=== PATIENT | female | born 1935 | race Caucasian/White ===

== ENCOUNTER → 2016-10-02 | Outpatient (CLI) | payer MEDICARE ==
[2016-10-02 10:52] LABS: Basophils % (A) 1 %; CH 33.2; CHCM 33.7; Eosinophils # (A) 0.1 k/uL (0-0.7); Eosinophils % (A) 2 %; HCT 44.9 % (34.0-46.0); HDW 2.34; HGB 15.3 gm/dL (11.4-16.0); Luc % (Auto) 3; Lymphocytes # (A) 1.2 k/uL (1.0-4.8); Lymphocytes % (A) 15 %; MCH 33.8 pg (25.0-35.0); MCHC 34.1 g/dL (31.0-37.0); MCV 99.2 fL (80.0-100.0); Mean Platelet Volume 7.4; Monocytes # (A) 0.3 k/uL (0-1.0); Monocytes % (A) 4 %; Neutrophils # (A) 5.9 k/uL (1.3-7.7); Neutrophils % (A) 76 %; RBC 4.53 m/uL (3.80-5.40); RDW 13.5 % (11.5-15.5); WBC 7.8 k/uL (3.8-10.6)
[2016-10-02 12:39] LABS: ALT 35 U/L (9-52); AST 35 U/L (14-36); Alkaline Phosphatase 76 U/L (38-126); Anion Gap 9 mmol/L; Blood Urea Nitrogen 20 mg/dL (7-17); Calcium 10.2 mg/dL (8.4-10.2); Carbon Dioxide 30 mmol/L (22-30); Chloride 102 mmol/L (98-107); Glucose 101 mg/dL (74-99); Non-African American GFR(MDRD) >60 (>60 ml/min/1.73 sqM); Potassium 3.8 mmol/L (3.5-5.1); Sodium 141 mmol/L (137-145); Total Bilirubin 0.7 mg/dL (0.2-1.3); Total Protein 7.8 g/dL (6.3-8.2)
[2016-10-02 12:53] LABS: Erythrocyte Sedimentation Rate 11 mm/hr (0-20)
[2016-10-02 13:32] LABS: Vitamin B12 >1000 pg/mL
== END | disposition home or self-care (01) ==
LOC: LABWHC1 10:26
PROVIDERS: ATTEND Internal Medicine
DX: R42 Dizziness and giddiness (principal)
CPT/HCPCS: 36415; 80053; 82607; 84439; 84443; 85025; 85652; 86038

== ENCOUNTER → 2017-09-30 | Outpatient (CLI) | payer MEDICARE ==
[2017-09-30 12:53] LABS: Basophils # (A) 0.1 k/uL (0-0.2); Basophils % (A) 1 %; Eosinophils # (A) 0.1 k/uL (0-0.7); Eosinophils % (A) 1 %; HCT 41.4 % (34.0-46.0); HGB 14.7 gm/dL (11.4-16.0); Lymphocytes # (A) 1.4 k/uL (1.0-4.8); Lymphocytes % (A) 18 %; MCH 33.4 pg (25.0-35.0); MCHC 35.4 g/dL (31.0-37.0); MCV 94.4 fL (80.0-100.0); Mean Platelet Volume 7.9; Monocytes # (A) 0.5 k/uL (0-1.0); Monocytes % (A) 6 %; Neutrophils # (A) 5.7 k/uL (1.3-7.7); Neutrophils % (A) 72 %; Platelet Count 256 k/uL (150-450); RBC 4.39 m/uL (3.80-5.40); RDW 13.1 % (11.5-15.5); WBC 7.9 k/uL (3.8-10.6)
[2017-09-30 13:28] LABS: Albumin 4.5 g/dL (3.5-5.0); Calcium 10.4 mg/dL (8.4-10.2); Potassium 3.8 mmol/L (3.5-5.1); Total Bilirubin 0.6 mg/dL (0.2-1.3); Total Protein 7.6 g/dL (6.3-8.2)
[2017-09-30 13:45] LABS: T4, Free (Free Thyroxine) 1.29 ng/dL (0.78-2.19)
[2017-09-30 14:08] LABS: Erythrocyte Sedimentation Rate 13 mm/hr (0-20)
== END | disposition home or self-care (01) ==
LOC: LABWHC1 12:02
PROVIDERS: ATTEND Internal Medicine
DX: I10 Essential (primary) hypertension (principal); E78.5 Hyperlipidemia, unspecified; E55.9 Vitamin D deficiency, unspecified; R53.1 Weakness
CPT/HCPCS: 36415; 80053; 80061; 82306; 82607; 84439; 84443; 85025; 85652

== ENCOUNTER 2018-03-23 09:30 | Emergency (ER) | payer MEDICARE ==
[2018-03-23] MEDS ORDERED: SODIUM CHLORIDE 0.9% 1,000 ML IV STA (09:58)
[2018-03-23] MEDS ORDERED: SODIUM CHLORIDE 0.9% 500 ML IV STA (09:58)
--- NOTE | 2018-03-23 10:13 | ED ---
General Adult HPI - General Chief complaint: Recheck/Abnormal Lab/Rx Stated complaint: CRAMP, SLEEPLESSNESS Time Seen by Provider: 03/23/18 09:47 Source: patient, RN notes reviewed Mode of arrival: wheelchair Limitations: no limitations - History of Present Illness Initial comments: This is a 82-year-old female who is on diuretics who presents with complaints of 3 days of generalized cramps the last 4 hours at times. She states she's had some any episodes of cramps. She's not been able sleep last several nights. Currently she is pain-free she has a fevers chills nausea vomiting sweats no focal weakness. No palpitations or other symptoms. - Related Data Home Medications Medication Instructions Recorded Confirmed Atenolol/Chlorthalidone [Tenoretic 0.5 tab PO DAILY 01/20/15 03/23/18 50 Tablet] Fluticasone Nasal [place] [Flonase 1 spray EA NOSTRIL DAILY PRN 06/27/17 03/23/18 Nasal [place]] Fluticasone/Salmeterol [Advair Hfa 2 puff INHALATION RT-BID 06/27/17 03/23/18 115-21 Mcg Inhaler] amLODIPine [Norvasc] 5 mg PO DAILY 06/27/17 03/23/18 clonazePAM [KlonoPIN] 0.5 mg PO HS 06/27/17 03/23/18 Albuterol Inhaler [Ventolin Hfa 1 - 2 puff INHALATION RT-Q6H PRN 03/23/18 Inhaler] Fexofenadine HCl [Jacey Allergy] 180 mg PO DAILY 03/23/18 03/23/18 Furosemide [Lasix] 20 mg PO DAILY 03/23/18 03/23/18 Magnesium 200 mg PO DAILY 03/23/18 03/23/18 Previous Rx's Medication Instructions Recorded Magnesium 200 mg PO DAILY #15 tablet 03/23/18 Allergies Allergy/AdvReac Type Severity Reaction Status Date / Time amoxicillin Allergy Rash/Hives Verified 03/23/18 10:27 fluconazole [From Diflucan] Allergy Unknown Verified 03/23/18 10:27 moxifloxacin HCl Allergy Rash/Hives Verified 03/23/18 10:27 [From Avelox] sulfamethoxazole Allergy Rash/Hives Verified 03/23/18 10:27 [From Bactrim] trimethoprim [From Bactrim] Allergy Rash/Hives Verified 03/23/18 10:27 Review of Systems ROS Statement: Those systems with pertinent positive or pertinent negative responses have been documented in the HPI. ROS Other: All systems not noted in ROS Statement are negative. Past Medical History Past Medical History: COPD, Hypertension Additional Past Medical History / Comment(s): diverticulosis History of Any Multi-Drug Resistant Organisms: None Reported Past Surgical History: Hysterectomy Past Psychological History: No Psychological Hx Reported Smoking Status: Former smoker Past Alcohol Use History: Occasional Past Drug Use History: None Reported General Exam - General Exam Comments Initial Comments: This is a well-developed well-nourished awake alert oriented 3 female Limitations: no limitations General appearance: alert, in no apparent distress Head exam: Present: atraumatic, normocephalic, normal inspection Eye exam: Present: normal appearance, PERRL, EOMI. Absent: scleral icterus, conjunctival injection, periorbital swelling ENT exam: Present: mucous membranes dry Neck exam: Present: normal inspection. Absent: tenderness, meningismus, lymphadenopathy Respiratory exam: Present: normal lung sounds bilaterally. Absent: respiratory distress, wheezes, rales, rhonchi, stridor Cardiovascular Exam: Present: regular rate, normal rhythm, normal heart sounds. Absent: systolic murmur, diastolic murmur, rubs, gallop, clicks GI/Abdominal exam: Present: soft, normal bowel sounds. Absent: distended, tenderness, guarding, rebound, rigid Extremities exam: Present: normal inspection, full ROM, normal capillary refill. Absent: tenderness, pedal edema, joint swelling, calf tenderness Back exam: Present: normal inspection Neurological exam: Present: alert, oriented X3, CN II-XII intact Psychiatric exam: Present: normal affect, normal mood Skin exam: Present: warm, dry, intact, normal color. Absent: rash Course Vital Signs 03/23/18 09:33 Temperature 97.5 F L Pulse Rate 89 Respiratory 18 Rate Blood Pressure 137/70 O2 Sat by Pulse 91 L Oximetry EKG Findings - EKG Results: EKG: interpreted by SUSAN, sinus rhythm (Normal sinus rhythm a 76. A 178 QRS duration 88 QT since QTC 384/432 this is a normal-appearing EKG) Medical Decision Making - Medical Decision Making I did discuss the findings with the patient. She will be receiving IV and easy him and be discharged he'll follow-up with her doctor return when necessary - Lab Data Result diagrams: 03/23/18 10:27 03/23/18 10:27 Lab Results 03/23/18 03/23/18 Range/Units 10:27 10:27 WBC 6.8 (3.8-10.6) k/uL RBC 4.63 (3.80-5.40) m/uL Hgb 14.5 (11.4-16.0) gm/dL Hct 44.2 (34.0-46.0) % MCV 95.5 (80.0-100.0) fL MCH 31.4 (25.0-35.0) pg MCHC 32.9 (31.0-37.0) g/dL RDW 13.1 (11.5-15.5) % Plt Count 274 (150-450) k/uL Neutrophils % 78 % Lymphocytes % 9 % Monocytes % 5 % Eosinophils % 5 % Basophils % 0 % Neutrophils # 5.3 (1.3-7.7) k/uL Lymphocytes # 0.6 L (1.0-4.8) k/uL Monocytes # 0.4 (0-1.0) k/uL Eosinophils # 0.3 (0-0.7) k/uL Basophils # 0.0 (0-0.2) k/uL Sodium 131 L (137-145) mmol/L Potassium 4.2 (3.5-5.1) mmol/L Chloride 90 L (98-107) mmol/L Carbon Dioxide 34 H (22-30) mmol/L Anion Gap 7 mmol/L BUN 18 H (7-17) mg/dL Creatinine 0.79 (0.52-1.04) mg/dL Est GFR (CKD-EPI)AfAm 83 (>60 ml/min/1.73 sqM) Est GFR (CKD-EPI)NonAf 72 (>60 ml/min/1.73 sqM) Glucose 116 H (74-99) mg/dL Calcium 9.9 (8.4-10.2) mg/dL Magnesium 1.3 L (1.6-2.3) mg/dL Total Bilirubin 0.6 (0.2-1.3) mg/dL AST 30 (14-36) U/L ALT 31 (9-52) U/L Alkaline Phosphatase 77 (38-126) U/L Total Protein 6.7 (6.3-8.2) g/dL Albumin 3.6 (3.5-5.0) g/dL Disposition Clinical Impression: Myalgia, Hypomagnesemia, Dehydration Disposition: HOME SELF-CARE Condition: Good Instructions: Musculoskeletal Pain (ED), Hypomagnesemia (ED), Dehydration (ED) Prescriptions: Magnesium 200 mg PO DAILY #15 tablet Is patient prescribed a controlled substance at d/c from ED?: No Referrals: Gabriel Townsend MD [Primary Care Provider] - 1-2 days
[2018-03-23 10:43] LABS: Basophils % (A) 0 %; Eosinophils # (A) 0.3 k/uL (0-0.7); Eosinophils % (A) 5 %; HCT 44.2 % (34.0-46.0); HGB 14.5 gm/dL (11.4-16.0); Lymphocytes # (A) 0.6 k/uL (1.0-4.8); Lymphocytes % (A) 9 %; MCH 31.4 pg (25.0-35.0); MCHC 32.9 g/dL (31.0-37.0); MCV 95.5 fL (80.0-100.0); Mean Platelet Volume 6.3; Monocytes # (A) 0.4 k/uL (0-1.0); Monocytes % (A) 5 %; Neutrophils # (A) 5.3 k/uL (1.3-7.7); Neutrophils % (A) 78 %; Platelet Count 274 k/uL (150-450); RBC 4.63 m/uL (3.80-5.40); RDW 13.1 % (11.5-15.5); WBC 6.8 k/uL (3.8-10.6)
[2018-03-23 10:54] LABS: Albumin 3.6 g/dL (3.5-5.0); Calcium 9.9 mg/dL (8.4-10.2); Magnesium 1.3 mg/dL (1.6-2.3); Potassium 4.2 mmol/L (3.5-5.1); Total Bilirubin 0.6 mg/dL (0.2-1.3); Total Protein 6.7 g/dL (6.3-8.2)
[2018-03-23] MEDS ORDERED: MAGNESIUM SULFATE-D5W PMX 1 GM in DEXTROSE/WATER 1 100ML.BAG IVPB ONE (11:16)
[2018-03-23 12:51] VITALS: BP 122/68; PULSE 74; RESP 20; TEMP 97.8
== END 2018-03-23 12:51 | disposition home or self-care (01) ==
LOC: EC 09:30
DX: E86.0 Dehydration (principal); E83.42 Hypomagnesemia; M79.1 Myalgia; J44.9 Chronic obstructive pulmonary disease, unspecified; I10 Essential (primary) hypertension; Z87.891 Personal history of nicotine dependence; Z79.51 Long term (current) use of inhaled steroids; Z79.899 Other long term (current) drug therapy; Z88.0 Allergy status to penicillin; Z88.1 Allergy status to other antibiotic agents; Z88.2 Allergy status to sulfonamides
CPT/HCPCS: 36415; 93005; 80053; 83735; 85025; 99283; 96365; 96361; J3475

== ENCOUNTER → 2018-04-21 | Outpatient (CLI) | payer MEDICARE | END | disposition home or self-care (01) | LOC: LABWHC1 09:58 | PROVIDERS: ATTEND Internal Medicine | DX: E61.2 Magnesium deficiency (principal) | CPT/HCPCS: 36415; 83735 ==

== ENCOUNTER 2018-11-14 14:57 | Inpatient (IN) | payer MEDICARE ==
[2018-11-14] MEDS ORDERED: SODIUM CHLORIDE 0.9% 500 ML 500 ML IV STA (15:17)
[2018-11-14] MEDS ORDERED: ALBUTEROL NEBULIZED 2.5 MG/3 ML INHALATION STA (15:17)
[2018-11-14] MEDS ORDERED: IPRATROPIUM 0.5 MG/2.5 ML NEBU INHALATION STA (15:17)
[2018-11-14] MEDS ORDERED: DEXAMETHASONE SOD PHOSPHATE 10 MG/ML 1 ML VIAL IV STA (15:18)
--- NOTE | 2018-11-14 15:22 | ED ---
General Adult HPI - General Chief complaint: Shortness of Breath Stated complaint: SOB Time Seen by Provider: 11/14/18 15:12 Source: patient Mode of arrival: wheelchair Limitations: no limitations - History of Present Illness Initial comments: Dictation was produced using [employer] dictation software. please excuse any grammatical, word or spelling errors. Chief Complaint: 83-year-old female past medical history of COPD and hypertension presents with difficulty breathing 1 week. History of Present Illness: Patient is 83-year-old female she has chronic history of COPD. She states she's been short of breath. Prostate 1 week. 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 Patient states that her shortness of breath has been increasing for the last 7 days. She states that her symptoms did not improve puncture to the emergency department. Patient has no pain complaints at this time. Denies any history of blood clots. Patient does have inhalers at home however feels as though her inhalers have not been working recently. Patient denies any cardiac history. Denies any sore throat, chest pain, cough, constitutional symptoms. The ROS documented in this emergency department record has been reviewed and confirmed by me. Those systems with pertinent positive or negative responses have been documented in the HPI. All other systems are other negative and/or noncontributory. PHYSICAL EXAM: General Impression: Alert and oriented x3, breathing through pursed lips HEENT: Normocephalic atraumatic, extra-ocular movements intact, pupils equal and reactive to light bilaterally, mucous membranes moist. Cardiovascular: Heart regular rate and rhythm, S1&S2 audible, no murmurs, rubs or gallops Chest: Diminished bilateral lung sounds with mild end expiratory wheezing. Abdomen: Bowel sounds present, abdomen soft, non-tender, non-distended, no organomegaly Musculoskeletal: Pulses present and equal in all extremities, no peripheral edema Motor: no focal deficits noted Neurological: CN II-XII grossly intact, no focal motor or sensory deficits noted Skin: Intact with no visualized rashes Psych: Normal affect and mood ED course: 83-year-old female past medical history of COPD presents with chief complaint of shortness of breath. Signs upon arrival shows 90% on 2 L is cannula, rest of vital signs within acceptable limits. Clinical presentation is suspicious for COPD exacerbation. Patient ordered breathing treatment and corticosteroids.Patient given a breathing treatment with persistent dyspnea. Patient another breathing treatment. Patient continues to require supplemental oxygen. Given patient's clinical presentation is consistent with COPD exacerbation and hypoxic respiratory failure. Patient be admitted. She is given corticosteroids, breathing treatments, supplemental oxygen, antibiotics. Patient understandable agreeable to admission. EKG interpretation: Ventricular rate 89, sinus rhythm, NE interval 18, QRS 90, QTC 462. No NE prolongation, no QTC prolongation, no ST or T-wave changes noted. Overall, this EKG is unremarkable - Related Data Home Medications Medication Instructions Recorded Confirmed Atenolol/Chlorthalidone [Tenoretic 0.5 tab PO DAILY 01/20/15 03/23/18 50 Tablet] Fluticasone Nasal [place] [Flonase 1 spray EA NOSTRIL DAILY PRN 06/27/17 03/23/18 Nasal [place]] Fluticasone/Salmeterol [Advair Hfa 2 puff INHALATION RT-BID 06/27/17 03/23/18 115-21 Mcg Inhaler] amLODIPine [Norvasc] 5 mg PO DAILY 06/27/17 03/23/18 clonazePAM [KlonoPIN] 0.5 mg PO HS 06/27/17 03/23/18 Albuterol Inhaler [Ventolin Hfa 1 - 2 puff INHALATION RT-Q6H PRN 03/23/18 03/23/18 Inhaler] Fexofenadine HCl [Jacey Allergy] 180 mg PO DAILY 03/23/18 03/23/18 Furosemide [Lasix] 20 mg PO DAILY 03/23/18 03/23/18 Magnesium 200 mg PO DAILY 03/23/18 03/23/18 Previous Rx's Medication Instructions Recorded Magnesium 200 mg PO DAILY #15 tablet 03/23/18 Allergies Allergy/AdvReac Type Severity Reaction Status Date / Time amoxicillin Allergy Rash/Hives Verified 11/14/18 16:39 fluconazole [From Diflucan] Allergy Unknown Verified 11/14/18 16:39 moxifloxacin HCl Allergy Rash/Hives Verified 11/14/18 16:39 [From Avelox] sulfamethoxazole Allergy Rash/Hives Verified 11/14/18 16:39 [From Bactrim] trimethoprim [From Bactrim] Allergy Rash/Hives Verified 11/14/18 16:39 Review of Systems ROS Statement: Those systems with pertinent positive or pertinent negative responses have been documented in the HPI. ROS Other: All systems not noted in ROS Statement are negative. Past Medical History Past Medical History: COPD, Hypertension Additional Past Medical History / Comment(s): diverticulosis History of Any Multi-Drug Resistant Organisms: None Reported Past Surgical History: Hysterectomy Past Psychological History: No Psychological Hx Reported Smoking Status: Former smoker Past Alcohol Use History: Occasional Past Drug Use History: None Reported General Exam Limitations: no limitations Course Vital Signs 11/14/18 11/14/18 11/14/18 15:05 15:24 15:39 Temperature 97.8 F Pulse Rate 94 86 85 Respiratory 18 Rate Blood Pressure 134/60 O2 Sat by Pulse 90 L Oximetry 11/14/18 11/14/18 11/14/18 15:46 15:54 16:12 Temperature Pulse Rate 87 87 92 Respiratory 18 Rate Blood Pressure 115/75 O2 Sat by Pulse 100 Oximetry 11/14/18 16:40 Temperature 98.1 F Pulse Rate 91 Respiratory 22 Rate Blood Pressure 123/63 O2 Sat by Pulse 97 Oximetry Medical Decision Making - Lab Data Result diagrams: 11/14/18 15:30 11/14/18 15:30 Lab Results 11/14/18 11/14/18 11/14/18 Range/Units 15:30 15:30 15:30 WBC 12.2 H (3.8-10.6) k/uL RBC 4.64 (3.80-5.40) m/uL Hgb 14.8 (11.4-16.0) gm/dL Hct 43.6 (34.0-46.0) % MCV 94.0 (80.0-100.0) fL MCH 31.9 (25.0-35.0) pg MCHC 33.9 (31.0-37.0) g/dL RDW 13.5 (11.5-15.5) % Plt Count 352 (150-450) k/uL Neutrophils % 82 % Lymphocytes % 9 % Monocytes % 4 % Eosinophils % 3 % Basophils % 0 % Neutrophils # 10.0 H (1.3-7.7) k/uL Lymphocytes # 1.1 (1.0-4.8) k/uL Monocytes # 0.5 (0-1.0) k/uL Eosinophils # 0.4 (0-0.7) k/uL Basophils # 0.0 (0-0.2) k/uL PT (9.0-12.0) sec INR (<1.2) APTT (22.0-30.0) sec Sodium 132 L (137-145) mmol/L Potassium 3.5 (3.5-5.1) mmol/L Chloride 95 L (98-107) mmol/L Carbon Dioxide 25 (22-30) mmol/L Anion Gap 12 mmol/L BUN 18 H (7-17) mg/dL Creatinine 0.49 L (0.52-1.04) mg/dL Est GFR (CKD-EPI)AfAm >90 (>60 ml/min/1.73 sqM) Est GFR (CKD-EPI)NonAf >90 (>60 ml/min/1.73 sqM) Glucose 132 H (74-99) mg/dL Calcium 10.4 H (8.4-10.2) mg/dL Total Bilirubin 0.5 (0.2-1.3) mg/dL AST 35 (14-36) U/L ALT 30 (9-52) U/L Alkaline Phosphatase 72 (38-126) U/L Troponin I (0.000-0.034) ng/mL NT-Pro-B Natriuret Pep 113 pg/mL Total Protein 7.8 (6.3-8.2) g/dL Albumin 4.7 (3.5-5.0) g/dL 11/14/18 11/14/18 Range/Units 15:30 15:30 WBC (3.8-10.6) k/uL RBC (3.80-5.40) m/uL Hgb (11.4-16.0) gm/dL Hct (34.0-46.0) % MCV (80.0-100.0) fL MCH (25.0-35.0) pg MCHC (31.0-37.0) g/dL RDW (11.5-15.5) % Plt Count (150-450) k/uL Neutrophils % % Lymphocytes % % Monocytes % % Eosinophils % % Basophils % % Neutrophils # (1.3-7.7) k/uL Lymphocytes # (1.0-4.8) k/uL Monocytes # (0-1.0) k/uL Eosinophils # (0-0.7) k/uL Basophils # (0-0.2) k/uL PT 9.7 (9.0-12.0) sec INR 0.9 (<1.2) APTT 23.3 (22.0-30.0) sec Sodium (137-145) mmol/L Potassium (3.5-5.1) mmol/L Chloride (98-107) mmol/L Carbon Dioxide (22-30) mmol/L Anion Gap mmol/L BUN (7-17) mg/dL Creatinine (0.52-1.04) mg/dL Est GFR (CKD-EPI)AfAm (>60 ml/min/1.73 sqM) Est GFR (CKD-EPI)NonAf (>60 ml/min/1.73 sqM) Glucose (74-99) mg/dL Calcium (8.4-10.2) mg/dL Total Bilirubin (0.2-1.3) mg/dL AST (14-36) U/L ALT (9-52) U/L Alkaline Phosphatase (38-126) U/L Troponin I <0.012 (0.000-0.034) ng/mL NT-Pro-B Natriuret Pep pg/mL Total Protein (6.3-8.2) g/dL Albumin (3.5-5.0) g/dL Disposition Clinical Impression: COPD exacerbation, Acute respiratory failure with hypoxia Disposition: ADMITTED IP TO THIS HOSP Condition: Fair Referrals: Gabriel Townsend MD [Primary Care Provider] - 1-2 days Decision Time: 16:51
[2018-11-14 15:47] LABS: Basophils % (A) 0 %; Eosinophils # (A) 0.4 k/uL (0-0.7); Eosinophils % (A) 3 %; HCT 43.6 % (34.0-46.0); HGB 14.8 gm/dL (11.4-16.0); Lymphocytes # (A) 1.1 k/uL (1.0-4.8); Lymphocytes % (A) 9 %; MCH 31.9 pg (25.0-35.0); MCHC 33.9 g/dL (31.0-37.0); Mean Platelet Volume 7.1; Monocytes # (A) 0.5 k/uL (0-1.0); Monocytes % (A) 4 %; Neutrophils % (A) 82 %; Platelet Count 352 k/uL (150-450); RBC 4.64 m/uL (3.80-5.40); RDW 13.5 % (11.5-15.5); WBC 12.2 k/uL (3.8-10.6)
[2018-11-14 15:59] LABS: INR 0.9 (<1.2); Partial Thromboplastin Time 23.3 sec (22.0-30.0); Prothrombin Time 9.7 sec (9.0-12.0)
[2018-11-14 16:09] LABS: ALT 30 U/L (9-52); AST 35 U/L (14-36); Albumin 4.7 g/dL (3.5-5.0); Alkaline Phosphatase 72 U/L (38-126); Anion Gap 12 mmol/L; Blood Urea Nitrogen 18 mg/dL (7-17); Calcium 10.4 mg/dL (8.4-10.2); Carbon Dioxide 25 mmol/L (22-30); Chloride 95 mmol/L (98-107); Glucose 132 mg/dL (74-99); Potassium 3.5 mmol/L (3.5-5.1); Sodium 132 mmol/L (137-145); Total Bilirubin 0.5 mg/dL (0.2-1.3); Total Protein 7.8 g/dL (6.3-8.2)
--- NOTE | 2018-11-14 16:39 | XR ---
EXAMINATION TYPE: XR chest 2V DATE OF EXAM: 11/14/2018 COMPARISON: 09/17/2018 HISTORY: Short of breath TECHNIQUE: Frontal and lateral views of the chest are obtained. FINDINGS: There is pulmonary hyperinflation and flattening of the diaphragm. There are emphysematous changes in the upper lobes. Heart size is normal. There is no pleural effusion. There is no heart fa ilure. Bony thorax appears intact. There are some linear density in the lingula left upper lobe consi stent with scarring. IMPRESSION: COPD and mild pulmonary fibrosis. No change compared to old exam. Normal heart.
[2018-11-14] MEDS ORDERED: AZITHROMYCIN 500 MG in SODIUM CHLORIDE 0.9% 250 ML IVPB STA (16:49)
[2018-11-14] MEDS ORDERED: KETOROLAC 30 MG/ML 1 ML VIAL IVP STA (16:50)
[2018-11-14] MEDS ORDERED: FLUTICASONE 50MCG/SPRAY NASAL 16GM EA NOSTRIL PRN (19:04)
[2018-11-14] MEDS: BUDESONIDE 0.25 MG/2 ML NEBU INHALATION SCH (20:40)
[2018-11-14] MEDS: IPRATROPIUM-ALBUTEROL 3 ML NEB INHALATION SCH ×2 (20:40→22:43)
[2018-11-14] MEDS: clonazePAM 0.5 MG TAB PO SCH (22:18)
[2018-11-15] MEDS ORDERED: NON-FORMULARY DRUG (Tiotropium 18 Mcg/Puff 1 CAP) INHALATION SCH (08:00)
[2018-11-15] MEDS: LORATADINE 10 MG TAB PO SCH (08:35)
[2018-11-15] MEDS: CHLORTHALIDONE 25 MG TAB PO SCH (08:35)
[2018-11-15] MEDS: amLODIPine 5 MG TAB PO SCH (08:35)
[2018-11-15] MEDS: ATENOLOL 25 MG TAB PO SCH (08:35)
[2018-11-15] MEDS: IPRATROPIUM-ALBUTEROL 3 ML NEB INHALATION SCH ×4 (08:37→21:27)
[2018-11-15] MEDS: BUDESONIDE 0.25 MG/2 ML NEBU INHALATION SCH ×2 (08:37→21:26)
[2018-11-15] MEDS: SPIRONOLACTONE 25 MG TAB PO SCH (08:37)
--- NOTE | 2018-11-15 08:54 | P.HPIM ---
History of Present Illness This is a pleasant 83 years old female with past medical history of coronary artery disease, hypertension . Presents with worsening dyspnea of one week duration, her dyspnea is worse with exertion with mild nonsignificant cough as per patient. No sputum. No chest pain. Denies sneezing some upper respiratory tract infection. Patient uses oxygen at home at night as needed. on admission Vitas looks stable. She is saturating 94% on 2 L. She has mild leukocytosis of 12.2k. Sodium 132. Creatinine 0.4. Liver enzymes not dora vated. Chest x-ray showed COPD with mild pulmonary fibrosis. EKG: Sinus arrhythmia with rate 89 BPM, QTC 462. Nonspecific ST-T changes. On admission patient was started on a breathing treatment, Zithromax, one dose of Decadron, and continue with prednisone 40 mg daily. Patient also received IV fluid Review of Systems CONSTITUTIONAL: No fever, no malaise, no fatigue. HEENT: No recent visual problems or hearing problems. Denied any sore throat. CARDIOVASCULAR: No orthopnea, PND, no palpitations, no syncope. PULMONARY: No shortness of breath, no cough, no hemoptysis. GASTROINTESTINAL: No diarrhea, no nausea, no vomiting, no abdominal pain. Normoactive bowel sounds. NEUROLOGICAL: No headaches, no weakness, no numbness. HEMATOLOGICAL: Denies any bleeding or petechiae. GENITOURINARY: Denies any burning micturition, frequency, or urgency. MUSCULOSKELETAL/RHEUMATOLOGICAL: Denies any joint pain, swelling, or any muscle pain. ENDOCRINE: Denies any polyuria or polydipsia. Past Medical History Past Medical History: COPD, Hypertension Additional Past Medical History / Comment(s): diverticulosis History of Any Multi-Drug Resistant Organisms: None Reported Past Surgical History: Hysterectomy Past Anesthesia/Blood Transfusion Reactions: No Reported Reaction Past Psychological History: No Psychological Hx Reported Smoking Status: Former smoker Past Alcohol Use History: Occasional Past Drug Use History: None Reported - Past Family History Father Family Medical History: Coronary Artery Disease (CAD) Mother Family Medical History: Unable to Obtain Medications and Allergies Home Medications Medication Instructions Recorded Confirmed Type Atenolol/Chlorthalidone [Tenoretic 0.5 tab PO DAILY 01/20/15 11/14/18 History 50 Tablet] Fluticasone Nasal [place] [Flonase 1 spray EA NOSTRIL DAILY PRN 06/27/17 11/14/18 History Nasal [place]] Fluticasone/Salmeterol [Advair Hfa 2 puff INHALATION RT-BID 06/27/17 11/14/18 History 115-21 Mcg Inhaler] amLODIPine [Norvasc] 5 mg PO DAILY 06/27/17 11/14/18 History clonazePAM [KlonoPIN] 0.5 mg PO HS 06/27/17 11/14/18 History Albuterol Inhaler [Ventolin Hfa 1 - 2 puff INHALATION RT-Q6H PRN 03/23/18 11/14/18 History Inhaler] Fexofenadine HCl [Jacey Allergy] 180 mg PO DAILY 03/23/18 11/14/18 History Spironolactone [Aldactone] 25 mg PO MOWEFR 11/14/18 11/14/18 History Tiotropium 18 Mcg/Puff [Spiriva] 1 cap INHALATION RT-DAILY 11/14/18 11/14/18 History Allergies Allergy/AdvReac Type Severity Reaction Status Date / Time amoxicillin Allergy Rash/Hives Verified 11/14/18 17:04 fluconazole [From Diflucan] Allergy Unknown Verified 11/14/18 17:04 moxifloxacin HCl Allergy Rash/Hives Verified 11/14/18 17:04 [From Avelox] sulfamethoxazole Allergy Rash/Hives Verified 11/14/18 17:04 [From Bactrim] trimethoprim [From Bactrim] Allergy Rash/Hives Verified 11/14/18 17:04 tropicamide Allergy Unknown Verified 11/14/18 17:04 Physical Exam Vitals: Vital Signs Temp Pulse Pulse Resp BP BP Pulse Ox 11/15/18 08:00 97.5 F L 97 18 131/60 94 L 11/15/18 04:00 97.6 F 98 18 131/60 95 11/15/18 00:00 97.6 F 94 20 122/59 97 11/14/18 22:59 82 11/14/18 22:44 80 11/14/18 20:00 97.8 F 90 20 129/61 96 11/14/18 18:08 97.7 F 90 18 117/55 96 11/14/18 17:17 97.7 F 93 20 133/60 93 L 11/14/18 16:40 98.1 F 91 22 123/63 97 11/14/18 16:12 92 11/14/18 15:54 87 11/14/18 15:46 87 18 115/75 100 11/14/18 15:39 85 11/14/18 15:24 86 11/14/18 15:05 97.8 F 94 18 134/60 90 L Intake and Output 11/14/18 11/15/18 11/15/18 22:59 06:59 14:59 Intake Total 120 360 Balance 120 360 Intake: Oral 120 360 Other: # Voids 1 1 # Bowel Movements 1 Weight 47.627 kg 47 kg GENERAL: The patient is alert and oriented x3, not in any acute distress. Well developed, well nourished. HEENT: Pupils are round and equally reacting to light. EOMI. No scleral icterus. No conjunctival pallor. Normocephalic, atraumatic. No pharyngeal erythema. No thyromegaly. CARDIOVASCULAR: S1 and S2 present. No murmurs, rubs, or gallops. PULMONARY: Chest is clear to auscultation, no wheezing or crackles. ABDOMEN: Soft, nontender, nondistended, normoactive bowel sounds. No palpable organomegaly. MUSCULOSKELETAL: No joint swelling or deformity. EXTREMITIES: No cyanosis, clubbing, or pedal edema. NEUROLOGICAL: Gross neurological examination did not reveal any focal deficits. SKIN: No rashes. Results CBC & Chem 7: 11/14/18 15:30 11/14/18 15:30 Labs: Abnormal Lab Results - Last 24 Hours (Table) 11/14/18 11/14/18 Range/Units 15:30 15:30 WBC 12.2 H (3.8-10.6) k/uL Neutrophils # 10.0 H (1.3-7.7) k/uL Sodium 132 L (137-145) mmol/L Chloride 95 L (98-107) mmol/L BUN 18 H (7-17) mg/dL Creatinine 0.49 L (0.52-1.04) mg/dL Glucose 132 H (74-99) mg/dL Calcium 10.4 H (8.4-10.2) mg/dL Thrombosis Risk Factor Assmnt - Choose All That Apply Any of the Below Risk Factors Present?: Yes Each Risk Factor Represents 3 Points: Age 75 years or older Thrombosis Risk Factor Assessment Total Risk Factor Score: 3 Thrombosis Risk Factor Assessment Level: Moderate Risk Assessment and Plan Assessment: Acute COPD exacerbation Possible acute tracheobronchitis Essential hypertension History of coronary artery disease Plan: This is a pleasant 83 years old female who presents with COPD acute exa cerbation. Pulmonary consult is called by the ED team. Continue with steroids, antibiotics, breathing treatments and oxygen therapy. Labs and medication were reviewed.. Continue same treatment. Continue with symptomatic treatment. Resume home medication. Monitor lytes and vitals. DVT and GI prophylaxis. Further recommendations of the clinical course of the patient DVT prophylaxis: Subcutaneous heparin GI Prophylaxis: Pepcid PT/OT: Pending Prognosis is guarded
[2018-11-15] MEDS ORDERED: FAMOTIDINE 20 MG/2 ML VIAL IV SCH (09:00)
[2018-11-15] MEDS ORDERED: predniSONE 20 MG TAB PO SCH (09:00)
[2018-11-15 09:41] LABS: Basophils % (A) 0 %; Eosinophils % (A) 0 %; HCT 39.5 % (34.0-46.0); HGB 13.6 gm/dL (11.4-16.0); Lymphocytes # (A) 0.6 k/uL (1.0-4.8); Lymphocytes % (A) 9 %; MCH 33.2 pg (25.0-35.0); MCHC 34.4 g/dL (31.0-37.0); MCV 96.6 fL (80.0-100.0); Mean Platelet Volume 6.8; Monocytes # (A) 0.2 k/uL (0-1.0); Monocytes % (A) 4 %; Neutrophils # (A) 5.8 k/uL (1.3-7.7); Neutrophils % (A) 86 %; Platelet Count 309 k/uL (150-450); RBC 4.08 m/uL (3.80-5.40); WBC 6.7 k/uL (3.8-10.6)
[2018-11-15 09:54] LABS: Anion Gap 9 mmol/L; Blood Urea Nitrogen 18 mg/dL (7-17); Calcium 10.2 mg/dL (8.4-10.2); Carbon Dioxide 30 mmol/L (22-30); Chloride 94 mmol/L (98-107); Glucose 178 mg/dL (74-99); Potassium 3.9 mmol/L (3.5-5.1); Sodium 133 mmol/L (137-145)
[2018-11-15] MEDS: HEPARIN SODIUM,PORCINE 5,000 UNIT/ML 1 ML VIAL SQ SCH ×3 (12:27→21:20)
[2018-11-15] MEDS: methylPREDNISolone SOD SUCCI 125 MG/2 ML VIAL IV SCH ×3 (12:36→22:01)
--- NOTE | 2018-11-15 13:41 | P.CNPUL ---
History of Present Illness Consult date: 11/15/18 Requesting physician: Brendan Sexton Reason for consult: dyspnea, COPD, abnormal CXR/CT Chief complaint: Shortness of breath History of present illness: This is a 83-year-old white female patient with past medical history of advanced COPD, on home oxygen, came into the hospital on all 11/14/2018 with complaints of worsening dyspnea for a period of one week. She denied any fever, she did have subjective chills, but she states this is not unusual for her, she'll was feels cold. Denied any sore throat, denies any chest pain, cough, denies any nausea vomiting or diarrhea. Chest x-ray shows COPD and mild pulmonary fibrosis, no evidence of pulmonary infiltrates. White blood cell count was 12.2, hemoglobin was 14.8, sodium is 132, potassium is 3.5, chloride is 95, B1 is 18 creatinine was 0.49, troponin was negative 1, proBNP was 113, influenza screen was negative. Afebrile, hemodynamically stable, O2 sat was 90% on 2 L of oxygen, physical exam revealed diminished breath sounds with expiratory wheezes, patient was admitted as an observation status. She was started on Zithromax, nebulized bronchodilators, IV steroids, and on today's exam she is feeling slightly better. Review of Systems All systems: negative Constitutional: Denies chills, Denies fever Eyes: denies blurred vision, denies pain Ears, nose, mouth and throat: Denies headache, Denies sore throat Cardiovascular: Denies chest pain, Denies shortness of breath Respiratory: Reports dyspnea, Reports home oxygen, Reports respiratory infections, Reports wheezing, Denies cough Gastrointestinal: Denies abdominal pain, Denies diarrhea, Denies nausea, Denies vomiting Genitourinary: Denies dysuria, Denies hematuria Musculoskeletal: Denies myalgias Integumentary: Denies pruritus, Denies rash Neurological: Denies numbness, Denies weakness Psychiatric: Denies anxiety, Denies depression Endocrine: Denies fatigue, Denies weight change Past Medical History Past Medical History: COPD, Hypertension Additional Past Medical History / Comment(s): diverticulosis History of Any Multi-Drug Resistant Organisms: None Reported Past Surgical History: Hysterectomy Past Anesthesia/Blood Transfusion Reactions: No Reported Reaction Past Psychological History: No Psychological Hx Reported Smoking Status: Former smoker Past Alcohol Use History: Occasional Past Drug Use History: None Reported - Past Family History Father Family Medical History: Coronary Artery Disease (CAD) Mother Family Medical History: Unable to Obtain Medications and Allergies Home Medications Medication Instructions Recorded Confirmed Type Atenolol/Chlorthalidone [Tenoretic 0.5 tab PO DAILY 01/20/15 11/14/18 History 50 Tablet] Fluticasone Nasal [place] [Flonase 1 spray EA NOSTRIL DAILY PRN 06/27/17 11/14/18 History Nasal [place]] Fluticasone/Salmeterol [Advair Hfa 2 puff INHALATION RT-BID 06/27/17 11/14/18 History 115-21 Mcg Inhaler] amLODIPine [Norvasc] 5 mg PO DAILY 06/27/17 11/14/18 History clonazePAM [KlonoPIN] 0.5 mg PO HS 06/27/17 11/14/18 History Albuterol Inhaler [Ventolin Hfa 1 - 2 puff INHALATION RT-Q6H PRN 03/23/18 11/14/18 History Inhaler] Fexofenadine HCl [Jacey Allergy] 180 mg PO DAILY 03/23/18 11/14/18 History Spironolactone [Aldactone] 25 mg PO MOWEFR 11/14/18 11/14/18 History Tiotropium 18 Mcg/Puff [Spiriva] 1 cap INHALATION RT-DAILY 11/14/18 11/14/18 History Allergies Allergy/AdvReac Type Severity Reaction Status Date / Time amoxicillin Allergy Rash/Hives Verified 11/14/18 17:04 fluconazole [From Diflucan] Allergy Unknown Verified 11/14/18 17:04 moxifloxacin HCl Allergy Rash/Hives Verified 11/14/18 17:04 [From Avelox] sulfamethoxazole Allergy Rash/Hives Verified 11/14/18 17:04 [From Bactrim] trimethoprim [From Bactrim] Allergy Rash/Hives Verified 11/14/18 17:04 tropicamide Allergy Unknown Verified 11/14/18 17:04 Physical Exam Vitals: Vital Signs Temp Pulse Pulse Resp BP BP Pulse Ox 11/15/18 12:00 97.4 F L 94 18 128/57 94 L 11/15/18 11:50 18 11/15/18 11:48 88 11/15/18 11:36 80 11/15/18 08:52 84 11/15/18 08:40 88 11/15/18 08:00 97.5 F L 97 18 131/60 94 L 11/15/18 04:00 97.6 F 98 18 131/60 95 11/15/18 00:00 97.6 F 94 20 122/59 97 11/14/18 22:59 82 11/14/18 22:44 80 11/14/18 20:00 97.8 F 90 20 129/61 96 11/14/18 18:08 97.7 F 90 18 117/55 96 11/14/18 17:17 97.7 F 93 20 133/60 93 L 11/14/18 16:40 98.1 F 91 22 123/63 97 11/14/18 16:12 92 11/14/18 15:54 87 11/14/18 15:46 87 18 115/75 100 11/14/18 15:39 85 11/14/18 15:24 86 11/14/18 15:05 97.8 F 94 18 134/60 90 L Intake and Output 11/14/18 11/15/18 11/15/18 22:59 06:59 14:59 Intake Total 120 360 Balance 120 360 Intake: Oral 120 360 Other: # Voids 1 1 # Bowel Movements 1 Weight 47.627 kg 47 kg GENERAL EXAM: Alert, pleasant, 83-year-old female, on 2 L of oxygen comfortable in no apparent distress. HEAD: Normocephalic/atraumatic. EYES: Normal reaction of pupils, equal size. Conjunctiva pink, sclera white. NOSE: Clear with pink turbinates. THROAT: No erythema or exudates. NECK: No masses, no JVD, no thyroid enlargement, no adenopathy. CHEST: No chest wall deformity. Symmetrical expansion. LUNGS: Equal air entry with diminished breath sounds bilaterally, prolongation of expiratory phase CVS: Regular rate and rhythm, normal S1 and S2, no gallops, no murmurs, no rubs ABDOMEN: Soft, nontender. No hepatosplenomegaly, normal bowel sounds, no guarding or rigidity. EXTREMITIES: No clubbing, no edema, no cyanosis, 2+ pulses and upper and lower extremities. MUSCULOSKELETAL: Muscle strength and tone normal. SPINE: No scoliosis or deformity SKIN: No rashes CENTRAL NERVOUS SYSTEM: Alert and oriented -3. No focal deficits, tone is normal in all 4 extremities. PSYCHIATRIC: Alert and oriented -3. Appropriate affect. Intact judgment and insight. Results - Laboratory Findings CBC and BMP: 11/15/18 09:00 11/15/18 09:00 PT/INR, D-dimer PT 9.7 sec (9.0-12.0) 11/14/18 15:30 INR 0.9 (<1.2) 11/14/18 15:30 Abnormal lab findings: Abnormal Labs 11/14/18 11/14/18 11/15/18 15:30 15:30 09:00 WBC 12.2 H Neutrophils # 10.0 H Lymphocytes # 0.6 L Sodium 132 L Chloride 95 L BUN 18 H Creatinine 0.49 L Glucose 132 H Calcium 10.4 H 11/15/18 09:00 WBC Neutrophils # Lymphocytes # Sodium 133 L Chloride 94 L BUN 18 H Creatinine Glucose 178 H Calcium - Diagnostic Findings Chest x-ray: report reviewed, image reviewed Additional studies: EKG reviewed Assessment and Plan Plan: Assessment: #1. Dyspnea, related to acute exacerbation of chronic obstructive pulmonary disease #2. Advanced COPD, with baseline FEV1 of 0.94 L or 46% of predicted, and DLVA 35%, consistent with stage III COPD with chronic hypoxemic respiratory failure #3. Essential hypertension #4. Peripheral arterial occlusive disease #5. Chronic cor pulmonale #6. Former smoker Plan: Continue IV Solu-Medrol, continue nebulized bronchodilators, Zithromax, she will be treated for acute exacerbation of COPD, chest x-ray has been reviewed, no clear evidence of pulmonary infiltrates, no fever, influenza screen was negative. We'll continue to follow I performed a history & physical examination of the patient and discussed their management with my nurse practitioner, Nellie Burns. I reviewed the nurse practitioner's note and agree with the documented findings and plan of care. Lung sounds are positive for management sounds and prolongation of expiratory phase of breathing.. The findings and the impression was discussed with the patient. I attest to the documentation by the nurse practitioner. Time with Patient: Greater than 30
[2018-11-15] MEDS: IBUPROFEN 400 MG TAB PO PRN ×2 (15:14→21:59)
[2018-11-15] MEDS: AZITHROMYCIN 500 MG TAB PO SCH (16:31)
[2018-11-15] MEDS: clonazePAM 0.5 MG TAB PO SCH (21:19)
[2018-11-16 07:12] LABS: Glucose,Whole Blood 131 mg/dL (75-99)
[2018-11-16 07:21] LABS: Calcium 10.2 mg/dL (8.4-10.2); Potassium 4.2 mmol/L (3.5-5.1)
[2018-11-16] MEDS: methylPREDNISolone SOD SUCCI 125 MG/2 ML VIAL IV SCH ×4 (07:21→23:39)
[2018-11-16] MEDS: FAMOTIDINE 20 MG TAB PO SCH (07:38)
[2018-11-16] MEDS: HEPARIN SODIUM,PORCINE 5,000 UNIT/ML 1 ML VIAL SQ SCH ×2 (07:38→21:45)
[2018-11-16] MEDS: CHLORTHALIDONE 25 MG TAB PO SCH (07:39)
[2018-11-16] MEDS: ATENOLOL 25 MG TAB PO SCH (07:40)
[2018-11-16] MEDS: LORATADINE 10 MG TAB PO SCH (07:40)
[2018-11-16] MEDS: SPIRONOLACTONE 25 MG TAB PO SCH (07:40)
[2018-11-16] MEDS: amLODIPine 5 MG TAB PO SCH (07:40)
[2018-11-16] MEDS: IBUPROFEN 400 MG TAB PO PRN (07:43)
[2018-11-16] MEDS: IPRATROPIUM-ALBUTEROL 3 ML NEB INHALATION SCH ×4 (08:33→20:29)
[2018-11-16] MEDS: BUDESONIDE 0.25 MG/2 ML NEBU INHALATION SCH ×2 (08:33→20:29)
[2018-11-16 11:43] LABS: Glucose,Whole Blood 144 mg/dL (75-99)
--- NOTE | 2018-11-16 11:50 | P.PN ---
Subjective Progress Note Date: 11/16/18 Principal diagnosis: Shortness of breath This is a 83-year-old white female patient with past medical history of advanced COPD, on home oxygen, came into the hospital on all 11/14/2018 with complaints of worsening dyspnea for a period of one week. She denied any fever, she did have subjective chills, but she states this is not unusual for her, she'll was feels cold. Denied any sore throat, denies any chest pain, cough, denies any nausea vomiting or diarrhea. Chest x-ray shows COPD and mild pulmonary fibrosis, no evidence of pulmonary infiltrates. White blood cell count was 12.2, hemoglobin was 14.8, sodium is 132, potassium is 3.5, chloride is 95, B1 is 18 creatinine was 0.49, troponin was negative 1, proBNP was 113, influenza screen was negative. Afebrile, hemodynamically stable, O2 sat was 90% on 2 L of oxygen, physical exam revealed diminished breath sounds with expiratory wheezes, patient was admitted as an observation status. She was started on Zithromax, nebulized bronchodilators, IV steroids, and on today's exam she is feeling slightly better. On 11/15/2018 patient seen in follow-up on selective care unit, she is sitting up in the recliner, in no acute distress, she states last night she had a bad night, she had more shortness of breath and increased wheezing. On visit oxygen with pulse ox of 93%, afebrile, hemodynamically stable, lung sounds are diminished, no significant rhonchi or wheezing. Occasional cough. Patient is on antibiotic coverage in the form of Zithromax, she is on IV steroids, and nebulized bronchodilators, including she stable, she states she needs 24 hours inpatient treatment. Objective - Vital Signs Vital signs: Vital Signs Temp 97.2 F L 11/16/18 11:11 Pulse 91 11/16/18 11:11 Resp 18 11/16/18 11:11 BP 117/59 11/16/18 11:11 Pulse Ox 93 L 11/16/18 11:11 Intake & Output 11/15/18 11/16/18 11/16/18 18:59 06:59 18:59 Intake Total 600 237 Balance 600 237 Weight 47.2 kg Intake: Oral 600 237 Other: Voiding Method Toilet # Voids 1 2 # Bowel Movements 1 - Exam GENERAL EXAM: Alert, pleasant, 83-year-old female, on 2 L of oxygen comfortable in no apparent distress. HEAD: Normocephalic/atraumatic. EYES: Normal reaction of pupils, equal size. Conjunctiva pink, sclera white. NOSE: Clear with pink turbinates. THROAT: No erythema or exudates. NECK: No masses, no JVD, no thyroid enlargement, no adenopathy. CHEST: No chest wall deformity. Symmetrical expansion. LUNGS: Equal air entry with diminished breath sounds bilaterally, prolongation of expiratory phase CVS: Regular rate and rhythm, normal S1 and S2, no gallops, no murmurs, no rubs ABDOMEN: Soft, nontender. No hepatosplenomegaly, normal bowel sounds, no guarding or rigidity. EXTREMITIES: No clubbing, no edema, no cyanosis, 2+ pulses and upper and lower extremities. MUSCULOSKELETAL: Muscle strength and tone normal. SPINE: No scoliosis or deformity SKIN: No rashes CENTRAL NERVOUS SYSTEM: Alert and oriented -3. No focal deficits, tone is normal in all 4 extremities. PSYCHIATRIC: Alert and oriented -3. Appropriate affect. Intact judgment and insight. - Labs CBC & Chem 7: 11/15/18 09:00 11/16/18 06:00 Labs: Abnormal Lab Results - Last 24 Hours (Table) 11/16/18 11/16/18 11/16/18 Range/Units 06:00 06:51 11:38 Sodium 134 L (137-145) mmol/L Chloride 94 L (98-107) mmol/L BUN 29 H (7-17) mg/dL Glucose 139 H (74-99) mg/dL POC Glucose (mg/dL) 131 H 144 H (75-99) mg/dL Assessment and Plan Plan: Assessment: #1. Dyspnea, related to acute exacerbation of chronic obstructive pulmonary disease #2. Advanced COPD, with baseline FEV1 of 0.94 L or 46% of predicted, and DLVA 35%, consistent with stage III COPD with chronic hypoxemic respiratory failure #3. Essential hypertension #4. Peripheral arterial occlusive disease #5. Chronic cor pulmonale #6. Former smoker Plan: Continue current medical treatment, antibiotic coverage, current dose of IV steroids, patient still complaining of dyspnea, and wheezing, otherwise vital signs stable, no fever or chills. Clinically patient is stable, not quite back to baseline, likely benefit from the 24 hours of inpatient treatment. I performed a history & physical examination of the patient and discussed their management with my nurse practitioner, Nellie Burns. I reviewed the nurse practitioner's note and agree with the documented findings and plan of care. Lung sounds are positive for management sounds and prolongation of expiratory phase of breathing.. The findings and the impression was discussed with the patient. I attest to the documentation by the nurse practitioner. Time with Patient: Less than 30
--- NOTE | 2018-11-16 13:24 | P.PN ---
Subjective This is a pleasant 83 years old female with past medical history of coronary artery disease, hypertension . Presents with worsening dyspnea of one week duration, her dyspnea is worse with exertion with mild nonsignificant cough as per patient. No sputum. No chest pain. Denies sneezing some upper respiratory tract infection. Patient uses oxygen at home at night as needed. on admission Vitas looks stable. She is saturating 94% on 2 L. She has mild leukocytosis of 12.2k. Sodium 132. Creatinine 0.4. Liver enzymes not elevated. Chest x-ray showed COPD with mild pulmonary fibrosis. EKG: Sinus arrhythmia with rate 89 BPM, QTC 462. Nonspecific ST-T changes. On admission patient was started on a breathing treatment, Zithromax, one dose of Decadron, and continue with prednisone 40 mg daily. Patient also received IV fluid 11/16/2018 Patient is told with shortness of breath and she has expiratory wheezing. She remains on steroids. Pulmonary team are following the case. Patient agrees to stay tonight and she is demanding to be discharged tomorrow, explained for the patient independence on her clinical progress. Patient is hemodynamically stable. And labs reviewed. Sugar is controlled. Objective - Vital Signs Vital signs: Vital Signs Temp 97.2 F L 11/16/18 11:11 Pulse 96 11/16/18 12:06 Resp 18 11/16/18 11:11 BP 117/59 11/16/18 11:11 Pulse Ox 93 L 11/16/18 11:11 Intake & Output 11/15/18 11/16/18 11/16/18 18:59 06:59 18:59 Intake Total 600 237 Balance 600 237 Weight 47.2 kg Intake: Oral 600 237 Other: Voiding Method Toilet # Voids 1 2 # Bowel Movements 1 - Exam GENERAL: The patient is alert and oriented x3, not in any acute distress. Well developed, well nourished. HEENT: Pupils are round and equally reacting to light. EOMI. No scleral icterus. No conjunctival pallor. Normocephalic, atraumatic. No pharyngeal erythema. No th yromegaly. CARDIOVASCULAR: S1 and S2 present. No murmurs, rubs, or gallops. -PULMONARY: Chest is clear to auscultation, scattered bilateral expiratory wheezing ABDOMEN: Soft, nontender, nondistended, normoactive bowel sounds. No palpable organomegaly. MUSCULOSKELETAL: No joint swelling or deformity. EXTREMITIES: No cyanosis, clubbing, or pedal edema. NEUROLOGICAL: Gross neurological examination did not reveal any focal deficits. SKIN: No rashes. - Labs CBC & Chem 7: 11/15/18 09:00 11/16/18 06:00 Labs: Abnormal Lab Results - Last 24 Hours (Table) 11/16/18 11/16/18 11/16/18 Range/Units 06:00 06:51 11:38 Sodium 134 L (137-145) mmol/L Chloride 94 L (98-107) mmol/L BUN 29 H (7-17) mg/dL Glucose 139 H (74-99) mg/dL POC Glucose (mg/dL) 131 H 144 H (75-99) mg/dL Assessment and Plan Assessment: Acute COPD exacerbation Possible acute tracheobronchitis Essential hypertension History of coronary artery disease Plan: This is a pleasant 83 years old female who presents with COPD acute exacerbati on. Pulmonary consult is called by the ED team. Continue with steroids, antibiotics, breathing treatments and oxygen therapy. Labs and medication were reviewed.. Continue same treatment. Continue with symptomatic treatment. Resume home medication. Monitor lytes and vitals. DVT and GI prophylaxis. Further recommendations of the clinical course of the patient DVT prophylaxis: Subcutaneous heparin GI Prophylaxis: Pepcid PT/OT: Pending Prognosis is guarded
[2018-11-16] MEDS: INSULIN ASPART (NovoLOG) 100 UNIT/ML VIAL SQ SCH ×3 (13:32→21:48)
[2018-11-16] MEDS: AZITHROMYCIN 500 MG TAB PO SCH (16:42)
[2018-11-16 16:56] LABS: Glucose,Whole Blood 127 mg/dL (75-99)
[2018-11-16 20:55] LABS: Glucose,Whole Blood 239 mg/dL (75-99)
[2018-11-16] MEDS: clonazePAM 0.5 MG TAB PO SCH (21:49)
[2018-11-17] MEDS: methylPREDNISolone SOD SUCCI 125 MG/2 ML VIAL IV SCH ×2 (06:03→12:45)
[2018-11-17] MEDS: IBUPROFEN 400 MG TAB PO PRN (06:04)
[2018-11-17 07:14] LABS: Glucose,Whole Blood 146 mg/dL (75-99)
[2018-11-17] MEDS: IPRATROPIUM-ALBUTEROL 3 ML NEB INHALATION SCH ×3 (07:16→15:05)
[2018-11-17] MEDS: BUDESONIDE 0.25 MG/2 ML NEBU INHALATION SCH (07:16)
[2018-11-17] MEDS: LORATADINE 10 MG TAB PO SCH (08:11)
[2018-11-17] MEDS: SPIRONOLACTONE 25 MG TAB PO SCH (08:11)
[2018-11-17] MEDS: ATENOLOL 25 MG TAB PO SCH (08:11)
[2018-11-17] MEDS: FAMOTIDINE 20 MG TAB PO SCH (08:11)
[2018-11-17] MEDS: HEPARIN SODIUM,PORCINE 5,000 UNIT/ML 1 ML VIAL SQ SCH (08:11)
[2018-11-17] MEDS: amLODIPine 5 MG TAB PO SCH (08:11)
[2018-11-17] MEDS: INSULIN ASPART (NovoLOG) 100 UNIT/ML VIAL SQ SCH ×2 (08:12→12:46)
[2018-11-17] MEDS: CHLORTHALIDONE 25 MG TAB PO SCH (09:21)
[2018-11-17 11:58] LABS: Glucose,Whole Blood 206 mg/dL (75-99)
--- NOTE | 2018-11-17 13:22 | P.DS ---
Providers Date of admission: 11/14/18 16:52 Attending physician: Brendan Sexton Consults: 11/14/18 16:52 Consult Physician Routine Consulting Provider: Gabriel Townsend Consult Reason/Comments: copd Do you want consulting provider notified?: Yes Primary care physician: Gabriel Townsend [facility] Course: Diagnoses: Acute COPD exacerbation Possible acute tracheobronchitis Essential hypertension History of coronary artery disease Hospital course: This is a pleasant 53 years old female with past medical history of COPD and oxygen dependent that follows up with Dr. Scott and outpatient basis. Presents with worsening dyspnea and cough was worse phlegm. 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 She was treated with steroids, antibiotics, breathing treatments and oxygen. Patient showed interval improvement and her symptoms are improved. She is back close to her baseline. She still have symptoms in which she will be discharged on the same treatment to continue her course of antibiotics and Taper steroids. Pulmonary team evaluated the patient today and cleared her for discharge. Patient herself is a card to be discharged and she told me she has an appointment already with Dr. Scott on 11/25/2018 and she has all the contact information so and details and that that she's going to follow- up. Problems and management plan was discussed with the patient and she verbalized understanding and acceptance Patient was found stable and can be discharging guarded prognosis however she needs follow-up as an outpatient. Patient already has pulmonary appointment discharge exam Gen: patient is a AAOx3, no distress CVS: S1-S2, RRR, no murmur Lungs: B/L CTA, mild scattered wheezing Abdomen: soft, no distention, no tenderness, positive bowel sounds Extremity: no leg edema or induration Time spent more than 35 minutes Patient Condition at Discharge: Fair Plan - Discharge Summary Discharge Rx Participant: No New Discharge Prescriptions: No Action Atenolol/Chlorthalidone [Tenoretic 50 Tablet] 0.5 tab PO DAILY amLODIPine [Norvasc] 5 mg PO DAILY clonazePAM [KlonoPIN] 0.5 mg PO HS Fluticasone/Salmeterol [Advair Hfa 115-21 Mcg Inhaler] 2 puff INHALATION RT- BID Fluticasone Nasal [place] [Flonase Nasal [place]] 1 spray EA NOSTRIL DAILY PRN PRN Reason: Allergy Symptoms Fexofenadine HCl [Jacey Allergy] 180 mg PO DAILY Albuterol Inhaler [Ventolin Hfa Inhaler] 1 - 2 puff INHALATION RT-Q6H PRN PRN Reason: Shortness Of Breath Spironolactone [Aldactone] 25 mg PO MOWEFR Tiotropium 18 Mcg/Puff [Spiriva] 1 cap INHALATION RT-DAILY Discharge Medication List Atenolol/Chlorthalidone [Tenoretic 50 Tablet] 0.5 tab PO DAILY 01/20/15 [History] Fluticasone Nasal [place] [Flonase Nasal [place]] 1 spray EA NOSTRIL DAILY PRN 06/27/17 [History] Fluticasone/Salmeterol [Advair Hfa 115-21 Mcg Inhaler] 2 puff INHALATION RT-BID 06/27/17 [History] amLODIPine [Norvasc] 5 mg PO DAILY 06/27/17 [History] clonazePAM [KlonoPIN] 0.5 mg PO HS 06/27/17 [History] Albuterol Inhaler [Ventolin Hfa Inhaler] 1 - 2 puff INHALATION RT-Q6H PRN 03/23/18 [History] Fexofenadine HCl [Jacey Allergy] 180 mg PO DAILY 03/23/18 [History] Spironolactone [Aldactone] 25 mg PO MOWEFR 11/14/18 [History] Tiotropium 18 Mcg/Puff [Spiriva] 1 cap INHALATION RT-DAILY 11/14/18 [History] Follow up Appointment(s)/Referral(s): Gabriel Townsend MD [Primary Care Provider] - 12/07/18 2:00 pm (PFT then follow up with Rocío Spencer NP.) Patient Instructions/Handouts: Pulmonary Fibrosis (DC), COPD (Chronic Obstructive Pulmonary Disease) (DC)
--- NOTE | 2018-11-17 13:53 | P.PN ---
Subjective Progress Note Date: 11/17/18 Principal diagnosis: Shortness of breath This is a 83-year-old white female patient with past medical history of advanced COPD, on home oxygen, came into the hospital on all 11/14/2018 with complaints of worsening dyspnea for a period of one week. She denied any fever, she did have subjective chills, but she states this is not unusual for her, she'll was feels cold. Denied any sore throat, denies any chest pain, cough, denies any nausea vomiting or diarrhea. Chest x-ray shows COPD and mild pulmonary fibrosis, no evidence of pulmonary infiltrates. White blood cell count was 12.2, hemoglobin was 14.8, sodium is 132, potassium is 3.5, chloride is 95, B1 is 18 creatinine was 0.49, troponin was negative 1, proBNP was 113, influenza screen was negative. Afebrile, hemodynamically stable, O2 sat was 90% on 2 L of oxygen, physical exam revealed diminished breath sounds with expiratory wheezes, patient was admitted as an observation status. She was started on Zithromax, nebulized bronchodilators, IV steroids, and on today's exam she is feeling slightly better. On 11/15/2018 patient seen in follow-up on selective care unit, she is sitting up in the recliner, in no acute distress, she states last night she had a bad night, she had more shortness of breath and increased wheezing. On visit oxygen with pulse ox of 93%, afebrile, hemodynamically stable, lung sounds are diminished, no significant rhonchi or wheezing. Occasional cough. Patient is on antibiotic coverage in the form of Zithromax, she is on IV steroids, and nebulized bronchodilators, including she stable, she states she needs 24 hours inpatient treatment. On 11/17/2018 patient seen in follow-up on medical surgical floor. She is awake and alert, in no acute distress, she is on 3 L of oxygen, and this is what patient usually wears at home, her pulse ox is 95%, no fever or chills, vital si gns are stable. She states her breathing is improving, she is less dyspneic, and she has been able to tolerate ambulation. No acute events overnight, lung sounds are diminished, no wheezing, no rhonchi. From pulmonary perspective she stable for discharge home today. Objective - Vital Signs Vital signs: Vital Signs Temp 98.2 F 11/17/18 05:11 Pulse 96 11/17/18 11:17 Resp 17 11/17/18 05:11 BP 113/56 11/17/18 06:13 Pulse Ox 95 11/17/18 07:19 Intake & Output 11/16/18 11/17/18 11/17/18 18:59 06:59 18:59 Other: # Voids 1 1 - Exam GENERAL EXAM: Alert, pleasant, 83-year-old female, on 3 L of oxygen comfortable in no apparent distress. HEAD: Normocephalic/atraumatic. EYES: Normal reaction of pupils, equal size. Conjunctiva pink, sclera white. NOSE: Clear with pink turbinates. THROAT: No erythema or exudates. NECK: No masses, no JVD, no thyroid enlargement, no adenopathy. CHEST: No chest wall deformity. Symmetrical expansion. LUNGS: Equal air entry with diminished breath sounds bilaterally, prolongation of expiratory phase CVS: Regular rate and rhythm, normal S1 and S2, no gallops, no murmurs, no rubs ABDOMEN: Soft, nontender. No hepatosplenomegaly, normal bowel sounds, no guarding or rigidity. EXTREMITIES: No clubbing, no edema, no cyanosis, 2+ pulses and upper and lower extremities. MUSCULOSKELETAL: Muscle strength and tone normal. SPINE: No scoliosis or deformity SKIN: No rashes CENTRAL NERVOUS SYSTEM: Alert and oriented -3. No focal deficits, tone is normal in all 4 extremities. PSYCHIATRIC: Alert and oriented -3. Appropriate affect. Intact judgment and insight. - Labs CBC & Chem 7: 11/15/18 09:00 11/16/18 06:00 Labs: Abnormal Lab Results - Last 24 Hours (Table) 11/16/18 11/16/18 11/17/18 Range/Units 16:41 20:53 06:54 POC Glucose (mg/dL) 127 H 239 H 146 H (75-99) mg/dL 11/17/18 Range/Units 11:50 POC Glucose (mg/dL) 206 H (75-99) mg/dL Assessment and Plan Plan: Assessment: #1. Dyspnea, related to acute exacerbation of chronic obstructive pulmonary disease #2. Advanced COPD, with baseline FEV1 of 0.94 L or 46% of predicted, and DLVA 35%, consistent with stage III COPD with chronic hypoxemic respiratory failure #3. Essential hypertension #4. Peripheral arterial occlusive disease #5. Chronic cor pulmonale #6. Former smoker Plan: Patient is improving, less dyspneic, bile signs are stable, no fever or chills, no cough or chest congestion, patient can be considered for discharge home today, she can follow up with Dr. Townsend any office in 7-10 days. I performed a history & physical examination of the patient and discussed their management with my nurse practitioner, Nellie Burns. I reviewed the nurse practitioner's note and agree with the documented findings and plan of care. Lung sounds are positive for management sounds and prolongation of expiratory phase of breathing.. The findings and the impression was discussed with the patient. I attest to the documentation by the nurse practitioner. Time with Patient: Less than 30
[2018-11-17 14:17] VITALS: BP 136/74; PULSE 86; RESP 20; TEMP 98.5
== END 2018-11-17 15:13 | disposition home or self-care (01) | DRG 190 ==
LOC: EC 14:57 → 3SCARD 16:52 → 4MS4W 11-16 17:13
PROVIDERS: ADMIT Internal Medicine; ATTEND Internal Medicine
DX: J44.0 Chronic obstructive pulmonary disease with (acute) lower respiratory infection (principal); J96.21 Acute and chronic respiratory failure with hypoxia; I27.81 Cor pulmonale (chronic); J84.10 Pulmonary fibrosis, unspecified; J20.9 Acute bronchitis, unspecified; J44.1 Chronic obstructive pulmonary disease with (acute) exacerbation; I10 Essential (primary) hypertension; I77.9 Disorder of arteries and arterioles, unspecified; Z79.51 Long term (current) use of inhaled steroids; Z79.899 Other long term (current) drug therapy; Z88.0 Allergy status to penicillin; Z88.2 Allergy status to sulfonamides; Z88.8 Allergy status to other drugs, medicaments and biological substances; K57.90 Diverticulosis of intestine, part unspecified, without perforation or abscess without bleeding; Z87.891 Personal history of nicotine dependence; Z90.710 Acquired absence of both cervix and uterus; I25.10 Atherosclerotic heart disease of native coronary artery without angina pectoris; Z99.81 Dependence on supplemental oxygen; Z82.49 Family history of ischemic heart disease and other diseases of the circulatory system
CPT/HCPCS: 36415; 71046; 80048; 80053; 83880; 84484; 85025; 85610; 85730; 87502; 93005; 94640; 94644; 94760; 96361; 96365; 96375; 99285

== ENCOUNTER 2019-02-08 11:04 | Inpatient (IN) | payer MEDICARE ==
[2019-02-08] MEDS ORDERED: SODIUM CHLORIDE 0.9% 500 ML 500 ML IV STA (11:35)
[2019-02-08] MEDS ORDERED: diphenhydrAMINE 50 MG/ML 1 ML VIAL IVP STA (11:45)
[2019-02-08] MEDS ORDERED: methylPREDNISolone SOD SUCCI 125 MG/2 ML VIAL IV STA (11:46)
[2019-02-08 13:12] LABS: Partial Thromboplastin Time 22.1 sec (22.0-30.0); Prothrombin Time 10.7 sec (9.0-12.0)
[2019-02-08 13:16] LABS: Basophils % (A) 0 %; Eosinophils # (A) 0.1 k/uL (0-0.7); Eosinophils % (A) 0 %; HCT 41.2 % (34.0-46.0); HGB 13.9 gm/dL (11.4-16.0); Lymphocytes # (A) 0.9 k/uL (1.0-4.8); Lymphocytes % (A) 6 %; MCH 31.6 pg (25.0-35.0); MCHC 33.8 g/dL (31.0-37.0); MCV 93.5 fL (80.0-100.0); Mean Platelet Volume 7.2; Monocytes # (A) 0.7 k/uL (0-1.0); Monocytes % (A) 4 %; Neutrophils # (A) 13.3 k/uL (1.3-7.7); Neutrophils % (A) 89 %; Platelet Count 350 k/uL (150-450); RBC 4.41 m/uL (3.80-5.40); RDW 14.2 % (11.5-15.5); WBC 14.9 k/uL (3.8-10.6)
[2019-02-08 13:17] LABS: ALT 30 U/L (9-52); AST 32 U/L (14-36); African American GFR (CKD) >90 (>60 ml/min/1.73 sqM); Albumin 4.2 g/dL (3.5-5.0); Alkaline Phosphatase 53 U/L (38-126); Anion Gap 10 mmol/L; Blood Urea Nitrogen 18 mg/dL (7-17); Calcium 10.1 mg/dL (8.4-10.2); Carbon Dioxide 31 mmol/L (22-30); Chloride 86 mmol/L (98-107); Glucose 113 mg/dL (74-99); Sodium 127 mmol/L (137-145); Total Bilirubin 0.9 mg/dL (0.2-1.3); Total Protein 6.9 g/dL (6.3-8.2)
[2019-02-08 13:26] LABS: Potassium 3.9 mmol/L (3.5-5.1)
[2019-02-08 14:18] LABS: Appearance,Urine Clear (Clear); Bilirubin,Urine Negative (Negative); Blood,Urine Negative (Negative); Color,Urine Light Yellow; Glucose,Urine (UA) Negative (Negative); Ketones,Urine Negative (Negative); Leukocyte Esterase,Urine Negative (Negative); Nitrite,Urine Negative (Negative); Protein,Urine Negative (Negative); Specific Gravity,Urine 1.004 (1.001-1.035); Urobilinogen,Urine <2.0 mg/dL (<2.0)
--- NOTE | 2019-02-08 14:25 | XR ---
EXAMINATION TYPE: XR chest 2V DATE OF EXAM: 02/08/2019 COMPARISON: Chest x-ray November 14, 2018. HISTORY: Chest pain after beginning new medication. TECHNIQUE: Frontal and lateral views of the chest are obtained. FINDINGS: Background chronic emphysematous change with parenchymal fibrosis is redemonstrated bilater ally. There is no no suspicious focal air space opacity, pleural effusion, or pneumothorax seen. Th e cardiac silhouette size remains within normal limits with atherosclerotic change in the thoracic ao rta. The osseous structures are demineralized. IMPRESSION: Chronic emphysematous and parenchymal changes without suspicious acute pulmonary process . No significant change from prior.
--- NOTE | 2019-02-08 14:52 | ED ---
Allergic Reaction HPI - General Chief complaint: Allergic Reaction Stated complaint: POSS ALLERGIC REACTION Source: patient Mode of arrival: ambulatory Limitations: no limitations - History of Present Illness Initial Comments: 83-year-old female presented for possible ALLERGIC reaction. Patient states she's been doxycycline for upper respiratory symptoms for the past 6 days. P atient states that when she noticed her throat was scratchy. Patient is on a current prednisone steroid taper. Patient states that she is able to breathe EN small denies any difficulty. Patient states that when symptoms persisted today she was concerned ALLERGIC reaction presents emergency department for evaluation. Patient denies any shortness of breath or chest pain. She denies any nausea vomiting diarrhea or abdominal pain. Patient also may note that she had dark color stool one time. Patient has no other complaints. Patient is accompanied by her son. Remaining review of systems negative upon arrival patient appears well signs of acute distress. - Related Data Home Medications Medication Instructions Recorded Confirmed Atenolol/Chlorthalidone [Tenoretic 0.5 tab PO DAILY 01/20/15 02/08/19 50 Tablet] Fluticasone Nasal [place] [Flonase 1 spray EA NOSTRIL DAILY PRN 06/27/17 02/08/19 Nasal [place]] Fluticasone/Salmeterol [Advair Hfa 2 puff INHALATION RT-BID 06/27/17 02/08/19 115-21 Mcg Inhaler] amLODIPine [Norvasc] 5 mg PO DAILY 06/27/17 02/08/19 clonazePAM [KlonoPIN] 0.5 mg PO HS 06/27/17 02/08/19 Albuterol Inhaler [Ventolin Hfa 1 - 2 puff INHALATION RT-Q6H PRN 03/23/18 02/08/19 Inhaler] Spironolactone [Aldactone] 25 mg PO MOWEFR 11/14/18 02/08/19 Tiotropium 18 Mcg/Puff [Spiriva] 1 cap INHALATION RT-DAILY 11/14/18 02/08/19 Doxycycline Hyclate 100 mg PO BID 02/08/19 02/08/19 Levocetirizine Dihydrochloride 5 mg PO DAILY 02/08/19 02/08/19 [Xyzal] Multivitamins, Thera [Multivitamin 1 tab PO DAILY 02/08/19 02/08/19 (formulary)] guaiFENesin-DM 600/30MG [Mucinex 1 tab PO Q12HR PRN 02/08/19 02/08/19 Dm] predniSONE See Taper PO DAILY 02/08/19 02/08/19 Allergies Allergy/AdvReac Type Severity Reaction Status Date / Time amoxicillin Allergy Rash/Hives Verified 02/08/19 11:42 fluconazole [From Diflucan] Allergy Unknown Verified 02/08/19 11:42 moxifloxacin HCl Allergy Rash/Hives Verified 02/08/19 11:42 [From Avelox] sulfamethoxazole Allergy Rash/Hives Verified 02/08/19 11:42 [From Bactrim] trimethoprim [From Bactrim] Allergy Rash/Hives Verified 02/08/19 11:42 tropicamide Allergy Unknown Verified 02/08/19 11:42 Review of Systems ROS Statement: Those systems with pertinent positive or pertinent negative responses have been documented in the HPI. ROS Other: All systems not noted in ROS Statement are negative. Past Medical History Past Medical History: COPD, Hypertension Additional Past Medical History / Comment(s): diverticulosis History of Any Multi-Drug Resistant Organisms: None Reported Past Surgical History: Hysterectomy Past Anesthesia/Blood Transfusion Reactions: No Reported Reaction Past Psychological History: No Psychological Hx Reported Smoking Status: Former smoker Past Alcohol Use History: Occasional Past Drug Use History: None Reported - Past Family History Father Family Medical History: Coronary Artery Disease (CAD) Mother Family Medical History: Unable to Obtain General Exam - General Exam Comments Initial Comments: General: The patient is awake and alert, in no distress, and does not appear acutely ill. Eye: +3 mm pupils are equal, round and reactive to light, extra-ocular movements are intact. No nystagmus. There is normal conjunctiva bilaterally. No signs of icterus. Ears, nose, mouth and throat: There are moist mucous membranes and no oral lesions. Neck: The neck is supple, there is no tenderness or JVD. Cardiovascular: There is a regular rate and rhythm. No murmur, rub or gallop is appreciated. Respiratory: Lungs are clear to auscultation, respirations are non-labored, breath sounds are equal. No wheezes, stridor, rales, or rhonchi. Gastrointestinal: Soft, non-distended, non-tender abdomen without masses or organomegaly noted. There is no rebound or guarding present. Musculoskeletal: Normal ROM, no tenderness. Strength 5/5. Sensation intact. Radial pulses equal bilaterally 2+. Neurological: A&O x 3. CN II-XII intact, There are no obvious motor or sensory deficits. Coordination appears grossly intact. Speech is normal. Skin: Skin is warm and dry and no rashes or lesions are noted. No LE edema Psychiatric: Cooperative Limitations: no limitations Course Vital Signs 02/08/19 02/08/19 02/08/19 11:20 12:35 14:00 Temperature 97.4 F L Pulse Rate 85 96 77 Respiratory 22 20 18 Rate Blood Pressure 121/79 143/87 132/57 O2 Sat by Pulse 97 99 99 Oximetry 02/08/19 15:00 Temperature Pulse Rate 78 Respiratory 20 Rate Blood Pressure 132/65 O2 Sat by Pulse 99 Oximetry Medical Decision Making - Medical Decision Making 83-year-old female sitting for scracthy throat after beginning doxycycline. Patient is given Benadryl in the ER. No stridor, drooling or signs of respiratory distress. Patient began acting confused just prior to discharge. Speaking of her house blowing up. Patient did not initially present confused. Son at bedside stated, he felt she has been acting confused more than usual for the past 2 days. Patient still alert and oriented 3, despite confusion- to self, year, day of week/date, birthday, place. UA (-). Trop (-). Sodium low at 127. Leukocytosis however patient on chronic steroids. CXR (-). No focal neurological deficits. CT of the brain negative for acute process. EKG revealed atrial fibrillation with rapid ventricular response. Patient started on a Cardizem drip, 5mg/hr. patient otherwise appears well. Rectal exam is performed revealing no evidence of tarry stools light brown. No evidence of gross mariela blood. At this time we will admit patient for new onset atrial fibrillation with RVR and confusion. Dr. Samuel accepted admission after speaking with attending Dr. Phelps who reviewed patient EKG. Dr. Samuel recommended low intensity heparin. Agreeable with cardizem rate--will monitor BP. Patient agreeable with admission. Discussed findings. - Lab Data Result diagrams: 02/08/19 12:25 02/08/19 12:25 Lab Results 02/08/19 02/08/19 02/08/19 Range/Units 12:25 12:25 12:25 WBC 14.9 H (3.8-10.6) k/uL RBC 4.41 (3.80-5.40) m/uL Hgb 13.9 (11.4-16.0) gm/dL Hct 41.2 (34.0-46.0) % MCV 93.5 (80.0-100.0) fL MCH 31.6 (25.0-35.0) pg MCHC 33.8 (31.0-37.0) g/dL RDW 14.2 (11.5-15.5) % Plt Count 350 (150-450) k/uL Neutrophils % 89 % Lymphocytes % 6 % Monocytes % 4 % Eosinophils % 0 % Basophils % 0 % Neutrophils # 13.3 H (1.3-7.7) k/uL Lymphocytes # 0.9 L (1.0-4.8) k/uL Monocytes # 0.7 (0-1.0) k/uL Eosinophils # 0.1 (0-0.7) k/uL Basophils # 0.0 (0-0.2) k/uL PT 10.7 (9.0-12.0) sec INR 1.0 (<1.2) APTT 22.1 (22.0-30.0) sec Sodium 127 L (137-145) mmol/L Potassium 3.9 (3.5-5.1) mmol/L Chloride 86 L (98-107) mmol/L Carbon Dioxide 31 H (22-30) mmol/L Anion Gap 10 mmol/L BUN 18 H (7-17) mg/dL Creatinine 0.46 L (0.52-1.04) mg/dL Est GFR (CKD-EPI)AfAm >90 (>60 ml/min/1.73 sqM) Est GFR (CKD-EPI)NonAf >90 (>60 ml/min/1.73 sqM) Glucose 113 H (74-99) mg/dL Calcium 10.1 (8.4-10.2) mg/dL Total Bilirubin 0.9 (0.2-1.3) mg/dL AST 32 (14-36) U/L ALT 30 (9-52) U/L Alkaline Phosphatase 53 (38-126) U/L Troponin I (0.000-0.034) ng/mL Total Protein 6.9 (6.3-8.2) g/dL Albumin 4.2 (3.5-5.0) g/dL Urine Color Urine Appearance (Clear) Urine pH (5.0-8.0) Ur Specific [place] (1.001-1.035) Urine Protein (Negative) Urine Glucose (UA) (Negative) Urine Ketones (Negative) Urine Blood (Negative) Urine Nitrite (Negative) Urine Bilirubin (Negative) Urine Urobilinogen (<2.0) mg/dL Ur Leukocyte Esterase (Negative) 02/08/19 02/08/19 Range/Units 12:25 14:00 WBC (3.8-10.6) k/uL RBC (3.80-5.40) m/uL Hgb (11.4-16.0) gm/dL Hct (34.0-46.0) % MCV (80.0-100.0) fL MCH (25.0-35.0) pg MCHC (31.0-37.0) g/dL RDW (11.5-15.5) % Plt Count (150-450) k/uL Neutrophils % % Lymphocytes % % Monocytes % % Eosinophils % % Basophils % % Neutrophils # (1.3-7.7) k/uL Lymphocytes # (1.0-4.8) k/uL Monocytes # (0-1.0) k/uL Eosinophils # (0-0.7) k/uL Basophils # (0-0.2) k/uL PT (9.0-12.0) sec INR (<1.2) APTT (22.0-30.0) sec Sodium (137-145) mmol/L Potassium (3.5-5.1) mmol/L Chloride (98-107) mmol/L Carbon Dioxide (22-30) mmol/L Anion Gap mmol/L BUN (7-17) mg/dL Creatinine (0.52-1.04) mg/dL Est GFR (CKD-EPI)AfAm (>60 ml/min/1.73 sqM) Est GFR (CKD-EPI)NonAf (>60 ml/min/1.73 sqM) Glucose (74-99) mg/dL Calcium (8.4-10.2) mg/dL Total Bilirubin (0.2-1.3) mg/dL AST (14-36) U/L ALT (9-52) U/L Alkaline Phosphatase (38-126) U/L Troponin I <0.012 (0.000-0.034) ng/mL Total Protein (6.3-8.2) g/dL Albumin (3.5-5.0) g/dL Urine Color Light Yellow Urine Appearance Clear (Clear) Urine pH 7.0 (5.0-8.0) Ur Specific [place] 1.004 (1.001-1.035) Urine Protein Negative (Negative) Urine Glucose (UA) Negative (Negative) Urine Ketones Negative (Negative) Urine Blood Negative (Negative) Urine Nitrite Negative (Negative) Urine Bilirubin Negative (Negative) Urine Urobilinogen <2.0 (<2.0) mg/dL Ur Leukocyte Esterase Negative (Negative) Disposition Clinical Impression: New onset atrial fibrillation, Confusion, Hyponatremia Disposition: ADMITTED IP TO THIS [facility] Condition: Stable Is patient prescribed a controlled substance at d/c from ED?: No Referrals: Anish Anderson DO [Primary Care Provider] - 1-2 days Time of Disposition: 16:25 Decision to Admit Reason: Admit from EC Decision Date: 02/08/19 Decision Time: 16:25
--- NOTE | 2019-02-08 15:34 | CT ---
EXAMINATION TYPE: CT brain wo con DATE OF EXAM: 02/08/2019 COMPARISON: None HISTORY: confusion CT DLP: 1039.4 mGycm Automated exposure control for dose reduction was used. FINDINGS: Moderate degenerative change. No midline shift. Low-attenuation the white matter is nonspecific but m ost typical remote microvascular ischemia. Calvarium intact. No acute hemorrhage or mass effect. Changes of chronic mastoiditis. IMPRESSION: DEGENERATIVE AND NONSPECIFIC WHITE MATTER CHANGES MOST TYPICAL OF REMOTE MICROVASCULAR ISCHEMIA. NO A CUTE HEMORRHAGE OR MASS EFFECT. IF THERE IS CONCERN FOR ACUTE ISCHEMIA CORRELATE WITH MRI CLINICAL LY WARRANTED.
[2019-02-08] MEDS ORDERED: NALOXONE 0.4 MG/ML 1 ML VIAL IV PRN (15:47)
[2019-02-08] MEDS ORDERED: guaiFENesin-DM 600/30MG 1 EACH TAB.ER.12H PO PRN (15:56)
[2019-02-08] MEDS ORDERED: ALBUTEROL NEBULIZED 2.5 MG/3 ML INHALATION PRN (15:56)
[2019-02-08] MEDS ORDERED: niCARdipine 20 MG in SODIUM CHLORIDE 0.9% 192 ML IV SCH (16:00)
[2019-02-08] MEDS ORDERED: HEPARIN SODIUM,PORCINE 5,000 UNIT/ML 1 ML VIAL IV PRN (16:15)
[2019-02-08] MEDS ORDERED: HEPARIN SODIUM,PORCINE 5,000 UNIT/ML 1 ML VIAL IV ONE (16:15)
[2019-02-08] MEDS ORDERED: HEPARIN SOD,PORK IN 0.45% NACL 25,000 UNIT in 0.45% NACL 1 250ML.BAG IV SCH (16:15)
[2019-02-08] MEDS ORDERED: IPRATROPIUM-ALBUTEROL 3 ML NEB INHALATION PRN (16:29)
--- NOTE | 2019-02-08 16:39 | P.HPIM ---
History of Present Illness 83-year-old pleasant female was brought into hospital with the complaints of an ALLERGIC reaction patient appeared like she has a scratchy throat and throat swelling although there is no redness patient was on doxycycline, patient do esn't appear to have an ALLERGIC reaction at this time. Although patient was given a dose of Benadryl and IV steroids for her ALLERGIC reaction with a 2 confusion followed by atrial fibrillation. Although patient has significant right abnormality this including sodium of 127. Patient is on the 2 diuretics including Aldactone and chlorthalidone both of which will be discontinued. Patient is also on clonazepam which may not be appropriate at this age. He patient does take levo cetirizine at home for ALLERGIES. Is being admitted with Cardizem and IV heparin patient complained that she may have had also sustained about 3 stools, rectal exam showed brown stool without any darkness because of which we couldn't started on Hydrea and but will monitor for any GI bleed. Review of Systems REVIEW OF SYSTEMS: CONSTITUTIONAL: No fever, no malaise, no fatigue. HEENT: No recent visual problems or hearing problems. Denied any sore throat. CARDIOVASCULAR: No chest pain, orthopnea, PND, no palpitations, no syncope. PULMONARY: No shortness of breath, no cough, no hemoptysis. GASTROINTESTINAL: No diarrhea, no nausea, no vomiting, no abdominal pain. NEUROLOGICAL: No headaches, no weakness, no numbness. HEMATOLOGICAL: Denies any bleeding or petechiae. GENITOURINARY: Denies any burning micturition, frequency, or urgency. MUSCULOSKELETAL/RHEUMATOLOGICAL: Denies any joint pain, swelling, or any muscle pain. ENDOCRINE: Denies any polyuria or polydipsia. The rest of the 14-point review of systems is negative. Past Medical History Past Medical History: COPD, Hypertension Additional Past Medical History / Comment(s): diverticulosis History of Any Multi-Drug Resistant Organisms: None Reported Past Surgical History: Hysterectomy Past Anesthesia/Blood Transfusion Reactions: No Reported Reaction Past Psychological History: No Psychological Hx Reported Smoking Status: Former smoker Past Alcohol Use History: Occasional Past Drug Use History: None Reported - Past Family History Father Family Medical History: Coronary Artery Disease (CAD) Mother Family Medical History: Unable to Obtain Medications and Allergies Home Medications Medication Instructions Recorded Confirmed Type Atenolol/Chlorthalidone [Tenoretic 0.5 tab PO DAILY 01/20/15 02/08/19 History 50 Tablet] Fluticasone Nasal [place] [Flonase 1 spray EA NOSTRIL DAILY PRN 06/27/17 02/08/19 History Nasal [place]] Fluticasone/Salmeterol [Advair Hfa 2 puff INHALATION RT-BID 06/27/17 02/08/19 History 115-21 Mcg Inhaler] amLODIPine [Norvasc] 5 mg PO DAILY 06/27/17 02/08/19 History clonazePAM [KlonoPIN] 0.5 mg PO HS 06/27/17 02/08/19 History Albuterol Inhaler [Ventolin Hfa 1 - 2 puff INHALATION RT-Q6H PRN 03/23/18 02/08/19 History Inhaler] Spironolactone [Aldactone] 25 mg PO MOWEFR 11/14/18 02/08/19 History Tiotropium 18 Mcg/Puff [Spiriva] 1 cap INHALATION RT-DAILY 11/14/18 02/08/19 History Doxycycline Hyclate 100 mg PO BID 02/08/19 02/08/19 History Levocetirizine Dihydrochloride 5 mg PO DAILY 02/08/19 02/08/19 History [Xyzal] Multivitamins, Thera [Multivitamin 1 tab PO DAILY 02/08/19 02/08/19 History (formulary)] guaiFENesin-DM 600/30MG [Mucinex 1 tab PO Q12HR PRN 02/08/19 02/08/19 History Dm] predniSONE See Taper PO DAILY 02/08/19 02/08/19 History Allergies Allergy/AdvReac Type Severity Reaction Status Date / Time amoxicillin Allergy Rash/Hives Verified 02/08/19 11:42 fluconazole [From Diflucan] Allergy Unknown Verified 02/08/19 11:42 moxifloxacin HCl Allergy Rash/Hives Verified 02/08/19 11:42 [From Avelox] sulfamethoxazole Allergy Rash/Hives Verified 02/08/19 11:42 [From Bactrim] trimethoprim [From Bactrim] Allergy Rash/Hives Verified 02/08/19 11:42 tropicamide Allergy Unknown Verified 02/08/19 11:42 Physical Exam Vitals: Vital Signs Temp Pulse Resp BP Pulse Ox 02/08/19 15:00 78 20 132/65 99 07/16/19 14:00 77 18 132/57 99 02/08/19 12:35 96 20 143/87 99 02/08/19 11:20 97.4 F L 85 22 121/79 97 Intake and Output 02/08/19 02/08/19 02/08/19 06:59 14:59 22:59 Other: Weight 44.452 kg PHYSICAL EXAMINATION: GENERAL: The patient is alert and oriented x3, not in any acute distress. Thin built with dry mucous membranes the patient is alert and oriented 3. Patient to occasionally gets confused HEENT: Pupils are round and equally reacting to light. EOMI. No scleral icterus. No conjunctival pallor. Normocephalic, atraumatic. No pharyngeal erythema. No thyromegaly. CARDIOVASCULAR: S1 and S2 present. No murmurs, rubs, or gallops. PULMONARY: Chest is clear to auscultation, no wheezing or crackles. ABDOMEN: Soft, nontender, nondistended, normoactive bowel sounds. No palpable organomegaly. MUSCULOSKELETAL: No joint swelling or deformity. EXTREMITIES: No cyanosis, clubbing, or pedal edema. NEUROLOGICAL: Gross neurological examination did not reveal any focal deficits. SKIN: No rashes. Results CBC & Chem 7: 02/08/19 12:25 02/08/19 12:25 Labs: Abnormal Lab Results - Last 24 Hours (Table) 02/08/19 02/08/19 Range/Units 12:25 12:25 WBC 14.9 H (3.8-10.6) k/uL Neutrophils # 13.3 H (1.3-7.7) k/uL Lymphocytes # 0.9 L (1.0-4.8) k/uL Sodium 127 L (137-145) mmol/L Chloride 86 L (98-107) mmol/L Carbon Dioxide 31 H (22-30) mmol/L BUN 18 H (7-17) mg/dL Creatinine 0.46 L (0.52-1.04) mg/dL Glucose 113 H (74-99) mg/dL Assessment and Plan Plan: -Acute toxic encephalopathy may be related to anticholinergic side effects of Benadryl and A. fib may be related to that as well will obtain a TSH level in the patient will be monitored overnight. Patient may overall has mild dementia. -New onset atrial fibrillation with rapid ventricular rate will give a dose of metoprolol if it doesn't come down the patient was started on Cardizem echocardiogram. After cardiology was consult and patient was started on heparin. -Mild senile or vascular dementia. -COPD without any acute exacerbation patient will be resumed on inhaled steroids and inhalational treatments will not require any systemic steroids at this time -Hyponatremia: Secondary to diuretics including chlorthalidone and Aldactone both of which were discontinued patient was started on IV fluids will monitor electrolytes CODE STATUS: to be discussed with the patient
[2019-02-08] MEDS: SODIUM CHLORIDE 0.9% 1,000 ML IV SCH (16:40)
[2019-02-08] MEDS ORDERED: METOPROLOL TARTRATE 25 MG TAB PO STA (16:52)
[2019-02-08] MEDS ORDERED: DILTIAZEM 125 MG in SODIUM CHLORIDE 0.9% 100 ML IV SCH (17:00)
[2019-02-08] MEDS: SYMBICORT 160-4.5 MCG INHALER INHALATION SCH (20:24)
[2019-02-08] MEDS: IPRATROPIUM-ALBUTEROL 3 ML NEB INHALATION SCH (20:24)
[2019-02-08] MEDS ORDERED: ENOXAPARIN 40 MG/0.4 ML SYRINGE SQ SCH (21:00)
[2019-02-08] MEDS ORDERED: METOPROLOL TARTRATE 25 MG TAB PO SCH (21:00)
[2019-02-09 05:55] LABS: Basophils # (A) 0.1 k/uL (0-0.2); Basophils % (A) 0 %; Eosinophils # (A) 0.2 k/uL (0-0.7); Eosinophils % (A) 1 %; HGB 14.2 gm/dL (11.4-16.0); Lymphocytes # (A) 1.1 k/uL (1.0-4.8); Lymphocytes % (A) 6 %; MCHC 33.9 g/dL (31.0-37.0); MCV 94.3 fL (80.0-100.0); Mean Platelet Volume 6.7; Monocytes # (A) 0.9 k/uL (0-1.0); Monocytes % (A) 5 %; Neutrophils # (A) 15.7 k/uL (1.3-7.7); Neutrophils % (A) 87 %; Platelet Count 347 k/uL (150-450); RBC 4.45 m/uL (3.80-5.40); RDW 13.8 % (11.5-15.5)
[2019-02-09] MEDS: SODIUM CHLORIDE 0.9% 1,000 ML IV SCH ×2 (05:55→20:13)
[2019-02-09 06:08] LABS: African American GFR (CKD) >90 (>60 ml/min/1.73 sqM); Anion Gap 9 mmol/L; Blood Urea Nitrogen 17 mg/dL (7-17); Calcium 9.4 mg/dL (8.4-10.2); Carbon Dioxide 30 mmol/L (22-30); Chloride 91 mmol/L (98-107); Glucose 107 mg/dL (74-99); Potassium 3.2 mmol/L (3.5-5.1); Sodium 130 mmol/L (137-145)
[2019-02-09] MEDS: IPRATROPIUM-ALBUTEROL 3 ML NEB INHALATION SCH ×4 (07:42→20:23)
[2019-02-09] MEDS: SYMBICORT 160-4.5 MCG INHALER INHALATION SCH ×2 (07:42→20:26)
[2019-02-09] MEDS ORDERED: METOPROLOL TARTRATE 25 MG TAB PO SCH (08:00)
[2019-02-09] MEDS ORDERED: NON-FORMULARY DRUG (Tiotropium 18 Mcg/Puff 1 CAP) INHALATION SCH (08:00)
--- NOTE | 2019-02-09 12:06 | ECHOF ---
Referral Reason:A.Fib MEASUREMENTS -------- HEIGHT: 152.4 cm WEIGHT: 44.5 kg BP: 138/79 RVIDd: 2.5 cm (< 3.3) IVSd: 1.0 cm (0.6 - 1.1) LVIDd: 3.0 cm (3.9 - 5.3) LVPWd: 1.1 cm (0.6 - 1.1) IVSs: 1.6 cm LVIDs: 1.8 cm LVPWs: 1.4 cm LAESV Index (A-L): 20.57 ml/m Ao Diam: 2.6 cm (2.0 - 3.7) AV Cusp: 1.3 cm (1.5 - 2.6) LA Diam: 3.2 cm (2.7 - 3.8) MV EXCURSION: 10.412 mm (> 18.000) MV EF SLOPE: 23 mm/s (70 - 150) EPSS: 0.5 cm MV E Blue: 0.85 m/s MV DecT: 225 ms MV A Blue: 1.11 m/s MV E/A Ratio: 0.77 AV maxP.29 mmHg AV meanP.88 mmHg RAP: 5.00 mmHg RVSP: 42.74 mmHg FINDINGS -------- Atrial fibrillation. This was a technically adequate study. The left ventricular size is normal. There is borderline concentric left ventricular hypertrophy. There is normal global left ventricular contractility. Overall left ventricular systolic function is normal with, an EF between 60 - 65 %. Left ventricular fillimg pressure cannot be estimated due to Atrial fibrillation. The right ventricle is normal in size. Normal LA size by volume 22+/-6 ml/m2. The right atrial size is normal. Aneurysmal Interatrial septum. Aortic valve is trileaflet and is moderately thickened. There is mild to moderate aortic valve scle rosis. There is no evidence of aortic regurgitation. There is mild aortic stenosis present. Pea k/mean gradient across the Aortic Valve is 18.29mmHg / 8.88mmHg. Mild mitral annular calcification present. Mild mitral regurgitation is present. Mild tricuspid regurgitation present. There is mild to moderate pulmonary hypertension. The right ventricular systolic pressure, as measured by Doppler, is 42.74mmHg. There is no pulmonic regurgitation present. The aortic root size is normal. Normal inferior vena cava with normal inspiratory collapse consistent with estimated right atrial pre ssure of 5 mmHg. There is no pericardial effusion. CONCLUSIONS -------- 1. Atrial fibrillation. 2. This was a technically adequate study. 3. The left ventricular size is normal. 4. There is borderline concentric left ventricular hypertrophy. 5. There is normal global left ventricular contractility. 6. Overall left ventricular systolic function is normal with, an EF between 60 - 65 %. 7. Left ventricular fillimg pressure cannot be estimated due to Atrial fibrillation. 8. The right ventricle is normal in size. 9. Normal LA size by volume 22+/-6 ml/m2. 10. The right atrial size is normal. 11. Aneurysmal Interatrial septum. 12. There is mild to moderate aortic valve sclerosis. 13. There is no evidence of aortic regurgitation. 14. There is mild aortic stenosis present. 15. Peak/mean gradient across the Aortic Valve is 18.29mmHg / 8.88mmHg. 16. Mild mitral annular calcification present. 17. Mild mitral regurgitation is present. 18. Mild tricuspid regurgitation present. 19. There is mild to moderate pulmonary hypertension. 20. The right ventricular systolic pressure, as measured by Doppler, is 42.74mmHg. 21. There is no pulmonic regurgitation present. 22. The aortic root size is normal. 23. Normal inferior vena cava with normal inspiratory collapse consistent with estimated right atrial pressure of 5 mmHg. 24. There is no pericardial effusion. COMMERCIAL COORDINATOR: Bre Washington RDCS
--- NOTE | 2019-02-09 12:17 | P.CRDCN ---
History of Present Illness Consult date: 02/09/19 Requesting physician: Clement Dove Consult reason: atrial fibrillation Chief complaint: Throat swelling History of present illness: This is a pleasant 83-year-old female, the history was obtained from her son who is at bedside as the patient is quite confused this morning. She does have a history of hypertension, COPD, prior history of smoking, was apparently recently put on some doxycycline for an upper respiratory infection. The patient had been complaining that she felt her throat was swelling and had a scratchy sensation, she felt as though she may be having an ALLERGIC reaction. She did speak to her son letting him know that she felt she needed to go to the hospital. Shortly thereafter the patient's mentation change significantly and she became quite confused. According to the son, she was also noted to have a dark stool at home. On examination here, her initial EKG showed atrial fibrillation with a moderately rapid ventricular response, according to the son this is new for the patient. Chest x-ray showed chronic emphysema changes without suspicious acute pulmonary process. White blood cell count 14.9, 18 this morning, hemoglobin 13.9, 14.2 this morning, platelet count 347. Sodium on admission 127, 1:30 at this point, potassium 3.2, BUN 17 and creatinine 0.4. Troponin 0.012. A cardiogram with Doppler study was performed which revealed an ejection fraction of 60-65%. EKG shows atrial fibrillation with rapid ventricular response, according to the son this is of new onset for the patient. Blood pressure 117/70, heart rate this morning in the 80s, 100% percent on 3 L of oxygen. At the time of my examination, patient continues to be significantly confused, her son is at bedside. Son states that the patient is normally alert and oriented times3. Past Medical History Past Medical History: COPD, Hypertension Additional Past Medical History / Comment(s): diverticulosis History of Any Multi-Drug Resistant Organisms: None Reported Past Surgical History: Hysterectomy Past Anesthesia/Blood Transfusion Reactions: No Reported Reaction Past Psychological History: No Psychological Hx Reported Smoking Status: Former smoker Past Alcohol Use History: Occasional Past Drug Use History: None Reported - Past Family History Father Family Medical History: Coronary Artery Disease (CAD) Mother Family Medical History: Unable to Obtain Medications and Allergies Home Medications Medication Instructions Recorded Confirmed Type Atenolol/Chlorthalidone [Tenoretic 0.5 tab PO DAILY 01/20/15 02/08/19 History 50 Tablet] Fluticasone Nasal [place] [Flonase 1 spray EA NOSTRIL DAILY PRN 06/27/17 02/08/19 History Nasal [place]] Fluticasone/Salmeterol [Advair Hfa 2 puff INHALATION RT-BID 06/27/17 02/08/19 History 115-21 Mcg Inhaler] amLODIPine [Norvasc] 5 mg PO DAILY 06/27/17 02/08/19 History clonazePAM [KlonoPIN] 0.5 mg PO HS 06/27/17 02/08/19 History Albuterol Inhaler [Ventolin Hfa 1 - 2 puff INHALATION RT-Q6H PRN 03/23/18 02/08/19 History Inhaler] Spironolactone [Aldactone] 25 mg PO MOWEFR 11/14/18 02/08/19 History Tiotropium 18 Mcg/Puff [Spiriva] 1 cap INHALATION RT-DAILY 11/14/18 02/08/19 History Doxycycline Hyclate 100 mg PO BID 02/08/19 02/08/19 History Levocetirizine Dihydrochloride 5 mg PO DAILY 02/08/19 02/08/19 History [Xyzal] Multivitamins, Thera [Multivitamin 1 tab PO DAILY 02/08/19 02/08/19 History (formulary)] guaiFENesin-DM 600/30MG [Mucinex 1 tab PO Q12HR PRN 02/08/19 02/08/19 History Dm] predniSONE See Taper PO DAILY 02/08/19 02/08/19 History Allergies Allergy/AdvReac Type Severity Reaction Status Date / Time amoxicillin Allergy Rash/Hives Verified 02/08/19 11:42 fluconazole [From Diflucan] Allergy Unknown Verified 02/08/19 11:42 moxifloxacin HCl Allergy Rash/Hives Verified 02/08/19 11:42 [From Avelox] sulfamethoxazole Allergy Rash/Hives Verified 02/08/19 11:42 [From Bactrim] trimethoprim [From Bactrim] Allergy Rash/Hives Verified 02/08/19 11:42 tropicamide Allergy Unknown Verified 02/08/19 11:42 Physical Exam Vitals: Vital Signs Temp Pulse Pulse Resp BP BP Pulse Ox 02/09/19 11:31 80 02/09/19 11:21 80 02/09/19 07:52 78 02/09/19 07:42 76 02/09/19 04:00 97.6 F 106 H 18 138/79 97 02/09/19 00:00 97.7 F 96 18 146/67 95 02/08/19 20:47 80 02/08/19 20:33 84 02/08/19 20:00 98.0 F 96 18 121/59 95 02/08/19 18:00 98.1 F 92 20 133/83 99 02/08/19 16:53 97.9 F 104 H 20 133/83 99 02/08/19 16:00 113 H 20 128/65 99 02/08/19 15:00 78 20 132/65 99 02/08/19 14:00 77 18 132/57 99 02/08/19 12:35 96 20 143/87 99 Intake and Output 02/08/19 02/09/19 02/09/19 22:59 06:59 14:59 Intake Total 559.227 120 Balance 559.227 120 Intake: IV 525 0.9 525 Intake, IV Titration 34.227 Amount Heparin Sod,Pork in 0.45% 34.227 NaCl 25,000 unit In 0.45 % NaCl 1 250ml.bag @ 12 UNITS/KG/HR 5.334 mls/hr IV .Q24H [facility] Rx#: [id number] Oral 120 Other: Voiding Method Toilet Toilet # Voids 1 Weight 42.638 kg PHYSICAL EXAMINATION: GENERAL: 83-year-old female in no acute distress at the time of my e xamination HEENT: Head is atraumatic, normocephalic. Pupils equal, round. Sclera anicteric. Conjunctiva are clear. Mucous membranes of the mouth are moist. Neck is supple. There is no elevated jugular venous pressure. No carotid bruit is heard. HEART EXAMINATION: Heart S1 and S2 irregularly irregular CHEST EXAMINATION: Lungs are clear to auscultation and precussion. No chest wall tenderness is noted on palpation or with deep breathing. ABDOMEN: Soft, nontender. Bowel sounds are heard. No organomegaly noted. EXTREMITIES: 2+ peripheral pulses with no evidence of peripheral edema and no calf tenderness noted. NEUROLOGIC [patient is awake, pleasantly confused. Results 02/09/19 05:37 02/09/19 05:37 Cardiac Enzymes 02/08/19 02/08/19 Range/Units 12:25 12:25 AST 32 (14-36) U/L Troponin I <0.012 (0.000-0.034) ng/mL Coagulation 02/08/19 02/08/19 02/09/19 Range/Units 12:25 22:24 05:37 PT 10.7 (9.0-12.0) sec APTT 22.1 37.0 H 47.2 H (22.0-30.0) sec CBC 02/08/19 02/09/19 Range/Units 12:25 05:37 WBC 14.9 H 18.0 H (3.8-10.6) k/uL RBC 4.41 4.45 (3.80-5.40) m/uL Hgb 13.9 14.2 (11.4-16.0) gm/dL Hct 41.2 42.0 (34.0-46.0) % Plt Count 350 347 (150-450) k/uL Comprehensive Metabolic Panel 02/08/19 02/09/19 Range/Units 12:25 05:37 Sodium 127 L 130 L (137-145) mmol/L Potassium 3.9 3.2 L (3.5-5.1) mmol/L Chloride 86 L 91 L (98-107) mmol/L Carbon Dioxide 31 H 30 (22-30) mmol/L BUN 18 H 17 (7-17) mg/dL Creatinine 0.46 L 0.46 L (0.52-1.04) mg/dL Glucose 113 H 107 H (74-99) mg/dL Calcium 10.1 9.4 (8.4-10.2) mg/dL AST 32 (14-36) U/L ALT 30 (9-52) U/L Alkaline Phosphatase 53 (38-126) U/L Total Protein 6.9 (6.3-8.2) g/dL Albumin 4.2 (3.5-5.0) g/dL Current Medications Generic Name Dose Route Start Last Admin Trade Name Freq PRN Reason Stop Dose Admin Albuterol/Ipratropium 3 ml 02/08/19 16:29 Duoneb 0.5 Mg-3 Mg/3 Ml Soln INHALATION RT-QID PRN Shortness Of Breath Or Wheezing Albuterol/Ipratropium 3 ml 02/08/19 20:00 02/09/19 11:19 Duoneb 0.5 Mg-3 Mg/3 Ml Soln INHALATION 3 ml RT-QID [facility] Administration Budesonide/Formoterol Fumarate 2 puff 02/08/19 20:00 02/09/19 07:42 Symbicort 160-4.5 Mcg Inhaler INHALATION 2 puff RT-BID [facility] Administration Guaifenesin/Dextromethorphan 1 each 02/08/19 15:56 Mucinex Dm PO Q12HR PRN Congestion Heparin Sodium (Porcine) 0 unit 02/08/19 16:15 Heparin IV PER PROTOCOL PRN Low PTT Protocol Sodium Chloride 1,000 mls @ 75 mls/hr 02/08/19 16:00 02/09/19 05:55 Saline 0.9% IV 75 mls/hr .[id number] [facility] Administration Heparin Sodium/Sodium Chloride 250 mls @ 5.334 mls/hr 02/08/19 16:15 02/08/19 23:05 25,000 unit/ Sodium Chloride IV 15 units/kg/hr .Q24H [facility] 6.668 mls/hr Titration Protocol 12 UNITS/KG/HR Metoprolol Tartrate 25 mg 02/09/19 08:00 02/09/19 09:41 Lopressor PO 25 mg Q12H [facility] Administration Naloxone HCl 0.2 mg 02/08/19 15:47 Narcan IV Q2M PRN Opioid Reversal Intake and Output 02/08/19 02/09/19 02/09/19 22:59 06:59 14:59 Intake Total 559.227 120 Balance 559.227 120 Intake: IV 525 0.9 525 Intake, IV Titration 34.227 Amount Heparin Sod,Pork in 0.45% 34.227 NaCl 25,000 unit In 0.45 % NaCl 1 250ml.bag @ 12 UNITS/KG/HR 5.334 mls/hr IV .Q24H [facility] Rx#: [id number] Oral 120 Other: Voiding Method Toilet Toilet # Voids 1 Weight 42.638 kg 02/09/19 05:37 02/09/19 05:37 EKG Interpretations (text) EKG shows atrial fibrillation with a rapid ventricular Assessment and Plan Plan: Assessment and plan #1 mental status changes, could be secondary to antibiotic and Benadryl as an outpatient. He does also rule out possibility of a TIA, or hyponatremia #2 atrial fibrillation, of new onset, unclear if persistent or paroxysmal at this time. #3 COPD #4 recent upper respiratory infection treated with antibiotics #5 hyponatremia Plan CAT scan of the brain did not reveal any evidence of hemorrhage, we'll discontinue the IV heparin and start the patient on Eliquis. Continue metoprolol 50 mg one tablet by mouth twice a day. TSH level is normal. Potassium today 3.2, we will replace potassium. DNP note has been reviewed, I agree with a documented findings and plan of care. Patient was seen and examined.
[2019-02-09] MEDS ORDERED: POTASSIUM CHLORIDE ER 20 MEQ TAB.ER PO STA (13:27)
--- NOTE | 2019-02-09 13:30 | P.PN ---
Subjective 83-year-old female was admitted secondary to atrial fibrillation, hyponatremia the provided abnormalities and a encephalopathy patient was more confused yesterday and today she is even more confused mostly aphasic today because of which I'll obtain a MRI of the brain without contrast. We'll consult neurology. I'll leave the decision of carotid Doppler was a CT angios to neurology. Patient is on IV heparin for atrial fibrillation. Patient doesn't have any GI bleed although that was a concern yesterday. Patient's potassium is low secondary to natriuretic hypokalemia which will be replaced. Review of systems: Unable to obtain All inpatient medications were reviewed and appropriate changes in these medications as dictated in the interval history and assessment and plan. Objective - Vital Signs Vital signs: Vital Signs Temp 97.9 F 02/09/19 12:00 Pulse 83 02/09/19 12:00 Resp 18 02/09/19 12:00 BP 117/71 02/09/19 12:00 Pulse Ox 100 02/09/19 12:00 Intake & Output 02/08/19 02/09/19 02/09/19 18:59 06:59 18:59 Intake Total 559.227 576 Balance 559.227 576 Weight 44.452 kg 42.638 kg Intake: IV 525 300 0.9 525 300 Intake, IV Titration 34.227 36 Amount Diltiazem 125 mg In 36 Sodium Chloride 0.9% 100 ml @ 3 MG/HR 3 mls/hr IV .Q24H [facility] Rx#:[id number] Heparin Sod,Pork in 0.45% 34.227 NaCl 25,000 unit In 0.45 % NaCl 1 250ml.bag @ 12 UNITS/KG/HR 5.334 mls/hr IV .Q24H [facility] Rx#: [id number] Oral 240 Other: Voiding Method Toilet Toilet # Voids 1 - Exam PHYSICAL EXAMINATION: GENERAL: Patient is aphasic appears to be more confused because of hip easier today may have had a stroke because of atrial fibrillation in spite of anticoagulations, thin built female HEENT: Pupils are round and equally reacting to light. EOMI. No scleral icterus. No conjunctival pallor. Normocephalic, atraumatic. No pharyngeal erythema. No thyromegaly. CARDIOVASCULAR: S1 and S2 present. No murmurs, rubs, or gallops. A. fib irregularly regular rhythm PULMONARY: Chest is clear to auscultation, no wheezing or crackles. ABDOMEN: Soft, nontender, nondistended, normoactive bowel sounds. No palpable organomegaly. MUSCULOSKELETAL: No joint swelling or deformity. EXTREMITIES: No cyanosis, clubbing, or pedal edema. NEUROLOGICAL: Gross neurological examination did not reveal any focal deficits. SKIN: No rashes. - Labs CBC & Chem 7: 02/09/19 05:37 02/09/19 05:37 Labs: Abnormal Lab Results - Last 24 Hours (Table) 02/08/19 02/08/19 02/08/19 Range/Units 12:25 12:25 22:24 WBC 14.9 H (3.8-10.6) k/uL Neutrophils # 13.3 H (1.3-7.7) k/uL Lymphocytes # 0.9 L (1.0-4.8) k/uL APTT 37.0 H (22.0-30.0) sec Sodium 127 L (137-145) mmol/L Potassium (3.5-5.1) mmol/L Chloride 86 L (98-107) mmol/L Carbon Dioxide 31 H (22-30) mmol/L BUN 18 H (7-17) mg/dL Creatinine 0.46 L (0.52-1.04) mg/dL Glucose 113 H (74-99) mg/dL 02/09/19 02/09/19 02/09/19 Range/Units 05:37 05:37 05:37 WBC 18.0 H (3.8-10.6) k/uL Neutrophils # 15.7 H (1.3-7.7) k/uL Lymphocytes # (1.0-4.8) k/uL APTT 47.2 H (22.0-30.0) sec Sodium 130 L (137-145) mmol/L Potassium 3.2 L (3.5-5.1) mmol/L Chloride 91 L (98-107) mmol/L Carbon Dioxide (22-30) mmol/L BUN (7-17) mg/dL Creatinine 0.46 L (0.52-1.04) mg/dL Glucose 107 H (74-99) mg/dL Assessment and Plan Plan: -Acute toxic encephalopathy may be related to anticholinergic side effects of Benadryl and A. fib may be related to that as well will obtain a TSH TSH is within normal limits. His more confused appears to be more aphasic now concern for stroke is high we'll obtain an MRI and consult neurology. -Possible acute cerebrovascular accident patient doesn't have any other focal weakness apart from his dysphagia CT angios versus carotid Doppler as for neurology -New onset atrial fibrillation with rapid ventricular rate will give a dose of metoprolol if it doesn't come down the patient was started on Cardizem echocardiogram. After cardiology was consult and patient was started on hepar in. -Mild senile or vascular dementia. -COPD without any acute exacerbation patient will be resumed on inhaled steroids and inhalational treatments will not require any systemic steroids at this time -Hyponatremia: Secondary to diuretics including chlorthalidone and Aldactone both of which were discontinued patient was started on IV fluids will monitor electrolytes, improving with IV fluids CODE STATUS: to be discussed with the patient
[2019-02-09 15:52] LABS: Glucose,Whole Blood 125 mg/dL (75-99)
[2019-02-09] MEDS ORDERED: LORazepam 2 MG/ML INJ IV PRN (15:54)
--- NOTE | 2019-02-09 16:38 | CT ---
EXAMINATION TYPE: CT brain wo con DATE OF EXAM: 02/09/2019 COMPARISON: 02/08/2019 HISTORY: new onset seizures CT DLP: 2100.4 mGycm Automated exposure control for dose reduction was used. FINDINGS: There is cerebral cortical atrophy. There is no mass effect nor midline shift. There is no sign of in tracranial hemorrhage. The calvarium is intact. IMPRESSION: CEREBRAL ATROPHY. NO ACUTE INTRACRANIAL ABNORMALITY. NO CHANGE.
[2019-02-09] MEDS ORDERED: HEPARIN SODIUM,PORCINE 5,000 UNIT/ML 1 ML VIAL IV PRN (16:52)
[2019-02-09] MEDS: HEPARIN SOD,PORK IN 0.45% NACL 25,000 UNIT in 0.45% NACL 1 250ML.BAG IV SCH ×2 (18:11→20:50)
[2019-02-09] MEDS: METOPROLOL TARTRATE 50 MG TAB PO SCH (20:07)
[2019-02-09] MEDS ORDERED: APIXABAN 5 MG TAB PO SCH (21:00)
--- NOTE | 2019-02-09 22:08 | P.CNNES ---
History of Present Illness Consult date: 02/09/19 Reason for Consult: New onset aphasia Chief complaint: New onset aphasia History of Present Illness: REFERRING PHYSICIAN: Dr. Dove HISTORY OF PRESENT ILLNESS: Thank you for allowing me to evaluate Ms. Claudia Childers. Ms. Claudia Childers is an 83 year-old R-handed woman with PMHx of COPD, HTN, diverticulosis, who presented to [facility] for an episode of throat swelling and patient not feeling well. Son is at bedside for corroborating information. Son states that patient started acting differently Thursday. S he seemed somewhat confused, but son cannot provide specific examples. Patient did not have any speech difficulty at the time. Thursday, the son had called patient, and patient had complained to son about feeling sick and said she may be having a reactio to one of her meds. When patient first arrived in ED, patient was able to answer most questions appropriately but not at baseline. Labs showed sodium of 127, and patient on many medications including benzodiazepine. On admission, diuretics and benzo both discontinued. Patient was started on Cardize and IV heparin for new-onset possible atrial fibrillation. PAST MEDICAL HISTORY: As above PAST SURGICAL HISTORY: Hysterectomy 30 years ago HOME MEDICATIONS: Atenolol, amlodipine, spironolactone, clonazepam, advair, flonase, albuterol, tiotropium, prednisone, doxycycline, levocetirizine SOCIAL HISTORY: Former smoker, quit 20 years ago, social drinker, denies drug abuse history, patientt lives with one of his sons. 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 FAMILY HISTORY: Heart condition in father REVIEW OF SYSTEMS: The 14 systems are reviewed and no additional points are identified compared to the review of systems documented history and physical PHYSICAL EXAMINATION: VITAL SIGNS: T 97.9 HR 83 RR 18 BP 117/71 O2 sat 100% on NC 3L GEN.: NAD, lying comfortably in bed, at times saying various random sentences HEENT: NCAT, sclera without icterus NECK: Supple SKIN AND EXTREMITIES: Warm to touch, no edema Neuro: MENTAL STATUS: Patient is alert to name only. When given option to choose location and time, patient is unable to. Speech is fluent. Patient was able to name "chair," but nothing else on stroke card. Unable to name thumb or glasses. Patient able to repeat some words. Following most commands but requires redirections many times. L gaze preference. No neglect. CRANIAL NERVES II THROUGH XII: II: Pupils are equal and reactive to light symmetrically. No afferent pupillary defect. Blinks to threat in both eyes. III, IV, : No ptosis. Extraocular movements full. No nystagmus. V: Facial sensation intact from V1-3. VII. No clear facial asymmetry. VIII: Hearing intact to finger rub bilaterally. IX, X: Symmetric palate elevation. XII: Shoulder shrug intact. XII: Tongue midline without fasciculation or atrophy. MOTOR: Normal bulk/tone. No pronator drift or tremor. Strength is grossly 4+/5 throughout all 4 extremities. SENSORY: Intact to light touch, temperature, pinprick in all 4 extremities. REFLEXES: 2+ throughout. Toes are downgoing. No clonus. Bam's is absent COORDINATION: Finger to nose intact. No dysmetria. DIAGNOSTIC TESTING: Laboratory: WBC 18.0 Hgb 14.2 Plt 13.8 Na 130 (improved from 127), K 3.2 Cl 91 Cr 0.46 BUN 17 Imaging: CT Head w/o contrast 02/08/19: No acute intracranial process. CT Head w/o contrast 02/09/19: No acute intracranial process. (On my review, I see some L MCA area hypodensity that can be seen on 40/40 contrast, which would be consistent with patient's symptoms) ASSESSMENT and PLAN: 83 year-old R-handed woman with PMHx of COPD, HTN, diverticulosis, who presented to [facility] for an episode of throat swelling and patient not feeling well, consulting Neurology for aphasia. On neuro exam, patient with significant receptive aphasia with difficulty naming and repeating words. Repeat CT Head showing hypodense region in L MCA region, which would be consistent with patient's symptoms. Recommendation: 1. Patient was on heparin gtt for presumed a.fib. Has been discontinued. As there is concern about a sizable lesion, would hold anticoagulation. Patient can be started on ASA 81mg qday 2. Start atorvastatin 80mg qday 3. Frequent neurochecks, at least q4hr 4. MRI brain w/o contrast; CTA Head and Neck w/ contrast 5. Transthoracic echocardiogram 6. Telemetry monitoring 7. Check labs: TSH, A1C, lipid panel 8. PT/OT/Speech therapy 9. Neurology will continue to follow Past Medical History Past Medical History: COPD, Hypertension Additional Past Medical History / Comment(s): diverticulosis History of Any Multi-Drug Resistant Organisms: None Reported Past Surgical History: Hysterectomy Past Anesthesia/Blood Transfusion Reactions: No Reported Reaction Past Psychological History: No Psychological Hx Reported Smoking Status: Former smoker Past Alcohol Use History: Occasional Past Drug Use History: None Reported - Past Family History Father Family Medical History: Coronary Artery Disease (CAD) Mother Family Medical History: Unable to Obtain Medications and Allergies Home Medications Medication Instructions Recorded Confirmed Type Atenolol/Chlorthalidone [Tenoretic 0.5 tab PO DAILY 01/20/15 02/08/19 History 50 Tablet] Fluticasone Nasal [place] [Flonase 1 spray EA NOSTRIL DAILY PRN 06/27/17 02/08/19 History Nasal [place]] Fluticasone/Salmeterol [Advair Hfa 2 puff INHALATION RT-BID 06/27/17 02/08/19 History 115-21 Mcg Inhaler] amLODIPine [Norvasc] 5 mg PO DAILY 06/27/17 02/08/19 History clonazePAM [KlonoPIN] 0.5 mg PO HS 06/27/17 02/08/19 History Albuterol Inhaler [Ventolin Hfa 1 - 2 puff INHALATION RT-Q6H PRN 03/23/18 02/08/19 History Inhaler] Spironolactone [Aldactone] 25 mg PO MOWEFR 11/14/18 02/08/19 History Tiotropium 18 Mcg/Puff [Spiriva] 1 cap INHALATION RT-DAILY 11/14/18 02/08/19 History Doxycycline Hyclate 100 mg PO BID 02/08/19 02/08/19 History Levocetirizine Dihydrochloride 5 mg PO DAILY 02/08/19 02/08/19 History [Xyzal] Multivitamins, Thera [Multivitamin 1 tab PO DAILY 02/08/19 02/08/19 History (formulary)] guaiFENesin-DM 600/30MG [Mucinex 1 tab PO Q12HR PRN 02/08/19 02/08/19 History Dm] predniSONE See Taper PO DAILY 02/08/19 02/08/19 History Allergies Allergy/AdvReac Type Severity Reaction Status Date / Time amoxicillin Allergy Rash/Hives Verified 02/08/19 11:42 fluconazole [From Diflucan] Allergy Unknown Verified 02/08/19 11:42 moxifloxacin HCl Allergy Rash/Hives Verified 02/08/19 11:42 [From Avelox] sulfamethoxazole Allergy Rash/Hives Verified 02/08/19 11:42 [From Bactrim] trimethoprim [From Bactrim] Allergy Rash/Hives Verified 02/08/19 11:42 tropicamide Allergy Unknown Verified 02/08/19 11:42 Physical Examination - Vital Signs Vital Signs: Vital Signs Temp Pulse Pulse Resp BP BP Pulse Ox 02/09/19 12:00 97.9 F 83 18 117/71 100 02/09/19 11:31 80 02/09/19 11:21 80 02/09/19 08:00 97.8 F 100 16 133/76 95 02/09/19 07:52 78 02/09/19 07:42 76 02/09/19 04:00 97.6 F 106 H 18 138/79 97 02/09/19 00:00 97.7 F 96 18 146/67 95 02/08/19 20:47 80 02/08/19 20:33 84 02/08/19 20:00 98.0 F 96 18 121/59 95 02/08/19 18:00 98.1 F 92 20 133/83 99 02/08/19 16:53 97.9 F 104 H 20 133/83 99 02/08/19 16:00 113 H 20 128/65 99 02/08/19 15:00 78 20 132/65 99 Intake and Output 02/08/19 02/09/19 02/09/19 22:59 06:59 14:59 Intake Total 559.227 576 Balance 559.227 576 Intake: IV 525 300 0.9 525 300 Intake, IV Titration 34.227 36 Amount Diltiazem 125 mg In 36 Sodium Chloride 0.9% 100 ml @ 3 MG/HR 3 mls/hr IV .Q24H [facility] Rx#:[id number] Heparin Sod,Pork in 0.45% 34.227 NaCl 25,000 unit In 0.45 % NaCl 1 250ml.bag @ 12 UNITS/KG/HR 5.334 mls/hr IV .Q24H [facility] Rx#: [id number] Oral 240 Other: Voiding Method Toilet Toilet Toilet # Voids 1 Weight 42.638 kg Results - Laboratory Findings CBC and BMP: 02/09/19 05:37 02/09/19 05:37 Abnormal Lab Findings: Abnormal Labs 02/08/19 02/08/19 02/08/19 12:25 12:25 22:24 WBC 14.9 H Neutrophils # 13.3 H Lymphocytes # 0.9 L APTT 37.0 H Sodium 127 L Potassium Chloride 86 L Carbon Dioxide 31 H BUN 18 H Creatinine 0.46 L Glucose 113 H 02/09/19 02/09/19 02/09/19 05:37 05:37 05:37 WBC 18.0 H Neutrophils # 15.7 H Lymphocytes # APTT 47.2 H Sodium 130 L Potassium 3.2 L Chloride 91 L Carbon Dioxide BUN Creatinine 0.46 L Glucose 107 H
[2019-02-10 06:41] LABS: Basophils % (A) 0 %; Eosinophils % (A) 0 %; HCT 34.2 % (34.0-46.0); HGB 11.9 gm/dL (11.4-16.0); Lymphocytes # (A) 1.4 k/uL (1.0-4.8); Lymphocytes % (A) 9 %; MCH 32.7 pg (25.0-35.0); MCHC 34.8 g/dL (31.0-37.0); MCV 94.2 fL (80.0-100.0); Mean Platelet Volume 6.8; Monocytes # (A) 0.7 k/uL (0-1.0); Monocytes % (A) 4 %; Neutrophils # (A) 12.7 k/uL (1.3-7.7); Neutrophils % (A) 86 %; Platelet Count 279 k/uL (150-450); RBC 3.63 m/uL (3.80-5.40); WBC 14.8 k/uL (3.8-10.6)
[2019-02-10 06:56] LABS: ALT 25 U/L (9-52); AST 24 U/L (14-36); African American GFR (CKD) >90 (>60 ml/min/1.73 sqM); Albumin 2.8 g/dL (3.5-5.0); Alkaline Phosphatase 43 U/L (38-126); Anion Gap 5 mmol/L; Blood Urea Nitrogen 19 mg/dL (7-17); Calcium 8.7 mg/dL (8.4-10.2); Carbon Dioxide 30 mmol/L (22-30); Chloride 94 mmol/L (98-107); Cholesterol 167 mg/dL (<200); Glucose 88 mg/dL (74-99); HDL Cholesterol 80 mg/dL (40-60); LDL Cholesterol,Calculated 75 mg/dL (0-99); Potassium 3.5 mmol/L (3.5-5.1); Sodium 129 mmol/L (137-145); Total Bilirubin 1.3 mg/dL (0.2-1.3); Triglycerides 62 mg/dL (<150)
[2019-02-10] MEDS: IPRATROPIUM-ALBUTEROL 3 ML NEB INHALATION SCH ×4 (08:19→19:10)
[2019-02-10] MEDS: SYMBICORT 160-4.5 MCG INHALER INHALATION SCH ×2 (08:19→19:10)
[2019-02-10] MEDS: ATORVASTATIN 80 MG TAB PO SCH ×2 (08:35→11:56)
[2019-02-10] MEDS: METOPROLOL TARTRATE 50 MG TAB PO SCH ×3 (08:35→20:26)
[2019-02-10] MEDS ORDERED: ASPIRIN 81 MG PO SCH (11:15)
[2019-02-10] MEDS: SODIUM CHLORIDE 0.9% 1,000 ML IV SCH ×2 (11:56→20:25)
[2019-02-10 11:58] LABS: African American GFR (CKD) >90 (>60 ml/min/1.73 sqM); Anion Gap 9 mmol/L; Blood Urea Nitrogen 20 mg/dL (7-17); Calcium 9.3 mg/dL (8.4-10.2); Carbon Dioxide 27 mmol/L (22-30); Chloride 94 mmol/L (98-107); Glucose 101 mg/dL (74-99); Potassium 3.4 mmol/L (3.5-5.1); Sodium 130 mmol/L (137-145)
--- NOTE | 2019-02-10 12:38 | MR ---
EXAMINATION TYPE: MR brain wo con DATE OF EXAM: 02/10/2019 COMPARISON: CT brain from yesterday and 2 days ago. HISTORY: aphasia per order. New onset seizures yesterday. TECHNIQUE: Multiplanar, multisequence imaging of the brain and brainstem is performed without IV cont rast. FINDINGS: Diffusion weighted images demonstrate no evidence of a recent infarct or other diffusion abnormality. There is no worrisome extra-axial fluid collection. There is diffuse ventricular and sulcal prominenc e. There are focal and confluent areas of T2 hyperintensity seen throughout the superficial, deep, an d periventricular white matter. Lesions are presumed on the basis of product of proximal vessel ische felix change in patient of this age. Midline structures demonstrate normal morphology. The craniocervical junction appears within normal limits. Normal vascular flow voids are present. The visualized sinuses are clear and the globes are i ntact. IMPRESSION: No evidence of a recent infarct. Background fairly moderate diffuse cerebral atrophy most prominent over the bilateral frontal and temporal lobes with fairly severe chronic small vessel isch emic change.
--- NOTE | 2019-02-10 13:23 | P.PN ---
Progress Note - Text Progress Note Date: 02/10/19 SUBJECTIVE/INTERVAL EVENTS: No acute overnight events. Two sons at bedside, and they report the patient is basically back to baseline. Patient denies any headache, nausea, vomiting, pain, vision changes, weakness, numbness or tingling. PHYSICAL EXAMINATION: VITAL SIGNS: Temperature 97.7 pulse rate 79 respiratory rate 16 blood pressure 132/49 O2 sat 95% on 2 L nasal cannula GEN.: NAD, lying comfortably in bed, at times saying various random sentences HEENT: NCAT, sclera without icterus NECK: Supple SKIN AND EXTREMITIES: Warm to touch, no edema Neuro: MENTAL STATUS: Patient is A&Ox3. Names Star as the current president. Speech is fluent. Patient is able to name all objects on the stroke card. Patient able to repeat. Patient also able to describe the picture on the stroke card. CRANIAL NERVES II THROUGH XII: II: Pupils are equal and reactive to light symmetrically. No afferent pupillary defect. Blinks to threat in both eyes. III, IV, : No ptosis. Extraocular movements full. No nystagmus. V: Facial sensation intact from V1-3. VII. No clear facial asymmetry. VIII: Hearing intact to finger rub bilaterally. IX, X: Symmetric palate elevation. XII: Shoulder shrug intact. XII: Tongue midline without fasciculation or atrophy. MOTOR: Normal bulk/tone. No pronator drift or tremor. Strength is 5/5 throughout all 4 extremities. SENSORY: Intact to light touch, temperature, pinprick in all 4 extremities. REFLEXES: 2+ throughout. Toes are downgoing. No clonus. Bam's is absent COORDINATION: Finger to nose intact. No dysmetria. DIAGNOSTIC TESTING: Laboratory: WBC 14.8, hemoglobin 11.9, platelets 279, sodium 1:30, potassium 2.4, chloride 94, chloride 27, BUN 20, creatinine 0.53, TSH 1.550, total cholesterol 167, LDL 75, HDL 80, triglycerides 62 Imaging: CT Head w/o contrast 02/08/19: No acute intracranial process. CT Head w/o contrast 02/09/19: No acute intracranial process. (On my review, I see some L MCA area hypodensity that can be seen on 40/40 contrast, which would be consistent with patient's symptoms) MRI brain without contrast February 10: No evidence of a recent infarct. Background fairly moderate diffuse cerebral atrophy most prominent over the bilateral frontal and temporal lobes with fairly severe chronic small vessel ischemic change. ASSESSMENT and PLAN: 83 year-old R-handed woman with PMHx of COPD, HTN, diverticulosis, who presented to [facility] for an episode of throat swelling and patient not feeling well, consulting Neurology for aphasia. On initial neuro exam, patient with significant receptive aphasia with difficulty naming and repeating words. On reevaluation today, patient with no aphasia. Patient is able to have an normal conversation with me and the sounds. MRI brain without contrast negative for stroke. Recommendation: 1. Discontinue aspirin unless needed for cardiovascular protection. 2. Discontinue atorvastatin 80mg qday 4. Patient can be discharged from neurological perspective. Neurology will sign off at this time. Please feel free to contact Neurology again if with additional questions or concerns.
--- NOTE | 2019-02-10 13:50 | CT ---
EXAMINATION TYPE: CT angio head neck DATE OF EXAM: 02/10/2019 HISTORY: CVA COMPARISON: None CT DLP: 174 mGycm. Automated Exposure Control for Dose Reduction was Utilized. TECHNIQUE: CTA scan of the neck is performed with IV Contrast, patient injected with 50 mL of Isovue 370, axial images are obtained, coronal and sagittal reformatted images are reviewed. Three-D recons tructed images are created on an independent workstation and reviewed. Source images are reviewed. FINDINGS: Carotid/Vascular Structures: Common carotid arteries bifurcate normally into internal and external ca rotid arteries. There is atheromatous plaquing at the bilateral carotid bifurcations. Significant dennis w-limiting stenosis is not evident. Cervical of Brown: Vertebral basilar system appears normal. Posterior cerebral vasculature is unrema rkable. Internal carotid arteries bifurcate normally into A1 and M1 segments. A2 segments are normal. The anterior communicating artery is patent. Posterior cerebral artery branches appear unremarkable. Left Posterior communicating artery is not identified. Right posterior communicating artery is paten t. Other: Emphysematous changes are present at the lung apices more so on the right. Portion of the thyr oid visualized is normal. IMPRESSION: 1. No flow-limiting stenosis bilateral carotid bifurcations. 2. Normal [place] of [place]
--- NOTE | 2019-02-10 14:01 | P.PN ---
Subjective Progress Note Date: 02/10/19 This is a pleasant 83-year-old female, the history was obtained from her son who is at bedside as the patient is quite confused this morning. She does have a history of hypertension, COPD, prior history of smoking, was apparently recently put on some doxycycline for an upper respiratory infection. The patient had been complaining that she felt her throat was swelling and had a scratchy sensation, she felt as though she may be having an ALLERGIC reaction. She did speak to her son letting him know that she felt she needed to go to the hospital. Shortly thereafter the patient's mentation change significantly and she became quite confused. According to the son, she was also noted to have a dark stool at home. On examination here, her initial EKG showed atrial fibrillation with a moderately rapid ventricular response, according to the son this is new for the patient. Chest x-ray showed chronic emphysema changes without suspicious acute pulmonary process. White blood cell count 14.9, 18 this morning, hemoglobin 13.9, 14.2 this morning, platelet count 347. Sodium on admission 127, 1:30 at this point, potassium 3.2, BUN 17 and creatinine 0.4. Troponin 0.012. A cardiogram with Doppler study was performed which revealed an ejection fraction of 60-65%. EKG shows atrial fibrillation with rapid ventricular response, according to the son this is of new onset for the patient. Blood pressure 117/70, heart rate this morning in the 80s, 100% percent on 3 L of oxygen. At the time of my examination, patient continues to be significantly confused, her son is at bedside. Son states that the patient is normally alert and oriented times3. 02/10/2019 Patient was seen and examined today, ambulated in the lin, apparently seems to be back to baseline. Initially the neurologist felt that the patient should not be on anticoagulation and recommended continuing only with a baby aspirin. I just received a call from Dr. Street, who just spoke with Dr. Sahni, there does not appear to be any evidence of stroke, patient can be initiated on anticoagulation. She will be started on Eliquis 2-1/2 mg one tablet by mouth twice a day. Objective - Vital Signs Vital signs: Vital Signs Temp 97.7 F 02/10/19 12:26 Pulse 79 02/10/19 12:26 Resp 18 02/10/19 12:26 BP 132/49 07/18/19 12:26 Pulse Ox 95 02/10/19 12:26 Intake & Output 02/09/19 02/10/19 02/10/19 18:59 06:59 18:59 Intake Total 696 495 360 Balance 696 495 360 Weight 44.2 kg 44.2 kg Intake: IV 300 0.9 300 Intake, IV Titration 36 375 Amount Diltiazem 125 mg In 36 Sodium Chloride 0.9% 100 ml @ 3 MG/HR 3 mls/hr IV .Q24H [facility] Rx#:[id number] Sodium Chloride 0.9% 1, 375 000 ml @ 75 mls/hr IV . [id number] [facility] Rx#:[id number] Oral 360 120 360 Other: Voiding Method Toilet Toilet Toilet # Voids 1 - Exam PHYSICAL EXAMINATION: GENERAL: 83-year-old female in no acute distress at the time of my examination HEENT: Head is atraumatic, normocephalic. Pupils equal, round. Sclera anicteri c. Conjunctiva are clear. Mucous membranes of the mouth are moist. Neck is supple. There is no elevated jugular venous pressure. No carotid bruit is heard. HEART EXAMINATION: Heart S1 and S2 irregularly irregular CHEST EXAMINATION: Lungs are clear to auscultation and precussion. No chest wall tenderness is noted on palpation or with deep breathing. ABDOMEN: Soft, nontender. Bowel sounds are heard. No organomegaly noted. EXTREMITIES: 2+ peripheral pulses with no evidence of peripheral edema and no calf tenderness noted. NEUROLOGIC [patient is awake, pleasantly confused. - Labs CBC & Chem 7: 02/10/19 06:00 02/10/19 11:19 Labs: Abnormal Lab Results - Last 24 Hours (Table) 02/09/19 02/10/19 02/10/19 Range/Units 15:45 06:00 06:00 WBC 14.8 H (3.8-10.6) k/uL RBC 3.63 L (3.80-5.40) m/uL Neutrophils # 12.7 H (1.3-7.7) k/uL APTT 65.8 H (22.0-30.0) sec Sodium (137-145) mmol/L Potassium (3.5-5.1) mmol/L Chloride (98-107) mmol/L BUN (7-17) mg/dL Creatinine (0.52-1.04) mg/dL Glucose (74-99) mg/dL POC Glucose (mg/dL) 125 H (75-99) mg/dL Total Protein (6.3-8.2) g/dL Albumin (3.5-5.0) g/dL HDL Cholesterol (40-60) mg/dL 02/10/19 02/10/19 Range/Units 06:00 11:19 WBC (3.8-10.6) k/uL RBC (3.80-5.40) m/uL Neutrophils # (1.3-7.7) k/uL APTT (22.0-30.0) sec Sodium 129 L 130 L (137-145) mmol/L Potassium 3.4 L (3.5-5.1) mmol/L Chloride 94 L 94 L (98-107) mmol/L BUN 19 H 20 H (7-17) mg/dL Creatinine 0.50 L (0.52-1.04) mg/dL Glucose 101 H (74-99) mg/dL POC Glucose (mg/dL) (75-99) mg/dL Total Protein 5.0 L (6.3-8.2) g/dL Albumin 2.8 L (3.5-5.0) g/dL HDL Cholesterol 80 H (40-60) mg/dL Assessment and Plan Plan: Assessment and plan #1 mental status changes, could be secondary to antibiotic and Benadryl as an outpatient. There does not appear to be an acute stroke per neurology. #2 atrial fibrillation, of new onset, persistent. #3 COPD #4 recent upper respiratory infection treated with antibiotics #5 hyponatremia Plan CAT scans were reviewed by neurology, she's approved the patient to be initiated on anticoagulation. We will start the patient on Eliquis 2-1/2 mg one tablet by mouth twice a day today. DNP note has been reviewed, I agree with a documented findings and plan of care. Patient was seen and examined.
--- NOTE | 2019-02-10 14:25 | P.PN ---
Subjective 83-year-old female was admitted secondary to atrial fibrillation, hyponatremia the provided abnormalities and a encephalopathy patient was more confused yesterday and today she is even more confused mostly aphasic today because of which I'll obtain a MRI of the brain without contrast. We'll consult neurology. I'll leave the decision of carotid Doppler was a CT angios to neurology. Patient is on IV heparin for atrial fibrillation. Patient doesn't have any GI bleed although that was a concern yesterday. Patient's potassium is low secondary to natriuretic hypokalemia which will be replaced. 02/10/2019 Patient is aphasia improved patient is still quite a bit confused, speech therapy evaluated the patient but her confusion is getting better at this time. Patient had a stroke workup for repeat CAT scan of the head was suspicious for stroke because of which we initially started with the anti-correlation although we obtain an MRI didn't show any acute stroke but there is some chronic microvascular ischemic changes patient appears to have severe metabolic and toxic encephalopathy, does not appear to have any stroke patient will be resumed the on anticoagulation with Eliquis at 2.5 mg by mouth twice a day. Patient may need to be discharged to subacute rehabilitation. Her heart rate is fairly well controlled at this time. Rest of the workup for the stroke is negative CT angios the head and neck did not show any significant atherosclerotic vascular disease. Review of systems: Unable to obtain All inpatient medications were reviewed and appropriate changes in these medications as dictated in the interval history and assessment and plan. Objective - Vital Signs Vital signs: Vital Signs Temp 97.7 F 02/10/19 12:26 Pulse 79 02/10/19 12:26 Resp 18 02/10/19 12:26 BP 132/49 02/10/19 12:26 Pulse Ox 95 02/10/19 12:26 Intake & Output 02/09/19 02/10/19 02/10/19 18:59 06:59 18:59 Intake Total 696 495 360 Balance 696 495 360 Weight 44.2 kg 44.2 kg Intake: IV 300 0.9 300 Intake, IV Titration 36 375 Amount Diltiazem 125 mg In 36 Sodium Chloride 0.9% 100 ml @ 3 MG/HR 3 mls/hr IV .Q24H [facility] Rx#:[id number] Sodium Chloride 0.9% 1, 375 000 ml @ 75 mls/hr IV . [id number] [facility]ON[facility] Rx#:[id number] Oral 360 120 360 Other: Voiding Method Toilet Toilet Toilet # Voids 1 - Exam PHYSICAL EXAMINATION: GENERAL: Patient is confused but not aphasic today thin built female HEENT: Pupils are round and equally reacting to light. EOMI. No scleral icterus. No conjunctival pallor. Normocephalic, atraumatic. No pharyngeal erythema. No thyromegaly. CARDIOVASCULAR: S1 and S2 present. No murmurs, rubs, or gallops. A. fib irregularly regular rhythm PULMONARY: Chest is clear to auscultation, no wheezing or crackles. ABDOMEN: Soft, nontender, nondistended, normoactive bowel sounds. No palpable organomegaly. MUSCULOSKELETAL: No joint swelling or deformity. EXTREMITIES: No cyanosis, clubbing, or pedal edema. NEUROLOGICAL: Gross neurological examination did not reveal any focal deficits. SKIN: No rashes. - Labs CBC & Chem 7: 02/10/19 06:00 02/10/19 11:19 Labs: Abnormal Lab Results - Last 24 Hours (Table) 02/09/19 02/10/19 02/10/19 Range/Units 15:45 06:00 06:00 WBC 14.8 H (3.8-10.6) k/uL RBC 3.63 L (3.80-5.40) m/uL Neutrophils # 12.7 H (1.3-7.7) k/uL APTT 65.8 H (22.0-30.0) sec Sodium (137-145) mmol/L Potassium (3.5-5.1) mmol/L Chloride (98-107) mmol/L BUN (7-17) mg/dL Creatinine (0.52-1.04) mg/dL Glucose (74-99) mg/dL POC Glucose (mg/dL) 125 H (75-99) mg/dL Total Protein (6.3-8.2) g/dL Albumin (3.5-5.0) g/dL HDL Cholesterol (40-60) mg/dL 02/10/19 02/10/19 Range/Units 06:00 11:19 WBC (3.8-10.6) k/uL RBC (3.80-5.40) m/uL Neutrophils # (1.3-7.7) k/uL APTT (22.0-30.0) sec Sodium 129 L 130 L (137-145) mmol/L Potassium 3.4 L (3.5-5.1) mmol/L Chloride 94 L 94 L (98-107) mmol/L BUN 19 H 20 H (7-17) mg/dL Creatinine 0.50 L (0.52-1.04) mg/dL Glucose 101 H (74-99) mg/dL POC Glucose (mg/dL) (75-99) mg/dL Total Protein 5.0 L (6.3-8.2) g/dL Albumin 2.8 L (3.5-5.0) g/dL HDL Cholesterol 80 H (40-60) mg/dL Assessment and Plan Plan: -Acute toxic encephalopathy may be related to anticholinergic side effects of Benadryl and A. fib may be related to that as well will obtain a TSH is within normal limits. 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 -COPD without any acute exacerbation patient will be resumed on inhaled steroids and inhalational treatments will not require any systemic steroids at this time -Hyponatremia: Secondary to diuretics including chlorthalidone and Aldactone both of which were discontinued patient was started on IV fluids will monitor electrolytes, improving with IV fluids CODE STATUS: to be discussed with the patient
[2019-02-10 14:32] LABS: Hemoglobin A1C 6.1 % (4.0-6.0)
--- NOTE | 2019-02-10 15:19 | EEG ---
ELECTROENCEPHALOGRAM REPORT PROCEDURE DATE: 02/10/2019. ELECTROENCEPHALOGRAM (EEG) REPORT: TECHNIQUE: A routine 18 channel EEG was performed with video using the 10/20 international system. HISTORY: Possible allergic reaction, patient found to be in atrial fibrillation and confused. Sodium level was 127. CURRENT MEDICATIONS: Metoprolol, heparin, Mucinex, Symbicort, albuterol. STUDY DURATION: 22 minutes. FINDINGS: Please note that quality of this recording was limited due to the presence of muscle artifact. Also an excess of beta frequency activity was noted. This is not epileptiform in nature and may in part be due to medication effect. BACKGROUND: The background activity consisted of unsustained 7- 8 hertz rhythmic waveforms symmetric through both posterior quadrants. ACTIVATION: HYPERVENTILATION: Not performed. PHOTIC STIMULATION: No driving seen. SLEEP: Drowsy. ABNORMALITIES: Intermittent diffuse 5-7 hertz polymorphic theta range slowing was seen. IMPRESSION: Limited study, abnormal EEG. The intermittent diffuse theta range slowing mentioned above is not epileptiform in nature. In combination with the slow background, these findings indicate mild diffuse cerebral dysfunction which may in part be due to medication effect. No definitive seizures were recorded. No definitive epileptiform activity was present. If clinical concern remains for a seizure disorder, would suggest a repeat study. MMODL / IJN: [id number] /
[2019-02-10] MEDS: APIXABAN 2.5 MG TABLET PO SCH ×2 (17:38→21:09)
[2019-02-11 07:16] LABS: Basophils % (A) 0 %; Eosinophils # (A) 0.2 k/uL (0-0.7); Eosinophils % (A) 2 %; HCT 40.1 % (34.0-46.0); HGB 13.9 gm/dL (11.4-16.0); Lymphocytes # (A) 1.1 k/uL (1.0-4.8); Lymphocytes % (A) 9 %; MCH 32.4 pg (25.0-35.0); MCHC 34.6 g/dL (31.0-37.0); MCV 93.7 fL (80.0-100.0); Mean Platelet Volume 7.2; Monocytes # (A) 0.6 k/uL (0-1.0); Monocytes % (A) 4 %; Neutrophils # (A) 11.2 k/uL (1.3-7.7); Neutrophils % (A) 85 %; Platelet Count 312 k/uL (150-450); RBC 4.27 m/uL (3.80-5.40); RDW 14.1 % (11.5-15.5); WBC 13.2 k/uL (3.8-10.6)
[2019-02-11 07:34] LABS: African American GFR (CKD) >90 (>60 ml/min/1.73 sqM); Anion Gap 8 mmol/L; Blood Urea Nitrogen 19 mg/dL (7-17); Calcium 9.5 mg/dL (8.4-10.2); Carbon Dioxide 29 mmol/L (22-30); Chloride 93 mmol/L (98-107); Glucose 122 mg/dL (74-99); Potassium 3.7 mmol/L (3.5-5.1); Sodium 130 mmol/L (137-145)
[2019-02-11] MEDS: IPRATROPIUM-ALBUTEROL 3 ML NEB INHALATION SCH ×4 (08:31→19:20)
[2019-02-11] MEDS: SYMBICORT 160-4.5 MCG INHALER INHALATION SCH ×2 (08:31→19:20)
[2019-02-11] MEDS: ATORVASTATIN 80 MG TAB PO SCH (08:40)
[2019-02-11] MEDS: APIXABAN 2.5 MG TABLET PO SCH ×2 (08:44→20:43)
[2019-02-11] MEDS: METOPROLOL TARTRATE 50 MG TAB PO SCH ×2 (08:44→20:43)
--- NOTE | 2019-02-11 11:49 | P.DS ---
Providers Date of admission: 02/08/19 16:54 Attending physician: Clement Dove Consults: 02/08/19 15:47 Consult Physician Routine Consulting Provider: Philip Jones Consult Reason/Comments: new onset afib Do you want consulting provider notified?: Yes, Notify in am 02/09/19 11:01 Consult Physician Urgent Consulting Provider: Puja Sahni Consult Reason/Comments: new onset aphasia Do you want consulting provider notified?: Yes Primary care physician: [facility] Course: 83-year-old female was admitted secondary to atrial fibrillation, hyponatremia the provided abnormalities and a encephalopathy patient was more confused yesterday and today she is even more confused mostly aphasic today because of which I'll obtain a MRI of the brain without contrast. We'll consult neurology. I'll leave the decision of carotid Doppler was a CT angios to neurology. Patient is on IV heparin for atrial fibrillation. Patient doesn't have any GI bleed although that was a concern yesterday. Patient's potassium is low secondary to natriuretic hypokalemia which will be replaced. 02/10/2019 Patient is aphasia improved patient is still quite a bit confused, speech therapy evaluated the patient but her confusion is getting better at this time. Patient had a stroke workup for repeat CAT scan of the head was suspicious for stroke because of which we initially started with the anti-correlation although we obtain an MRI didn't show any acute stroke but there is some chronic microvascular ischemic changes patient appears to have severe metabolic and toxic encephalopathy, does not appear to have any stroke patient will be resumed the on anticoagulation with Eliquis at 2.5 mg by mouth twice a day. Patient may need to be discharged to subacute rehabilitation. Her heart rate is fairly well controlled at this time. Rest of the workup for the stroke is negative CT angios the head and neck did not show any significant atherosclerotic vascular disease. 02/11/2019 Patient is declining to go to subacute rehabilitation. Patient overall clinically doing well will be discharged today home with home care. Patient is agreeable to home care. Patient does have some confusion which is basically her dementia which appears to be moderate. PHYSICAL EXAMINATION: GENERAL: Patient is confused but not aphasic today thin built female HEENT: Pupils are round and equally reacting to light. EOMI. No scleral icterus. No conjunctival pallor. Normocephalic, atraumatic. No pharyngeal erythema. No thyromegaly. CARDIOVASCULAR: S1 and S2 present. No murmurs, rubs, or gallops. A. fib irregularly regular rhythm PULMONARY: Chest is clear to auscultation, no wheezing or crackles. ABDOMEN: Soft, nontender, nondistended, normoactive bowel sounds. No palpable organomegaly. MUSCULOSKELETAL: No joint swelling or deformity. EXTREMITIES: No cyanosis, clubbing, or pedal edema. NEUROLOGICAL: Gross neurological examination did not reveal any focal deficits. SKIN: No rashes. Assessment and Plan Plan: -Acute toxic encephalopathy may be related to anticholinergic side effects of Benadryl and A. fib may be related to that as well will obtain a TSH is within n ormal limits. 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 -COPD without any acute exacerbation patient will be resumed on inhaled steroids and inhalational treatments will not require any systemic steroids at this time -Hyponatremia: Secondary to diuretics including chlorthalidone and Aldactone both of which were discontinued serum sodium today is 1:30 improved since admission Patient Condition at Discharge: Stable Plan - Discharge Summary Discharge Rx Participant: No New Discharge Prescriptions: New Apixaban [Eliquis] 2.5 mg PO BID #60 tablet Metoprolol Tartrate [Lopressor] 50 mg PO Q12H #60 tab Continue amLODIPine [Norvasc] 5 mg PO DAILY clonazePAM [KlonoPIN] 0.5 mg PO HS Fluticasone/Salmeterol [Advair Hfa 115-21 Mcg Inhaler] 2 puff INHALATION RT- BID Fluticasone Nasal Winfred [Flonase Nasal Winfred] 1 spray EA NOSTRIL DAILY PRN PRN Reason: Allergy Symptoms Albuterol Inhaler [Ventolin Hfa Inhaler] 1 - 2 puff INHALATION RT-Q6H PRN PRN Reason: Shortness Of Breath Tiotropium 18 Mcg/Puff [Spiriva] 1 cap INHALATION RT-DAILY guaiFENesin-DM 600/30MG [Mucinex Dm] 1 tab PO Q12HR PRN PRN Reason: Congestion Multivitamins, Thera [Multivitamin (formulary)] 1 tab PO DAILY predniSONE See Taper PO DAILY Discontinued Atenolol/Chlorthalidone [Tenoretic 50 Tablet] 0.5 tab PO DAILY Spironolactone [Aldactone] 25 mg PO MOWEFR Doxycycline Hyclate 100 mg PO BID Levocetirizine Dihydrochloride [Xyzal] 5 mg PO DAILY Discharge Medication List Fluticasone Nasal Winfred [Flonase Nasal Winfred] 1 spray EA NOSTRIL DAILY PRN 09/12 [History] Fluticasone/Salmeterol [Advair Hfa 115-21 Mcg Inhaler] 2 puff INHALATION RT-BID 06/27/17 [History] amLODIPine [Norvasc] 5 mg PO DAILY 06/27/17 [History] clonazePAM [KlonoPIN] 0.5 mg PO HS 06/27/17 [History] Albuterol Inhaler [Ventolin Hfa Inhaler] 1 - 2 puff INHALATION RT-Q6H PRN 03/23/18 [History] Tiotropium 18 Mcg/Puff [Spiriva] 1 cap INHALATION RT-DAILY 11/14/18 [History] Multivitamins, Thera [Multivitamin (formulary)] 1 tab PO DAILY 02/08/19 [History] guaiFENesin-DM 600/30MG [Mucinex Dm] 1 tab PO Q12HR PRN 02/08/19 [History] predniSONE See Taper PO DAILY 02/08/19 [History] Apixaban [Eliquis] 2.5 mg PO BID #60 tablet 02/11/19 [Rx] Metoprolol Tartrate [Lopressor] 50 mg PO Q12H #60 tab 02/11/19 [Rx] Follow up Appointment(s)/Referral(s): Jasbir Salazar MD [STAFF PHYSICIAN] - 1 Week Anish Anderson DO [Primary Care Provider] - 3 Days [facility], [NON-STAFF] -
--- NOTE | 2019-02-11 14:59 | P.PN ---
Subjective Progress Note Date: 02/11/19 This is a pleasant 83-year-old female, the history was obtained from her son who is at bedside as the patient is quite confused this morning. She does have a history of hypertension, COPD, prior history of smoking, was apparently recently put on some doxycycline for an upper respiratory infection. The patient had been complaining that she felt her throat was swelling and had a scratchy sensation, she felt as though she may be having an ALLERGIC reaction. She did speak to her son letting him know that she felt she needed to go to the hospital. Shortly thereafter the patient's mentation change significantly and she became quite confused. According to the son, she was also noted to have a dark stool at home. On examination here, her initial EKG showed atrial fibrillation with a moderately rapid ventricular response, according to the son this is new for the patient. Chest x-ray showed chronic emphysema changes without suspicious acute pulmonary process. White blood cell count 14.9, 18 this morning, hemoglobin 13.9, 14.2 this morning, platelet count 347. Sodium on admission 127, 1:30 at this point, potassium 3.2, BUN 17 and creatinine 0.4. Troponin 0.012. A cardiogram with Doppler study was performed which revealed an ejection fraction of 60-65%. EKG shows atrial fibrillation with rapid ventricular response, according to the son this is of new onset for the patient. Blood pressure 117/70, heart rate this morning in the 80s, 100% percent on 3 L of oxygen. At the time of my examination, patient continues to be significantly confused, her son is at bedside. Son states that the patient is normally alert and oriented times3. 02/10/2019 Patient was seen and examined today, ambulated in the lin, apparently seems to be back to baseline. Initially the neurologist felt that the patient should not be on anticoagulation and recommended continuing only with a baby aspirin. I just received a call from Dr. Street, who just spoke with Dr. Sahni, there does not appear to be any evidence of stroke, patient can be initiated on anticoagulation. She will be started on Eliquis 2-1/2 mg one tablet by mouth twice a day. 02/11/2019 Patient examined this morning, still mild confused. Family at bedside. Hemodynamically stable. Objective - Vital Signs Vital signs: Vital Signs Temp 97.8 F 02/11/19 08:49 Pulse 102 H 02/11/19 11:54 Resp 16 02/11/19 08:49 BP 122/58 02/11/19 08:49 Pulse Ox 97 02/11/19 08:49 Intake & Output 02/10/19 02/11/19 02/11/19 18:59 06:59 18:59 Intake Total 360 120 240 Balance 360 120 240 Weight 44.2 kg 44.4 kg Intake: Oral 360 120 240 Other: Voiding Method Toilet Toilet # Voids 1 1 2 - Exam PHYSICAL EXAMINATION: GENERAL: 83-year-old female in no acute distress at the time of my examination HEENT: Head is atraumatic, normocephalic. Pupils equal, round. Sclera anicte annamarie. Conjunctiva are clear. Mucous membranes of the mouth are moist. Neck is supple. There is no elevated jugular venous pressure. No carotid bruit is heard. HEART EXAMINATION: Heart S1 and S2 irregularly irregular CHEST EXAMINATION: Lungs are clear to auscultation and precussion. No chest wall tenderness is noted on palpation or with deep breathing. ABDOMEN: Soft, nontender. Bowel sounds are heard. No organomegaly noted. EXTREMITIES: 2+ peripheral pulses with no evidence of peripheral edema and no calf tenderness noted. NEUROLOGIC [patient is awake, pleasantly confused. - Labs CBC & Chem 7: 02/11/19 06:53 02/11/19 06:53 Labs: Abnormal Lab Results - Last 24 Hours (Table) 02/11/19 02/11/19 Range/Units 06:53 06:53 WBC 13.2 H (3.8-10.6) k/uL Neutrophils # 11.2 H (1.3-7.7) k/uL Sodium 130 L (137-145) mmol/L Chloride 93 L (98-107) mmol/L BUN 19 H (7-17) mg/dL Creatinine 0.48 L (0.52-1.04) mg/dL Glucose 122 H (74-99) mg/dL Assessment and Plan Plan: Assessment and plan #1 mental status changes, could be secondary to antibiotic and Benadryl as an outpatient. There does not appear to be an acute stroke per neurology. #2 atrial fibrillation, of new onset, persistent. #3 COPD #4 recent upper respiratory infection treated with antibiotics #5 hyponatremia Plan From cardiology's perspective, patient may be able to be discharged home, follow-up appointment in the office post discharge. DNP note has been reviewed, I agree with a documented findings and plan of care. Patient was seen and examined.
[2019-02-11] MEDS: SODIUM CHLORIDE 0.9% 1,000 ML IV SCH (16:40)
[2019-02-12] MEDS: SODIUM CHLORIDE 0.9% 1,000 ML IV SCH (01:07)
[2019-02-12 07:00] LABS: Basophils % (A) 0 %; Eosinophils # (A) 0.1 k/uL (0-0.7); Eosinophils % (A) 1 %; HCT 34.5 % (34.0-46.0); HGB 11.9 gm/dL (11.4-16.0); Lymphocytes # (A) 1.3 k/uL (1.0-4.8); Lymphocytes % (A) 12 %; MCH 32.5 pg (25.0-35.0); MCHC 34.4 g/dL (31.0-37.0); MCV 94.5 fL (80.0-100.0); Mean Platelet Volume 6.8; Monocytes # (A) 0.5 k/uL (0-1.0); Monocytes % (A) 5 %; Neutrophils # (A) 8.4 k/uL (1.3-7.7); Neutrophils % (A) 81 %; Platelet Count 255 k/uL (150-450); RBC 3.65 m/uL (3.80-5.40); RDW 13.7 % (11.5-15.5); WBC 10.3 k/uL (3.8-10.6)
[2019-02-12] MEDS: IPRATROPIUM-ALBUTEROL 3 ML NEB INHALATION SCH ×4 (07:28→19:12)
[2019-02-12] MEDS: SYMBICORT 160-4.5 MCG INHALER INHALATION SCH ×2 (07:28→19:12)
[2019-02-12] MEDS: APIXABAN 2.5 MG TABLET PO SCH ×2 (10:45→20:36)
[2019-02-12] MEDS: ATORVASTATIN 80 MG TAB PO SCH (10:46)
[2019-02-12] MEDS: METOPROLOL TARTRATE 50 MG TAB PO SCH ×2 (10:46→20:36)
--- NOTE | 2019-02-12 12:38 | P.PN ---
Subjective 83-year-old female was admitted secondary to atrial fibrillation, hyponatremia the provided abnormalities and a encephalopathy patient was more confused yesterday and today she is even more confused mostly aphasic today because of which I'll obtain a MRI of the brain without contrast. We'll consult neurology. I'll leave the decision of carotid Doppler was a CT angios to neurology. Patient is on IV heparin for atrial fibrillation. Patient doesn't have any GI bleed although that was a concern yesterday. Patient's potassium is low secondary to natriuretic hypokalemia which will be replaced. 02/10/2019 Patient is aphasia improved patient is still quite a bit confused, speech therapy evaluated the patient but her confusion is getting better at this time. Patient had a stroke workup for repeat CAT scan of the head was suspicious for stroke because of which we initially started with the anti-correlation although we obtain an MRI didn't show any acute stroke but there is some chronic microvascular ischemic changes patient appears to have severe metabolic and toxic encephalopathy, does not appear to have any stroke patient will be resumed the on anticoagulation with Eliquis at 2.5 mg by mouth twice a day. Patient may need to be discharged to subacute rehabilitation. Her heart rate is fairly well controlled at this time. Rest of the workup for the stroke is negative CT angios the head and neck did not show any significant atherosclerotic vascular disease. 02/11/2019 Patient is declining to go to subacute rehabilitation. Patient overall clinically doing well will be discharged today home with home care. Patient is agreeable to home care. Patient does have some confusion which is basically her dementia which appears to be moderate. 02/12/2019 No overnight events patient is awaiting to go to subacute rehabilitation and lengthy discussion with the daughter after which the came to the conclusion that patient will be discharged to subacute rehabilitation awaiting approval from the insurance. Constitutional: Denied any fatigue denied any fever. Cardio vascular: denied any chest pain, palpitations Gastrointestinal denied any nausea vomiting Pulmonary: Denied any shortness of breath cough Neurologic denied any new focal deficits All inpatient medications were reviewed and appropriate changes in these medications as dictated in the interval history and assessment and plan. Objective - Vital Signs Vital signs: Vital Signs Temp 97.7 F 02/12/19 00:00 Pulse 84 02/12/19 11:46 Resp 17 02/12/19 04:00 BP 131/62 02/12/19 00:00 Pulse Ox 95 02/12/19 00:00 Intake & Output 02/11/19 02/12/19 02/12/19 18:59 06:59 18:59 Intake Total 480 120 240 Balance 480 120 240 Intake: Oral 480 120 240 Other: Voiding Method Toilet Incontinent # Voids 2 2 1 - Exam PHYSICAL EXAMINATION: GENERAL: Patient is confused but not aphasic today thin built female oriented times almost 3 patient has lucid and normal lucid phases consistent with dementia HEENT: Pupils are round and equally reacting to light. EOMI. No scleral icterus. No conjunctival pallor. Normocephalic, atraumatic. No pharyngeal erythema. No thyromegaly. CARDIOVASCULAR: S1 and S2 present. No murmurs, rubs, or gallops. A. fib irregularly regular rhythm PULMONARY: Chest is clear to auscultation, no wheezing or crackles. ABDOMEN: Soft, nontender, nondistended, normoactive bowel sounds. No palpable or ganomegaly. MUSCULOSKELETAL: No joint swelling or deformity. EXTREMITIES: No cyanosis, clubbing, or pedal edema. NEUROLOGICAL: Gross neurological examination did not reveal any focal deficits. SKIN: No rashes. - Labs CBC & Chem 7: 02/12/19 06:32 02/11/19 06:53 Labs: Abnormal Lab Results - Last 24 Hours (Table) 02/12/19 Range/Units 06:32 RBC 3.65 L (3.80-5.40) m/uL Neutrophils # 8.4 H (1.3-7.7) k/uL Assessment and Plan Plan: Assessment and Plan Plan: -Acute toxic encephalopathy may be related to anticholinergic side effects of Benadryl and A. fib may be related to that as well will obtain a TSH is within normal limits. 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 -COPD without any acute exacerbation patient will be resumed on inhaled steroids and inhalational treatments will not require any systemic steroids at this time -Hyponatremia: Secondary to diuretics including chlorthalidone and Aldactone both of which were discontinued serum sodium today is 130 improved since admission
--- NOTE | 2019-02-12 16:36 | P.PN ---
Subjective Progress Note Date: 02/12/19 this is a 83-year-old female with history of dementia, hypertension, COPD who was admitted to the hospital with complaints of throat swelling and suspected ALLERGIC reaction to doxycycline. Patient was found to be [place] fibrillation with moderate ventricular response. Patient was initiated on anticoagulation therapy with eliquis 2.5 mg by mouth twice a day. Patient has been stable. Patient may be discharged home with home care. Denies any chest pain. Lungs are clear. Heart is irregular. Objective - Vital Signs Vital signs: Vital Signs Temp 97.6 F 02/12/19 15:49 Pulse 93 02/12/19 15:49 Resp 20 02/12/19 15:49 BP 130/58 02/12/19 15:49 Pulse Ox 93 L 02/12/19 15:49 Intake & Output 02/11/19 02/12/19 02/12/19 18:59 06:59 18:59 Intake Total 480 120 240 Balance 480 120 240 Weight 44.09 kg Intake: Oral 480 120 240 Other: Voiding Method Toilet Incontinent # Voids 2 2 1 - Exam GENERAL EXAM: Patient is alert and oriented and doesn't appear to be in any acute distress presently confused HEENT: Normocephalic. Normal reaction of pupils, equal size, normal range of extraocular motion. No erythema or exudates in the throat. NECK: No masses, no nuchal rigidity. CHEST: No chest wall deformity. LUNGS: [no wheezing or rhonchi HEART: [irregular heart sounds ABDOMEN: No hepatosplenomegaly, normal bowel sounds, no guarding or rigidity. SKIN: No rashes CENTRAL NERVOUS SYSTEM: No focal deficits. EXTREMITIES: [No cyanosis, clubbing or edema.]accept default's - Labs CBC & Chem 7: 02/12/19 06:32 02/11/19 06:53 Labs: Abnormal Lab Results - Last 24 Hours (Table) 02/12/19 Range/Units 06:32 RBC 3.65 L (3.80-5.40) m/uL Neutrophils # 8.4 H (1.3-7.7) k/uL Assessment and Plan (1) Confusion Current Visit: Yes Status: Acute Code(s): R41.0 - DISORIENTATION, UNSPECIFIED SNOMED Code(s): 537176023 (2) New onset atrial fibrillation Current Visit: Yes Status: Acute Code(s): I48.91 - UNSPECIFIED ATRIAL FIBRILLATION SNOMED Code(s): 88432763 Plan: from [facility] standpoint patient could be discharged home
[2019-02-12] MEDS: QUEtiapine 25 MG TAB PO SCH (20:36)
[2019-02-13 06:26] LABS: Basophils % (A) 0 %; Eosinophils # (A) 0.2 k/uL (0-0.7); Eosinophils % (A) 2 %; HCT 34.1 % (34.0-46.0); HGB 11.7 gm/dL (11.4-16.0); Lymphocytes # (A) 1.2 k/uL (1.0-4.8); Lymphocytes % (A) 13 %; MCH 32.5 pg (25.0-35.0); MCHC 34.5 g/dL (31.0-37.0); MCV 94.3 fL (80.0-100.0); Mean Platelet Volume 6.7; Monocytes # (A) 0.4 k/uL (0-1.0); Monocytes % (A) 4 %; Neutrophils # (A) 6.9 k/uL (1.3-7.7); Neutrophils % (A) 79 %; Platelet Count 221 k/uL (150-450); RBC 3.61 m/uL (3.80-5.40); RDW 13.7 % (11.5-15.5); WBC 8.7 k/uL (3.8-10.6)
[2019-02-13 08:51] VITALS: RESP 18
[2019-02-13] MEDS: APIXABAN 2.5 MG TABLET PO SCH ×2 (08:53→20:39)
[2019-02-13] MEDS: METOPROLOL TARTRATE 50 MG TAB PO SCH ×2 (08:53→20:39)
[2019-02-13] MEDS: IPRATROPIUM-ALBUTEROL 3 ML NEB INHALATION SCH ×4 (09:05→20:01)
[2019-02-13] MEDS: SYMBICORT 160-4.5 MCG INHALER INHALATION SCH ×2 (09:05→20:01)
[2019-02-13] MEDS ORDERED: guaiFENesin 600 MG TABLET.ER PO PRN (09:15)
--- NOTE | 2019-02-13 13:51 | P.PN ---
Subjective 83-year-old female was admitted secondary to atrial fibrillation, hyponatremia the provided abnormalities and a encephalopathy patient was more confused yesterday and today she is even more confused mostly aphasic today because of which I'll obtain a MRI of the brain without contrast. We'll consult neurology. I'll leave the decision of carotid Doppler was a CT angios to neurology. Patient is on IV heparin for atrial fibrillation. Patient doesn't have any GI bleed although that was a concern yesterday. Patient's potassium is low secondary to natriuretic hypokalemia which will be replaced. 02/10/2019 Patient is aphasia improved patient is still quite a bit confused, speech therapy evaluated the patient but her confusion is getting better at this time. Patient had a stroke workup for repeat CAT scan of the head was suspicious for stroke because of which we initially started with the anti-correlation although we obtain an MRI didn't show any acute stroke but there is some chronic microvascular ischemic changes patient appears to have severe metabolic and toxic encephalopathy, does not appear to have any stroke patient will be resumed the on anticoagulation with Eliquis at 2.5 mg by mouth twice a day. Patient may need to be discharged to subacute rehabilitation. Her heart rate is fairly well controlled at this time. Rest of the workup for the stroke is negative CT angios the head and neck did not show any significant atherosclerotic vascular disease. 02/11/2019 Patient is declining to go to subacute rehabilitation. Patient overall clinically doing well will be discharged today home with home care. Patient is agreeable to home care. Patient does have some confusion which is basically her dementia which appears to be moderate. 02/12/2019 No overnight events patient is awaiting to go to subacute rehabilitation and lengthy discussion with the daughter after which the came to the conclusion that patient will be discharged to subacute rehabilitation awaiting approval from the insurance. 02/13/2019 had sundowners last night. Patient tolerated Seroquel very well avoid benzo residence barbiturates anticollagen medications. Patient family still has lots of questions regarding her dementia patient probably has senile dementia which is moderate severe. No evidence of stroke on MRI. Patient was complaining of chest congestion because of which are wanted to get a chest x-ray to make sure patient doesn't have any pulmonary edema from IV fluids she received although clinically patient does not appear to have any pulmonary edema. Patient declined to get a chest x-ray Constitutional: Denied any fatigue denied any fever. Cardio vascular: denied any chest pain, palpitations Gastrointestinal denied any nausea vomiting Pulmonary: Denied any shortness of breath cough Neurologic denied any new focal deficits All inpatient medications were reviewed and appropriate changes in these medications as dictated in the interval history and assessment and plan. Objective - Vital Signs Vital signs: Vital Signs Temp 97.9 F 02/13/19 08:00 Pulse 88 02/13/19 12:27 Resp 18 02/13/19 08:00 BP 108/58 02/13/19 08:00 Pulse Ox 92 L 02/13/19 08:00 Intake & Output 02/12/19 02/13/19 02/13/19 18:59 06:59 18:59 Intake Total 480 240 240 Balance 480 240 240 Weight 44.3 kg Intake: Oral 480 240 240 Other: Voiding Method Toilet Incontinent # Voids 1 3 1 - Exam PHYSICAL EXAMINATION: GENERAL: Patient is confused but not aphasic today thin built female oriented times almost 3 patient has lucid and normal lucid phases consistent with dementia HEENT: Pupils are round and equally reacting to light. EOMI. No scleral icterus. No conjunctival pallor. Normocephalic, atraumatic. No pharyngeal erythema. No thyromegaly. CARDIOVASCULAR: S1 and S2 present. No murmurs, rubs, or gallops. A. fib irregularly regular rhythm PULMONARY: Chest is clear to auscultation, no wheezing or crackles. ABDOMEN: Soft, nontender, nondistended, normoactive bowel sounds. No palpable organomegaly. MUSCULOSKELETAL: No joint swelling or deformity. EXTREMITIES: No cyanosis, clubbing, or pedal edema. NEUROLOGICAL: Gross neurological examination did not reveal any focal deficits. SKIN: No rashes. - Labs CBC & Chem 7: 02/13/19 06:12 02/11/19 06:53 Labs: Abnormal Lab Results - Last 24 Hours (Table) 02/13/19 Range/Units 06:12 RBC 3.61 L (3.80-5.40) m/uL Assessment and Plan Plan: Assessment and Plan Plan: -Acute toxic encephalopathy may be related to anticholinergic side effects of Benadryl and A. fib may be related to that as well will obtain a TSH is within normal limits. 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 -COPD without any acute exacerbation patient will be resumed on inhaled steroids and inhalational treatments will not require any systemic steroids at this time -Hyponatremia: Secondary to diuretics including chlorthalidone and Aldactone both of which were discontinued serum sodium today is 130 improved since admission
[2019-02-13] MEDS: QUEtiapine 25 MG TAB PO SCH (22:53)
[2019-02-14 04:00] VITALS: TEMP 97.7
[2019-02-14 06:33] LABS: Basophils % (A) 0 %; Eosinophils # (A) 0.2 k/uL (0-0.7); Eosinophils % (A) 2 %; HCT 35.8 % (34.0-46.0); HGB 11.9 gm/dL (11.4-16.0); Lymphocytes # (A) 1.5 k/uL (1.0-4.8); Lymphocytes % (A) 16 %; MCH 32.3 pg (25.0-35.0); MCHC 33.4 g/dL (31.0-37.0); MCV 96.8 fL (80.0-100.0); Mean Platelet Volume 6.4; Monocytes # (A) 0.6 k/uL (0-1.0); Monocytes % (A) 7 %; Neutrophils % (A) 74 %; Platelet Count 254 k/uL (150-450); RDW 13.1 % (11.5-15.5); WBC 9.4 k/uL (3.8-10.6)
[2019-02-14] MEDS: APIXABAN 2.5 MG TABLET PO SCH (08:17)
[2019-02-14] MEDS: METOPROLOL TARTRATE 50 MG TAB PO SCH (08:17)
[2019-02-14] MEDS: IPRATROPIUM-ALBUTEROL 3 ML NEB INHALATION SCH ×3 (08:21→15:24)
[2019-02-14] MEDS: SYMBICORT 160-4.5 MCG INHALER INHALATION SCH (08:21)
[2019-02-14 08:23] VITALS: BP 149/68
[2019-02-14 11:13] VITALS: BMI 18.9
[2019-02-14 15:33] VITALS: PULSE 90
--- NOTE | 2019-02-14 18:18 | DS ---
DISCHARGE SUMMARY FINAL DIAGNOSES: 1. Change in mental status, acute anoxic encephalopathy related to anticholinergic side effects of Benadryl. 2. New onset atrial fibrillation with rapid ventricular rate. 3. Moderate to severe dementia, vascular. 4. Chronic obstructive pulmonary disease. 5. Hyponatremia secondary to diuretics. 6. Gait dysfunction. DISCHARGE ADVICE AND MEDICATIONS: The patient will be discharged in stable condition with guarded prognosis. Total time taken: 35 minutes. HISTORY: This 83-year-old woman with a past medical history of multiple medical problems as mentioned earlier, being followed by Dr. Anderson in the outpatient setting was admitted with change in mental status and multiple medical issues as mentioned earlier. The patient was also seen by Neurology during the hospitalization. The patient had extensive evaluation to rule out the possibility of stroke including brain MRI and CT angiograph which showed no evidence of any significant stroke event. Otherwise, patient improved significantly. PT/OT evaluated the patient and possible ECF rehab is also being considered but apparently the patient was not approved for rehab by the insurance company. Please refer to the PT/OT notes and further notes for further information. The patient being discharged in stable condition with guarded prognosis with the following advice and medications: DISCHARGE ADVICE AND MEDICATIONS: 1. Diet is cardiac diet. 2. Activity limited until follow up. 3. Follow up with Dr. Anderson in 2-3 days. 4. Follow up with Cardiology as recommended. DISCHARGE MEDICATIONS: 1. Advair b.i.d. 2. Flonase 1 spray daily p.r.n. 3. Klonopin 0.5 mg q.h.s. 4. Mucinex 1 tablet p.o. b.i.d. p.r.n. 5. Multivitamins one p.o. daily. 6. Norvasc 5 mg p.o. daily. 7. Prednisone taper. 8. Spiriva 1 puff daily. 9. Ventolin 1-2 puffs q.6h p.r.n. 10.Eliquis 2.5 mg p.o. b.i.d. 11.Lopressor 50 mg p.o. b.i.d. MMODL / TOMMYN: [id number] /
== END 2019-02-14 16:57 | disposition home health service (06) | DRG 308 ==
LOC: EC 11:04 → 3SCARD 16:54
PROVIDERS: ADMIT Hospitalist; ATTEND Hospitalist
DX: I48.1 Persistent atrial fibrillation (principal); G92 Toxic encephalopathy; E87.1 Hypo-osmolality and hyponatremia; R47.01 Aphasia; J44.9 Chronic obstructive pulmonary disease, unspecified; F01.50 Vascular dementia, unspecified severity, without behavioral disturbance, psychotic disturbance, mood disturbance, and anxiety; T45.0X5A Adverse effect of antiallergic and antiemetic drugs, initial encounter; T36.4X5A Adverse effect of tetracyclines, initial encounter; T50.2X5A Adverse effect of carbonic-anhydrase inhibitors, benzothiadiazides and other diuretics, initial encounter; E87.6 Hypokalemia; J06.9 Acute upper respiratory infection, unspecified; D72.829 Elevated white blood cell count, unspecified; I10 Essential (primary) hypertension; R26.9 Unspecified abnormalities of gait and mobility; I70.90 Unspecified atherosclerosis; K57.90 Diverticulosis of intestine, part unspecified, without perforation or abscess without bleeding; Z79.51 Long term (current) use of inhaled steroids; Z79.52 Long term (current) use of systemic steroids; Z79.899 Other long term (current) drug therapy; Z87.891 Personal history of nicotine dependence; Z90.710 Acquired absence of both cervix and uterus; Z88.0 Allergy status to penicillin; Z88.2 Allergy status to sulfonamides; Z88.8 Allergy status to other drugs, medicaments and biological substances; Z82.49 Family history of ischemic heart disease and other diseases of the circulatory system
CPT/HCPCS: 36415; 70450; 70496; 70498; 70551; 71046; 80048; 80053; 80061; 81003; 83036; 84443; 84484; 85025; 85610; 85730; 93005; 93306; 94640; 94760; 95816; 96365; 96366; 96375; 96376; 99285

== ENCOUNTER → 2019-03-03 | Outpatient (CLI) | payer MEDICARE ==
[2019-03-03 16:19] LABS: Basophils % (A) 1 %; Eosinophils # (A) 0.1 k/uL (0-0.7); Eosinophils % (A) 1 %; HCT 36.5 % (34.0-46.0); HGB 12.3 gm/dL (11.4-16.0); Lymphocytes % (A) 12 %; MCH 33.1 pg (25.0-35.0); MCHC 33.6 g/dL (31.0-37.0); MCV 98.5 fL (80.0-100.0); Mean Platelet Volume 6.8; Monocytes # (A) 0.4 k/uL (0-1.0); Monocytes % (A) 5 %; Neutrophils # (A) 6.5 k/uL (1.3-7.7); Neutrophils % (A) 80 %; Platelet Count 309 k/uL (150-450); RDW 13.4 % (11.5-15.5); WBC 8.2 k/uL (3.8-10.6)
[2019-03-03 23:27] LABS: African American GFR (CKD) 94.2 (60.0-200.0); Albumin 4.1 g/dL (3.80-4.90); Albumin/Globulin Ratio 2.28 (1.60-3.17); Anion Gap 7.2 mmol/L (4.00-12.00); BUN/Creat Ratio 21.43 Ratio (12.00-20.00); Calcium 9.3 mg/dL (8.7-10.3); Carbon Dioxide 30.8 mmol/L (21.6-31.8); Globulin 1.8 g/dL (1.6-3.3); Potassium 4.2 mmol/L (3.5-5.5); Total Bilirubin 0.4 mg/dL (0.2-1.2); Total Protein 5.9 g/dL (6.2-8.2)
== END | disposition home or self-care (01) ==
LOC: LABWHC1 15:09
PROVIDERS: ATTEND Internal Medicine
DX: E87.1 Hypo-osmolality and hyponatremia (principal)
CPT/HCPCS: 36415; 80053; 85025

== ENCOUNTER 2019-03-22 14:17 | Inpatient (IN) | payer MEDICARE ==
[2019-03-22] MEDS ORDERED: SODIUM CHLORIDE 0.9% 500 ML 500 ML IV ONE (14:30)
[2019-03-22 14:55] LABS: Basophils # (A) 0.1 k/uL (0-0.2); Basophils % (A) 1 %; Eosinophils # (A) 0.4 k/uL (0-0.7); Eosinophils % (A) 3 %; HCT 32.6 % (34.0-46.0); HGB 11.2 gm/dL (11.4-16.0); Lymphocytes # (A) 0.9 k/uL (1.0-4.8); Lymphocytes % (A) 8 %; MCH 33.4 pg (25.0-35.0); MCHC 34.3 g/dL (31.0-37.0); MCV 97.6 fL (80.0-100.0); Mean Platelet Volume 6.8; Monocytes # (A) 0.5 k/uL (0-1.0); Monocytes % (A) 4 %; Neutrophils # (A) 9.2 k/uL (1.3-7.7); Neutrophils % (A) 83 %; Platelet Count 484 k/uL (150-450); RBC 3.34 m/uL (3.80-5.40); RDW 13.4 % (11.5-15.5); WBC 11.1 k/uL (3.8-10.6)
[2019-03-22 15:07] LABS: Appearance,Urine Clear (Clear); Bilirubin,Urine Negative (Negative); Blood,Urine Negative (Negative); Color,Urine Light Yellow; Glucose,Urine (UA) Negative (Negative); Ketones,Urine Negative (Negative); Leukocyte Esterase,Urine Negative (Negative); Nitrite,Urine Negative (Negative); PH, Urine 7.5 (5.0-8.0); Protein,Urine Negative (Negative); Specific Gravity,Urine 1.006 (1.001-1.035); Urobilinogen,Urine <2.0 mg/dL (<2.0)
[2019-03-22 15:08] LABS: INR 0.9 (<1.2); Partial Thromboplastin Time 23.2 sec (22.0-30.0); Prothrombin Time 10.1 sec (9.0-12.0)
--- NOTE | 2019-03-22 15:10 | ED ---
General Adult HPI - General Chief complaint: Altered Mental Status Stated complaint: Confusion Time Seen by Provider: 03/22/19 14:25 Source: patient, family, RN notes reviewed Mode of arrival: EMS Limitations: no limitations, altered mental status - History of Present Illness Initial comments: This is an 83-year-old female presents emergency department for altered mental status. According to the sons she started becoming altered at 4 AM Thursday morning at which time she was asking for pain medicine because she has a fractured humerus. Patient was given a [place] at that time and later in the day she was more altered and so they switched her to Tylenol with codeine after that she's been on Tylenol with Codeine every 6 hours and to her altered mental status has continued to decrease to the point now where she is mostly just babbling and not making much sense. Patient has not had any fever according to son states the patient has not had any difficulty breathing or does not appear short of breath and then she has had no vomiting or diarrhea and does not appear to be in significant pain except for her right arm. - Related Data Home Medications Medication Instructions Recorded Confirmed Fluticasone Nasal [place] [Flonase 1 spray EA NOSTRIL DAILY PRN 06/27/17 03/22/19 Nasal [place]] Fluticasone/Salmeterol [Advair Hfa 2 puff INHALATION RT-BID 06/27/17 03/22/19 115-21 Mcg Inhaler] amLODIPine [Norvasc] 5 mg PO DAILY 06/27/17 03/22/19 Albuterol Inhaler [Ventolin Hfa 1 - 2 puff INHALATION RT-Q6H PRN 03/23/18 03/22/19 Inhaler] Tiotropium 18 Mcg/Puff [Spiriva] 1 cap INHALATION RT-DAILY 11/14/18 03/22/19 Acetaminophen-Codeine 300-30mg 1 tab PO Q6H PRN 03/22/19 03/22/19 [Tylenol w/codeine #3] Previous Rx's Medication Instructions Recorded Apixaban [Eliquis] 2.5 mg PO BID #60 tablet 02/11/19 Metoprolol Tartrate [Lopressor] 50 mg PO Q12H #60 tab 02/11/19 Allergies Allergy/AdvReac Type Severity Reaction Status Date / Time amoxicillin Allergy Rash/Hives Verified 03/22/19 15:34 fluconazole [From Diflucan] Allergy Unknown Verified 03/22/19 15:34 moxifloxacin HCl Allergy Rash/Hives Verified 03/22/19 15:34 [From Avelox] sulfamethoxazole Allergy Rash/Hives Verified 03/22/19 15:34 [From Bactrim] trimethoprim [From Bactrim] Allergy Rash/Hives Verified 03/22/19 15:34 tropicamide Allergy Unknown Verified 03/22/19 15:34 Review of Systems ROS Statement: Those systems with pertinent positive or pertinent negative responses have been documented in the HPI. ROS Other: All systems not noted in ROS Statement are negative. Past Medical History Past Medical History: COPD, Hypertension Additional Past Medical History / Comment(s): diverticulosis History of Any Multi-Drug Resistant Organisms: None Reported Past Surgical History: Hysterectomy Past Anesthesia/Blood Transfusion Reactions: No Reported Reaction Past Psychological History: No Psychological Hx Reported Smoking Status: Former smoker Past Alcohol Use History: Occasional Past Drug Use History: None Reported - Past Family History Father Family Medical History: Coronary Artery Disease (CAD) Mother Family Medical History: Unable to Obtain General Exam - General Exam Comments Initial Comments: GENERAL: Patient is well-developed and well-nourished. Patient is nontoxic and well- hydrated and is in mild distress. ENT: Neck is soft and supple. No significant lymphadenopathy is noted. Oropharynx is clear. Moist mucous membranes. Neck has full range of motion without eliciting any pain. EYES: The sclera were anicteric and conjunctiva were pink and moist. Extraocular movements were intact and pupils were equal round and reactive to light. Eyelids were unremarkable. PULMONARY: Unlabored respirations. Good breath sounds bilaterally. No audible rales rhonchi or wheezing was noted. CARDIOVASCULAR: There is a regular rate and rhythm without any murmurs gallops or rubs. ABDOMEN: Soft and nontender with normal bowel sounds. SKIN: Patient arm is swollen and very ecchymotic all the way down to the hand. Patient is NEUROLOGIC: Patient is alert and oriented 1. Cranial nerves II through XII are grossly intact. Motor and sensory are also intact. Normal speech, volume and content. Symmetrical smile. MUSCULOSKELETAL: She was unable to move the right arm secondary to a previous humerus fracture LYMPHATICS: No significant lymphadenopathy is noted PSYCHIATRIC: Normal psychiatric evaluation. Limitations: no limitations, altered mental status Course Vital Signs 03/22/19 14:24 Temperature 97.8 F Pulse Rate 95 Respiratory 18 Rate Blood Pressure 136/75 O2 Sat by Pulse 98 Oximetry Medical Decision Making - Medical Decision Making EKG shows normal sinus rhythm at 91 bpm urine it was 160 QRS is 80 QT interval 344 QTC is 423. Patient's EKG shows no ST segment elevation or depression or T wave abnormalities are noted. CT of the brain shows no acute abnormality. Chest x-ray shows no acute abnormality. Patient remains altered in the room and this is now been ongoing for 36 hours. Throughout that time the patient continue to get narcotics. I spoke with Dr. monge and he agreed to admit the patient admitted the patient wrote admitting orders. - Lab Data Result diagrams: 03/22/19 14:38 03/22/19 14:38 Lab Results 03/22/19 03/22/19 03/22/19 Range/Units 14:38 14:38 14:38 WBC 11.1 H (3.8-10.6) k/uL RBC 3.34 L (3.80-5.40) m/uL Hgb 11.2 L (11.4-16.0) gm/dL Hct 32.6 L (34.0-46.0) % MCV 97.6 (80.0-100.0) fL MCH 33.4 (25.0-35.0) pg MCHC 34.3 (31.0-37.0) g/dL RDW 13.4 (11.5-15.5) % Plt Count 484 H (150-450) k/uL Neutrophils % 83 % Lymphocytes % 8 % Monocytes % 4 % Eosinophils % 3 % Basophils % 1 % Neutrophils # 9.2 H (1.3-7.7) k/uL Lymphocytes # 0.9 L (1.0-4.8) k/uL Monocytes # 0.5 (0-1.0) k/uL Eosinophils # 0.4 (0-0.7) k/uL Basophils # 0.1 (0-0.2) k/uL PT 10.1 (9.0-12.0) sec INR 0.9 (<1.2) APTT 23.2 (22.0-30.0) sec Sodium 133 L (137-145) mmol/L Potassium 3.9 (3.5-5.1) mmol/L Chloride 96 L (98-107) mmol/L Carbon Dioxide 27 (22-30) mmol/L Anion Gap 10 mmol/L BUN 10 (7-17) mg/dL Creatinine 0.38 L (0.52-1.04) mg/dL Est GFR (CKD-EPI)AfAm >90 (>60 ml/min/1.73 sqM) Est GFR (CKD-EPI)NonAf >90 (>60 ml/min/1.73 sqM) Glucose 114 H (74-99) mg/dL Calcium 9.5 (8.4-10.2) mg/dL Total Bilirubin 0.8 (0.2-1.3) mg/dL AST 36 (14-36) U/L ALT 39 (9-52) U/L Alkaline Phosphatase 73 (38-126) U/L Troponin I (0.000-0.034) ng/mL Total Protein 6.5 (6.3-8.2) g/dL Albumin 3.7 (3.5-5.0) g/dL Urine Color Urine Appearance (Clear) Urine pH (5.0-8.0) Ur Specific [place] (1.001-1.035) Urine Protein (Negative) Urine Glucose (UA) (Negative) Urine Ketones (Negative) Urine Blood (Negative) Urine Nitrite (Negative) Urine Bilirubin (Negative) Urine Urobilinogen (<2.0) mg/dL Ur Leukocyte Esterase (Negative) Urine Opiates Screen (NotDetected) Ur Oxycodone Screen (NotDetected) Urine Methadone Screen (NotDetected) Ur Propoxyphene Screen (NotDetected) Ur Barbiturates Screen (NotDetected) U Tricyclic Antidepress (NotDetected) Ur Phencyclidine Scrn (NotDetected) Ur Amphetamines Screen (NotDetected) U Methamphetamines Scrn (NotDetected) U Benzodiazepines Scrn (NotDetected) Urine Cocaine Screen (NotDetected) U Marijuana (THC) Screen (NotDetected) 03/22/19 03/22/19 Range/Units 14:38 14:55 WBC (3.8-10.6) k/uL RBC (3.80-5.40) m/uL Hgb (11.4-16.0) gm/dL Hct (34.0-46.0) % MCV (80.0-100.0) fL MCH (25.0-35.0) pg MCHC (31.0-37.0) g/dL RDW (11.5-15.5) % Plt Count (150-450) k/uL Neutrophils % % Lymphocytes % % Monocytes % % Eosinophils % % Basophils % % Neutrophils # (1.3-7.7) k/uL Lymphocytes # (1.0-4.8) k/uL Monocytes # (0-1.0) k/uL Eosinophils # (0-0.7) k/uL Basophils # (0-0.2) k/uL PT (9.0-12.0) sec INR (<1.2) APTT (22.0-30.0) sec Sodium (137-145) mmol/L Potassium (3.5-5.1) mmol/L Chloride (98-107) mmol/L Carbon Dioxide (22-30) mmol/L Anion Gap mmol/L BUN (7-17) mg/dL Creatinine (0.52-1.04) mg/dL Est GFR (CKD-EPI)AfAm (>60 ml/min/1.73 sqM) Est GFR (CKD-EPI)NonAf (>60 ml/min/1.73 sqM) Glucose (74-99) mg/dL Calcium (8.4-10.2) mg/dL Total Bilirubin (0.2-1.3) mg/dL AST (14-36) U/L ALT (9-52) U/L Alkaline Phosphatase (38-126) U/L Troponin I <0.012 (0.000-0.034) ng/mL Total Protein (6.3-8.2) g/dL Albumin (3.5-5.0) g/dL Urine Color Light Yellow Urine Appearance Clear (Clear) Urine pH 7.5 (5.0-8.0) Ur Specific [place] 1.006 (1.001-1.035) Urine Protein Negative (Negative) Urine Glucose (UA) Negative (Negative) Urine Ketones Negative (Negative) Urine Blood Negative (Negative) Urine Nitrite Negative (Negative) Urine Bilirubin Negative (Negative) Urine Urobilinogen <2.0 (<2.0) mg/dL Ur Leukocyte Esterase Negative (Negative) Urine Opiates Screen Detected H (NotDetected) Ur Oxycodone Screen Not Detected (NotDetected) Urine Methadone Screen Not Detected (NotDetected) Ur Propoxyphene Screen Not Detected (NotDetected) Ur Barbiturates Screen Not Detected (NotDetected) U Tricyclic Antidepress Not Detected (NotDetected) Ur Phencyclidine Scrn Not Detected (NotDetected) Ur Amphetamines Screen Not Detected (NotDetected) U Methamphetamines Scrn Not Detected (NotDetected) U Benzodiazepines Scrn Not Detected (NotDetected) Urine Cocaine Screen Not Detected (NotDetected) U Marijuana (THC) Screen Not Detected (NotDetected) Disposition Clinical Impression: Altered mental status Disposition: ADMITTED IP TO THIS HOSP Referrals: Gabriel Townsend MD [Primary Care Provider] - 1-2 days Time of Disposition: 16:08
[2019-03-22 15:13] LABS: ALT 39 U/L (9-52); AST 36 U/L (14-36); African American GFR (CKD) >90 (>60 ml/min/1.73 sqM); Albumin 3.7 g/dL (3.5-5.0); Alkaline Phosphatase 73 U/L (38-126); Anion Gap 10 mmol/L; Blood Urea Nitrogen 10 mg/dL (7-17); Calcium 9.5 mg/dL (8.4-10.2); Carbon Dioxide 27 mmol/L (22-30); Chloride 96 mmol/L (98-107); Glucose 114 mg/dL (74-99); Potassium 3.9 mmol/L (3.5-5.1); Sodium 133 mmol/L (137-145); Total Bilirubin 0.8 mg/dL (0.2-1.3); Total Protein 6.5 g/dL (6.3-8.2)
[2019-03-22 15:18] LABS: Amphetamine Screen,Urine Not Detected (NotDetected); Barbiturate Screen,Urine Not Detected (NotDetected); Benzodiazepines Screen,Urine Not Detected (NotDetected); Cocaine Screen,Urine Not Detected (NotDetected); Methadone Screen, Urine Not Detected (NotDetected); Opiate Screen,Urine Detected (NotDetected); Oxycodone Screen, Urine Not Detected (NotDetected); Phencyclidine Screen,Urine Not Detected (NotDetected); Tricyclic Antidepressant,Urine Not Detected (NotDetected); Urn Cannabinoid Scrn Not Detected (NotDetected)
--- NOTE | 2019-03-22 15:47 | CT ---
EXAMINATION TYPE: CT brain wo con DATE OF EXAM: 03/22/2019 HISTORY: Altered mental status CT DLP: 1054.4 mGycm. Automated Exposure Control for Dose Reduction was Utilized. TECHNIQUE: CT scan of the head is performed without contrast. COMPARISON: CT brain February 09, 2019. MRI brain February 10, 2019 FINDINGS: There is no acute intracranial hemorrhage or midline shift identified. There is diffuse v entricular and sulcal prominence consistent with diffuse age-related cerebral atrophy. There is low- attenuation in the periventricular white matter consistent with chronic small vessel ischemic change. The globes are intact and the visualized sinuses are clear. IMPRESSION: No acute intracranial hemorrhage or midline shift. There is moderate diffuse age-relate d cerebral atrophy and moderate to severe chronic small vessel ischemic change redemonstrated. No sig nificant change from most recent prior studies.
--- NOTE | 2019-03-22 15:52 | XR ---
EXAMINATION TYPE: XR chest 2V DATE OF EXAM: 03/22/2019 COMPARISON: 02/08/2019 TECHNIQUE: PA and lateral views submitted. HISTORY: Altered mental status FINDINGS: The lungs are clear and there is no pneumothorax, pleural effusion, or focal pneumonia. Hyperinflat ion suggests COPD. No pneumothorax or interstitial edema. Atherosclerotic change aorta. Degenerative change of the spine. Calcified granuloma left lower lobe. IMPRESSION: 1. No acute process. Correlate for diffuse COPD.
[2019-03-22] MEDS ORDERED: SODIUM CHLORIDE 0.9% 1,000 ML IV ONE (16:09)
[2019-03-22] MEDS ORDERED: FLUTICASONE 50MCG/SPRAY NASAL 16GM EA NOSTRIL PRN (22:02)
[2019-03-22] MEDS ORDERED: ALBUTEROL NEBULIZED 2.5 MG/3 ML INHALATION PRN (22:07)
[2019-03-23] MEDS: METOPROLOL TARTRATE 50 MG TAB PO SCH ×4 (00:25→21:00)
[2019-03-23] MEDS: amLODIPine 5 MG TAB PO SCH (08:04)
[2019-03-23] MEDS: APIXABAN 2.5 MG TABLET PO SCH ×2 (08:04→21:00)
[2019-03-23] MEDS: ACETAMINOPHEN TAB 325 MG TAB PO PRN ×2 (08:06→14:24)
[2019-03-23] MEDS: IPRATROPIUM 0.5 MG/2.5 ML NEBU INHALATION SCH ×4 (08:29→20:10)
[2019-03-23] MEDS: SYMBICORT 160-4.5 MCG INHALER INHALATION SCH ×2 (08:29→20:10)
[2019-03-23 11:28] VITALS: BMI 17.9
--- NOTE | 2019-03-23 12:19 | XR ---
EXAMINATION TYPE: XR humerus RT DATE OF EXAM: 03/23/2019 COMPARISON: NONE HISTORY: Pain TECHNIQUE: 2 views submitted. FINDINGS: There is a deformity of the right humeral neck suspicious for fracture which is poorly profiled. Ayla ining osseous structures intact. Diffuse osteopenia noted. Blunting of the right costophrenic angle m ay represent pleural thickening or tiny amount of pleural fluid. Underlying COPD suspected. IMPRESSION: 1. Deformity of the right humeral neck suspicious for fracture.
[2019-03-23] MEDS ORDERED: ALBUTEROL INHALER 60 PUFF/8 GM INHALER INHALATION PRN (13:11)
--- NOTE | 2019-03-23 13:15 | P.HPIM ---
History of Present Illness Patient is a pleasant 83-year-old female known to me from his previous hospitalization had a recent fall and fractured humerus had because of her given [place] instead of her Tylenol 3 which she was taking at home and the patient is s tarted getting confused quite a bit confused yesterday because of which patient was brought to ER and patient was apparently babbling at the time this confusion completely resolved resolved and patient is at her baseline which is alert oriented 2-3. 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 Patient does have history of atrial fibrillation on the anti-correlation with Eliquis. Patient is receiving Tylenol without any significant pain since significantly improved mental status. There is no evidence of any other infection at this time Review of Systems REVIEW OF SYSTEMS: CONSTITUTIONAL: No fever, no malaise, no fatigue. HEENT: No recent visual problems or hearing problems. Denied any sore throat. CARDIOVASCULAR: No chest pain, orthopnea, PND, no palpitations, no syncope. PULMONARY: No shortness of breath, no cough, no hemoptysis. GASTROINTESTINAL: No diarrhea, no nausea, no vomiting, no abdominal pain. NEUROLOGICAL: No headaches, no weakness, no numbness. HEMATOLOGICAL: Denies any bleeding or petechiae. GENITOURINARY: Denies any burning micturition, frequency, or urgency. MUSCULOSKELETAL/RHEUMATOLOGICAL: Denies any joint pain, swelling, or any muscle pain. ENDOCRINE: Denies any polyuria or polydipsia. The rest of the 14-point review of systems is negative. Past Medical History Past Medical History: COPD, Hypertension Additional Past Medical History / Comment(s): diverticulosis, Fx humerus History of Any Multi-Drug Resistant Organisms: None Reported Past Surgical History: Hysterectomy Past Anesthesia/Blood Transfusion Reactions: No Reported Reaction Past Psychological History: No Psychological Hx Reported Smoking Status: Former smoker Past Alcohol Use History: Occasional Past Drug Use History: None Reported - Past Family History Father Family Medical History: Coronary Artery Disease (CAD) Mother Family Medical History: Unable to Obtain Medications and Allergies Home Medications Medication Instructions Recorded Confirmed Type Fluticasone Nasal [place] [Flonase 1 spray EA NOSTRIL DAILY PRN 06/27/17 03/22/19 History Nasal [place]] Fluticasone/Salmeterol [Advair Hfa 2 puff INHALATION RT-BID 06/27/17 03/22/19 History 115-21 Mcg Inhaler] amLODIPine [Norvasc] 5 mg PO DAILY 06/27/17 03/22/19 History Albuterol Inhaler [Ventolin Hfa 1 - 2 puff INHALATION RT-Q6H PRN 03/23/18 03/22/19 History Inhaler] Tiotropium 18 Mcg/Puff [Spiriva] 1 cap INHALATION RT-DAILY 11/14/18 03/22/19 History Apixaban [Eliquis] 2.5 mg PO BID #60 tablet 02/11/19 03/22/19 Rx Metoprolol Tartrate [Lopressor] 50 mg PO Q12H #60 tab 02/11/19 03/22/19 Rx Acetaminophen-Codeine 300-30mg 1 tab PO Q6H PRN 03/22/19 03/22/19 History [Tylenol w/codeine #3] Allergies Allergy/AdvReac Type Severity Reaction Status Date / Time amoxicillin Allergy Rash/Hives Verified 03/22/19 15:34 fluconazole [From Diflucan] Allergy Unknown Verified 03/22/19 15:34 moxifloxacin HCl Allergy Rash/Hives Verified 03/22/19 15:34 [From Avelox] sulfamethoxazole Allergy Rash/Hives Verified 03/22/19 15:34 [From Bactrim] trimethoprim [From Bactrim] Allergy Rash/Hives Verified 03/22/19 15:34 tropicamide Allergy Unknown Verified 03/22/19 15:34 Physical Exam Vitals: Vital Signs Temp Pulse Pulse Pulse Resp BP BP 03/23/19 08:38 84 03/23/19 08:30 84 03/23/19 08:00 18 03/23/19 05:00 97.9 F 101 H 18 146/73 03/22/19 22:52 98.0 F 115 H 15 147/83 03/22/19 19:26 97.8 F 100 18 135/70 03/22/19 17:46 100 18 135/70 03/22/19 16:30 104 H 16 136/71 03/22/19 15:30 136/75 03/22/19 14:30 20 132/92 03/22/19 14:24 97.8 F 95 18 136/75 Pulse Ox 03/23/19 08:38 03/23/19 08:30 03/23/19 08:00 03/23/19 05:00 98 03/22/19 22:52 98 03/22/19 19:26 94 L 03/22/19 17:46 94 L 03/22/19 16:30 94 L 03/22/19 15:30 03/22/19 14:30 94 L 03/22/19 14:24 98 Intake and Output 03/22/19 03/23/19 03/23/19 22:59 06:59 14:59 Intake Total 1150 540 Balance 1150 540 Intake: Amount of Fluid Infused ( 1150 ml) Oral 540 Other: Voiding Method Incontinent Incontinent # Voids 1 1 2 Weight 44.452 kg PHYSICAL EXAMINATION: GENERAL: The patient is alert and oriented x3, not in any acute distress. Thin built female HEENT: Pupils are round and equally reacting to light. EOMI. No scleral icterus. No conjunctival pallor. Normocephalic, atraumatic. No pharyngeal erythema. No thyromegaly. CARDIOVASCULAR: S1 and S2 present. No murmurs, rubs, or gallops. PULMONARY: Chest is clear to auscultation, no wheezing or crackles. ABDOMEN: Soft, nontender, nondistended, normoactive bowel sounds. No palpable organomegaly. MUSCULOSKELETAL: She has a right arm sling EXTREMITIES: No cyanosis, clubbing, or pedal edema. NEUROLOGICAL: Gross neurological examination did not reveal any focal deficits. SKIN: No rashes. Results CBC & Chem 7: 03/22/19 14:38 03/22/19 14:38 Labs: Abnormal Lab Results - Last 24 Hours (Table) 03/22/19 03/22/19 03/22/19 Range/Units 14:38 14:38 14:55 WBC 11.1 H (3.8-10.6) k/uL RBC 3.34 L (3.80-5.40) m/uL Hgb 11.2 L (11.4-16.0) gm/dL Hct 32.6 L (34.0-46.0) % Plt Count 484 H (150-450) k/uL Neutrophils # 9.2 H (1.3-7.7) k/uL Lymphocytes # 0.9 L (1.0-4.8) k/uL Sodium 133 L (137-145) mmol/L Chloride 96 L (98-107) mmol/L Creatinine 0.38 L (0.52-1.04) mg/dL Glucose 114 H (74-99) mg/dL Urine Opiates Screen Detected H (NotDetected) Thrombosis Risk Factor Assmnt - Choose All That Apply Any of the Below Risk Factors Present?: Yes Each Factor Represents 1 point: Abnormal pulmonary function (COPD) Other Risk Factors: Yes Each Risk Factor Represents 3 Points: Age 75 years or older Each Risk Factor Represents 5 Points: Hip, pelvis, or leg fracture (< 1 month) Thrombosis Risk Factor Assessment Total Risk Factor Score: 9 Thrombosis Risk Factor Assessment Level: High Risk Assessment and Plan Plan: -Toxic encephalopathy secondary to opiate medications medications which resolved and patient will be continued on Tylenol extra strength for pain. -Right humerus fracture: Orthopedic surgery will be consulted. -Hyponatremia which is chronic and much improved compared to last auscultation with concerns of pulmonary edema IV fluids and discontinued although Will repeat basic metabolic profile for tomorrow -Atrial fibrillation presently rate controlled continue with Eliquis and rate control medications -Hypertension: Continue with amlodipine -COPD without any acute exacerbation
[2019-03-24] MEDS: ACETAMINOPHEN TAB 325 MG TAB PO PRN (03:13)
[2019-03-24] MEDS: SYMBICORT 160-4.5 MCG INHALER INHALATION SCH (07:17)
[2019-03-24] MEDS: IPRATROPIUM 0.5 MG/2.5 ML NEBU INHALATION SCH ×3 (07:17→16:14)
[2019-03-24] MEDS: METOPROLOL TARTRATE 50 MG TAB PO SCH (08:44)
[2019-03-24] MEDS: amLODIPine 5 MG TAB PO SCH (08:44)
[2019-03-24] MEDS: APIXABAN 2.5 MG TABLET PO SCH (08:45)
--- NOTE | 2019-03-24 09:41 | P.CNOR ---
History of Present Illness - [facility] Consult date: 03/24/19 Consult reason: fracture (Right proximal humerus) History of present illness: This is an 83-year-old female admitted with altered mental status. She was previously seen with a proximal humerus fracture. The family had concern that she may have fallen again. We are consulted for evaluation of her right shoulder. She also complains about right hand pain. The patient is a poor historian and there is no family present at bedside at this time. Past Medical History Past Medical History: COPD, Hypertension Additional Past Medical History / Comment(s): diverticulosis, Fx humerus History of Any Multi-Drug Resistant Organisms: None Reported Past Surgical History: Hysterectomy Past Anesthesia/Blood Transfusion Reactions: No Reported Reaction Past Psychological History: No Psychological Hx Reported Smoking Status: Former smoker Past Alcohol Use History: Occasional Past Drug Use History: None Reported - Past Family History Father Family Medical History: Coronary Artery Disease (CAD) Mother Family Medical History: Unable to Obtain Medications and Allergies Home Medications Medication Instructions Recorded Confirmed Type Fluticasone Nasal [place] [Flonase 1 spray EA NOSTRIL DAILY PRN 06/27/17 03/22/19 History Nasal [place]] Fluticasone/Salmeterol [Advair Hfa 2 puff INHALATION RT-BID 06/27/17 03/22/19 History 115-21 Mcg Inhaler] amLODIPine [Norvasc] 5 mg PO DAILY 06/27/17 03/22/19 History Albuterol Inhaler [Ventolin Hfa 1 - 2 puff INHALATION RT-Q6H PRN 03/23/18 03/22/19 History Inhaler] Tiotropium 18 Mcg/Puff [Spiriva] 1 cap INHALATION RT-DAILY 11/14/18 03/22/19 History Apixaban [Eliquis] 2.5 mg PO BID #60 tablet 02/11/19 03/22/19 Rx Metoprolol Tartrate [Lopressor] 50 mg PO Q12H #60 tab 02/11/19 03/22/19 Rx Acetaminophen-Codeine 300-30mg 1 tab PO Q6H PRN 03/22/19 03/22/19 History [Tylenol w/codeine #3] Allergies Allergy/AdvReac Type Severity Reaction Status Date / Time amoxicillin Allergy Rash/Hives Verified 03/22/19 15:34 fluconazole [From Diflucan] Allergy Unknown Verified 03/22/19 15:34 moxifloxacin HCl Allergy Rash/Hives Verified 03/22/19 15:34 [From Avelox] sulfamethoxazole Allergy Rash/Hives Verified 03/22/19 15:34 [From Bactrim] trimethoprim [From Bactrim] Allergy Rash/Hives Verified 03/22/19 15:34 tropicamide Allergy Unknown Verified 03/22/19 15:34 Physical Examination This is a pleasant 83-year-old female in no acute distress. She is alert and oriented to person and place. She does have some confusion as to recent events. She is not sure why she is in the hospital at this time. Exam of the upper extremities reveals that the right arm is in a sling. There is swelling and ecchymosis noted to the hand and wrist. She has full wrist motion and has no pain with palpation about the distal radius or ulna. There is no pain with palpation about the metacarpals. She is unable to make a full fist secondary to swelling. Fingers are nontender to palpation. There is pain with palpation about the right shoulder. Exam of the lower extremities reveals a bandage in place to the right lower leg. The dressing is clean and dry. She is able to lift each leg off the bed i ndependently. She has full foot and ankle motion bilaterally. Neurovascular status to the lower extremities is intact. Results X-rays of the right humerus reveal a deformity at the humeral head. No other fractures identified. I have ordered a dedicated shoulder film for further evaluation. - Labs Labs: H & H 03/22/19 Range/Units 14:38 Hgb 11.2 L (11.4-16.0) gm/dL Hct 32.6 L (34.0-46.0) % Coagulation 03/22/19 Range/Units 14:38 INR 0.9 (<1.2) Result Diagrams: 03/22/19 14:38 03/22/19 14:38 Assessment and Plan (1) Fracture of proximal end of right humerus Current Visit: Yes Status: Acute Code(s): S42.201A - UNSP FRACTURE OF UPPER END OF RIGHT HUMERUS, INIT SNOMED Code(s): 121275264 (2) Altered mental status Current Visit: Yes Status: Acute Code(s): R41.82 - ALTERED MENTAL STATUS, UNSPECIFIED SNOMED Code(s): 831762946 (3) Confusion Current Visit: No Status: Acute Code(s): R41.0 - DISORIENTATION, UNSPECIFIED SNOMED Code(s): 087277841 (4) Contusion of right hand Current Visit: Yes Status: Acute Code(s): S60.221A - CONTUSION OF RIGHT HAND, INITIAL ENCOUNTER SNOMED Code(s): 6517819 Plan: The clinical and x-ray findings are discussed with the patient. I've recommended she have shoulder x-rays and right hand x-rays for further evaluation. She is to continue with the current sling. We will make further recommendations once films are available.
--- NOTE | 2019-03-24 10:44 | XR ---
EXAMINATION TYPE: XR shoulder complete RT DATE OF EXAM: 03/24/2019 COMPARISON: 03/23/2019 HISTORY: Pain TECHNIQUE: Three views are submitted. FINDINGS: There is a displaced fracture of the right humeral neck. Diffuse osteopenia noted. Arthropathy of the shoulder. IMPRESSION: 1. Displaced right humeral neck fracture
--- NOTE | 2019-03-24 10:47 | XR ---
EXAMINATION TYPE: XR hand complete RT DATE OF EXAM: 03/24/2019 COMPARISON: NONE HISTORY: Pain TECHNIQUE: Three views are submitted. FINDINGS: There is severe narrowing in the DIP joints of the second digit and PIP joints of the second and thir d digit with findings suggestive of erosive osteoarthritis. Diffuse osteopenia noted. Additional arth ropathy involving the intercarpal joints and radiocarpal joint with chondrocalcinosis noted. A chroni c appearing deformity noted involving the PIP joint of the second digit should be correlated clinical ly questionable deformity involving the scaphoid. IMPRESSION: 1. 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 2. Questionable deformity involving the scaphoid should be correlated with point tenderness. If point tender then dedicated scaphoid view recommended.
--- NOTE | 2019-03-24 14:19 | P.DS ---
Providers Date of admission: 03/22/19 16:09 Expected date of discharge: 03/24/19 Attending physician: Brendan Sexton Consults: 03/23/19 11:35 Consult Physician Stat Consulting Provider: Lev Barron Consult Reason/Comments: fractured left arm Do you want consulting provider notified?: Yes Primary care physician: [facility] Course: Final diagnosis Toxic encephalopathy secondary to opiate medications Right humerus fracture Hyponatremia which is chronic and much improved Atrial fibrillation presently rate controlled Hypertension COPD without any acute exacerbation Discharge disposition Patient is being discharged in a stable condition with guarded prognosis to [facility] for rehab. Total time taken is 35 minutes. Patient is to continue Tylenol Extra Strength for pain control and will give some Ultram for discharge. Patient is to avoid opiates at this time. History of present illness This is a very pleasant 83-year-old female who had a recent fall and has a fractured right humerus and was being followed closely. Orthopedics were following. An x-ray of the right shoulder and wrist were done today showing no acute fractures as she was having some swelling and bruising. Patient will continue with the sling and to keep the arm elevated on a pillow and [facility] in the outpatient setting in 2 weeks. Patient denies any chest pain, shortness of breath, or palpitations at this time. Patient denies any pain in the right hand, has full range of motion, with positive pulses noted. Patient is afebrile. On exam vital signs are stable. Temp is 97.8F, pulse is 74, respirations are 20, blood pressure is 131/76, oxygen saturation is 97% on 2 L. Patient states that she is 2 L dependent at home as well. Cardio S1 and S2 are muffled. Respiratory system shows diminished breath sounds at the bases otherwise clear to auscultation. Abdomen is soft, thin, and non-tender. Nervous system shows no focal deficits. Please refer to medication reconciliation sheet for a list of medications. Patient Condition at Discharge: Fair Plan - Discharge Summary Discharge Rx Participant: Yes New Discharge Prescriptions: New Acetaminophen Tab [Tylenol] 650 mg PO Q4H PRN #12 tab PRN Reason: Fever And/ Or Pain traMADol HCL [Ultram] 50 mg PO TID PRN 3 Days #9 tab PRN Reason: Pain Discontinued Acetaminophen-Codeine 300-30mg [Tylenol w/codeine #3] 1 tab PO Q6H PRN PRN Reason: Pain No Action amLODIPine [Norvasc] 5 mg PO DAILY Fluticasone/Salmeterol [Advair Hfa 115-21 Mcg Inhaler] 2 puff INHALATION RT- BID Fluticasone Nasal [place] [Flonase Nasal [place]] 1 spray EA NOSTRIL DAILY PRN PRN Reason: Allergy Symptoms Albuterol Inhaler [Ventolin Hfa Inhaler] 1 - 2 puff INHALATION RT-Q6H PRN PRN Reason: Shortness Of Breath Tiotropium 18 Mcg/Puff [Spiriva] 1 cap INHALATION RT-DAILY Apixaban [Eliquis] 2.5 mg PO BID #60 tablet Metoprolol Tartrate [Lopressor] 50 mg PO Q12H #60 tab Discharge Medication List Fluticasone Nasal [place] [Flonase Nasal [place]] 1 spray EA NOSTRIL DAILY PRN 06/27/17 [History] Fluticasone/Salmeterol [Advair Hfa 115-21 Mcg Inhaler] 2 puff INHALATION RT-BID 06/27/17 [History] amLODIPine [Norvasc] 5 mg PO DAILY 06/27/17 [History] Albuterol Inhaler [Ventolin Hfa Inhaler] 1 - 2 puff INHALATION RT-Q6H PRN 03/23/18 [History] Tiotropium 18 Mcg/Puff [Spiriva] 1 cap INHALATION RT-DAILY 11/14/18 [History] Apixaban [Eliquis] 2.5 mg PO BID #60 tablet 02/11/19 [Rx] Metoprolol Tartrate [Lopressor] 50 mg PO Q12H #60 tab 02/11/19 [Rx] Acetaminophen Tab [Tylenol] 650 mg PO Q4H PRN #12 tab 03/24/19 [Rx] traMADol HCL [Ultram] 50 mg PO TID PRN 3 Days #9 tab 03/24/19 [Rx] Follow up Appointment(s)/Referral(s): [facility] [Provider Group] - 1 Week Gabriel Townsend MD [Primary Care Provider] - 1-2 days Ricky Rubi, [NON-STAFF] - As Needed [facility], [NON-STAFF] - As Needed Lev Barron MD [STAFF PHYSICIAN] - 1 Week Ambulatory/Diagnostic Orders: Basic Metabolic Panel [LAB.AMB] Time Frame: 3 Days, Location: None Selected Activity/Diet/Wound Care/Special Instructions: Activity as tolerated Continue current diet Continue to work with PT/OT Continue wearing the sling on the right arm and elevate with pillows Avoid narcotics as it may lead to altered mental status [facility]-up with [facility] in 1-2 weeks Repeat BMP in 2-3 days
[2019-03-24 15:45] VITALS: BP 106/59; RESP 16; TEMP 97.5
[2019-03-24 16:26] VITALS: PULSE 80
--- NOTE | 2019-03-24 16:49 | CDI ---
Documentation Clarification Form Date: 03/23/2019 From: Ciera Gallardo RN, CCDS Admit Date: 03/22/2019 4:09:00 PM Patient Name: Claudia Childers Visit Number: [id number] Discharge Date: ATTENTION: The Clinical Documentation Specialists (CDI) and [facility] Coding Staff appreciate your assistance in clarifying documentation. Please respond to the clarification below the line at the bottom and electronically sign. The CDI & [facility] Coding staff will review the response and follow-up if needed. Please note: Queries are made part of the Legal Health Record. If you have any questions, please contact the author of this message via ITS. Dr. Babar Samuel Atrial Fibrillation is documented in the H/P and subsequent progress notes and further clarification is needed. History/Risk Factors: COPD, Hypertension, Former smoker Clinical Indicators:83-year-old female who preset with altered mental status. and a known right humeral neck fracture. In your H&P atrial fibrillation is documented with ongoing treatment with Eliquis. EKG/telemetry: Normal sinus rhythm at 91 bpm Treatment: Eliquis PO BID Monitor PT/INR, PTT, CBC In your professional opinion, can you please clarify the type of Atrial Fibrillation, if known? Chronic/Permanent Paroxysmal Persistent Other, please specify Unable to determine (Last Revision: October 2017) Paroxysmal MTDD
== END 2019-03-24 17:09 | DRG 92 ==
LOC: EC 14:17 → 4MS4W 16:09 → 4SSUR 18:14 → 4MS4W 18:17
PROVIDERS: ADMIT Internal Medicine; ATTEND Internal Medicine
DX: G92 Toxic encephalopathy (principal); S42.201A Unspecified fracture of upper end of right humerus, initial encounter for closed fracture; E87.1 Hypo-osmolality and hyponatremia; F03.90 Unspecified dementia, unspecified severity, without behavioral disturbance, psychotic disturbance, mood disturbance, and anxiety; J44.9 Chronic obstructive pulmonary disease, unspecified; I48.91 Unspecified atrial fibrillation; I10 Essential (primary) hypertension; I48.0 Paroxysmal atrial fibrillation; T40.605A Adverse effect of unspecified narcotics, initial encounter; Z79.01 Long term (current) use of anticoagulants; Z88.1 Allergy status to other antibiotic agents; Z88.2 Allergy status to sulfonamides; Z88.8 Allergy status to other drugs, medicaments and biological substances; Z79.51 Long term (current) use of inhaled steroids; Z79.899 Other long term (current) drug therapy; Z87.891 Personal history of nicotine dependence; Z82.49 Family history of ischemic heart disease and other diseases of the circulatory system; Z90.710 Acquired absence of both cervix and uterus
CPT/HCPCS: 36415; 70450; 71046; 80053; 80306; 81003; 84484; 85025; 85610; 85730; 93005; 94640; 94760; 96360; 96361; 99285

== ENCOUNTER 2019-04-11 19:31 | Inpatient (IN) | payer MEDICARE ==
--- NOTE | 2019-04-11 19:57 | ED ---
SOB HPI - General Chief Complaint: Shortness of Breath Stated Complaint: SOB Time Seen by Provider: 04/11/19 19:34 Source: patient, EMS, RN notes reviewed, old records reviewed Mode of arrival: EMS Limitations: no limitations - History of Present Illness Initial Comments: This is a 83-year-old female the ER for evaluation she presents today for evaluation shortness breath no hypoxia. A she was seen by staff after going to the bathroom to be significantly short of breath with hypoxia. Patient's family severely hypoxic shortness of breath is similar event last night without significant hypoxia. Patient states she has severe. COPD. Patient's family she is not getting the same known. She was that is his normal baseline. Patient denying any pain. She has a comminuted recent medical history significant for multiple episodes of altered mental status, recent fall with right sided humerus fracture. Patient denies any complaints now no pain. No fevers. MD Complaint: shortness of breath, anxiety (with activity) -: days(s) Severity: moderate Severity scale (1-10): 3 Consistency: constant Improves With: oxygen, rest, bronchodilators Worsens With: exertion, movement Known History Of: COPD Associated Symptoms: denies other symptoms Treatments Prior to Arrival: none - Related Data Home Medications Medication Instructions Recorded Confirmed Fluticasone Nasal [place] [Flonase 1 spray EA NOSTRIL DAILY PRN 06/27/17 04/11/19 Nasal [place]] Fluticasone/Salmeterol [Advair Hfa 2 puff INHALATION RT-BID 06/27/17 04/11/19 115-21 Mcg Inhaler] amLODIPine [Norvasc] 5 mg PO DAILY 06/27/17 04/11/19 Albuterol Inhaler [Ventolin Hfa 1 - 2 puff INHALATION RT-Q6H PRN 03/23/18 04/11/19 Inhaler] Tiotropium 18 Mcg/Puff [Spiriva] 1 cap INHALATION RT-DAILY 11/14/18 04/11/19 Cholecalciferol [Vitamin D3] 800 unit PO DAILY 04/11/19 04/11/19 Fexofenadine HCl 180 mg PO DAILY PRN 04/11/19 04/11/19 Furosemide [Lasix] 20 mg PO SUTU 04/11/19 04/11/19 Metoprolol Tartrate [Lopressor] 50 mg PO BID 04/11/19 04/11/19 Previous Rx's Medication Instructions Recorded Apixaban [Eliquis] 2.5 mg PO BID #60 tablet 02/11/19 Acetaminophen Tab [Tylenol] 650 mg PO Q4H PRN #12 tab 03/24/19 traMADol HCL [Ultram] 50 mg PO TID PRN 3 Days #9 tab 03/24/19 Allergies Allergy/AdvReac Type Severity Reaction Status Date / Time amoxicillin Allergy Rash/Hives Verified 04/11/19 20:32 fluconazole [From Diflucan] Allergy Unknown Verified 04/11/19 20:32 moxifloxacin HCl Allergy Rash/Hives Verified 04/11/19 20:32 [From Avelox] sulfamethoxazole Allergy Rash/Hives Verified 04/11/19 20:32 [From Bactrim] trimethoprim [From Bactrim] Allergy Rash/Hives Verified 04/11/19 20:32 tropicamide Allergy Unknown Verified 04/11/19 20:32 doxycycline AdvReac Unknown Verified 04/11/19 20:32 Review of Systems ROS Statement: Those systems with pertinent positive or pertinent negative responses have been documented in the HPI. ROS Other: All systems not noted in ROS Statement are negative. Past Medical History Past Medical History: COPD, Hypertension Additional Past Medical History / Comment(s): diverticulosis, Fx humerus History of Any Multi-Drug Resistant Organisms: None Reported Past Surgical History: Hysterectomy Past Anesthesia/Blood Transfusion Reactions: No Reported Reaction Past Psychological History: No Psychological Hx Reported Smoking Status: Former smoker Past Alcohol Use History: Occasional Past Drug Use History: None Reported - Past Family History Father Family Medical History: Coronary Artery Disease (CAD) Mother Family Medical History: Unable to Obtain General Exam Limitations: no limitations General appearance: alert, in no apparent distress, anxious Head exam: Present: atraumatic, normocephalic, normal inspection Eye exam: Present: normal appearance, EOMI. Absent: scleral icterus, conjunctival injection, periorbital swelling ENT exam: Present: normal exam, mucous membranes moist Neck exam: Present: normal inspection. Absent: tenderness, meningismus, lymphadenopathy Respiratory exam: Present: respiratory distress, wheezes, accessory muscle use, decreased breath sounds, prolonged expiratory. Absent: rales, rhonchi, stridor Cardiovascular Exam: Present: normal rhythm, tachycardia, normal heart sounds. Absent: systolic murmur, diastolic murmur, rubs, gallop, clicks GI/Abdominal exam: Present: soft, normal bowel sounds. Absent: distended, tenderness, guarding, rebound, rigid Extremities exam: Present: normal inspection, full ROM, normal capillary refill. Absent: tenderness, pedal edema, joint swelling, calf tenderness Back exam: Present: normal inspection Neurological exam: Present: alert, oriented X3, CN II-XII intact Psychiatric exam: Present: normal affect, normal mood Skin exam: Present: warm, dry, intact, normal color. Absent: rash Course Vital Signs 04/11/19 04/11/19 04/11/19 19:36 19:37 19:50 Temperature 99.2 F Pulse Rate 100 Respiratory 22 22 Rate Blood Pressure 142/76 142/76 O2 Sat by Pulse 96 95 Oximetry 04/11/19 04/11/19 04/11/19 20:00 20:18 20:19 Temperature Pulse Rate 100 101 H 93 Respiratory 18 22 Rate Blood Pressure 142/76 143/94 O2 Sat by Pulse 94 L 95 Oximetry 04/11/19 04/11/19 04/11/19 20:30 21:00 21:01 Temperature Pulse Rate 105 H 105 H 107 H Respiratory 16 20 Rate Blood Pressure 143/94 134/81 O2 Sat by Pulse 97 96 Oximetry 04/11/19 04/11/19 04/11/19 21:30 22:00 22:30 Temperature Pulse Rate 112 H 117 H 107 H Respiratory 20 26 H 20 Rate Blood Pressure 161/88 135/68 123/64 O2 Sat by Pulse 93 L 94 L 94 L Oximetry 04/11/19 23:00 Temperature Pulse Rate 107 H Respiratory 20 Rate Blood Pressure 136/68 O2 Sat by Pulse 94 L Oximetry - Reevaluation(s) Reevaluation #1: 04/11/19 23:27 Medical records reviewed Reevaluation #2: 04/11/19 23:27 Patient is improved symptoms, still short of breath Reevaluation #3: 04/11/19 23:28 symptoms remain improved - Consultations Consultation #1: Spoke with Dr. Dove regarding admission he is agreeable Medical Decision Making - Medical Decision Making 83 female the ER for evaluation significant shortness of breath and shortness breath with exertion severe COPD exacerbation, patient be admitted for continued monitoring of breathing and cardiopulmonary status - Lab Data Result diagrams: 04/11/19 19:41 04/11/19 19:41 Lab Results 04/11/19 04/11/19 04/11/19 Range/Units 19:41 19:41 19:41 WBC 11.5 H (3.8-10.6) k/uL RBC 3.19 L (3.80-5.40) m/uL Hgb 10.8 L (11.4-16.0) gm/dL Hct 31.5 L (34.0-46.0) % MCV 98.8 (80.0-100.0) fL MCH 33.7 (25.0-35.0) pg MCHC 34.2 (31.0-37.0) g/dL RDW 15.1 (11.5-15.5) % Plt Count 418 (150-450) k/uL Neutrophils % 84 % Lymphocytes % 7 % Monocytes % 5 % Eosinophils % 1 % Basophils % 2 % Neutrophils # 9.7 H (1.3-7.7) k/uL Lymphocytes # 0.8 L (1.0-4.8) k/uL Monocytes # 0.6 (0-1.0) k/uL Eosinophils # 0.1 (0-0.7) k/uL Basophils # 0.2 (0-0.2) k/uL Macrocytosis Slight PT (9.0-12.0) sec INR (<1.2) APTT (22.0-30.0) sec Sodium 136 L (137-145) mmol/L Potassium 4.3 (3.5-5.1) mmol/L Chloride 100 (98-107) mmol/L Carbon Dioxide 28 (22-30) mmol/L Anion Gap 8 mmol/L BUN 20 H (7-17) mg/dL Creatinine 0.47 L (0.52-1.04) mg/dL Est GFR (CKD-EPI)AfAm >90 (>60 ml/min/1.73 sqM) Est GFR (CKD-EPI)NonAf >90 (>60 ml/min/1.73 sqM) Glucose 215 H (74-99) mg/dL Calcium 9.5 (8.4-10.2) mg/dL Magnesium 1.4 L (1.6-2.3) mg/dL Total Bilirubin 0.3 (0.2-1.3) mg/dL AST 27 (14-36) U/L ALT 24 (9-52) U/L Alkaline Phosphatase 83 (38-126) U/L Troponin I (0.000-0.034) ng/mL NT-Pro-B Natriuret Pep 464 pg/mL Total Protein 6.1 L (6.3-8.2) g/dL Albumin 3.3 L (3.5-5.0) g/dL 04/11/19 04/11/19 Range/Units 19:41 19:41 WBC (3.8-10.6) k/uL RBC (3.80-5.40) m/uL Hgb (11.4-16.0) gm/dL Hct (34.0-46.0) % MCV (80.0-100.0) fL MCH (25.0-35.0) pg MCHC (31.0-37.0) g/dL RDW (11.5-15.5) % Plt Count (150-450) k/uL Neutrophils % % Lymphocytes % % Monocytes % % Eosinophils % % Basophils % % Neutrophils # (1.3-7.7) k/uL Lymphocytes # (1.0-4.8) k/uL Monocytes # (0-1.0) k/uL Eosinophils # (0-0.7) k/uL Basophils # (0-0.2) k/uL Macrocytosis PT 10.1 (9.0-12.0) sec INR 0.9 (<1.2) APTT 25.0 (22.0-30.0) sec Sodium (137-145) mmol/L Potassium (3.5-5.1) mmol/L Chloride (98-107) mmol/L Carbon Dioxide (22-30) mmol/L Anion Gap mmol/L BUN (7-17) mg/dL Creatinine (0.52-1.04) mg/dL Est GFR (CKD-EPI)AfAm (>60 ml/min/1.73 sqM) Est GFR (CKD-EPI)NonAf (>60 ml/min/1.73 sqM) Glucose (74-99) mg/dL Calcium (8.4-10.2) mg/dL Magnesium (1.6-2.3) mg/dL Total Bilirubin (0.2-1.3) mg/dL AST (14-36) U/L ALT (9-52) U/L Alkaline Phosphatase (38-126) U/L Troponin I <0.012 (0.000-0.034) ng/mL NT-Pro-B Natriuret Pep pg/mL Total Protein (6.3-8.2) g/dL Albumin (3.5-5.0) g/dL - EKG Data -: EKG Interpreted by Me (EKG shows sinus tachycardia 105, MS 160, QRS 80, QTC 436) - Radiology Data Radiology results: report reviewed (Chest x-rays negative for acute disease), image reviewed Disposition Clinical Impression: COPD exacerbation, Altered mental status, Acute respiratory failure with hypoxia Disposition: ADMITTED IP TO THIS HOSP Condition: Fair Is patient prescribed a controlled substance at d/c from ED?: No Referrals: Dipesh Bullard DO [Primary Care Provider] - 1-2 days
[2019-04-11] MEDS ORDERED: methylPREDNISolone SOD SUCCI 125 MG/2 ML VIAL IV STA (20:06)
[2019-04-11] MEDS ORDERED: SODIUM CHLORIDE 0.9% 500 ML 500 ML IV STA (20:06)
[2019-04-11] MEDS ORDERED: SODIUM CHLORIDE 0.9% 1,000 ML IV STA (20:06)
[2019-04-11] MEDS ORDERED: ALBUTEROL NEBULIZED 2.5 MG/3 ML INHALATION STA (20:06)
[2019-04-11] MEDS ORDERED: IPRATROPIUM 0.5 MG/2.5 ML NEBU INHALATION STA (20:06)
--- NOTE | 2019-04-11 20:23 | XR ---
EXAMINATION TYPE: XR chest 1V portable DATE OF EXAM: 04/11/2019 COMPARISON: 03/22/2019 HISTORY: Short of breath TECHNIQUE: Single frontal view of the chest is obtained. FINDINGS: There is pulmonary hyperinflation and flattening of the diaphragm. Heart size is normal. T here is no heart failure. There are chest leads. There is mild coarsening of the lower lobe lung kelvin ings. There is impacted right humeral neck fracture. IMPRESSION: COPD and pulmonary fibrotic changes. No significant change compared to old exam.
[2019-04-11 20:25] LABS: Basophils # (A) 0.2 k/uL (0-0.2); Basophils % (A) 2 %; Eosinophils # (A) 0.1 k/uL (0-0.7); Eosinophils % (A) 1 %; HCT 31.5 % (34.0-46.0); HGB 10.8 gm/dL (11.4-16.0); Lymphocytes # (A) 0.8 k/uL (1.0-4.8); Lymphocytes % (A) 7 %; MCH 33.7 pg (25.0-35.0); MCHC 34.2 g/dL (31.0-37.0); MCV 98.8 fL (80.0-100.0); Macrocytosis Slight; Mean Platelet Volume 7.3; Monocytes # (A) 0.6 k/uL (0-1.0); Monocytes % (A) 5 %; Neutrophils # (A) 9.7 k/uL (1.3-7.7); Neutrophils % (A) 84 %; Platelet Count 418 k/uL (150-450); RBC 3.19 m/uL (3.80-5.40); RDW 15.1 % (11.5-15.5); WBC 11.5 k/uL (3.8-10.6)
[2019-04-11 20:33] LABS: ALT 24 U/L (9-52); AST 27 U/L (14-36); African American GFR (CKD) >90 (>60 ml/min/1.73 sqM); Albumin 3.3 g/dL (3.5-5.0); Alkaline Phosphatase 83 U/L (38-126); Anion Gap 8 mmol/L; Blood Urea Nitrogen 20 mg/dL (7-17); Calcium 9.5 mg/dL (8.4-10.2); Carbon Dioxide 28 mmol/L (22-30); Chloride 100 mmol/L (98-107); Glucose 215 mg/dL (74-99); INR 0.9 (<1.2); Magnesium 1.4 mg/dL (1.6-2.3); Potassium 4.3 mmol/L (3.5-5.1); Prothrombin Time 10.1 sec (9.0-12.0); Sodium 136 mmol/L (137-145); Total Bilirubin 0.3 mg/dL (0.2-1.3); Total Protein 6.1 g/dL (6.3-8.2)
[2019-04-11] MEDS ORDERED: ALBUTEROL NEBULIZED 2.5 MG/3 ML INHALATION PRN (23:24)
[2019-04-12] MEDS: SODIUM CHLORIDE 0.9% 1,000 ML IV SCH ×3 (01:16→18:28)
[2019-04-12] MEDS: methylPREDNISolone SOD SUCCI 125 MG/2 ML VIAL IV SCH ×2 (01:16→05:28)
[2019-04-12] MEDS: IPRATROPIUM-ALBUTEROL 3 ML NEB INHALATION SCH ×4 (08:48→19:42)
[2019-04-12] MEDS ORDERED: LORATADINE 10 MG TAB PO PRN (08:49)
[2019-04-12] MEDS ORDERED: FLUTICASONE 50MCG/SPRAY NASAL 16GM EA NOSTRIL PRN (08:49)
[2019-04-12] MEDS ORDERED: ENOXAPARIN 40 MG/0.4 ML SYRINGE SQ SCH (09:00)
[2019-04-12] MEDS ORDERED: FUROSEMIDE 20 MG TAB PO SCH (09:00)
[2019-04-12] MEDS: APIXABAN 2.5 MG TABLET PO SCH ×2 (09:36→21:20)
[2019-04-12] MEDS: ACETAMINOPHEN TAB 325 MG TAB PO PRN ×3 (09:36→18:29)
[2019-04-12] MEDS: amLODIPine 5 MG TAB PO SCH (09:36)
[2019-04-12] MEDS: METOPROLOL TARTRATE 50 MG TAB PO SCH ×2 (09:36→21:20)
[2019-04-12 11:34] LABS: Glucose,Whole Blood 137 mg/dL (75-99)
[2019-04-12] MEDS: CHOLECALCIFEROL 400 UNIT TAB PO SCH (11:44)
[2019-04-12] MEDS: INSULIN ASPART (NovoLOG) 100 UNIT/ML VIAL SQ SCH ×3 (12:41→21:20)
[2019-04-12 14:07] VITALS: BMI 17.9
--- NOTE | 2019-04-12 14:08 | P.CNPUL ---
History of Present Illness Consult date: 04/12/19 Requesting physician: Sampson Wheeler Reason for consult: dyspnea, COPD Chief complaint: Shortness of breath, anxiety History of present illness: This is a very pleasant 83-year-old female patient who follows with Dr. Townsend as her primary care physician. She has a history of advanced oxygen-dependent chronic obstructive pulmonary disease, previous tobacco dependence, atrial fibrillation anticoagulated with Eliquis, hypertension, diverticulosis, recent fall and fracture of the right upper extremity. She had been in rehabilitation in [facility]. She is maintained on Advair, Spiriva, DuoNeb inhalations. She was brought here yesterday with with complaints of increasing shortness of breath and anxiety. Chest x-ray showed evidence of COPD and pulmonary fibrotic changes. No significant change compared to previous. His been maintaining O2 saturations in the 90s on 4 L/m per nasal cannula. White count 11.5. Hemoglobin 10.8. Creatinine 0.47. Bicarb 28. ProBNP 464. Troponin negative. The patient is seen in consultation today on the regular medical floor. She is awake and alert in no acute distress. She states her breathing is already back to her baseline. No worsening shortness of breath, cough or congestion. She has been treated with bronchodilators and IV Solu-Medrol. Review of Systems REVIEW OF SYSTEMS: CONSTITUTIONAL: Denies any recent significant weight loss or weight gain. EYES: Denies change in vision. EARS, NOSE, MOUTH, THROAT: Denies headaches, denies sore throat. CARDIOVASCULAR: Denies chest pain, palpitations or syncopal episodes. RESPIRATORY: Positive for shortness of breath, cough, congestion no hemoptysis. GASTROINTESTINAL: Denies change in appetite, denies abdominal pain GENITOURINARY: Denies hematuria, denies infections. MUSKULOSKELETAL: Pain in the right upper extremity, denies swelling. INTEGUMENTARY: Denies rash, denies eczema. NEUROLOGICAL: Denies recent memory loss, no recent seizure activity. PSYCHIATRIC: Denies anxiety, denies depression. HEMATOLOGIC/LYMPHATIC: Denies anemia, denies enlarged lymph nodes. Past Medical History Past Medical History: COPD, Hypertension Additional Past Medical History / Comment(s): diverticulosis, Fx humerus History of Any Multi-Drug Resistant Organisms: None Reported Past Surgical History: Hysterectomy Past Anesthesia/Blood Transfusion Reactions: No Reported Reaction Past Psychological History: No Psychological Hx Reported Smoking Status: Former smoker Past Alcohol Use History: Occasional Past Drug Use History: None Reported - Past Family History Father Family Medical History: Coronary Artery Disease (CAD) Mother Family Medical History: Hypertension Additional Family Medical History / Comment(s): Pancreatic cancer in her 80s Medications and Allergies Home Medications Medication Instructions Recorded Confirmed Type Fluticasone Nasal [place] [Flonase 1 spray EA NOSTRIL DAILY PRN 06/27/17 04/11/19 History Nasal [place]] Fluticasone/Salmeterol [Advair Hfa 2 puff INHALATION RT-BID 06/27/17 04/11/19 History 115-21 Mcg Inhaler] amLODIPine [Norvasc] 5 mg PO DAILY 06/27/17 04/11/19 History Albuterol Inhaler [Ventolin Hfa 1 - 2 puff INHALATION RT-Q6H PRN 03/23/18 04/11/19 History Inhaler] Tiotropium 18 Mcg/Puff [Spiriva] 1 cap INHALATION RT-DAILY 11/14/18 04/11/19 History Apixaban [Eliquis] 2.5 mg PO BID #60 tablet 02/11/19 04/11/19 Rx Acetaminophen Tab [Tylenol] 650 mg PO Q4H PRN #12 tab 03/24/19 04/11/19 Rx Cholecalciferol [Vitamin D3] 800 unit PO DAILY 04/11/19 04/11/19 History Fexofenadine HCl 180 mg PO DAILY PRN 04/11/19 04/11/19 History Furosemide [Lasix] 20 mg PO SUTU 04/11/19 04/11/19 History Metoprolol Tartrate [Lopressor] 50 mg PO BID 04/11/19 04/11/19 History Ipratropium-Albuterol Nebulize 3 ml INHALATION RT-QID ampul.neb 04/12/19 Rx [Duoneb 0.5 mg-3 mg/3 ml Soln] Allergies Allergy/AdvReac Type Severity Reaction Status Date / Time amoxicillin Allergy Rash/Hives Verified 04/11/19 20:32 fluconazole [From Diflucan] Allergy Unknown Verified 04/11/19 20:32 moxifloxacin HCl Allergy Rash/Hives Verified 04/11/19 20:32 [From Avelox] sulfamethoxazole Allergy Rash/Hives Verified 04/11/19 20:32 [From Bactrim] trimethoprim [From Bactrim] Allergy Rash/Hives Verified 04/11/19 20:32 tropicamide Allergy Unknown Verified 04/11/19 20:32 doxycycline AdvReac Unknown Verified 04/11/19 20:32 Physical Exam Vitals: Vital Signs Temp Pulse Pulse Resp BP BP Pulse Ox 04/12/19 12:20 104 H 04/12/19 12:10 110 H 04/12/19 09:03 108 H 04/12/19 08:51 116 H 95 04/12/19 07:00 97.9 F 102 H 18 120/71 95 04/12/19 03:02 97.7 F 102 H 20 123/69 94 L 04/11/19 23:00 107 H 20 136/68 94 L 04/11/19 22:30 107 H 20 123/64 94 L 04/11/19 22:00 117 H 26 H 135/68 94 L 04/11/19 21:30 112 H 20 161/88 93 L 04/11/19 21:01 107 H 04/11/19 21:00 105 H 20 134/81 96 04/11/19 20:30 105 H 16 143/94 97 04/11/19 20:19 93 22 143/94 95 04/11/19 20:18 101 H 04/11/19 20:00 100 18 142/76 94 L 04/11/19 19:50 22 04/11/19 19:37 142/76 95 04/11/19 19:36 99.2 F 100 22 142/76 96 Intake and Output 04/11/19 04/12/19 04/12/19 22:59 06:59 14:59 Intake Total 0 Balance 0 Intake: Oral 0 Other: Voiding Method Bedside Commode Bedpan Diaper # Voids 1 # Bowel Movements 0 Weight 44.452 kg 44.452 kg GENERAL EXAM: Alert, pleasant 83-year-old female patient currently comfortable in no apparent distress. On 4 L nasal cannula. HEAD: Normocephalic. EYES: Normal reaction of pupils, equal size. NOSE: Clear with pink turbinates. THROAT: No erythema or exudates. NECK: No masses, no JVD. CHEST: No chest wall deformity. LUNGS: Equal air entry with no crackles, wheeze, rhonchi or dullness. Diminished. CVS: S1 and S2 normal with no audible murmur, regular rhythm. ABDOMEN: No hepatosplenomegaly, normal bowel sounds, no guarding or rigidity. SPINE: No scoliosis or deformity SKIN: No rashes CENTRAL NERVOUS SYSTEM: No focal deficits, tone is normal in all 4 extremities. EXTREMITIES: Right upper extremity in a sling. There is no peripheral edema. No clubbing, no cyanosis. Peripheral pulses are intact. Results - Laboratory Findings CBC and BMP: 04/11/19 19:41 04/11/19 19:41 PT/INR, D-dimer PT 10.1 sec (9.0-12.0) 04/11/19 19:41 INR 0.9 (<1.2) 04/11/19 19:41 Abnormal lab findings: Abnormal Labs 04/11/19 04/11/19 09 19:41 19:41 11:31 WBC 11.5 H RBC 3.19 L Hgb 10.8 L Hct 31.5 L Neutrophils # 9.7 H Lymphocytes # 0.8 L Sodium 136 L BUN 20 H Creatinine 0.47 L Glucose 215 H POC Glucose (mg/dL) 137 H Magnesium 1.4 L Total Protein 6.1 L Albumin 3.3 L - Diagnostic Findings Chest x-ray: image reviewed Assessment and Plan Assessment: Impression: #1 Acute exacerbation of severe oxygen dependent chronic obstructive pulmonary disease. #2 Recent fall with right humeral neck fracture. #3 History of atrial fibrillation, anticoagulated with Eliquis. #4 Hypertension, history of. #5 Remote history of chronic tobacco dependence. #6 History of diverticulosis. #7 Anxiety. Plan: The patient was seen and evaluated by Dr. Anderson. Chest x-ray and labs reviewed. She is cleared for discharge from the pulmonary standpoint. We'll discontinue he r steroids. Continue Advair, Spiriva, Ventolin HFA and DuoNeb inhalations in the outpatient setting. To complete her rehabilitation at [facility]. Follow-up in our office in 1-2 weeks' time. I, the cosigning physician, performed a history & physical examination of the patient. Lungs sounds are clear, diminished. Maintaining good O2 saturations in the 90s on 4 L/m per nasal cannula. I discussed the assessment and plan of care with my nurse practitioner, Rocío Spencer. I attest to the above note as dictated by her. Time with Patient: Greater than 30
[2019-04-12 17:02] LABS: Glucose,Whole Blood 144 mg/dL (75-99)
[2019-04-12] MEDS: SYMBICORT 160-4.5 MCG INHALER INHALATION SCH (19:41)
[2019-04-12 21:12] LABS: Glucose,Whole Blood 229 mg/dL (75-99)
--- NOTE | 2019-04-12 21:36 | P.HPIM ---
History of Present Illness H&P Date: 04/12/19 Chief Complaint: Shortness of breath Patient is a 83-year-old female with a known history of COPD on home oxygen, chronic hypoxic respiratory failure, paroxysmal atrial fibrillation on anticoagulation, hypertension and diverticulosis was transferred from rehab due to complaints of shortness of breath and hypoxia. Patient was at rehab due to recent fall and right humeral shaft fracture status post sling placement. Patient also does have a history of anxiety. Patient was found to be hypoxic and shortness of breath and was transferred to ER for further management. Chest x-ray showed COPD and pulmonary fibrotic changes. No acute infiltrate noted. Patient was given IV Solu-Medrol and was converted on DuoNeb's. Currently patient is saturating well on oxygen at 4 L nasal cannula as per her home regimen. ProBNP 464 and troponin negative. Patient says that she was not getting scheduled nebulization treatments at rehab currently. Patient is also requesting Jacey for her sinus ALLERGIES. Denied any complaints of cough or sputum production. Shortness of breath is at baseline. No chest pain. No leg swelling. No headache or dizziness or lightheadedness. Denied any recent infections. Review of Systems Constitutional: Patient denies any fever or chills . No generalized weakness or weight loss. Abdomen: Patient denied nausea vomiting and diarrhea and abdominal pain. Cardiovascular: Patient denies any chest pain or short of breath no palpitations. Respiratory: No cough or sputum production. Shortness of breath.. Neurologic: Patient denied any numbness or tingling headache. Musculoskeletal: Patient denies any complaints of joint swelling or deformity. Skin: Negative Psychiatric: Anxiety Endocrine: No heat or cold intolerance. No recent weight gain. Genitourinary: No dysuria or hematuria. All other 14 point ROS negative except the above Past Medical History Past Medical History: COPD, Hypertension Additional Past Medical History / Comment(s): diverticulosis, Fx humerus History of Any Multi-Drug Resistant Organisms: None Reported Past Surgical History: Hysterectomy Past Anesthesia/Blood Transfusion Reactions: No Reported Reaction Past Psychological History: No Psychological Hx Reported Smoking Status: Former smoker Past Alcohol Use History: Occasional Past Drug Use History: None Reported - Past Family History Father Family Medical History: Coronary Artery Disease (CAD) Mother Family Medical History: Hypertension Additional Family Medical History / Comment(s): Pancreatic cancer in her 80s Medications and Allergies Home Medications Medication Instructions Recorded Confirmed Type Fluticasone Nasal [place] [Flonase 1 spray EA NOSTRIL DAILY PRN 06/27/17 04/11/19 History Nasal [place]] Fluticasone/Salmeterol [Advair Hfa 2 puff INHALATION RT-BID 06/27/17 04/11/19 History 115-21 Mcg Inhaler] amLODIPine [Norvasc] 5 mg PO DAILY 06/27/17 04/11/19 History Albuterol Inhaler [Ventolin Hfa 1 - 2 puff INHALATION RT-Q6H PRN 03/23/18 04/11/19 History Inhaler] Tiotropium 18 Mcg/Puff [Spiriva] 1 cap INHALATION RT-DAILY 11/14/18 04/11/19 History Apixaban [Eliquis] 2.5 mg PO BID #60 tablet 02/11/19 04/11/19 Rx Acetaminophen Tab [Tylenol] 650 mg PO Q4H PRN #12 tab 03/24/19 04/11/19 Rx Cholecalciferol [Vitamin D3] 800 unit PO DAILY 04/11/19 04/11/19 History Fexofenadine HCl 180 mg PO DAILY PRN 04/11/19 04/11/19 History Furosemide [Lasix] 20 mg PO SUTU 04/11/19 04/11/19 History Metoprolol Tartrate [Lopressor] 50 mg PO BID 04/11/19 04/11/19 History Ipratropium-Albuterol Nebulize 3 ml INHALATION RT-QID ampul.neb 04/12/19 Rx [Duoneb 0.5 mg-3 mg/3 ml Soln] Allergies Allergy/AdvReac Type Severity Reaction Status Date / Time amoxicillin Allergy Rash/Hives Verified 04/11/19 20:32 fluconazole [From Diflucan] Allergy Unknown Verified 04/11/19 20:32 moxifloxacin HCl Allergy Rash/Hives Verified 04/11/19 20:32 [From Avelox] sulfamethoxazole Allergy Rash/Hives Verified 04/11/19 20:32 [From Bactrim] trimethoprim [From Bactrim] Allergy Rash/Hives Verified 04/11/19 20:32 tropicamide Allergy Unknown Verified 04/11/19 20:32 doxycycline AdvReac Unknown Verified 04/11/19 20:32 Physical Exam Vitals: Vital Signs Temp Pulse Pulse Resp BP BP Pulse Ox 04/12/19 09:03 108 H 04/12/19 08:51 116 H 95 04/12/19 07:00 97.9 F 102 H 18 120/71 95 04/12/19 03:02 97.7 F 102 H 20 123/69 94 L 04/11/19 23:00 107 H 20 136/68 94 L 04/11/19 22:30 107 H 20 123/64 94 L 04/11/19 22:00 117 H 26 H 135/68 94 L 04/11/19 21:30 112 H 20 161/88 93 L 04/11/19 21:01 107 H 04/11/19 21:00 105 H 20 134/81 96 04/11/19 20:30 105 H 16 143/94 97 04/11/19 20:19 93 22 143/94 95 04/11/19 20:18 101 H 04/11/19 20:00 100 18 142/76 94 L 04/11/19 19:50 22 04/11/19 19:37 142/76 95 04/11/19 19:36 99.2 F 100 22 142/76 96 Intake and Output 04/11/19 04/12/19 04/12/19 22:59 06:59 14:59 Intake Total 0 Balance 0 Intake: Oral 0 Other: Voiding Method Bedside Commode Bedpan Diaper # Voids 1 # Bowel Movements 0 Weight 44.452 kg PHYSICAL EXAMINATION: Patient is lying in the bed comfortably, no acute distress, awake alert and oriented.. HEENT: Normocephalic. Neck is supple. Pupils reactive. Nostrils clear. Oral cavity is moist. Ears reveal no drainage. Neck reveals no JVD, carotid bruits, or thyromegaly. CHEST EXAMINATION: Trachea is central. Symmetrical expansion. Bibasilar diminished air entry. No wheezing or crackles. Lung vazquez clear to auscultation and percussion. CARDIAC: Normal S1, S2 with no gallops. No murmurs ABDOMEN: Soft. Bowel sounds normal. No organomegaly. No abdominal bruits. Extremities: reveal no edema. No clubbing or cyanosis Neurologically awake, alert, oriented x3 with well-coordinated movements. No focal deficits noted Skin: No rash or skin lesions. Psychiatric: Coperative. Nonsuicidal. Patient is anxious otherwise. Musculoskeletal: No joint swelling or deformity. Normal range of motion. Results CBC & Chem 7: 04/11/19 19:41 04/11/19 19:41 Labs: Abnormal Lab Results - Last 24 Hours (Table) 04/11/19 04/11/19 Range/Units 19:41 19:41 WBC 11.5 H (3.8-10.6) k/uL RBC 3.19 L (3.80-5.40) m/uL Hgb 10.8 L (11.4-16.0) gm/dL Hct 31.5 L (34.0-46.0) % Neutrophils # 9.7 H (1.3-7.7) k/uL Lymphocytes # 0.8 L (1.0-4.8) k/uL Sodium 136 L (137-145) mmol/L BUN 20 H (7-17) mg/dL Creatinine 0.47 L (0.52-1.04) mg/dL Glucose 215 H (74-99) mg/dL Magnesium 1.4 L (1.6-2.3) mg/dL Total Protein 6.1 L (6.3-8.2) g/dL Albumin 3.3 L (3.5-5.0) g/dL Thrombosis Risk Factor Assmnt - DVT/VTE Prophylaxis DVT/VTE Prophylaxis: Pharmacologic Prophylaxis ordered Assessment and Plan Assessment: Acute on chronic hypoxic respiratory failure secondary to COPD exacerbation Acute COPD exacerbation. Wheezing resolved now. Paroxysmal atrial fibrillation. Currently on anticoagulation. Recent history of fall and right humeral neck fracture, followed by second time fall. Currently on sling. Generalized anxiety Hypertension Diverticulosis Previous history of smoking ALLERGIES to multiple medications and antibiotics. DVT prophylaxis. Currently on anticoagulation. Plan: Patient will be continued on DuoNeb's and Symbicort. Patient was given IV steroids. Oxygen therapy. Currently wheezing has resolved and steroids have been discontinued. Continue with home medications and follow up closely. Patient was seen by pulmonary and is cleared for discharge. Patient will be discharged back to rehab. Prognosis is guarded with multiple medical problems and comorbid conditions. Time with Patient: Greater than 30
[2019-04-13] MEDS ORDERED: IPRATROPIUM-ALBUTEROL 3 ML NEB INHALATION PRN (01:05)
[2019-04-13] MEDS: ACETAMINOPHEN TAB 325 MG TAB PO PRN ×4 (01:43→14:12)
[2019-04-13] MEDS: SODIUM CHLORIDE 0.9% 1,000 ML IV SCH ×2 (05:58→15:00)
[2019-04-13] MEDS: SYMBICORT 160-4.5 MCG INHALER INHALATION SCH (06:50)
[2019-04-13] MEDS: IPRATROPIUM-ALBUTEROL 3 ML NEB INHALATION SCH ×3 (06:50→16:08)
[2019-04-13] MEDS: IPRATROPIUM 0.5 MG/2.5 ML NEBU INHALATION SCH ×2 (06:57→10:58)
[2019-04-13 07:16] LABS: Glucose,Whole Blood 117 mg/dL (75-99)
[2019-04-13] MEDS: INSULIN ASPART (NovoLOG) 100 UNIT/ML VIAL SQ SCH ×3 (07:49→17:38)
[2019-04-13] MEDS: METOPROLOL TARTRATE 50 MG TAB PO SCH (08:06)
[2019-04-13] MEDS: CHOLECALCIFEROL 400 UNIT TAB PO SCH (08:07)
[2019-04-13] MEDS: amLODIPine 5 MG TAB PO SCH (08:07)
[2019-04-13] MEDS: APIXABAN 2.5 MG TABLET PO SCH (08:07)
[2019-04-13 08:38] LABS: Basophils # (A) 0.1 k/uL (0-0.2); Basophils % (A) 1 %; Eosinophils # (A) 0.3 k/uL (0-0.7); Eosinophils % (A) 2 %; HCT 35.6 % (34.0-46.0); HGB 11.7 gm/dL (11.4-16.0); Lymphocytes # (A) 1.3 k/uL (1.0-4.8); Lymphocytes % (A) 7 %; MCH 32.8 pg (25.0-35.0); MCHC 32.9 g/dL (31.0-37.0); MCV 99.9 fL (80.0-100.0); Macrocytosis Slight; Mean Platelet Volume 7.4; Monocytes # (A) 0.6 k/uL (0-1.0); Monocytes % (A) 4 %; Neutrophils # (A) 14.7 k/uL (1.3-7.7); Neutrophils % (A) 86 %; Platelet Count 487 k/uL (150-450); RBC 3.57 m/uL (3.80-5.40); RDW 15.1 % (11.5-15.5); WBC 17.1 k/uL (3.8-10.6)
[2019-04-13 08:47] LABS: African American GFR (CKD) >90 (>60 ml/min/1.73 sqM); Anion Gap 11 mmol/L; Blood Urea Nitrogen 18 mg/dL (7-17); Calcium 9.7 mg/dL (8.4-10.2); Carbon Dioxide 24 mmol/L (22-30); Chloride 103 mmol/L (98-107); Glucose 192 mg/dL (74-99); Potassium 3.8 mmol/L (3.5-5.1); Sodium 138 mmol/L (137-145)
--- NOTE | 2019-04-13 11:15 | P.CON ---
Consult Note - . Consult date: 04/13/19 Assessment/Plan:: This is a pleasant 83-year-old female who is being seen for an ulceration to the right lower extremity anterior aspect. Patient states that while she was in rehab at the [facility] care facility she bumped her leg into a posterior rate causing a ulceration. The area was dressed with a nonadherent dressing and wrap for protection. Patient states the episode happened a few weeks ago. At this time the ulceration has a nonadherent dressing and Kerlix in place. Upon examination is found that the ulceration is healed. There is a small raised flap at the superior portion of the ulceration. Patient's past medical history includes COPD and hypertension. Review Of Systems: Constitutional: No fever, no chills, no night sweats. No weight change. No weakness, fatigue or lethargy. No daytime sleepiness. Integumentary: Reports ulceration to the right lower leg, frail skin to the left upper extremity. No other bruises rashes or lesions reported. General Appearance: Alert, cooperative, no distress, appears stated age. Extremities: Extremities normal, atraumatic, no cyanosis or edema. Pulses: 2+ and symmetric. Skin: Healed ulceration to the anterior aspect of the right lower extremity. There is dryness and flaking of the skin at the site. A small area of raised skin is noted at the superior portion of the ulceration. Neurologic: Alert oriented x3 Assessment/plan: 1. Healed ulceration related to trauma to the right lower extremity anterior aspect. Apply triad nonadherent dressing and Tubigrip for protection. May continue to use daily even upon discharge. Thank you for the consultation. Please call the wound care center with any questions. DNP note has been reviewed and discussed with Dr. Durán and the impression and plan of care has been directed as dictated.
[2019-04-13] MEDS ORDERED: FUROSEMIDE 10 MG/ML 2 ML VIAL IV ONE (12:17)
[2019-04-13 12:19] LABS: Glucose,Whole Blood 106 mg/dL (75-99)
[2019-04-13] MEDS ORDERED: predniSONE 10 MG TAB PO SCH (12:30)
--- NOTE | 2019-04-13 14:03 | P.PN ---
Subjective Progress Note Date: 04/13/19 Principal diagnosis: Shortness of breath, anxiety This is a very pleasant 83-year-old female patient who follows with Dr. Townsend as her primary care physician. She has a history of advanced oxygen-dependent chronic obstructive pulmonary disease, previous tobacco dependence, atrial fibrillation anticoagulated with Eliquis, hypertension, diverticulosis, recent fall and fracture of the right upper extremity. She had been in rehabilitation in [facility]. She is maintained on Advair, Spiriva, DuoNeb inhalations. She was brought here yesterday with with complaints of increasing shortness of breath and anxiety. Chest x-ray showed evidence of COPD and pulmonary fibrotic changes. No significant change compared to previous. His been maintaining O2 saturations in the 90s on 4 L/m per nasal cannula. White count 11.5. Hemoglobin 10.8. Creatinine 0.47. Bicarb 28. ProBNP 464. Troponin negative. The patient is seen in consultation today on the regular medical floor. She is awake and alert in no acute distress. She states her breathing is already back to her baseline. No worsening shortness of breath, cough or congestion. She has been treated with bronchodilators and IV Solu-Medrol. The patient is seen today 04/13/2018 in follow-up on the regular medical floor. She is awake and alert in no acute distress. She did have some issues with worsening shortness of breath yesterday and was placed on the airflow high flow oxygen device at 30 L and 35% FiO2. She is breathing easier today. He is converted back to 3 L nasal cannula. She is maintaining O2 saturations in the 90s. She's afebrile. Blood culture reveals no growth. White count 17.1. Hemoglobin 11.7. Creatinine 0.53. She is continuing her DuoNeb inhalations, Pulmicort inhalations, prednisone. Objective - Vital Signs Vital signs: Vital Signs Temp 98.2 F 04/13/19 07:13 Pulse 105 H 04/13/19 11:08 Resp 18 04/13/19 11:08 BP 142/86 04/13/19 07:13 Pulse Ox 94 L 04/13/19 12:31 Intake & Output 04/12/19 04/13/19 04/13/19 18:59 06:59 18:59 Weight 44.452 kg Other: Voiding Method Bedside Commode Bedpan Bedpan Diaper Diaper # Voids 2 1 3 # Bowel Movements 1 - Exam GENERAL EXAM: Alert, pleasant 83-year-old female patient currently comfortable in no apparent distress. On 3 L nasal cannula. HEAD: Normocephalic. EYES: Normal reaction of pupils, equal size. NOSE: Clear with pink turbinates. THROAT: No erythema or exudates. NECK: No masses, no JVD. CHEST: No chest wall deformity. LUNGS: Equal air entry with coarse crackles in the posterior bases. Diminished. CVS: S1 and S2 normal with no audible murmur, regular rhythm. ABDOMEN: No hepatosplenomegaly, normal bowel sounds, no guarding or rigidity. SPINE: No scoliosis or deformity SKIN: No rashes CENTRAL NERVOUS SYSTEM: No focal deficits, tone is normal in all 4 extremities. EXTREMITIES: Right upper extremity in a sling. There is 1+ peripheral edema. No clubbing, no cyanosis. Peripheral pulses are intact. - Labs CBC & Chem 7: 04/13/19 08:12 04/13/19 08:12 Labs: Abnormal Lab Results - Last 24 Hours (Table) 04/12/19 04/12/19 04/13/19 Range/Units 16:58 21:09 07:09 WBC (3.8-10.6) k/uL RBC (3.80-5.40) m/uL Plt Count (150-450) k/uL Neutrophils # (1.3-7.7) k/uL BUN (7-17) mg/dL Glucose (74-99) mg/dL POC Glucose (mg/dL) 144 H 229 H 117 H (75-99) mg/dL 04/13/19 04/13/19 04/13/19 Range/Units 08:12 08:12 12:14 WBC 17.1 H (3.8-10.6) k/uL RBC 3.57 L (3.80-5.40) m/uL Plt Count 487 H (150-450) k/uL Neutrophils # 14.7 H (1.3-7.7) k/uL BUN 18 H (7-17) mg/dL Glucose 192 H (74-99) mg/dL POC Glucose (mg/dL) 106 H (75-99) mg/dL Microbiology - Last 24 Hours (Table) 04/12/19 02:18 Blood Culture - Preliminary Blood No Growth after 24 hours Assessment and Plan Assessment: Impression: #1 Acute exacerbation of severe oxygen dependent chronic obstructive pulmonary disease. #2 Recent fall with right humeral neck fracture. #3 History of atrial fibrillation, anticoagulated with Eliquis. #4 Hypertension, history of. #5 Remote history of chronic tobacco dependence. #6 History of diverticulosis. #7 Anxiety. Plan: The patient was seen and evaluated by Dr. Anderson. Convert her back to regular oxygen per nasal cannula currently at 3 L. Complete a prednisone taper. Continue Advair, Spiriva, Ventolin HFA and DuoNeb inhalations in the outpatient setting. Empiric antibiotics in form of Ceftin. To complete her rehabilitation at [facility]. Follow-up in our office in 1-2 weeks' time. I, the cosigning physician, performed a history & physical examination of the patient. Lungs sounds with coarse crackles in the posterior bases, diminished. Maintaining good O2 saturations in the 90s on 3 L/m per nasal cannula. I discussed the assessment and plan of care with my nurse practitioner, Rocío Spencer. I attest to the above note as dictated by her.
[2019-04-13] MEDS ORDERED: clonazePAM 0.5 MG TAB PO PRN (14:04)
[2019-04-13 14:41] VITALS: BP 164/80; TEMP 98
--- NOTE | 2019-04-13 15:12 | P.DS ---
Providers Date of admission: 04/11/19 23:25 Expected date of discharge: 04/13/19 Attending physician: Clement Dove Consults: 04/11/19 23:24 Consult Physician Routine Consulting Provider: Gabriel Townsend Consult Reason/Comments: known Do you want consulting provider notified?: Yes Primary care physician: [facility] Course: Discharge diagnosis Acute on chronic hypoxic respiratory failure secondary to COPD exacerbation Acute COPD exacerbation. Wheezing resolved now. Paroxysmal atrial fibrillation. Currently on anticoagulation. Recent history of fall and right humeral neck fracture, followed by second time fall. Currently on sling. Generalized anxiety Hypertension Diverticulosis Previous history of smoking ALLERGIES to multiple medications and antibiotics. DVT prophylaxis. Currently on anticoagulation. Hospital course Patient is a 83-year-old female with a known history of COPD on home oxygen, chronic hypoxic respiratory failure, paroxysmal atrial fibrillation on anticoagulation, hypertension and diverticulosis was transferred from rehab due to complaints of shortness of breath and hypoxia. Patient was at rehab due to recent fall and right humeral shaft fracture status post sling placement. Patient also does have a history of anxiety. Patient was found to be hypoxic and shortness of breath and was transferred to ER for further management. Chest x-ray showed COPD and pulmonary fibrotic changes. No acute infiltrate noted. Patient was given IV Solu-Medrol and was converted on DuoNeb's. Currently patient is saturating well on oxygen at 4 L nasal cannula as per her home regimen. ProBNP 464 and troponin negative. Patient says that she was not getting scheduled nebulization treatments at rehab currently. Patient is also requesting Jacey for her sinus ALLERGIES. Denied any complaints of cough or sputum production. Shortness of breath is at baseline. No chest pain. No leg swelling. No headache or dizziness or lightheadedness. Denied any recent infections. 04/13/2019 Patient denied any complaints of chest pain or worsening shortness of breath. Patient had some difficulty breathing last night and was placed on Avapro. Currently, patient is back to her regular flu of oxygen via nasal cannula at 3 L. Patient was given a dose of IV Lasix 1. No complains of chest pain or shortness of breath now. Patient was started on empiric antibiotics and continue with steroid taper. Patient was continued on DuoNeb's and Symbicort. Patient was given IV steroids. Oxygen therapy. Currently wheezing is improved. Patient was also started on empiric antibiotics. Continued with home medications . Patient will be discharged back to rehab. Patient will be continued on steroid taper, empiric antibiotics and duo nebs along with Symbicort and albuterol inhaler when necessary. Patient is being discharged back to rehab today. PHYSICAL EXAMINATION: Patient is lying in the bed comfortably, no acute distress, awake alert and or iented.. HEENT: Normocephalic. Neck is supple. Pupils reactive. Nostrils clear. Oral cavity is moist. Ears reveal no drainage. Neck reveals no JVD, carotid bruits, or thyromegaly. CHEST EXAMINATION: Trachea is central. Symmetrical expansion. Bilateral slowing entry and prolonged expiration. Scattered rhonchi.. CARDIAC: Normal S1, S2 with no gallops. No murmurs ABDOMEN: Soft. Bowel sounds normal. No organomegaly. No abdominal bruits. Extremities: reveal no edema. No clubbing or cyanosis Neurologically awake, alert, oriented x3 with well-coordinated movements. No focal deficits noted Skin: No rash or skin lesions. Psychiatric: Coperative. Anxious. Musculoskeletal: No joint swelling or deformity. Normal range of motion. Vital Signs 04/13/19 04/13/19 04/13/19 07:13 10:58 11:08 Temperature 98.2 F Pulse Rate 103 H 105 H Pulse Rate [ 118 H Supine Pulse Oximetery] Respiratory 20 20 18 Rate Blood Pressure 142/86 [Left Arm Supine] O2 Sat by Pulse 95 Oximetry 04/13/19 04/13/19 12:31 12:41 Temperature 98.0 F Pulse Rate Pulse Rate [ 117 H Supine Pulse Oximetery] Respiratory 20 Rate Blood Pressure 164/80 [Left Arm Supine] O2 Sat by Pulse 94 L 92 L Oximetry Total time taken greater than 35 minutes including 18 minutes for counseling and coordination of care. Patient Condition at Discharge: Fair Plan - Discharge Summary New Discharge Prescriptions: New Ipratropium-Albuterol Nebulize [Duoneb 0.5 mg-3 mg/3 ml Soln] 3 ml INHALATION RT-QID ampul.neb Cefdinir [Omnicef] 300 mg PO BID 5 Days #10 cap predniSONE See Taper PO DIRECTED #15 tab clonazePAM [KlonoPIN] 0.5 mg PO TID PRN #9 tab PRN Reason: Anxiety Continue amLODIPine [Norvasc] 5 mg PO DAILY Fluticasone/Salmeterol [Advair Hfa 115-21 Mcg Inhaler] 2 puff INHALATION RT- BID Fluticasone Nasal Pablo [Flonase Nasal Pablo] 1 spray EA NOSTRIL DAILY PRN PRN Reason: Allergy Symptoms Albuterol Inhaler [Ventolin Hfa Inhaler] 1 - 2 puff INHALATION RT-Q6H PRN PRN Reason: Shortness Of Breath Apixaban [Eliquis] 2.5 mg PO BID #60 tablet Acetaminophen Tab [Tylenol] 650 mg PO Q4H PRN #12 tab PRN Reason: Fever And/ Or Pain Cholecalciferol [Vitamin D3] 800 unit PO DAILY Metoprolol Tartrate [Lopressor] 50 mg PO BID Furosemide [Lasix] 20 mg PO SUTU Fexofenadine HCl 180 mg PO DAILY PRN PRN Reason: ALLERGIES Discontinued Tiotropium 18 Mcg/Puff [Spiriva] 1 cap INHALATION RT-DAILY traMADol HCL [Ultram] 50 mg PO TID PRN 3 Days #9 tab PRN Reason: Pain Discharge Medication List Fluticasone Nasal Pablo [Flonase Nasal Pablo] 1 spray EA NOSTRIL DAILY PRN 06/27/17 [History] Fluticasone/Salmeterol [Advair Hfa 115-21 Mcg Inhaler] 2 puff INHALATION RT-BID 06/27/17 [History] amLODIPine [Norvasc] 5 mg PO DAILY 06/27/17 [History] Albuterol Inhaler [Ventolin Hfa Inhaler] 1 - 2 puff INHALATION RT-Q6H PRN 03/23/18 [History] Apixaban [Eliquis] 2.5 mg PO BID #60 tablet 02/11/19 [Rx] Acetaminophen Tab [Tylenol] 650 mg PO Q4H PRN #12 tab 03/24/19 [Rx] Cholecalciferol [Vitamin D3] 800 unit PO DAILY 04/11/19 [History] Fexofenadine HCl 180 mg PO DAILY PRN 04/11/19 [History] Furosemide [Lasix] 20 mg PO SUTU 04/11/19 [History] Metoprolol Tartrate [Lopressor] 50 mg PO BID 04/11/19 [History] Ipratropium-Albuterol Nebulize [Duoneb 0.5 mg-3 mg/3 ml Soln] 3 ml INHALATION RT-QID ampul.neb 04/12/19 [Rx] Cefdinir [Omnicef] 300 mg PO BID 5 Days #10 cap 04/13/19 [Rx] clonazePAM [KlonoPIN] 0.5 mg PO TID PRN #9 tab 04/13/19 [Rx] predniSONE See Taper PO DIRECTED #15 tab 04/13/19 [Rx] Follow up Appointment(s)/Referral(s): Dipesh Bullard DO [Primary Care Provider] - 1-2 days Discharge Disposition: TRANSFER TO SNF/ECF
[2019-04-13 16:21] VITALS: PULSE 80; RESP 16
[2019-04-13] MEDS ORDERED: FORMOTEROL FUMARATE 20 MCG/2 ML NEBU INHALATION SCH (20:00)
[2019-04-13] MEDS ORDERED: BUDESONIDE 1 MG/2 ML NEBU INHALATION SCH (20:00)
[2019-04-13] MEDS ORDERED: CEFDINIR 300 MG CAP PO SCH (21:00)
[2019-04-14] MEDS ORDERED: predniSONE 10 MG TAB PO SCH (09:00)
== END 2019-04-13 17:59 | DRG 190 ==
LOC: EC 19:31 → 4MS4W 23:25
PROVIDERS: ADMIT Hospitalist; ATTEND Hospitalist
DX: J44.1 Chronic obstructive pulmonary disease with (acute) exacerbation (principal); J96.21 Acute and chronic respiratory failure with hypoxia; L97.819 Non-pressure chronic ulcer of other part of right lower leg with unspecified severity; I48.0 Paroxysmal atrial fibrillation; F41.1 Generalized anxiety disorder; I10 Essential (primary) hypertension; K57.90 Diverticulosis of intestine, part unspecified, without perforation or abscess without bleeding; S42.201D Unspecified fracture of upper end of right humerus, subsequent encounter for fracture with routine healing; Z79.01 Long term (current) use of anticoagulants; Z79.51 Long term (current) use of inhaled steroids; Z79.899 Other long term (current) drug therapy; Z99.81 Dependence on supplemental oxygen; Z90.710 Acquired absence of both cervix and uterus; Z87.891 Personal history of nicotine dependence; Z88.1 Allergy status to other antibiotic agents; Z88.0 Allergy status to penicillin; Z88.2 Allergy status to sulfonamides; Z88.8 Allergy status to other drugs, medicaments and biological substances; Z80.0 Family history of malignant neoplasm of digestive organs; Z82.49 Family history of ischemic heart disease and other diseases of the circulatory system
CPT/HCPCS: 36415; 71045; 80048; 80053; 83735; 83880; 84484; 85025; 85610; 85730; 87040; 93005; 94640; 94760; 96361; 96374; 99285

== ENCOUNTER 2019-04-21 08:54 | Inpatient (IN) | payer MEDICARE ==
[2019-04-21] MEDS ORDERED: methylPREDNISolone SOD SUCCI 125 MG/2 ML VIAL IV STA (08:59)
[2019-04-21] MEDS ORDERED: SODIUM CHLORIDE 0.9% 1,000 ML IV STA (08:59)
[2019-04-21] MEDS ORDERED: IPRATROPIUM-ALBUTEROL 3 ML NEB INHALATION STA ×2 (08:59→13:06)
[2019-04-21] MEDS ORDERED: AZITHROMYCIN 500 MG in SODIUM CHLORIDE 0.9% 250 ML IVPB STA (09:00)
[2019-04-21 09:29] LABS: Basophils # (A) 0.3 k/uL (0-0.2); Basophils % (A) 1 %; Eosinophils # (A) 0.4 k/uL (0-0.7); Eosinophils % (A) 2 %; HCT 34.4 % (34.0-46.0); HGB 11.5 gm/dL (11.4-16.0); Lymphocytes # (A) 0.3 k/uL (1.0-4.8); Lymphocytes % (A) 1 %; MCH 32.6 pg (25.0-35.0); MCHC 33.6 g/dL (31.0-37.0); MCV 97.1 fL (80.0-100.0); Mean Platelet Volume 7.2; Monocytes # (A) 0.5 k/uL (0-1.0); Monocytes % (A) 2 %; Neutrophils # (A) 25.1 k/uL (1.3-7.7); Neutrophils % (A) 94 %; Platelet Count 407 k/uL (150-450); RBC 3.54 m/uL (3.80-5.40); WBC 26.7 k/uL (3.8-10.6)
[2019-04-21 09:33] LABS: INR 0.9 (<1.2); Partial Thromboplastin Time 23.9 sec (22.0-30.0); Prothrombin Time 10.1 sec (9.0-12.0)
--- NOTE | 2019-04-21 09:37 | ED ---
SOB HPI - General Chief Complaint: Shortness of Breath Stated Complaint: Difficulty Breathing Time Seen by Provider: 04/21/19 08:54 Source: patient, EMS, RN notes reviewed Mode of arrival: EMS Limitations: no limitations - History of Present Illness Initial Comments: This 83-year-old female who was brought in by EMS due to shortness of breath cough fever. She had an x-ray done last evening at her nursing facility and was found have an infiltrate. She's not sure which side. In route she did receive 2 nebulizer treatments with some improvement in her breathing she states additionally she recently did fracture her humerus on the right she does not believe this is totally healed yet. Present with a sling. No nausea no vomiting no other modifying factors. MD Complaint: shortness of breath, cough - Related Data Home Medications Medication Instructions Recorded Confirmed Fluticasone Nasal [place] [Flonase 1 spray EA NOSTRIL DAILY PRN 06/27/17 04/21/19 Nasal [place]] Fluticasone/Salmeterol [Advair Hfa 2 puff INHALATION RT-BID 06/27/17 04/21/19 115-21 Mcg Inhaler] amLODIPine [Norvasc] 5 mg PO DAILY@0800 06/27/17 04/21/19 Albuterol Inhaler [Ventolin Hfa 1 - 2 puff INHALATION RT-Q6H PRN 03/23/18 04/21/19 Inhaler] Fexofenadine HCl 180 mg PO DAILY PRN 04/11/19 04/21/19 Furosemide [Lasix] 20 mg PO SUTU 04/11/19 04/21/19 Metoprolol Tartrate [Lopressor] 50 mg PO BID@0800,2100 04/11/19 04/21/19 Apixaban [Eliquis] 2.5 mg PO BID@0800,1700 04/21/19 04/21/19 Azithromycin [Zithromax] 500 mg PO ONCE PRN 04/21/19 04/21/19 Bisacodyl [Dulcolax] 10 mg RECTAL DAILY PRN 04/21/19 04/21/19 Cholecalciferol [Vitamin D3] 800 unit PO DAILY@1700 04/21/19 04/21/19 Docusate [Colace] 100 mg PO DAILY PRN 04/21/19 04/21/19 Furosemide [Lasix] 20 mg PO ONCE PRN 04/21/19 04/21/19 Ipratropium-Albuterol Nebulize 3 ml INHALATION RT-TID 04/21/19 04/21/19 [Duoneb 0.5 mg-3 mg/3 ml Soln] Lactose-Reduced Food [Ensure Plus] 1 can PO TID 04/21/19 04/21/19 Magnesium Hydroxide [Milk of 2,400 mg PO DAILY PRN 04/21/19 04/21/19 Magnesia] Na Phos,M-B/Na Phos,Di-Ba [Fleet 133 ml RECTAL DAILY PRN 04/21/19 04/21/19 Adult] Potassium Chloride ER [K-Dur 20] 20 meq PO ONCE PRN 04/21/19 04/21/19 guaiFENesin [Mucinex] 600 mg PO BID@0800,2100 04/21/19 04/21/19 Previous Rx's Medication Instructions Recorded Acetaminophen Tab [Tylenol] 650 mg PO Q4H PRN #12 tab 03/24/19 clonazePAM [KlonoPIN] 0.5 mg PO TID PRN #9 tab 04/13/19 predniSONE See Taper PO DIRECTED #15 tab 04/13/19 Allergies Allergy/AdvReac Type Severity Reaction Status Date / Time amoxicillin Allergy Rash/Hives Verified 04/21/19 09:04 fluconazole [From Diflucan] Allergy Unknown Verified 04/21/19 09:04 moxifloxacin HCl Allergy Rash/Hives Verified 04/21/19 09:04 [From Avelox] sulfamethoxazole Allergy Rash/Hives Verified 04/21/19 09:04 [From Bactrim] trimethoprim [From Bactrim] Allergy Rash/Hives Verified 04/21/19 09:04 tropicamide Allergy Unknown Verified 04/21/19 09:04 doxycycline AdvReac Unknown Verified 04/21/19 09:04 Review of Systems ROS Statement: Those systems with pertinent positive or pertinent negative responses have been documented in the HPI. ROS Other: All systems not noted in ROS Statement are negative. Past Medical History Past Medical History: COPD, Hypertension Additional Past Medical History / Comment(s): diverticulosis, Fx humerus History of Any Multi-Drug Resistant Organisms: None Reported Past Surgical History: Hysterectomy Past Anesthesia/Blood Transfusion Reactions: No Reported Reaction Past Psychological History: No Psychological Hx Reported Smoking Status: Former smoker Past Alcohol Use History: Occasional Past Drug Use History: None Reported - Past Family History Father Family Medical History: Coronary Artery Disease (CAD) Mother Family Medical History: Hypertension Additional Family Medical History / Comment(s): Pancreatic cancer in her 80s General Exam - General Exam Comments Initial Comments: This a well-developed sec appearing female who is awake alert oriented 3 he does demonstrate audible rhonchi. Limitations: no limitations General appearance: alert, anxious Head exam: Present: atraumatic, normocephalic, normal inspection Eye exam: Present: normal appearance, PERRL, EOMI. Absent: scleral icterus, conjunctival injection, periorbital swelling ENT exam: Present: normal exam, mucous membranes moist Neck exam: Present: normal inspection, full ROM, other (No stridor JVD or bruits). Absent: tenderness, meningismus, lymphadenopathy Respiratory exam: Present: rhonchi, decreased breath sounds, other (Especially decreased on the right compared to the left). Absent: respiratory distress, wheezes, rales, stridor Cardiovascular Exam: Present: tachycardia, irregular rhythm. Absent: systolic murmur, diastolic murmur, rubs, gallop, clicks GI/Abdominal exam: Present: soft, normal bowel sounds. Absent: distended, tenderness, guarding, rebound, rigid Extremities exam: Present: normal inspection, full ROM, normal capillary refill. Absent: tenderness, pedal edema, joint swelling, calf tenderness Back exam: Present: normal inspection Neurological exam: Present: alert, oriented X3, CN II-XII intact Psychiatric exam: Present: normal affect, normal mood Skin exam: Present: warm, dry, intact, normal color. Absent: rash Course Vital Signs 04/21/19 04/21/19 04/21/19 08:58 09:00 09:10 Temperature 98.2 F Pulse Rate 105 H 100 99 Respiratory 28 H 30 H 26 H Rate Blood Pressure 126/76 O2 Sat by Pulse 83 L 83 L Oximetry 04/21/19 04/21/19 09:30 10:00 Temperature Pulse Rate 105 H Respiratory 19 Rate Blood Pressure 126/76 112/83 O2 Sat by Pulse 86 L Oximetry - Reevaluation(s) Reevaluation #1: 04/21/19 10:58 Reevaluation of lung sounds and auscultation after thoracostomy placement reveals markedly improved breath sounds. Patient is breathing more comfortably. Does complain of some right shoulder pain consistent with tube placement and reexpansion of the lung. Reevaluation #2: 04/21/19 11:53 Patient is resting more comfortably breathing much easier at this time she has been given medications for her COPD and suspected pneumonia. She has demonstrate leukocytosis. Procedures - Chest Tube Insertion Consent Obtained: verbal consent Side of Procedure: right Indication: Pneumothorax Placed on monitor/pulse oximetry: Yes Site Prep: Chloroprep Local Anesthesia: Lidocaine 1% Amount (mLs): 8 Insertion Site: Other Open into Pleural Space Using: Other (A Thorovent was placed in the right upper anterior chest in the second intercostal space.) Tube Size (Thai): Other Returns: Air Sutured in Place: No (Adhesive) Attached to Suction: No (50 mL was drawn with a syringe) Type of Suction: Other Repeat X-ray Results: Lung Inflated (Lung almost completely reinflated some residual pneumothorax remains) Patient Tolerated Procedure: well (The patient states she feels better and is breathing easier and not making is much noise with breathing) Medical Decision Making - Medical Decision Making I did discuss the findings the patient and her family as well as with Dr. Malloy patient will be admitted with consultation by ulnar as well as thoracic surgery. Questionable infiltrate left lower lobe - Lab Data Result diagrams: 04/21/19 09:14 04/21/19 09:14 Lab Results 04/21/19 04/21/19 04/21/19 Range/Units 09:14 09:14 09:14 WBC 26.7 H (3.8-10.6) k/uL RBC 3.54 L (3.80-5.40) m/uL Hgb 11.5 (11.4-16.0) gm/dL Hct 34.4 (34.0-46.0) % MCV 97.1 (80.0-100.0) fL MCH 32.6 (25.0-35.0) pg MCHC 33.6 (31.0-37.0) g/dL RDW 16.0 H (11.5-15.5) % Plt Count 407 (150-450) k/uL Neutrophils % 94 % Lymphocytes % 1 % Monocytes % 2 % Eosinophils % 2 % Basophils % 1 % Neutrophils # 25.1 H (1.3-7.7) k/uL Lymphocytes # 0.3 L (1.0-4.8) k/uL Monocytes # 0.5 (0-1.0) k/uL Eosinophils # 0.4 (0-0.7) k/uL Basophils # 0.3 H (0-0.2) k/uL Manual Slide Review Performed RBC Morphology Normal PT (9.0-12.0) sec INR (<1.2) APTT (22.0-30.0) sec Sodium 134 L (137-145) mmol/L Potassium 3.8 (3.5-5.1) mmol/L Chloride 95 L (98-107) mmol/L Carbon Dioxide 30 (22-30) mmol/L Anion Gap 9 mmol/L BUN 19 H (7-17) mg/dL Creatinine 0.50 L (0.52-1.04) mg/dL Est GFR (CKD-EPI)AfAm >90 (>60 ml/min/1.73 sqM) Est GFR (CKD-EPI)NonAf >90 (>60 ml/min/1.73 sqM) Glucose 192 H (74-99) mg/dL Calcium 9.5 (8.4-10.2) mg/dL Magnesium 1.2 L (1.6-2.3) mg/dL Total Bilirubin 0.7 (0.2-1.3) mg/dL AST 24 (14-36) U/L ALT 28 (9-52) U/L Alkaline Phosphatase 73 (38-126) U/L Creatine Kinase 22 L (30-135) U/L Troponin I (0.000-0.034) ng/mL NT-Pro-B Natriuret Pep 488 pg/mL Total Protein 6.6 (6.3-8.2) g/dL Albumin 3.6 (3.5-5.0) g/dL 04/21/19 04/21/19 Range/Units 09:14 09:14 WBC (3.8-10.6) k/uL RBC (3.80-5.40) m/uL Hgb (11.4-16.0) gm/dL Hct (34.0-46.0) % MCV (80.0-100.0) fL MCH (25.0-35.0) pg MCHC (31.0-37.0) g/dL RDW (11.5-15.5) % Plt Count (150-450) k/uL Neutrophils % % Lymphocytes % % Monocytes % % Eosinophils % % Basophils % % Neutrophils # (1.3-7.7) k/uL Lymphocytes # (1.0-4.8) k/uL Monocytes # (0-1.0) k/uL Eosinophils # (0-0.7) k/uL Basophils # (0-0.2) k/uL Manual Slide Review RBC Morphology PT 10.1 (9.0-12.0) sec INR 0.9 (<1.2) APTT 23.9 (22.0-30.0) sec Sodium (137-145) mmol/L Potassium (3.5-5.1) mmol/L Chloride (98-107) mmol/L Carbon Dioxide (22-30) mmol/L Anion Gap mmol/L BUN (7-17) mg/dL Creatinine (0.52-1.04) mg/dL Est GFR (CKD-EPI)AfAm (>60 ml/min/1.73 sqM) Est GFR (CKD-EPI)NonAf (>60 ml/min/1.73 sqM) Glucose (74-99) mg/dL Calcium (8.4-10.2) mg/dL Magnesium (1.6-2.3) mg/dL Total Bilirubin (0.2-1.3) mg/dL AST (14-36) U/L ALT (9-52) U/L Alkaline Phosphatase (38-126) U/L Creatine Kinase (30-135) U/L Troponin I <0.012 (0.000-0.034) ng/mL NT-Pro-B Natriuret Pep pg/mL Total Protein (6.3-8.2) g/dL Albumin (3.5-5.0) g/dL - EKG Data -: EKG Interpreted by Me (Atrial fibrillation with a rate of 105 QRS 76 QT since QTC 318/420) - Radiology Data Radiology results: report reviewed (Imaging was reviewed initially there was a substantial right pneumothorax the repeat was improvement.), image reviewed Critical Care Time Critical Care Time: Yes Critical Care Time: 31 minutes of critical care time which includes the initial history physical labs x-rays evaluation discussed with paramedics. Review of old charting was available. Multiple re-evaluations the patient to responsive therapy discussion with the admitting physician documentation of the above this does not include the time for tube placement. Disposition Clinical Impression: Pneumothorax on right, Acute respiratory distress syndrome in adult, COPD with exacerbation, Hypomagnesemia, Leukocytosis, Pneumonitis, Atrial fibrillation Disposition: ADMITTED IP TO THIS HOSP Condition: Fair Referrals: Dipesh Bullard DO [Primary Care Provider] - 1-2 days
[2019-04-21 09:40] LABS: ALT 28 U/L (9-52); AST 24 U/L (14-36); African American GFR (CKD) >90 (>60 ml/min/1.73 sqM); Albumin 3.6 g/dL (3.5-5.0); Alkaline Phosphatase 73 U/L (38-126); Anion Gap 9 mmol/L; Blood Urea Nitrogen 19 mg/dL (7-17); Calcium 9.5 mg/dL (8.4-10.2); Carbon Dioxide 30 mmol/L (22-30); Chloride 95 mmol/L (98-107); Creatine Kinase 22 U/L (30-135); Glucose 192 mg/dL (74-99); Magnesium 1.2 mg/dL (1.6-2.3); Potassium 3.8 mmol/L (3.5-5.1); Sodium 134 mmol/L (137-145); Total Bilirubin 0.7 mg/dL (0.2-1.3); Total Protein 6.6 g/dL (6.3-8.2)
[2019-04-21] MEDS ORDERED: LIDOCAINE 1% INJ 10MG/ML (20 ML MDV) SQ ONE (10:02)
[2019-04-21] MEDS ORDERED: MAGNESIUM SULFATE-D5W PMX 1 GM in DEXTROSE/WATER 1 100ML.BAG IVPB ONE (10:05)
--- NOTE | 2019-04-21 10:15 | XR ---
"EXAMINATION TYPE: XR chest 1V DATE OF EXAM: 04/21/2019 COMPARISON: Prior chest x-ray 04/11/2019 HISTORY: Difficulty breathing, shortness of breath and cough TECHNIQUE: Single frontal view of the chest is obtained. FINDINGS: Large right-sided pneumothorax is present. Technique is a moderate apical lordotic and rot ated. Heart size is likely stable. Mediastinum without definite shift. Left lung is clear. Prominent lung volumes suggest underlying COPD. Old trauma noted to the proximal right humerus is again seen. A david is dense. IMPRESSION: Large right-sided pneumothorax, Dr. Rice informed telephonically at the time of interpre tation. A Document Only message has been documented for Anish Rice MD in the [employer] | Critical Re sult system on 04/21/2019 10:12 AM, Message ID [id number]."
[2019-04-21] MEDS ORDERED: ACETAMINOPHEN TAB 325 MG TAB PO STA (11:03)
--- NOTE | 2019-04-21 11:12 | XR ---
EXAMINATION TYPE: XR chest 1V confirm line [facility] DATE OF EXAM: 04/21/2019 COMPARISON: Prior chest x-ray 04/21/2019 HISTORY: Status post thoracostomy tube placement TECHNIQUE: Single frontal view of the chest is obtained. FINDINGS: There is been interval placement of a thoracic over the right upper chest, catheter is cou rsing towards the apex. The right-sided pneumothorax has improved in the interval. There are some sub segmental atelectatic changes right greater than left lung base. No other significant interval change . IMPRESSION: Interval chest tube placement. Improvement in right pneumothorax.
[2019-04-21] MEDS ORDERED: MAGNESIUM HYDROXIDE 2,400 MG/10 ML CUP PO PRN (12:04)
[2019-04-21] MEDS ORDERED: LORATADINE 10 MG TAB PO PRN (12:04)
[2019-04-21] MEDS ORDERED: FUROSEMIDE 20 MG TAB PO PRN (12:04)
[2019-04-21] MEDS ORDERED: DOCUSATE 100 MG CAP PO PRN (12:04)
[2019-04-21] MEDS ORDERED: NA PHOS,M-B/NA PHOS,DI-BA 133 ML ENEMA RECTAL PRN (12:04)
[2019-04-21] MEDS ORDERED: BISACODYL 10 MG SUPP RECTAL PRN (12:04)
[2019-04-21] MEDS ORDERED: POTASSIUM CHLORIDE ER 20 MEQ TAB.ER PO PRN (12:04)
[2019-04-21] MEDS: SODIUM CHLORIDE 0.9% 1,000 ML IV SCH (12:12)
[2019-04-21] MEDS: IPRATROPIUM-ALBUTEROL 3 ML NEB INHALATION SCH ×4 (12:45→22:12)
--- NOTE | 2019-04-21 15:39 | P.GSCN ---
History of Present Illness Consult date: 04/21/19 Reason for Consult: Spontaneous right-sided pneumothorax, status post thoravent placement, surgical management Requesting physician: Anish Rice History of present illness: This is an 83-year-old frail female who follows on an outpatient basis with Dr. Townsend. She has a previous medical history of recent fall 2 with right humerus fracture, atrial fibrillation on chronic Eliquis, hypertension, COPD on home oxygen at 2 L, diverticulitis, and previous tobacco dependence. She presented to [facility] emergency room from [facility] with complaints of significant shortness of breath unrelieved with breathing treatments. In addition she complained of coarse cough and decreased oxygenation with ambulat ion. Chest x-ray completed in the emergency room demonstrated large right-sided pneumothorax without mediastinal shift. A thoravent was placed by the emergency room physicians with almost complete re-expansion of the lung. She was admitted for COPD and management of the right pneumothorax. Dr. Sandoval from cardiothoracic surgery was consulted for thoravent management and surgical recommendations. Review of Systems Review of systems was completed and was negative except as noted - Cardiovascular Reports as per HPI, Reports chest pain, Reports dyspnea on exertion, Reports shortness of breath - Respiratory Reports as per HPI, Reports congestion, Reports cough Past Medical History Past Medical History: Atrial Fibrillation, COPD, GERD/Reflux, Hypertension, Osteoarthritis (OA), Pneumonia Additional Past Medical History / Comment(s): 04/11/19 acute on chronic hypoxic respiratory failure 2ndary to COPD; paroxysmal afib on chronic Eliquis; recent b ilateral leg edema/cramps; home O2 @2LPM; bronchitis; arthritis in multiple joints but mostly in bilateral hands; R humerus fractures on 03/12/19-pt is right hand dominent; incontinence of urine; UTI; sinus allergies. History of Any Multi-Drug Resistant Organisms: None Reported Past Surgical History: Appendectomy, Hysterectomy Additional Past Surgical History / Comment(s): Colonoscopy, bilateral cataract removals/lens implants. Past Anesthesia/Blood Transfusion Reactions: No Reported Reaction Past Psychological History: No Psychological Hx Reported Smoking Status: Former smoker Past Alcohol Use History: Rare Past Drug Use History: None Reported - Past Family History Father Family Medical History: Coronary Artery Disease (CAD) Additional Family Medical History / Comment(s): Pernicious anemia Mother Family Medical History: Hypertension Additional Family Medical History / Comment(s): Pancreatic cancer in her 80s Medications and Allergies Home Medications Medication Instructions Recorded Confirmed Type Fluticasone Nasal [place] [Flonase 1 spray EA NOSTRIL DAILY PRN 06/27/17 04/21/19 History Nasal [place]] Fluticasone/Salmeterol [Advair Hfa 2 puff INHALATION RT-BID 06/27/17 04/21/19 History 115-21 Mcg Inhaler] amLODIPine [Norvasc] 5 mg PO DAILY@0800 06/27/17 04/21/19 History Albuterol Inhaler [Ventolin Hfa 1 - 2 puff INHALATION RT-Q6H PRN 03/23/18 04/21/19 History Inhaler] Acetaminophen Tab [Tylenol] 650 mg PO Q4H PRN #12 tab 03/24/19 04/21/19 Rx Fexofenadine HCl 180 mg PO DAILY PRN 04/11/19 04/21/19 History Furosemide [Lasix] 20 mg PO SUTU 04/11/19 04/21/19 History Metoprolol Tartrate [Lopressor] 50 mg PO BID@0800,2100 04/11/19 04/21/19 History clonazePAM [KlonoPIN] 0.5 mg PO TID PRN #9 tab 04/13/19 04/21/19 Rx predniSONE See Taper PO DIRECTED #15 tab 04/13/19 04/21/19 Rx Apixaban [Eliquis] 2.5 mg PO BID@0800,1700 04/21/19 04/21/19 History Azithromycin [Zithromax] 500 mg PO ONCE PRN 04/21/19 04/21/19 History Bisacodyl [Dulcolax] 10 mg RECTAL DAILY PRN 04/21/19 04/21/19 History Cholecalciferol [Vitamin D3] 800 unit PO DAILY@1700 04/21/19 04/21/19 History Docusate [Colace] 100 mg PO DAILY PRN 04/21/19 04/21/19 History Furosemide [Lasix] 20 mg PO ONCE PRN 04/21/19 04/21/19 History Ipratropium-Albuterol Nebulize 3 ml INHALATION RT-TID 04/21/19 04/21/19 History [Duoneb 0.5 mg-3 mg/3 ml Soln] Lactose-Reduced Food [Ensure Plus] 1 can PO TID 04/21/19 04/21/19 History Magnesium Hydroxide [Milk of 2,400 mg PO DAILY PRN 04/21/19 04/21/19 History Magnesia] Na Phos,M-B/Na Phos,Di-Ba [Fleet 133 ml RECTAL DAILY PRN 04/21/19 04/21/19 History Adult] Potassium Chloride ER [K-Dur 20] 20 meq PO ONCE PRN 04/21/19 04/21/19 History guaiFENesin [Mucinex] 600 mg PO BID@0800,2100 04/21/19 04/21/19 History Allergies Allergy/AdvReac Type Severity Reaction Status Date / Time amoxicillin Allergy Rash/Hives Verified 04/21/19 09:04 fluconazole [From Diflucan] Allergy Unknown Verified 04/21/19 09:04 moxifloxacin HCl Allergy Rash/Hives Verified 04/21/19 09:04 [From Avelox] sulfamethoxazole Allergy Rash/Hives Verified 04/21/19 09:04 [From Bactrim] trimethoprim [From Bactrim] Allergy Rash/Hives Verified 04/21/19 09:04 tropicamide Allergy Unknown Verified 04/21/19 09:04 doxycycline AdvReac Unknown Verified 04/21/19 09:04 Surgical - Exam Vital Signs Temp Pulse Resp BP Pulse Ox 98.2 F 105 H 28 H 126/76 83 L 04/21/19 08:58 04/21/19 08:58 04/21/19 08:58 04/21/19 08:58 04/21/19 08:58 - General well developed, well nourished, no distress, no pain - Eyes PERRL, normal ocular movement - ENT no hearing loss - Neck no masses, no bruits, trachea midline - Respiratory Lungs sounds diminished bilaterally, right greater than left, coarse breath sounds present. Respirations even, slightly tachypneic which patient states is her baseline. Currently on 6 L nasal cannula with oxygen saturation 89%. - Cardiovascular S1, S2 present. Irregular rate and rhythm, atrial fibrillation on telemetry. Palpable peripheral pulses bilaterally. Trace bilateral lower extremity edema present. No calf pain or tenderness noted. - Abdomen Abdomen: soft, non tender, bowel sounds - Genitourinary Deferred - Rectum Deferred - Integumentary Pale skin no rash, no growths - Neurologic normal coordination, normal sensation - Musculoskeletal Right arm in a sling normal posture - Psychiatric oriented to time, oriented to person, oriented to place, speech is normal, memory intact Results - Labs 04/21/19 09:14 04/21/19 09:14 Abnormal Lab Results - Last 24 Hours (Table) 04/21/19 04/21/19 Range/Units 09:14 09:14 WBC 26.7 H (3.8-10.6) k/uL RBC 3.54 L (3.80-5.40) m/uL RDW 16.0 H (11.5-15.5) % Neutrophils # 25.1 H (1.3-7.7) k/uL Lymphocytes # 0.3 L (1.0-4.8) k/uL Basophils # 0.3 H (0-0.2) k/uL Sodium 134 L (137-145) mmol/L Chloride 95 L (98-107) mmol/L BUN 19 H (7-17) mg/dL Creatinine 0.50 L (0.52-1.04) mg/dL Glucose 192 H (74-99) mg/dL Magnesium 1.2 L (1.6-2.3) mg/dL Creatine Kinase 22 L (30-135) U/L Diabetes panel 04/21/19 Range/Units 09:14 Sodium 134 L (137-145) mmol/L Potassium 3.8 (3.5-5.1) mmol/L Chloride 95 L (98-107) mmol/L Carbon Dioxide 30 (22-30) mmol/L BUN 19 H (7-17) mg/dL Creatinine 0.50 L (0.52-1.04) mg/dL Glucose 192 H (74-99) mg/dL Calcium 9.5 (8.4-10.2) mg/dL AST 24 (14-36) U/L ALT 28 (9-52) U/L Alkaline Phosphatase 73 (38-126) U/L Total Protein 6.6 (6.3-8.2) g/dL Albumin 3.6 (3.5-5.0) g/dL Calcium panel 04/21/19 Range/Units 09:14 Calcium 9.5 (8.4-10.2) mg/dL Albumin 3.6 (3.5-5.0) g/dL Pituitary panel 04/21/19 Range/Units 09:14 Sodium 134 L (137-145) mmol/L Potassium 3.8 (3.5-5.1) mmol/L Chloride 95 L (98-107) mmol/L Carbon Dioxide 30 (22-30) mmol/L BUN 19 H (7-17) mg/dL Creatinine 0.50 L (0.52-1.04) mg/dL Glucose 192 H (74-99) mg/dL Calcium 9.5 (8.4-10.2) mg/dL Adrenal panel 04/21/19 Range/Units 09:14 Sodium 134 L (137-145) mmol/L Potassium 3.8 (3.5-5.1) mmol/L Chloride 95 L (98-107) mmol/L Carbon Dioxide 30 (22-30) mmol/L BUN 19 H (7-17) mg/dL Creatinine 0.50 L (0.52-1.04) mg/dL Glucose 192 H (74-99) mg/dL Calcium 9.5 (8.4-10.2) mg/dL Total Bilirubin 0.7 (0.2-1.3) mg/dL AST 24 (14-36) U/L ALT 28 (9-52) U/L Alkaline Phosphatase 73 (38-126) U/L Total Protein 6.6 (6.3-8.2) g/dL Albumin 3.6 (3.5-5.0) g/dL - Imaging Chest x-ray: report reviewed, image reviewed EKG: image reviewed Assessment and Plan Assessment: 1. Spontaneous right-sided pneumothorax, status post thoravent placement by the ER physicians 2. History of COPD on home oxygen at 2 L, currently on 6 L 3. Paroxysmal atrial fibrillation on chronic Eliquis 4. Recent fall 2 with right humerus fracture, sling present 5. Hypertension 6. Previous tobacco dependence Plan: The patient was seen and examined at the bedside with Dr. Sandoval. Chart/diagnostics were reviewed. The patient is not in significant distress. Thoravent is functioning appropriately with evacuation of air. Thoravent connected to atrium with continuous wall suction. Incentive spirometry has been ordered, should be encouraged. Wean O2 as tolerated. Increase activity as tolerated. Will monitor daily chest x-rays. Management of other medical comorbidities per primary care. More recommendations to follow. Thank you for this consult. We will continue to follow with you. Time with Patient: Greater than 30
[2019-04-21] MEDS: ACETAMINOPHEN TAB 325 MG TAB PO PRN (15:53)
[2019-04-21] MEDS: methylPREDNISolone SOD SUCCI 125 MG/2 ML VIAL IV SCH ×2 (15:54→20:54)
[2019-04-21] MEDS ORDERED: NON FORMULARY DRUG (Lactose-Reduced Food [Ensure Plus] 1 CAN) PO SCH (16:00)
[2019-04-21 16:45] LABS: Glucose,Whole Blood 259 mg/dL (75-99)
--- NOTE | 2019-04-21 17:49 | P.CNPUL ---
History of Present Illness Consult date: 04/21/19 Reason for consult: dyspnea, pneumothorax History of present illness: 83-year-old female patient with known history of advanced COPD and the patient is oxygen dependent who also is a chronic smoker and has chronic atrial fibrillation, hypertension and diverticulosis was undergoing rehabilitation well with [facility] after she had sustained an injury to her right humerus after a fall. The patient acutely became short of breath yesterday. She felt this as she was doing some limited amount of activity. She was brought into the hospital for further investigation the patient was found to have a large right-sided pneumothorax. The Thoravent was inserted in the emergency department with improvement in aeration of the right lung with some residual pneumothorax. Clinically the patient felt better. The patient has some residual pneumothorax on the right. The Thoravent is still in place. Based on the diminished breath on the right, hypertension Thoravent to the Pleur-evac. Currently the patient is on Suboxone by nasal cannula. No chest pain. Feeling better. No significant cough sputum production. She is currently on Zithromax. She was also started on IV Solu Medrol suspecting underlying COPD exacerbation. She is on DuoNeb nebulized treatments around the clock. Outpatient medication will be resumed including her long-term anticoagulation with Eliquis. Review of Systems CONSTITUTIONAL: Denies any recent significant weight loss or weight gain. EYES: Denies change in vision. EARS, NOSE, MOUTH, THROAT: Denies headaches, denies sore throat. CARDIOVASCULAR: Denies chest pain, palpitations or syncopal episodes. RESPIRATORY: Positive for shortness of breath, cough, congestion no hemoptysis. The patient had an acute shortness of breath. She has significant limitation excess capacity because of increased shortness of breath. GASTROINTESTINAL: Denies change in appetite, denies abdominal pain GENITOURINARY: Denies hematuria, denies infections. MUSKULOSKELETAL: Pain in the right upper extremity, denies swelling. INTEGUMENTARY: Denies rash, denies eczema. NEUROLOGICAL: Denies recent memory loss, no recent seizure activity. The patient has history of fall and the patient has suffered a right-sided humeral neck fracture. PSYCHIATRIC: Denies anxiety, denies depression. HEMATOLOGIC/LYMPHATIC: Denies anemia, denies enlarged lymph nodes. Past Medical History Past Medical History: Atrial Fibrillation, COPD, GERD/Reflux, Hypertension, Osteoarthritis (OA), Pneumonia Additional Past Medical History / Comment(s): 04/11/19 acute on chronic hypoxic respiratory failure 2ndary to COPD; paroxysmal afib on chronic Eliquis; recent bilateral leg edema/cramps; home O2 @2LPM; bronchitis; arthritis in multiple joints but mostly in bilateral hands; R humerus fractures on 03/12/19-pt is right hand dominent; incontinence of urine; UTI; sinus allergies. History of Any Multi-Drug Resistant Organisms: None Reported Past Surgical History: Appendectomy, Hysterectomy Additional Past Surgical History / Comment(s): Colonoscopy, bilateral cataract removals/lens implants. Past Anesthesia/Blood Transfusion Reactions: No Reported Reaction Past Psychological History: No Psychological Hx Reported Smoking Status: Former smoker Past Alcohol Use History: Rare Past Drug Use History: None Reported - Past Family History Father Family Medical History: Coronary Artery Disease (CAD) Additional Family Medical History / Comment(s): Pernicious anemia Mother Family Medical History: Hypertension Additional Family Medical History / Comment(s): Pancreatic cancer in her 80s Medications and Allergies Home Medications Medication Instructions Recorded Confirmed Type Fluticasone Nasal [place] [Flonase 1 spray EA NOSTRIL DAILY PRN 06/27/17 04/21/19 History Nasal [place]] Fluticasone/Salmeterol [Advair Hfa 2 puff INHALATION RT-BID 06/27/17 04/21/19 History 115-21 Mcg Inhaler] amLODIPine [Norvasc] 5 mg PO DAILY@0800 06/27/17 04/21/19 History Albuterol Inhaler [Ventolin Hfa 1 - 2 puff INHALATION RT-Q6H PRN 03/23/18 04/21/19 History Inhaler] Acetaminophen Tab [Tylenol] 650 mg PO Q4H PRN #12 tab 03/24/19 04/21/19 Rx Fexofenadine HCl 180 mg PO DAILY PRN 04/11/19 04/21/19 History Furosemide [Lasix] 20 mg PO SUTU 04/11/19 04/21/19 History Metoprolol Tartrate [Lopressor] 50 mg PO BID@0800,2100 04/11/19 04/21/19 History clonazePAM [KlonoPIN] 0.5 mg PO TID PRN #9 tab 04/13/19 04/21/19 Rx predniSONE See Taper PO DIRECTED #15 tab 04/13/19 04/21/19 Rx Apixaban [Eliquis] 2.5 mg PO BID@0800,1700 04/21/19 04/21/19 History Azithromycin [Zithromax] 500 mg PO ONCE PRN 04/21/19 04/21/19 History Bisacodyl [Dulcolax] 10 mg RECTAL DAILY PRN 04/21/19 04/21/19 History Cholecalciferol [Vitamin D3] 800 unit PO DAILY@1700 04/21/19 04/21/19 History Docusate [Colace] 100 mg PO DAILY PRN 04/21/19 04/21/19 History Furosemide [Lasix] 20 mg PO ONCE PRN 04/21/19 04/21/19 History Ipratropium-Albuterol Nebulize 3 ml INHALATION RT-TID 04/21/19 04/21/19 History [Duoneb 0.5 mg-3 mg/3 ml Soln] Lactose-Reduced Food [Ensure Plus] 1 can PO TID 04/21/19 04/21/19 History Magnesium Hydroxide [Milk of 2,400 mg PO DAILY PRN 04/21/19 04/21/19 History Magnesia] Na Phos,M-B/Na Phos,Di-Ba [Fleet 133 ml RECTAL DAILY PRN 04/21/19 04/21/19 History Adult] Potassium Chloride ER [K-Dur 20] 20 meq PO ONCE PRN 04/21/19 04/21/19 History guaiFENesin [Mucinex] 600 mg PO BID@0800,2100 04/21/19 04/21/19 History Allergies Allergy/AdvReac Type Severity Reaction Status Date / Time amoxicillin Allergy Rash/Hives Verified 04/21/19 09:04 fluconazole [From Diflucan] Allergy Unknown Verified 04/21/19 09:04 moxifloxacin HCl Allergy Rash/Hives Verified 04/21/19 09:04 [From Avelox] sulfamethoxazole Allergy Rash/Hives Verified 04/21/19 09:04 [From Bactrim] trimethoprim [From Bactrim] Allergy Rash/Hives Verified 04/21/19 09:04 tropicamide Allergy Unknown Verified 04/21/19 09:04 doxycycline AdvReac Unknown Verified 04/21/19 09:04 Physical Exam Vitals: Vital Signs Temp Pulse Pulse Resp BP BP Pulse Ox 04/21/19 16:00 97.8 F 89 19 106/51 89 L 04/21/19 15:15 90 04/21/19 15:05 92 04/21/19 13:00 86 28 H 104/53 87 L 04/21/19 12:56 86 04/21/19 12:45 86 20 04/21/19 12:30 86 28 H 106/53 89 L 04/21/19 12:00 85 23 101/56 90 L 04/21/19 11:30 85 22 100/53 88 L 04/21/19 11:00 84 13 123/66 91 L 04/21/19 10:30 95 29 H 121/68 04/21/19 10:00 112/83 04/21/19 09:30 105 H 19 126/76 86 L 04/21/19 09:10 99 26 H 04/21/19 09:00 100 30 H 83 L 04/21/19 08:58 98.2 F 105 H 28 H 126/76 83 L Intake and Output 04/21/19 04/21/19 04/21/19 06:59 14:59 22:59 Other: Weight 52.163 kg Gen. appearance she is calm and comfortable likely distress HEAD: Normocephalic. EYES: Normal reaction of pupils, equal size. NOSE: Clear with pink turbinates. THROAT: No erythema or exudates. NECK: No masses, no JVD. CHEST: No chest wall deformity. LUNGS: Equal air entry with no crackles, wheeze, rhonchi or dullness. Diminished breath sound on the right compared to the left and the right sided Thoravent was attached to a Pleur-evac. CVS: S1 and S2 normal with no audible murmur, regular rhythm. ABDOMEN: No hepatosplenomegaly, normal bowel sounds, no guarding or rigidity. SPINE: No scoliosis or deformity SKIN: No rashes CENTRAL NERVOUS SYSTEM: No focal deficits, tone is normal in all 4 extremities. EXTREMITIES: Right upper extremity in a sling. There is no peripheral edema. No clubbing, no cyanosis. Peripheral pulses are intact. Results - Laboratory Findings CBC and BMP: 04/21/19 09:14 04/21/19 09:14 PT/INR, D-dimer PT 10.1 sec (9.0-12.0) 04/21/19 09:14 INR 0.9 (<1.2) 04/21/19 09:14 Abnormal lab findings: Abnormal Labs 04/21/19 04/21/19 04/21/19 09:14 09:14 16:42 WBC 26.7 H RBC 3.54 L RDW 16.0 H Neutrophils # 25.1 H Lymphocytes # 0.3 L Basophils # 0.3 H Sodium 134 L Chloride 95 L BUN 19 H Creatinine 0.50 L Glucose 192 H POC Glucose (mg/dL) 259 H Magnesium 1.2 L Creatine Kinase 22 L - Diagnostic Findings Chest x-ray: image reviewed Assessment and Plan Plan: 1 acute secondary right-sided pneumothorax post insertion of a Thoravent with significant improvement in aeration on the right. There is still diminished breath on the right compared to left and there is some residual pneumothorax based on the follow-up chest x-ray. The size of the pneumothorax is improved considerably 2 acute COPD exacerbation 2 shortness of shortness above 4 chronic hypoxic respiratory failure 5 chronic atrial fibrillation 6 hypertension 7 diverticulosis 8 chronic anxiety 9 leukocytosis possibly reactive/stress-induced 10 history of falls with right humeral neck fractures 11 history of atrial fibrillation, rate is controlled and the patient is on long-term anticoagulation. Plan Continue bronchodilators. Keep the Thoravent in place. Daily chest x-ray. Provide the patient incentive spirometer. Attach the Thoravent the Pleur-evac. Monitor white count. Taper steroids as of tomorrow. Continue bronchodilators. Long-term and to coagulation with Eliquis will be resumed. We'll continue to follow.
[2019-04-21] MEDS: CHOLECALCIFEROL 400 UNIT TAB PO SCH (18:16)
[2019-04-21] MEDS: APIXABAN 2.5 MG TABLET PO SCH (18:16)
[2019-04-21 20:44] LABS: Glucose,Whole Blood 247 mg/dL (75-99)
[2019-04-21] MEDS: METOPROLOL TARTRATE 50 MG TAB PO SCH (20:53)
[2019-04-21] MEDS: INSULIN ASPART (NovoLOG) 100 UNIT/ML VIAL SQ SCH (20:54)
[2019-04-21] MEDS: guaiFENesin 600 MG TABLET.ER PO SCH (20:54)
[2019-04-21 23:01] LABS: Glucose,Whole Blood 181 mg/dL (75-99)
--- NOTE | 2019-04-21 23:08 | XR ---
EXAMINATION TYPE: XR chest 1V portable DATE OF EXAM: 04/21/2019 COMPARISON: 04/21/2019 HISTORY: Short of breath TECHNIQUE: Single frontal view of the chest is obtained. FINDINGS: There is more than 50% right-sided pneumothorax. Trachea is deviated slightly to the left side. There is coarse interstitial density in the lungs. There is atelectasis right lower lobe. There is a right-sided chest tube. There are chest leads. IMPRESSION: Right-sided pneumothorax increased compared to exam this morning at 11:00 AM. Heart is s hifted slightly to the left side. Follow-up recommended. There is some minimal tension. This exam was discussed with the patient's nurse Anish Pablo on the floor at 11:15 PM.
[2019-04-22 00:37] LABS: ABG Base Excess 6.7 mmol/L; ABG HCO3 31 mmol/L (21-25); ABG Oxygen Saturation 95.2 % (94-97); ABG PCO2 48 mmHg (35-45); ABG PH 7.42 (7.35-7.45); ABG PO2 79 mmHg (83-108); ABG TCO2 33 mmol/L (19-24); Allen Test Performed? Yes
[2019-04-22] MEDS: SODIUM CHLORIDE 0.9% 1,000 ML IV SCH ×2 (03:00→07:07)
[2019-04-22] MEDS: IPRATROPIUM-ALBUTEROL 3 ML NEB INHALATION SCH ×6 (04:17→23:59)
[2019-04-22 04:19] LABS: Basophils # (A) 0.1 k/uL (0-0.2); Basophils % (A) 1 %; Eosinophils # (A) 0.2 k/uL (0-0.7); Eosinophils % (A) 1 %; HCT 34.1 % (34.0-46.0); HGB 11.4 gm/dL (11.4-16.0); Lymphocytes # (A) 0.4 k/uL (1.0-4.8); Lymphocytes % (A) 2 %; MCH 33.1 pg (25.0-35.0); MCHC 33.5 g/dL (31.0-37.0); MCV 98.8 fL (80.0-100.0); Monocytes # (A) 0.3 k/uL (0-1.0); Monocytes % (A) 1 %; Neutrophils % (A) 96 %; Platelet Count 360 k/uL (150-450); RBC 3.45 m/uL (3.80-5.40); RDW 14.3 % (11.5-15.5)
[2019-04-22 04:32] LABS: African American GFR (CKD) >90 (>60 ml/min/1.73 sqM); Anion Gap 7 mmol/L; Blood Urea Nitrogen 20 mg/dL (7-17); Calcium 9.7 mg/dL (8.4-10.2); Carbon Dioxide 31 mmol/L (22-30); Chloride 97 mmol/L (98-107); Glucose 152 mg/dL (74-99); Magnesium 1.7 mg/dL (1.6-2.3); Phosphorus 3.7 mg/dL (2.5-4.5); Potassium 4.4 mmol/L (3.5-5.1); Sodium 135 mmol/L (137-145)
--- NOTE | 2019-04-22 05:47 | XR ---
EXAMINATION TYPE: XR chest 1V portable DATE OF EXAM: 04/22/2019 COMPARISON: Yesterday HISTORY: Pneumothorax TECHNIQUE: Single frontal view of the chest is obtained. FINDINGS: There is a moderate size right pneumothorax. Trachea is deviated slightly to the left side . Heart size is fairly normal. There is atelectasis in the right lower lobe. Left lung is fairly linda r. There is no heart failure. IMPRESSION: There is improvement in the right side pneumothorax compared to exam yesterday. There is decrease in the mediastinal shift. Pneumothorax is approximate 50%.
[2019-04-22 06:54] LABS: Glucose,Whole Blood 172 mg/dL (75-99)
[2019-04-22] MEDS ORDERED: Magnesium Replacement Protocol 1 EACH MISC MISCELLANE PRN (06:59)
[2019-04-22] MEDS: INSULIN ASPART (NovoLOG) 100 UNIT/ML VIAL SQ SCH ×4 (07:06→20:31)
[2019-04-22] MEDS: methylPREDNISolone SOD SUCCI 125 MG/2 ML VIAL IV SCH (07:48)
[2019-04-22] MEDS: APIXABAN 2.5 MG TABLET PO SCH ×2 (07:59→16:07)
[2019-04-22] MEDS: MAGNESIUM SULFATE-D5W PMX 1 GM in DEXTROSE/WATER 1 100ML.BAG IVPB SCH ×2 (07:59→12:16)
[2019-04-22] MEDS: METOPROLOL TARTRATE 50 MG TAB PO SCH ×2 (08:00→20:56)
[2019-04-22] MEDS: guaiFENesin 600 MG TABLET.ER PO SCH ×2 (08:00→20:56)
[2019-04-22] MEDS: ACETAMINOPHEN TAB 325 MG TAB PO PRN ×4 (08:21→20:08)
--- NOTE | 2019-04-22 09:19 | P.PCN ---
Date of Procedure: 04/22/19 Preoperative Diagnosis: Right-sided pneumothorax Postoperative Diagnosis: Right-sided pneumothorax Procedure(s) Performed: Chest tube insertion, 28-Divehi chest tube, local anesthesia Anesthesia: local Surgeon: Herminia Mendoza Estimated Blood Loss (ml): 0 Condition: critical Disposition: ICU Operative Findings: This procedure was done in the intensive care unit. The patient was having limited motion of the right shoulder as the patient had a right humeral fracture. Gradually, the arm was raised and moved across her chest to expose the right lateral chest area. Intercostal space was palpated. The right lateral chest area was cleaned using ChloraPrep and following that the intercostal space between 2 cm below the nipple line and along the anterior axillary line was palpated and skin was infiltrated with lidocaine. A horizontal incision was done using a scalpel and following that the intercostal space was palpated. Using a forceps, the intercostal muscles was dissected and and the forceps was introduced into the pleural space and the right lung was deflated after a gush of air was released from the right hemithorax. Furthermore, use my index finger to palpate the intercostal space in the pleural space. A 28-Divehi chest tube was inserted to the right hemithorax using a trocar. The trocar was removed and the chest tube was inserted successfully and positioned anteriorly and apically. The chest tube was connected to a Pleur- evac. There was positive air leak. Using a Ethibond 0 suture, the chest tube was secured and appropriate dressing was applied. Following the insertion of the chest tube, the Thoravent was removed. The chest x-rays to follow. The procedure was done without any complications. The patient remained hemodynamically stable. We'll continue to follow.
--- NOTE | 2019-04-22 09:19 | P.PN ---
Subjective Progress Note Date: 04/22/19 83-year-old female patient with known history of advanced COPD and the patient is oxygen dependent who also is a chronic smoker and has chronic atrial fibrillation, hypertension and diverticulosis was undergoing rehabilitation well with [facility] after she had sustained an injury to her right humerus after a fall. The patient acutely became short of breath yesterday. She felt this as she was doing some limited amount of activity. She was brought into the hospital for further investigation the patient was found to have a large right-sided pneumothorax. The Thoravent was inserted in the emergency department with improvement in aeration of the right lung with some residual pneumothorax. Clinically the patient felt better. The patient has some residual pneumothorax on the right. The Thoravent is still in place. Based on the diminished breath on the right, hypertension Thoravent to the Pleur-evac. Currently the patient is on Suboxone by nasal cannula. No chest pain. Feeling better. No si gnificant cough sputum production. She is currently on Zithromax. She was also started on IV Solu Medrol suspecting underlying COPD exacerbation. She is on DuoNeb nebulized treatments around the clock. Outpatient medication will be resumed including her long-term anticoagulation with Eliquis. On 04/22/2019 the patient got transferred to the intensive care unit. Overnight the patient became acutely short of breath and hypoxic. She was placed on on the percent nonrebreather facemask. A repeat chest x-ray was done that showed enlargement of the right-sided pneumothorax. The Thoravent was in place and was deflating the lung and there was no evidence of any air leak and the Pleur-evac. Probably tube was clogged. Her blood. This was done on the percent nonrebreather facemask showed a pH of 7.42 with a pCO2 48 and pO2 of 79. Subsequently, patient improved and the patient this morning is on 8 L with a pulse ox of 91%. I immediately inserted today right-sided chest tube, a 28- [place] chest tube and the right sided pneumothorax was immediately deflated. The patient remained hemodynamically stable throughout the process. No hypotension. No tachycardia. No significant chest pain. This chest tube was just inserted in the follow-up chest x-ray still pending for now. There is positive air leak and the Pleur-evac. Objective - Vital Signs Vital signs: Vital Signs Temp 97.9 F 04/22/19 04:00 Pulse 97 04/22/19 05:00 Resp 17 04/22/19 05:00 BP 129/73 04/22/19 05:00 Pulse Ox 93 L 04/22/19 05:00 Intake & Output 04/21/19 04/22/19 04/22/19 18:59 06:59 18:59 Intake Total 240 120 Output Total 150 Balance 240 -30 Weight 52.163 kg Intake: IV 120 Sodium Chloride 0.9% 1, 120 000 ml @ 20 mls/hr IV . Q24H [facility] Rx#:[id number] Oral 240 Output: Urine 150 - Exam Gen. appearance she is calm and comfortable likely distress, currently on 8 L of oxygen by nasal cannula. HEAD: Normocephalic. EYES: Normal reaction of pupils, equal size. NOSE: Clear with pink turbinates. THROAT: No erythema or exudates. NECK: No masses, no JVD. CHEST: No chest wall deformity. LUNGS: Equal air entry with no crackles, wheeze, rhonchi or dullness. Diminished breath sound on the right compared to the left and the right sided 28-Czech chest tube was attached to a Pleur-evac. The identity improved on the right compared to the left and there is equal and symmetrical breath sounds bilaterally for the time being. CVS: S1 and S2 normal with no audible murmur, regular rhythm. ABDOMEN: No hepatosplenomegaly, normal bowel sounds, no guarding or rigidity. SPINE: No scoliosis or deformity SKIN: No rashes CENTRAL NERVOUS SYSTEM: No focal deficits, tone is normal in all 4 extremities. EXTREMITIES: Right upper extremity in a sling. There is no peripheral edema. No clubbing, no cyanosis. Peripheral pulses are intact. - Labs CBC & Chem 7: 04/22/19 03:59 04/22/19 03:59 Labs: Abnormal Lab Results - Last 24 Hours (Table) 04/21/19 04/21/19 04/21/19 Range/Units 09:14 09:14 16:42 WBC 26.7 H (3.8-10.6) k/uL RBC 3.54 L (3.80-5.40) m/uL RDW 16.0 H (11.5-15.5) % Neutrophils # 25.1 H (1.3-7.7) k/uL Lymphocytes # 0.3 L (1.0-4.8) k/uL Basophils # 0.3 H (0-0.2) k/uL ABG pCO2 (35-45) mmHg ABG pO2 (83-108) mmHg ABG HCO3 (21-25) mmol/L ABG Total CO2 (19-24) mmol/L Sodium 134 L (137-145) mmol/L Chloride 95 L (98-107) mmol/L Carbon Dioxide (22-30) mmol/L BUN 19 H (7-17) mg/dL Creatinine 0.50 L (0.52-1.04) mg/dL Glucose 192 H (74-99) mg/dL POC Glucose (mg/dL) 259 H (75-99) mg/dL Magnesium 1.2 L (1.6-2.3) mg/dL Creatine Kinase 22 L (30-135) U/L 04/21/19 04/21/19 04/22/19 Range/Units 20:39 22:58 00:31 WBC (3.8-10.6) k/uL RBC (3.80-5.40) m/uL RDW (11.5-15.5) % Neutrophils # (1.3-7.7) k/uL Lymphocytes # (1.0-4.8) k/uL Basophils # (0-0.2) k/uL ABG pCO2 48 H (35-45) mmHg ABG pO2 79 L (83-108) mmHg ABG HCO3 31 H (21-25) mmol/L ABG Total CO2 33 H (19-24) mmol/L Sodium (137-145) mmol/L Chloride (98-107) mmol/L Carbon Dioxide (22-30) mmol/L BUN (7-17) mg/dL Creatinine (0.52-1.04) mg/dL Glucose (74-99) mg/dL POC Glucose (mg/dL) 247 H 181 H (75-99) mg/dL Magnesium (1.6-2.3) mg/dL Creatine Kinase (30-135) U/L 04/22/19 04/22/19 04/22/19 Range/Units 03:59 03:59 06:50 WBC 24.0 H (3.8-10.6) k/uL RBC 3.45 L (3.80-5.40) m/uL RDW (11.5-15.5) % Neutrophils # 23.0 H (1.3-7.7) k/uL Lymphocytes # 0.4 L (1.0-4.8) k/uL Basophils # (0-0.2) k/uL ABG pCO2 (35-45) mmHg ABG pO2 (83-108) mmHg ABG HCO3 (21-25) mmol/L ABG Total CO2 (19-24) mmol/L Sodium 135 L (137-145) mmol/L Chloride 97 L (98-107) mmol/L Carbon Dioxide 31 H (22-30) mmol/L BUN 20 H (7-17) mg/dL Creatinine 0.43 L (0.52-1.04) mg/dL Glucose 152 H (74-99) mg/dL POC Glucose (mg/dL) 172 H (75-99) mg/dL Magnesium (1.6-2.3) mg/dL Creatine Kinase (30-135) U/L Assessment and Plan Plan: 1 acute secondary right-sided pneumothorax post insertion of a Thoravent with subsequent incomplete expansion of the right lung and furthermore the patient became acutely short of breath with a chest x-ray showing right-sided pneumo thorax which is increased, occupying 50% of the right hemithorax. At that point, a regular chest tube was inserted and the Thoravent was removed. 2 acute COPD exacerbation 2 shortness of shortness above 4 acute on chronic chronic hypoxic respiratory failure, secondary pneumothorax and the patient is currently on 8 liters is of oxygen by nasal cannula 5 chronic atrial fibrillation 6 hypertension 7 diverticulosis 8 chronic anxiety 9 leukocytosis possibly reactive/stress-induced 10 history of falls with right humeral neck fractures 11 history of atrial fibrillation, rate is controlled and the patient is on long-term anticoagulation. Plan Right-sided chest tube was inserted. Follow-up chest x-rays was ordered. Daily chest x-ray. Incentive spirometer. Wean down the FiO2. This continued IV Solu Medrol as the patient is having an unusual reaction to IV Solu-Medrol, likely ALLERGIC. We'll continue to follow. Keep the patient ICU for now. Condition remains critical.
--- NOTE | 2019-04-22 09:20 | P.PN ---
Subjective Progress Note Date: 04/22/19 Principal diagnosis: Spontaneous right-sided pneumothorax, status post thoravent placement by the emergency room physicians, acute exacerbation of COPD with chronic hypoxic respiratory failure, leukocytosis. Previous medical history of COPD on home oxygen at 2 L, paroxysmal atrial fibrillation on chronic calculus, recent fall 2 with right humerus fracture, hypertension, previous tobacco dependence. POD #0 placement of right pleural thoracostomy tube, removal of thoravent The patient is currently sitting up in bed in the intensive care unit in no acute distress. Yesterday afternoon her thoravent was connected to an atrium and placed to continuous wall suction. Last night she became increasingly short of breath with acute hypoxemia. She was brought to the intensive care unit. Chest x-ray demonstrated increased pneumothorax. This morning a right-sided thoracostomy tube was placed by pulmonology, thoravent was removed, repeat chest x-ray demonstrated reexpansion of the lung, and the patient states her breathing is much better. Atrium initially had continuous rolling air leak, currently has intermittent air leak. She does complain of pain to her right arm but refuses anything stronger than Tylenol for pain. She is able to use her incentive spirometry and is achieving 750-1000 mL. Objective - Vital Signs Vital signs: Vital Signs Temp 97.9 F 04/22/19 04:00 Pulse 101 H 04/22/19 08:07 Resp 23 04/22/19 07:00 BP 131/71 04/22/19 07:00 Pulse Ox 94 L 04/22/19 07:00 Intake & Output 04/21/19 04/22/19 04/22/19 18:59 06:59 18:59 Intake Total 240 120 Output Total 150 Balance 240 -30 Weight 52.163 kg Intake: IV 120 Sodium Chloride 0.9% 1, 120 000 ml @ 20 mls/hr IV . Q24H [facility] Rx#:[id number] Oral 240 Output: Urine 150 - Constitutional General appearance: Present: cooperative, no acute distress - Respiratory Details: Lungs sounds diminished bilaterally, right greater than left, expiratory wheezes present in the right side. Respirations even, nonlabored. Currently on 10 L high flow nasal cannula with oxygen saturation 95%. Able to achieve 750-1000 mL on her incentive spirometry. Right thoracostomy tube present, connected to continuous wall suction, 80 mL serous drainage in the atrium, positive interm ittent air leak present. - Cardiovascular Details: S1, S2 present. Irregular rate and rhythm, atrial fibrillation on telemetry. Palpable peripheral pulses bilaterally. Bilateral lower extremity trace edema present. No calf pain or tenderness noted. SCDs present. - Gastrointestinal Gastrointestinal Comment(s): Abdomen soft, nontender, nondistended. Active bowel sounds present 4 quadrants. Tolerating diet. - Genitourinary Genitourinary Comment(s): Continues to void, incontinent wearing adult brief. - Integumentary Integumentary Comment(s): Skin is warm and dry with evidence of good perfusion although she is a bit pale. Right thoravent site covered with dry intact dressing. - Neurologic Neurologic: Present: CNII-XII intact - Musculoskeletal Musculoskeletal Comment(s): Right arm is in a sling with limited mobility Musculoskeletal: Present: strength equal bilaterally - Psychiatric Psychiatric: Present: A&O x's 3, appropriate affect, intact judgment & insight - Allied health notes Allied health notes reviewed: nursing - Labs CBC & Chem 7: 04/22/19 03:59 04/22/19 03:59 Labs: Abnormal Lab Results - Last 24 Hours (Table) 04/21/19 04/21/19 04/21/19 Range/Units 09:14 09:14 16:42 WBC 26.7 H (3.8-10.6) k/uL RBC 3.54 L (3.80-5.40) m/uL RDW 16.0 H (11.5-15.5) % Neutrophils # 25.1 H (1.3-7.7) k/uL Lymphocytes # 0.3 L (1.0-4.8) k/uL Basophils # 0.3 H (0-0.2) k/uL ABG pCO2 (35-45) mmHg ABG pO2 (83-108) mmHg ABG HCO3 (21-25) mmol/L ABG Total CO2 (19-24) mmol/L Sodium 134 L (137-145) mmol/L Chloride 95 L (98-107) mmol/L Carbon Dioxide (22-30) mmol/L BUN 19 H (7-17) mg/dL Creatinine 0.50 L (0.52-1.04) mg/dL Glucose 192 H (74-99) mg/dL POC Glucose (mg/dL) 259 H (75-99) mg/dL Magnesium 1.2 L (1.6-2.3) mg/dL Creatine Kinase 22 L (30-135) U/L 04/21/19 04/21/19 04/22/19 Range/Units 20:39 22:58 00:31 WBC (3.8-10.6) k/uL RBC (3.80-5.40) m/uL RDW (11.5-15.5) % Neutrophils # (1.3-7.7) k/uL Lymphocytes # (1.0-4.8) k/uL Basophils # (0-0.2) k/uL ABG pCO2 48 H (35-45) mmHg ABG pO2 79 L (83-108) mmHg ABG HCO3 31 H (21-25) mmol/L ABG Total CO2 33 H (19-24) mmol/L Sodium (137-145) mmol/L Chloride (98-107) mmol/L Carbon Dioxide (22-30) mmol/L BUN (7-17) mg/dL Creatinine (0.52-1.04) mg/dL Glucose (74-99) mg/dL POC Glucose (mg/dL) 247 H 181 H (75-99) mg/dL Magnesium (1.6-2.3) mg/dL Creatine Kinase (30-135) U/L 04/22/19 04/22/19 04/22/19 Range/Units 03:59 03:59 06:50 WBC 24.0 H (3.8-10.6) k/uL RBC 3.45 L (3.80-5.40) m/uL RDW (11.5-15.5) % Neutrophils # 23.0 H (1.3-7.7) k/uL Lymphocytes # 0.4 L (1.0-4.8) k/uL Basophils # (0-0.2) k/uL ABG pCO2 (35-45) mmHg ABG pO2 (83-108) mmHg ABG HCO3 (21-25) mmol/L ABG Total CO2 (19-24) mmol/L Sodium 135 L (137-145) mmol/L Chloride 97 L (98-107) mmol/L Carbon Dioxide 31 H (22-30) mmol/L BUN 20 H (7-17) mg/dL Creatinine 0.43 L (0.52-1.04) mg/dL Glucose 152 H (74-99) mg/dL POC Glucose (mg/dL) 172 H (75-99) mg/dL Magnesium (1.6-2.3) mg/dL Creatine Kinase (30-135) U/L - Imaging and Cardiology Chest x-ray: report reviewed, image reviewed Assessment and Plan Assessment: 1. Spontaneous right-sided pneumothorax, status post thoravent placement by the ER physicians, status post thoracostomy tube placement by pulmonology 2. Acute exacerbation of COPD with chronic hypoxic respiratory failure 3. Leukocytosis 4. History of COPD on home oxygen at 2 L, currently on 10 L high flow nasal cannula 5. Paroxysmal atrial fibrillation on chronic Eliquis 6. Recent fall 2 with right humerus fracture, sling present 7. Hypertension 8. Previous tobacco dependence Plan: 1. Continue right thoracostomy tube to continuous wall suction. Will monitor for resolution of air leak. 2. Wean O2 as tolerated. Encourage incentive spirometry 10 times every hour while awake. 3. Increase activity as tolerated. Out of bed to chair. 4. Will monitor daily x-rays. 5. Bronchodilators, steroids per pulmonology. 6. Medical management of other comorbidities per primary care. 7. More recommendations to follow Time with Patient: Greater than 30
--- NOTE | 2019-04-22 09:29 | XR ---
EXAMINATION TYPE: XR chest 1V DATE OF EXAM: 04/22/2019 COMPARISON: 04/22/2019 HISTORY: Chest tube placement TECHNIQUE: Single frontal view of the chest is obtained. FINDINGS: Right-sided chest tube seen with by basilar subsegmental consolidation and evidence of CHAIR INSPECTOR D. There is marked interval improvement in the size of the pneumothorax which now measures approximat richie 5%. Size normal. Chronic deformity of the right humerus. Atherosclerotic change aorta. Calcificat ions the left abdomen could be related to the anterior margin of the rib or granuloma of the spleen. IMPRESSION: 1. Interval marked improvement of the pneumothorax which now measures approximately 5%. 2. COPD with by basilar infiltrate and pleural thickening or tiny effusion.
[2019-04-22 11:56] LABS: Glucose,Whole Blood 139 mg/dL (75-99)
[2019-04-22] MEDS: amLODIPine 5 MG TAB PO SCH (12:12)
[2019-04-22] MEDS: AZITHROMYCIN 500 MG TAB PO SCH (12:22)
[2019-04-22] MEDS: CHOLECALCIFEROL 400 UNIT TAB PO SCH (16:06)
[2019-04-22 16:57] LABS: Glucose,Whole Blood 201 mg/dL (75-99)
--- NOTE | 2019-04-22 17:14 | P.HPIM ---
History of Present Illness H&P Date: 04/22/19 Chief Complaint: Shortness of breath History of presenting complaint: This is a 83-year-old patient who was recently discharged from my colleague Dr. Sexton on April 13. Patient was then admitted to the hospital with acute on chronic hypoxic respiratory failure and COPD exacerbation. Chronic stable medical conditions include paroxysmal atrial fibrillation on anticoagulation, fracture of the right humeral neck with a sling, anxiety, hypertension, colonic diverticulosis. Patient is is currently at [facility] rehab. [facility]. Patient was noticing that with exertion she was getting easily getting short of breath and was desaturating. Patient was found to be large pneumothorax and a Thora-vent was placed. Has patient remained hypoxic patient is put on high flow oxygen- airvo. Otherwise patient appetite has been fair. No fever no chills. Earlier today chest tube was inserted by Dr. Mendoza. It was connected to Pleur-evac. Review of systems: GEN.: Tired EYES: None HEENT: None NECK: None RESPIRATORY: Short of breath CARDIOVASCULAR: None GASTROINTESTINAL: None GENITOURINARY: None MUSCULOSKELETAL: Pain in the joints and right humerus LYMPHATICS: None HEMATOLOGICAL: None PSYCHIATRY: Slightly anxious NEUROLOGICAL: None Past medical history: Atrial fibrillation, COPD, GERD, hypertension, osteoarthritis, chronic hypoxic failure, right humerus fracture, urinary incontinence Social history: Currently a resident of [facility]. Smoked from 194902/25/1994. Alcohol rarely. Physical examination: VITAL SIGNS: 98.2, 105, 28, 126/76, 83% on 6 L GENERAL: BMI 21, laying in bed tired. EYES: Pupils equal. Conjunctiva normal. HEENT: External appearance of nose and ears normal, oral cavity grossly normal. NECK: JVD unable to assess; masses not palpable. HEART: First and second heart sounds are normal; no edema. LUNGS: Respiratory rate increased, decreased breath sounds. ABDOMEN: Soft, nontender, liver spleen not palpable, no masses palpable. PSYCH: Alert and oriented x3; mood and affect normal. NEUROLOGICAL: Cranial nerves grossly intact; no facial asymmetry, power and sensation grossly intact. LYMPHATICS: No lymph nodes palpable in the axilla and neck MUSCULOSKELETAL: Evidence of OA. Right arm in a sling CHEST wall: Right side chest tube INVESTIGATIONS, reviewed in the clinical context: White count 26.7 hemoglobin 11.5 potassium 3.8 bun 19 creatinine 0.50 Chest x-ray film personally reviewed by me-large right-sided pneumothorax EKG tracing personally reviewed by me-shows atrial flutter fibrillation Assessment: -Large right-sided pneumothorax now with the chest tube in place -Persistent atrial fibrillation on anticoagulation -COPD in an ex-smoker -GERD -Essential hypertension -Primary osteoarthritis -Recent right humerus fracture, right arm and a sliding Chronic urinary incontinence - Plan: Patient is a right chest tube in place. Home medications resumed. Also bronchodilators. Oxygen supplementation. He was discussed with the patient. Questions were answered. Patient also being followed by asphalt layer and cardio thoracic surgery. Past Medical History Past Medical History: Atrial Fibrillation, COPD, GERD/Reflux, Hypertension, Osteoarthritis (OA), Pneumonia Additional Past Medical History / Comment(s): 04/11/19 acute on chronic hypoxic respiratory failure 2ndary to COPD; paroxysmal afib on chronic Eliquis; recent bilateral leg edema/cramps; home O2 @2LPM; bronchitis; arthritis in multiple joints but mostly in bilateral hands; R humerus fractures on 03/12/19-pt is right hand dominent; incontinence of urine; UTI; sinus allergies. History of Any Multi-Drug Resistant Organisms: None Reported Past Surgical History: Appendectomy, Hysterectomy Additional Past Surgical History / Comment(s): Colonoscopy, bilateral cataract removals/lens implants. Past Anesthesia/Blood Transfusion Reactions: No Reported Reaction Past Psychological History: No Psychological Hx Reported Smoking Status: Former smoker Past Alcohol Use History: Rare Past Drug Use History: None Reported - Past Family History Father Family Medical History: Coronary Artery Disease (CAD) Additional Family Medical History / Comment(s): Pernicious anemia Mother Family Medical History: Hypertension Additional Family Medical History / Comment(s): Pancreatic cancer in her 80s Medications and Allergies Home Medications Medication Instructions Recorded Confirmed Type Fluticasone Nasal [place] [Flonase 1 spray EA NOSTRIL DAILY PRN 06/27/17 04/21/19 History Nasal [place]] Fluticasone/Salmeterol [Advair Hfa 2 puff INHALATION RT-BID 06/27/17 04/21/19 History 115-21 Mcg Inhaler] amLODIPine [Norvasc] 5 mg PO DAILY@0800 06/27/17 04/21/19 History Albuterol Inhaler [Ventolin Hfa 1 - 2 puff INHALATION RT-Q6H PRN 03/23/18 04/21/19 History Inhaler] Acetaminophen Tab [Tylenol] 650 mg PO Q4H PRN #12 tab 03/24/19 04/21/19 Rx Fexofenadine HCl 180 mg PO DAILY PRN 04/11/19 04/21/19 History Furosemide [Lasix] 20 mg PO SUTU 04/11/19 04/21/19 History Metoprolol Tartrate [Lopressor] 50 mg PO BID@0800,2100 04/11/19 04/21/19 History clonazePAM [KlonoPIN] 0.5 mg PO TID PRN #9 tab 04/13/19 04/21/19 Rx predniSONE See Taper PO DIRECTED #15 tab 04/13/19 04/21/19 Rx Apixaban [Eliquis] 2.5 mg PO BID@0800,1700 04/21/19 04/21/19 History Azithromycin [Zithromax] 500 mg PO ONCE PRN 04/21/19 04/21/19 History Bisacodyl [Dulcolax] 10 mg RECTAL DAILY PRN 04/21/19 04/21/19 History Cholecalciferol [Vitamin D3] 800 unit PO DAILY@1700 04/21/19 04/21/19 History Docusate [Colace] 100 mg PO DAILY PRN 04/21/19 04/21/19 History Furosemide [Lasix] 20 mg PO ONCE PRN 04/21/19 04/21/19 History Ipratropium-Albuterol Nebulize 3 ml INHALATION RT-TID 04/21/19 04/21/19 History [Duoneb 0.5 mg-3 mg/3 ml Soln] Lactose-Reduced Food [Ensure Plus] 1 can PO TID 04/21/19 04/21/19 History Magnesium Hydroxide [Milk of 2,400 mg PO DAILY PRN 04/21/19 04/21/19 History Magnesia] Na Phos,M-B/Na Phos,Di-Ba [Fleet 133 ml RECTAL DAILY PRN 04/21/19 04/21/19 History Adult] Potassium Chloride ER [K-Dur 20] 20 meq PO ONCE PRN 04/21/19 04/21/19 History guaiFENesin [Mucinex] 600 mg PO BID@0800,2100 04/21/19 04/21/19 History Allergies Allergy/AdvReac Type Severity Reaction Status Date / Time amoxicillin Allergy Rash/Hives Verified 04/21/19 09:04 fluconazole [From Diflucan] Allergy Unknown Verified 04/21/19 09:04 moxifloxacin HCl Allergy Rash/Hives Verified 04/21/19 09:04 [From Avelox] sulfamethoxazole Allergy Rash/Hives Verified 04/21/19 09:04 [From Bactrim] trimethoprim [From Bactrim] Allergy Rash/Hives Verified 04/21/19 09:04 tropicamide Allergy Unknown Verified 04/21/19 09:04 doxycycline AdvReac Unknown Verified 04/21/19 09:04 Physical Exam Vitals: Vital Signs Temp Pulse Pulse Pulse Pulse Resp BP 04/22/19 08:07 101 H 04/22/19 08:00 99 15 110/52 04/22/19 07:52 99 04/22/19 07:00 98 23 04/22/19 06:00 99 22 04/22/19 05:00 97 17 129/73 04/22/19 04:37 99 04/22/19 04:18 96 04/22/19 04:00 97.9 F 95 20 134/69 04/22/19 03:00 86 25 H 115/62 04/22/19 02:00 88 25 H 120/64 04/22/19 01:00 86 24 138/72 04/22/19 00:36 86 22 124/72 04/22/19 00:00 97.9 F 86 16 131/60 04/21/19 22:26 100 04/21/19 22:13 102 H 04/21/19 22:03 99 04/21/19 21:48 102 H 04/21/19 20:00 100 18 04/21/19 19:35 89 04/21/19 16:00 97.8 F 89 19 04/21/19 15:15 90 04/21/19 15:05 92 04/21/19 13:00 86 28 H 104/53 04/21/19 12:56 86 04/21/19 12:45 86 20 04/21/19 12:30 86 28 H 106/53 04/21/19 12:00 85 23 101/56 04/21/19 11:30 85 22 100/53 04/21/19 11:00 84 13 123/66 04/21/19 10:30 95 29 H 121/68 04/21/19 10:00 112/83 BP Pulse Ox 04/22/19 08:07 04/22/19 08:00 96 04/22/19 07:52 04/22/19 07:00 131/71 94 L 04/22/19 06:00 126/60 94 L 04/22/19 05:00 93 L 04/22/19 04:37 04/22/19 04:18 04/22/19 04:00 91 L 04/22/19 03:00 94 L 04/22/19 02:00 89 L 04/22/19 01:00 95 04/22/19 00:36 94 L 04/22/19 00:00 94 L 04/21/19 22:26 159/75 87 L 04/21/19 22:13 04/21/19 22:03 04/21/19 21:48 140/77 79 L 04/21/19 20:00 122/58 89 L 04/21/19 19:35 04/21/19 16:00 106/51 89 L 04/21/19 15:15 04/21/19 15:05 04/21/19 13:00 87 L 04/21/19 12:56 04/21/19 12:45 04/21/19 12:30 89 L 04/21/19 12:00 90 L 04/21/19 11:30 88 L 04/21/19 11:00 91 L 04/21/19 10:30 04/21/19 10:00 Intake and Output 04/21/19 04/22/19 04/22/19 22:59 06:59 14:59 Intake Total 240 120 Output Total 150 Balance 240 -30 Intake: IV 120 Sodium Chloride 0.9% 1, 120 000 ml @ 20 mls/hr IV . Q24H [facility] Rx#:[id number] Oral 240 Output: Urine 150 Results CBC & Chem 7: 04/22/19 03:59 04/22/19 03:59 Labs: Abnormal Lab Results - Last 24 Hours (Table) 04/21/19 04/21/19 04/21/19 Range/Units 16:42 20:39 22:58 WBC (3.8-10.6) k/uL RBC (3.80-5.40) m/uL Neutrophils # (1.3-7.7) k/uL Lymphocytes # (1.0-4.8) k/uL ABG pCO2 (35-45) mmHg ABG pO2 (83-108) mmHg ABG HCO3 (21-25) mmol/L ABG Total CO2 (19-24) mmol/L Sodium (137-145) mmol/L Chloride (98-107) mmol/L Carbon Dioxide (22-30) mmol/L BUN (7-17) mg/dL Creatinine (0.52-1.04) mg/dL Glucose (74-99) mg/dL POC Glucose (mg/dL) 259 H 247 H 181 H (75-99) mg/dL 04/22/19 04/22/19 04/22/19 Range/Units 00:31 03:59 03:59 WBC 24.0 H (3.8-10.6) k/uL RBC 3.45 L (3.80-5.40) m/uL Neutrophils # 23.0 H (1.3-7.7) k/uL Lymphocytes # 0.4 L (1.0-4.8) k/uL ABG pCO2 48 H (35-45) mmHg ABG pO2 79 L (83-108) mmHg ABG HCO3 31 H (21-25) mmol/L ABG Total CO2 33 H (19-24) mmol/L Sodium 135 L (137-145) mmol/L Chloride 97 L (98-107) mmol/L Carbon Dioxide 31 H (22-30) mmol/L BUN 20 H (7-17) mg/dL Creatinine 0.43 L (0.52-1.04) mg/dL Glucose 152 H (74-99) mg/dL POC Glucose (mg/dL) (75-99) mg/dL 04/22/19 Range/Units 06:50 WBC (3.8-10.6) k/uL RBC (3.80-5.40) m/uL Neutrophils # (1.3-7.7) k/uL Lymphocytes # (1.0-4.8) k/uL ABG pCO2 (35-45) mmHg ABG pO2 (83-108) mmHg ABG HCO3 (21-25) mmol/L ABG Total CO2 (19-24) mmol/L Sodium (137-145) mmol/L Chloride (98-107) mmol/L Carbon Dioxide (22-30) mmol/L BUN (7-17) mg/dL Creatinine (0.52-1.04) mg/dL Glucose (74-99) mg/dL POC Glucose (mg/dL) 172 H (75-99) mg/dL Thrombosis Risk Factor Assmnt - Choose All That Apply Any of the Below Risk Factors Present?: Yes Each Factor Represents 1 point: Abnormal pulmonary function (COPD), Serious lung disease incl. pneumonia (< 1month) Each Risk Factor Represents 3 Points: Age 75 years or older Other congenital or acquired thrombophilia - If yes, enter type in comment: No Thrombosis Risk Factor Assessment Total Risk Factor Score: 5 Thrombosis Risk Factor Assessment Level: High Risk
[2019-04-22 20:40] LABS: Glucose,Whole Blood 105 mg/dL (75-99)
[2019-04-23] MEDS: ACETAMINOPHEN TAB 325 MG TAB PO PRN ×2 (00:14→04:17)
[2019-04-23] MEDS: IPRATROPIUM-ALBUTEROL 3 ML NEB INHALATION SCH ×6 (03:46→23:31)
[2019-04-23] MEDS: SODIUM CHLORIDE 0.9% 1,000 ML IV SCH (03:48)
[2019-04-23 04:39] LABS: Basophils # (A) 0.1 k/uL (0-0.2); Basophils % (A) 0 %; Eosinophils # (A) 0.3 k/uL (0-0.7); Eosinophils % (A) 1 %; HCT 32.2 % (34.0-46.0); HGB 10.7 gm/dL (11.4-16.0); Lymphocytes # (A) 0.8 k/uL (1.0-4.8); Lymphocytes % (A) 3 %; MCHC 33.2 g/dL (31.0-37.0); MCV 99.5 fL (80.0-100.0); Macrocytosis Slight; Mean Platelet Volume 6.9; Monocytes # (A) 0.6 k/uL (0-1.0); Monocytes % (A) 2 %; Neutrophils # (A) 20.5 k/uL (1.3-7.7); Neutrophils % (A) 92 %; Platelet Count 362 k/uL (150-450); RBC 3.24 m/uL (3.80-5.40); RDW 14.5 % (11.5-15.5); WBC 22.3 k/uL (3.8-10.6)
[2019-04-23 04:54] LABS: African American GFR (CKD) >90 (>60 ml/min/1.73 sqM); Anion Gap 7 mmol/L; Blood Urea Nitrogen 21 mg/dL (7-17); Calcium 9.5 mg/dL (8.4-10.2); Carbon Dioxide 28 mmol/L (22-30); Chloride 99 mmol/L (98-107); Glucose 123 mg/dL (74-99); Potassium 4.1 mmol/L (3.5-5.1); Sodium 134 mmol/L (137-145)
--- NOTE | 2019-04-23 06:07 | XR ---
EXAMINATION TYPE: XR chest 1V portable DATE OF EXAM: 04/23/2019 HISTORY: pneumothorax. REFERENCE: Previous study dated 04/22/2019. FINDINGS: Right pleural drain remains in place. Minimal right apical pneumothorax persists. It is les s than 5%. The lungs are overinflated. There is a worsening left-sided effusion. Left basilar airspace disease. Heart size is upper limits of normal. IMPRESSION: 1. NEAR RESOLUTION OF THE PATIENT'S PNEUMOTHORAX. 2. COPD. 3. WORSENING LEFT BASILAR AIRSPACE DISEASE WITH A CONCOMITANT EFFUSION.
[2019-04-23 07:05] LABS: Glucose,Whole Blood 106 mg/dL (75-99)
--- NOTE | 2019-04-23 08:35 | P.PN ---
Subjective Progress Note Date: 04/23/19 83-year-old female patient with known history of advanced COPD and the patient is oxygen dependent who also is a chronic smoker and has chronic atrial fibrillation, hypertension and diverticulosis was undergoing rehabilitation well with Elicia after she had sustained an injury to her right humerus after a fall. The patient acutely became short of breath yesterday. She felt this as she was doing some limited amount of activity. She was brought into the hospital for further investigation the patient was found to have a large right-sided pneumothorax. The Thoravent was inserted in the emergency department with improvement in aeration of the right lung with some residual pneumothorax. Clinically the patient felt better. The patient has some residual pneumothorax on the right. The Thoravent is still in place. Based on the diminished breath on the right, hypertension Thoravent to the Pleur-evac. Currently the patient is on Suboxone by nasal cannula. No chest pain. Feeling better. No si gnificant cough sputum production. She is currently on Zithromax. She was also started on IV Solu Medrol suspecting underlying COPD exacerbation. She is on DuoNeb nebulized treatments around the clock. Outpatient medication will be resumed including her long-term anticoagulation with Eliquis. On 04/22/2019 the patient got transferred to the intensive care unit. Overnight the patient became acutely short of breath and hypoxic. She was placed on on the percent nonrebreather facemask. A repeat chest x-ray was done that showed enlargement of the right-sided pneumothorax. The Thoravent was in place and was deflating the lung and there was no evidence of any air leak and the Pleur-evac. Probably tube was clogged. Her blood. This was done on the percent nonrebreather facemask showed a pH of 7.42 with a pCO2 48 and pO2 of 79. Subsequently, patient improved and the patient this morning is on 8 L with a pulse ox of 91%. I immediately inserted today right-sided chest tube, a 28- [place] chest tube and the right sided pneumothorax was immediately deflated. The patient remained hemodynamically stable throughout the process. No hypotension. No tachycardia. No significant chest pain. This chest tube was just inserted in the follow-up chest x-ray still pending for now. There is positive air leak and the Pleur-evac. On 04/23/2019 and seeing this patient for a follow-up. Based on a failed Thoravent right lung reexpansion, I inserted a chest tube yesterday. The patient had good results. The right-sided pneumothorax as pre-much recovered on today's chest x-ray. There is no evidence of any air leak. The patient has advanced emphysema with bullous changes bilaterally. This morning, her main complaint is pain at the site of the chest tube insertion. She refused to take any form of narcotics. We'll going to use only Tylenol was at its oral IV to control her pain. She also has a right humeral fracture. In terms of her breathing, she became hypoxic. She was not able to maintain a pulse ox with regular nasal cannula. I have to put her on Airvo 50% FiO2 at 40 L per minute. She is doing well with this current setting. She is able to maintain a pulse ox above 90%. She is unable to take systemic steroids. The chest x-ray from today shows a small effusion/infiltration of the left lung base and the patient has some leukocytosis. She is on oral Zithromax. I'm going to add Rocephin. She is anxious, her Klonopin can be also restarted. Overall, she is using incentive spirometer. Ability to use the eye asses minimal and she is not urinating much volume and she is less than 500. She is on oral Lasix. No signs of any fluid overload. She is on bronchodilators [id number]. He is awake and alert. No tachycardia. No other hemodynamic instability. Objective - Vital Signs Vital signs: Vital Signs Temp 98.2 F 04/23/19 04:00 Pulse 103 H 04/23/19 07:00 Resp 16 04/23/19 07:00 BP 101/61 04/23/19 07:00 Pulse Ox 91 L 04/23/19 07:00 Intake & Output 04/22/19 04/23/19 04/23/19 18:59 06:59 18:59 Intake Total 760 120 10 Output Total 930 800 80 Balance -170 -680 -70 Intake: IV 110 120 10 Sodium Chloride 0.9% 1, 110 120 10 000 ml @ 20 mls/hr IV . Q24H [facility] Rx#:[id number] Oral 650 Output: Chest Tube Drainage 180 50 0 Chest Tube Right 180 50 0 Urine 750 750 Other 80 Other: # Voids 1 1 - Exam Gen. appearance she is calm and comfortable likely distress, currently on high flow oxygen at 50%. She is quite debilitated and cachectic looking. Her BMI is 21.0. HEAD: Normocephalic. EYES: Normal reaction of pupils, equal size. NOSE: Clear with pink turbinates. THROAT: No erythema or exudates. NECK: No masses, no JVD. CHEST: No chest wall deformity. LUNGS: Equal air entry with no crackles, wheeze, rhonchi or dullness. Diminished breath sound on the right compared to the left and the right sided 28-[place] chest tube was attached to a Pleur-evac. The identity improved on the right compared to the left and there is equal and symmetrical breath sounds bilaterally for the time being. There is no evidence of any subcu has emphysema. CVS: S1 and S2 normal with no audible murmur, regular rhythm. ABDOMEN: No hepatosplenomegaly, normal bowel sounds, no guarding or rigidity. SPINE: No scoliosis or deformity SKIN: No rashes CENTRAL NERVOUS SYSTEM: No focal deficits, tone is normal in all 4 extremities. EXTREMITIES: Right upper extremity in a sling. There is no peripheral edema. No clubbing, no cyanosis. Peripheral pulses are intact. - Labs CBC & Chem 7: 04/23/19 04:25 04/23/19 04:25 Labs: Abnormal Lab Results - Last 24 Hours (Table) 04/22/19 04/22/19 04/22/19 Range/Units 11:54 16:54 20:26 WBC (3.8-10.6) k/uL RBC (3.80-5.40) m/uL Hgb (11.4-16.0) gm/dL Hct (34.0-46.0) % Neutrophils # (1.3-7.7) k/uL Lymphocytes # (1.0-4.8) k/uL Sodium (137-145) mmol/L BUN (7-17) mg/dL Creatinine (0.52-1.04) mg/dL Glucose (74-99) mg/dL POC Glucose (mg/dL) 139 H 201 H 105 H (75-99) mg/dL 04/23/19 04/23/19 04/23/19 Range/Units 04:25 04:25 07:03 WBC 22.3 H (3.8-10.6) k/uL RBC 3.24 L (3.80-5.40) m/uL Hgb 10.7 L (11.4-16.0) gm/dL Hct 32.2 L (34.0-46.0) % Neutrophils # 20.5 H (1.3-7.7) k/uL Lymphocytes # 0.8 L (1.0-4.8) k/uL Sodium 134 L (137-145) mmol/L BUN 21 H (7-17) mg/dL Creatinine 0.50 L (0.52-1.04) mg/dL Glucose 123 H (74-99) mg/dL POC Glucose (mg/dL) 106 H (75-99) mg/dL Microbiology - Last 24 Hours (Table) 04/21/19 09:14 Blood Culture - Preliminary Blood No Growth after 24 hours Assessment and Plan Plan: 1 acute secondary right-sided pneumothorax post insertion of a Thoravent with subsequent incomplete expansion of the right lung and furthermore the patient became acutely short of breath with a chest x-ray showing right-sided pneumothorax which is increased, occupying 50% of the right hemithorax. A regular 28-[place] chest tube was inserted with excellent especially the right lung. The Thoravent was removed. The chest x-ray from today shows no evidence of any residual pneumothorax. 2 acute COPD exacerbation 2 shortness of shortness above 4 acute on chronic chronic hypoxic respiratory failure, secondary pneumothorax and the patient is currently is on high flow oxygen at 50% FiO2 and she is able to maintain a pulse ox above 90%. 5 chronic atrial fibrillation rate is controlled and the patient on long-term and coagulation with Eliquis. 6 hypertension 7 diverticulosis 8 chronic anxiety 9 leukocytosis possibly reactive/stress-induced 10 history of falls with right humeral neck fractures 11 history of atrial fibrillation, rate is controlled and the patient is on long-term anticoagulation. 12 chest wall pain at the site of a chest tube insertion. Plan Keep the right-sided chest tube in place. Monitor the air leak. Repeat chest x-ray in the morning. Encourage use of incentive spirometer. She does have some left lower lobe infiltrates/effusion. We'll continue Zithromax orally. Add IV Rocephin. Unable to give the patient IV Solu-Medrol because of reaction. The patient will be started on a prednisone taper starting at 30 mg, as the patient seems to be able to tolerate oral prednisone. Continue the DuoNeb nebulized treatments around the clock. Pain control with IV Tylenol. Unable take a full narcotic medication. Refuses to take Toradol and refuses to take nostril and have her medical medications. We'll proceed with IV Tylenol accordingly. Advance diet. Wean FiO2 if possible. We'll continue to follow make further recommendations based on her progress. Her A. fib is controlled and the patient is on long-term and to coagulation with Eliquis. condition is critical. The patient will be kept in the ICU.
[2019-04-23] MEDS: INSULIN ASPART (NovoLOG) 100 UNIT/ML VIAL SQ SCH ×4 (08:39→20:54)
[2019-04-23] MEDS: METOPROLOL TARTRATE 50 MG TAB PO SCH ×2 (08:54→20:53)
[2019-04-23] MEDS: clonazePAM 0.5 MG TAB PO PRN (08:54)
[2019-04-23] MEDS: predniSONE 10 MG TAB PO SCH (08:54)
[2019-04-23] MEDS: AZITHROMYCIN 500 MG TAB PO SCH (08:54)
[2019-04-23] MEDS: amLODIPine 5 MG TAB PO SCH (08:55)
[2019-04-23] MEDS: APIXABAN 2.5 MG TABLET PO SCH ×2 (08:55→17:46)
[2019-04-23] MEDS: guaiFENesin 600 MG TABLET.ER PO SCH ×2 (08:55→20:53)
[2019-04-23] MEDS: ACETAMINOPHEN IV (For NPO) 1,000 MG in EMPTY BAG 1 BAG IVPB PRN ×2 (09:05→18:49)
--- NOTE | 2019-04-23 10:07 | P.PN ---
Subjective Progress Note Date: 04/23/19 Principal diagnosis: Spontaneous right-sided pneumothorax, status post thoravent placement by the emergency room physicians, acute exacerbation of COPD with chronic hypoxic respiratory failure, leukocytosis. Previous medical history of COPD on home oxygen at 2 L, paroxysmal atrial fibrillation on chronic calculus, recent fall 2 with right humerus fracture, hypertension, previous tobacco dependence. POD #1 placement of right pleural thoracostomy tube, removal of thoravent The patient is currently sitting up in bed in the intensive care unit in no acute distress. After placement of thoracostomy tube yesterday right lung was almost completely reexpanded, no air leak present in the atrium. Patient did become hypoxic last night however, requiring increased FiO2, placed on Airvo this morning at 40 L with 50% FiO2. Ceftriaxone was added to her medication regimen in addition to the Zithromax she was already on by pulmonology. She was started on a prednisone taper. She continues to complain of right arm pain secondary to her fracture but continues to refuse anything for pain control other than Tylenol. No other new concerns. Objective - Vital Signs Vital signs: Vital Signs Temp 98.1 F 04/23/19 08:00 Pulse 121 H 04/23/19 09:00 Resp 17 04/23/19 09:00 BP 118/53 04/23/19 09:00 Pulse Ox 86 L 04/23/19 09:00 Intake & Output 04/22/19 04/23/19 04/23/19 18:59 06:59 18:59 Intake Total 760 120 10 Output Total 930 800 80 Balance -170 -680 -70 Intake: IV 110 120 10 Sodium Chloride 0.9% 1, 110 120 10 000 ml @ 20 mls/hr IV . Q24H [facility] Rx#:[id number] Oral 650 Output: Chest Tube Drainage 180 50 0 Chest Tube Right 180 50 0 Urine 750 750 Other 80 Other: # Voids 1 1 - Constitutional General appearance: Present: cooperative, no acute distress - Respiratory Details: Lungs sounds diminished bilaterally, right greater than left but better air exchange than yesterday. Respirations even, slightly tachypneic. Currently on Airvo 40L 50% FiO2 with oxygen saturation 86-91%. Able to achieve 750 mL on her incentive spirometry. Right thoracostomy tube present, connected to continuous wall suction, 50 mL serous drainage overnight, 350 mL since insertion, no air leak present. - Cardiovascular Details: S1, S2 present. Irregular rate and rhythm, atrial fibrillation on telemetry. Palpable peripheral pulses bilaterally. Bilateral lower extremity trace edema present. No calf pain or tenderness noted. SCDs present. - Gastrointestinal Gastrointestinal Comment(s): Abdomen soft, nontender, nondistended. Active bowel sounds present 4 quadrants. Tolerating diet. - Genitourinary Genitourinary Comment(s): Continues to void clear yellow urine, incontinent at times wearing adult brief. - Integumentary Integumentary Comment(s): Skin is warm and dry with evidence of good perfusion although she is a bit pale. - Neurologic Neurologic: Present: CNII-XII intact - Musculoskeletal Musculoskeletal Comment(s): Right arm in a sling Musculoskeletal: Present: strength equal bilaterally - Psychiatric Psychiatric: Present: A&O x's 3, appropriate affect, intact judgment & insight - Allied health notes Allied health notes reviewed: nursing - Labs CBC & Chem 7: 04/23/19 04:25 04/23/19 04:25 Labs: Abnormal Lab Results - Last 24 Hours (Table) 04/22/19 04/22/19 04/22/19 Range/Units 11:54 16:54 20:26 WBC (3.8-10.6) k/uL RBC (3.80-5.40) m/uL Hgb (11.4-16.0) gm/dL Hct (34.0-46.0) % Neutrophils # (1.3-7.7) k/uL Lymphocytes # (1.0-4.8) k/uL Sodium (137-145) mmol/L BUN (7-17) mg/dL Creatinine (0.52-1.04) mg/dL Glucose (74-99) mg/dL POC Glucose (mg/dL) 139 H 201 H 105 H (75-99) mg/dL 04/23/19 04/23/19 04/23/19 Range/Units 04:25 04:25 07:03 WBC 22.3 H (3.8-10.6) k/uL RBC 3.24 L (3.80-5.40) m/uL Hgb 10.7 L (11.4-16.0) gm/dL Hct 32.2 L (34.0-46.0) % Neutrophils # 20.5 H (1.3-7.7) k/uL Lymphocytes # 0.8 L (1.0-4.8) k/uL Sodium 134 L (137-145) mmol/L BUN 21 H (7-17) mg/dL Creatinine 0.50 L (0.52-1.04) mg/dL Glucose 123 H (74-99) mg/dL POC Glucose (mg/dL) 106 H (75-99) mg/dL Microbiology - Last 24 Hours (Table) 04/21/19 09:14 Blood Culture - Preliminary Blood No Growth after 24 hours - Imaging and Cardiology Chest x-ray: report reviewed, image reviewed Assessment and Plan Assessment: 1. Spontaneous right-sided pneumothorax, status post thoravent placement by the ER physicians, status post thoracostomy tube placement by pulmonology 2. Acute exacerbation of COPD with chronic hypoxic respiratory failure 3. Leukocytosis 4. History of COPD on home oxygen at 2 L, currently on 10 L high flow nasal cannula 5. Paroxysmal atrial fibrillation on chronic Eliquis 6. Recent fall 2 with right humerus fracture, sling present 7. Hypertension 8. Previous tobacco dependence Plan: 1. Continue right thoracostomy tube to continuous wall suction. 2. Wean O2 as tolerated. Encourage incentive spirometry 10 times every hour while awake. 3. Increase activity as tolerated. Out of bed to chair. 4. Will monitor daily x-rays. 5. Bronchodilators, steroids, antibiotics per pulmonology. 6. Medical management of other comorbidities per primary care. 7. More recommendations to follow. Patient would be extremely high risk for any surgical intervention Time with Patient: Greater than 30
[2019-04-23 12:03] LABS: Glucose,Whole Blood 200 mg/dL (75-99)
--- NOTE | 2019-04-23 14:25 | P.PN ---
Progress Note - Text Progress Note Date: 04/23/19 Chief Complaint: Shortness of breath Interval history: This is a 83-year-old patient who was recently discharged from my colleague Dr. Sexton on April 13. Patient was then admitted to the hospital with acute on chronic hypoxic respiratory failure and COPD exacerbation. Chronic stable medical conditions include paroxysmal atrial fibrillation on anticoagulation, fracture of the right humeral neck with a sling, anxiety, hypertension, colonic diverticulosis. [facility] Patient was noticing that with exertion she was getting easily getting short of breath and was desaturating. Patient was found to be large pneumothorax and a Thora-vent was placed. Has patient remained hypoxic patient is put on high flow oxygen- airvo. Otherwise patient appetite has been fair. No fever no chills. Earlier today chest tube was inserted by Dr. Mendoza. It was connected to Pleur-evac. Today-sitting up in a chair. On high flow oxygen with Air-vo. Has been tolerating a meal. Chest tubeattached to wall suction Review of systems: Was done for constitutional, cardiovascular, GI, pulmonary. relevant finding as above Active Medications Acetaminophen (Tylenol Tab) 650 mg PO Q4H PRN PRN Reason: Fever and/ or Mild Pain Last Admin: 04/23/19 04:17 Dose: 650 mg Documented by: Albuterol/Ipratropium (Duoneb 0.5 Mg-3 Mg/3 Ml Soln) 3 ml INHALATION RT-Q4H [facility] Last Admin: 04/23/19 11:52 Dose: 3 ml Documented by: Amlodipine Besylate (Norvasc) 5 mg PO DAILY@0800 [facility] Last Admin: 04/23/19 08:55 Dose: 5 mg Documented by: Apixaban (Eliquis) 2.5 mg PO BID@0800,1700 [facility] Last Admin: 04/23/19 08:55 Dose: 2.5 mg Documented by: Azithromycin (Zithromax) 500 mg PO DAILY [facility] Last Admin: 04/23/19 08:54 Dose: 500 mg Documented by: Bisacodyl (Dulcolax) 10 mg RECTAL DAILY PRN PRN Reason: Constipation Cholecalciferol (Vitamin D3) 800 unit PO DAILY@1700 [facility] Last Admin: 04/22/19 16:06 Dose: 800 unit Documented by: Clonazepam (Klonopin) 0.5 mg PO TID PRN PRN Reason: Anxiety Last Admin: 04/23/19 08:54 Dose: 0.5 mg Documented by: Docusate Sodium (Colace) 100 mg PO DAILY PRN PRN Reason: Constipation Furosemide (Lasix) 20 mg PO SUTU [facility] Furosemide (Lasix) 20 mg PO ONCE PRN PRN Reason: Edema Guaifenesin (Mucinex) 600 mg PO BID@0800,2100 [facility] Last Admin: 04/23/19 08:55 Dose: 600 mg Documented by: Sodium Chloride (Saline 0.9%) 1,000 mls @ 20 mls/hr IV .Q24H [facility] Last Admin: 04/23/19 03:48 Dose: Not Given Documented by: Ceftriaxone Sodium 1 gm/ (Sodium Chloride) 50 mls @ 100 mls/hr IVPB Q24HR [facility] Last Admin: 04/23/19 08:53 Dose: 100 mls/hr Documented by: Acetaminophen 1,000 mg/ IV (Solution) 100 mls @ 400 mls/hr IVPB Q6HR PRN PRN Reason: Mild to Moderate Pain Stop: 04/24/19 00:14 Last Admin: 04/23/19 09:05 Dose: 400 mls/hr Documented by: Insulin Aspart (Novolog) 0 unit SQ ACHS [facility]; Protocol Last Admin: 04/23/19 12:16 Dose: 5 unit Documented by: Loratadine (Claritin) 10 mg PO DAILY PRN PRN Reason: ALLERGIES Magnesium Hydroxide (Milk Of Magnesia) 2,400 mg PO DAILY PRN PRN Reason: Constipation Metoprolol Tartrate (Lopressor) 50 mg PO BID@0800,2100 [facility] Last Admin: 04/23/19 08:54 Dose: 50 mg Documented by: Miscellaneous Information (Magnesium Per Protocol) 1 each MISCELLANE DAILY PRN; Protocol PRN Reason: Per Protocol Potassium Chloride (K-Dur 20) 20 meq PO ONCE PRN PRN Reason: LEUKOCYTOSIS Prednisone () 30 mg PO DAILY [facility] Last Admin: 04/23/19 08:54 Dose: 30 mg Documented by: Sodium Biphosphate/Sodium Phosphate (Fleet Adult) 133 ml RECTAL DAILY PRN PRN Reason: Constipation Physical examination: VITAL SIGNS: 97.7, 80, 27, 88 /48, 90% on high flow oxygen GENERAL: Sitting upon a chair, tired appearing EYES: Pupils equal. Conjunctiva normal. HEENT: External appearance of nose and ears normal, oral cavity grossly normal. NECK: JVD unable to assess; masses not palpable. HEART: First and second heart sounds are normal; no edema. LUNGS: Respiratory rate increased, decreased breath sounds. ABDOMEN: Soft, nontender, liver spleen not palpable, no masses palpable. PSYCH: Alert and oriented x3; mood and affect normal. MUSCULOSKELETAL: Evidence of OA. Right arm in a sling CHEST wall: Right side chest tube, attached to wall suction INVESTIGATIONS, reviewed in the clinical context: White count 22.3 hemoglobin 10.7 potassium 4.1 creatinine 0.50 Checks x-ray film personally reviewed by me shows minimal pneumothorax if any, hyperinflation some left basal infiltrate Previous investigations: White count 26.7 hemoglobin 11.5 potassium 3.8 bun 19 creatinine 0.50 Chest x-ray film personally reviewed by me-large right-sided pneumothorax EKG tracing personally reviewed by me-shows atrial flutter fibrillation Assessment: -Large right-sided spontaneous pneumothorax now with the chest tube in place, radiologically improved -Acute on chronic hypoxic respiratory failure from COPD/pneumothorax -Persistent atrial fibrillation on anticoagulation -Acute COPD exacerbation in an ex-smoker -GERD -Essential hypertension -Primary osteoarthritis -Recent right humerus fracture, right arm and a sliding -Chronic urinary incontinence -Possible left basal pneumonia- Plan: Continue current medication treatment plan including bronchodilators, IV ceftriaxone,. She is clinically looking better. Switched over to oral prednisone..
[2019-04-23] MEDS: IBUPROFEN 400 MG TAB PO PRN ×2 (14:49→23:01)
[2019-04-23 16:52] LABS: Glucose,Whole Blood 169 mg/dL (75-99)
[2019-04-23] MEDS: CHOLECALCIFEROL 400 UNIT TAB PO SCH (17:47)
[2019-04-23 20:55] LABS: Glucose,Whole Blood 172 mg/dL (75-99)
[2019-04-24] MEDS: clonazePAM 0.5 MG TAB PO PRN ×2 (02:36→09:21)
[2019-04-24] MEDS: ACETAMINOPHEN TAB 325 MG TAB PO PRN ×3 (02:36→14:40)
[2019-04-24] MEDS: IPRATROPIUM-ALBUTEROL 3 ML NEB INHALATION SCH ×6 (04:02→23:38)
[2019-04-24] MEDS: SODIUM CHLORIDE 0.9% 1,000 ML IV SCH (05:29)
[2019-04-24 07:08] LABS: Glucose,Whole Blood 100 mg/dL (75-99)
[2019-04-24] MEDS: INSULIN ASPART (NovoLOG) 100 UNIT/ML VIAL SQ SCH ×4 (07:11→21:10)
[2019-04-24] MEDS ORDERED: FUROSEMIDE 10 MG/ML 4 ML VIAL IV STA (07:30)
--- NOTE | 2019-04-24 08:08 | XR ---
EXAMINATION TYPE: XR chest 1V portable DATE OF EXAM: 04/24/2019 HISTORY: pneumothorax. REFERENCE: Previous study dated 04/23/2019. FINDINGS: There continues to be a tiny right apical pneumothorax of approximately 10% by volume. A ri ght pleural drain is in place. There is right basilar airspace disease and also some left basilar air space disease. There is a left-sided pleural effusion. The heart is not enlarged. I suspect underlyin g COPD. IMPRESSION: 1. CONTINUING SMALL RIGHT APICAL PNEUMOTHORAX. 2. BIBASILAR AIRSPACE DISEASE. 3. COPD. 4. LEFT-SIDED EFFUSION.
--- NOTE | 2019-04-24 08:51 | P.PN ---
Subjective Progress Note Date: 04/24/19 83-year-old female patient with known history of advanced COPD and the patient is oxygen dependent who also is a chronic smoker and has chronic atrial fibrillation, hypertension and diverticulosis was undergoing rehabilitation well with E[facility] after she had sustained an injury to her right humerus after a fall. The patient acutely became short of breath yesterday. She felt this as she was doing some limited amount of activity. She was brought into the hospital for further investigation the patient was found to have a large right-sided pneumothorax. The Thoravent was inserted in the emergency department with improvement in aeration of the right lung with some residual pneumothorax. Clinically the patient felt better. The patient has some residual pneumothorax on the right. The Thoravent is still in place. Based on the diminished breath on the right, hypertension Thoravent to the Pleur-evac. Currently the patient is on Suboxone by nasal cannula. No chest pain. Feeling better. No si gnificant cough sputum production. She is currently on Zithromax. She was also started on IV Solu Medrol suspecting underlying COPD exacerbation. She is on DuoNeb nebulized treatments around the clock. Outpatient medication will be resumed including her long-term anticoagulation with Eliquis. On 04/22/2019 the patient got transferred to the intensive care unit. Overnight the patient became acutely short of breath and hypoxic. She was placed on on the percent nonrebreather facemask. A repeat chest x-ray was done that showed enlargement of the right-sided pneumothorax. The Thoravent was in place and was deflating the lung and there was no evidence of any air leak and the Pleur-evac. Probably tube was clogged. Her blood. This was done on the percent nonrebreather facemask showed a pH of 7.42 with a pCO2 48 and pO2 of 79. Subsequently, patient improved and the patient this morning is on 8 L with a pulse ox of 91%. I immediately inserted today right-sided chest tube, a 28- Azerbaijani chest tube and the right sided pneumothorax was immediately deflated. The patient remained hemodynamically stable throughout the process. No hypotension. No tachycardia. No significant chest pain. This chest tube was just inserted in the follow-up chest x-ray still pending for now. There is positive air leak and the Pleur-evac. On 04/23/2019 and seeing this patient for a follow-up. Based on a failed Thoravent right lung reexpansion, I inserted a chest tube yesterday. The patient had good results. The right-sided pneumothorax as pre-much recovered on today's chest x-ray. There is no evidence of any air leak. The patient has advanced emphysema with bullous changes bilaterally. This morning, her main complaint is pain at the site of the chest tube insertion. She refused to take any form of narcotics. We'll going to use only Tylenol was at its oral IV to control her pain. She also has a right humeral fracture. In terms of her breathing, she became hypoxic. She was not able to maintain a pulse ox with regular nasal cannula. I have to put her on Airvo 50% FiO2 at 40 L per minute. She is doing well with this current setting. She is able to maintain a pulse ox above 90%. She is unable to take systemic steroids. The chest x-ray from today shows a small effusion/infiltration of the left lung base and the patient has some leukocytosis. She is on oral Zithromax. I'm going to add Rocephin. She is anxious, her Klonopin can be also restarted. Overall, she is using incentive spirometer. Ability to use the eye asses minimal and she is not urinating much volume and she is less than 500. She is on oral Lasix. No signs of any fluid overload. She is on bronchodilators [id number]. He is awake and alert. No tachycardia. No other hemodynamic instability. On 04/24/2019 I'm seeing this patient for a follow-up. The right-sided chest tube is in place. On today's chest x-ray there is no evidence of any pneumothorax. The right lung is well expanded and there is no evidence of any air leak from the right-sided chest tube. The patient is on high flow oxygen at 45 L and with an FiO2 of 45%. She has a congested cough. Unable to bring up much of sputum. The chest wall pain is improved compared to yesterday. She is able to expand her lungs and take deeper breath pH is using incentive spirometer pH is on accommodation Rocephin and Zithromax. I started on a 30 mg of prednisone as part of the burst taper. He was dynamically stable. No other significant events overnight. Anxiety has been treated with Klonopin. Objective - Vital Signs Vital signs: Vital Signs Temp 97.6 F 04/24/19 04:00 Pulse 88 04/24/19 08:34 Resp 18 04/24/19 07:00 BP 110/53 04/24/19 07:00 Pulse Ox 94 L 04/24/19 07:00 Intake & Output 04/23/19 04/24/19 04/24/19 18:59 06:59 18:59 Intake Total 400 220 Output Total 450 Balance -50 220 Weight 52.5 kg Intake: IV 400 220 ACETAMINOPHEN IV (For NPO 200 ) 1,000 mg In Empty Bag 1 bag @ 400 mls/hr IVPB Q6HR PRN Rx#:[id number] Sodium Chloride 0.9% 1, 150 220 000 ml @ 20 mls/hr IV . Q24H ADONAY Rx#:[id number] cefTRIAXone 1 gm In 50 Sodium Chloride 0.9% 50 ml @ 100 mls/hr IVPB Q24HR ADONAY Rx#:[id number] Output: Chest Tube Drainage 170 Chest Tube Right 170 Urine 200 Other 80 Other: Voiding Method Bedpan Bedpan # Voids 1 1 # Bowel Movements 1 - Exam Gen. appearance she is calm and comfortable likely distress, currently on high f low oxygen at 45%. She is quite debilitated and cachectic looking. Her BMI is 21.0. HEAD: Normocephalic. EYES: Normal reaction of pupils, equal size. NOSE: Clear with pink turbinates. THROAT: No erythema or exudates. NECK: No masses, no JVD. CHEST: No chest wall deformity. LUNGS: Equal air entry with no crackles, wheeze, rhonchi or dullness. Diminished breath sound on the right compared to the left and the right sided 28-Azerbaijani chest tube was attached to a Pleur-evac. The identity improved on the right compared to the left and there is equal and symmetrical breath sounds bilaterally for the time being. There is no evidence of any subcu has emphysema. CVS: S1 and S2 normal with no audible murmur, regular rhythm. ABDOMEN: No hepatosplenomegaly, normal bowel sounds, no guarding or rigidity. SPINE: No scoliosis or deformity SKIN: No rashes CENTRAL NERVOUS SYSTEM: No focal deficits, tone is normal in all 4 extremities. EXTREMITIES: Right upper extremity in a sling. There is no peripheral edema. No clubbing, no cyanosis. Peripheral pulses are intact. - Labs CBC & Chem 7: 04/23/19 04:25 04/23/19 04:25 Labs: Abnormal Lab Results - Last 24 Hours (Table) 04/23/19 04/23/19 04/23/19 Range/Units 12:00 16:49 20:43 POC Glucose (mg/dL) 200 H 169 H 172 H (75-99) mg/dL 04/24/19 Range/Units 07:05 POC Glucose (mg/dL) 100 H (75-99) mg/dL Microbiology - Last 24 Hours (Table) 04/21/19 09:14 Blood Culture - Preliminary Blood No Growth after 48 hours Assessment and Plan Plan: 1 acute secondary right-sided pneumothorax post insertion of a Thoravent with subsequent incomplete expansion of the right lung and furthermore the patient became acutely short of breath with a chest x-ray showing right-sided pneum othorax which is increased, occupying 50% of the right hemithorax. A regular 28-Azerbaijani chest tube was inserted with excellent especially the right lung. The Thoravent was removed. The chest x-ray from today shows no evidence of any residual pneumothorax. On today's evaluation, the patient is a chest tube in place and a chest tube is in good location on today's chest x-ray and there is no evidence of any pneumothorax or any ongoing air leak. 2 acute COPD exacerbation 2 shortness of shortness above 4 acute on chronic chronic hypoxic respiratory failure, secondary pneumothorax and the patient is currently is on high flow oxygen at 45% FiO2 and she is able to maintain a pulse ox above 90%. May be a component of tracheal bronchitis and mucus plugging. Doubt pneumonia at this point in time. Currently on Rocephin and Zithromax. Also being treated for an acute COPD exacerbation. 5 chronic atrial fibrillation rate is controlled and the patient on long-term and coagulation with Eliquis. 6 hypertension 7 diverticulosis 8 chronic anxiety 9 leukocytosis possibly reactive/stress-induced 10 history of falls with right humeral neck fractures 11 history of atrial fibrillation, rate is controlled and the patient is on long-term anticoagulation. 12 chest wall pain at the site of a chest tube insertion. Plan Keep the right-sided chest tube in place. Monitor the air leak. Repeat chest x-ray in the morning. Encourage use of incentive spirometer. She Rocephin and Zithromax. Prednisone burst taper. Give additional dose of Lasix 40 mg IV. Incentive spirometer. Deep breathing to pulmonary toileting. Wean off FiO2 as tolerated. We'll continue to follow. Chest wall pain is under good control for now.
[2019-04-24] MEDS: APIXABAN 2.5 MG TABLET PO SCH ×2 (09:08→17:16)
[2019-04-24] MEDS: amLODIPine 5 MG TAB PO SCH (09:08)
[2019-04-24] MEDS: METOPROLOL TARTRATE 50 MG TAB PO SCH ×2 (09:09→21:10)
[2019-04-24] MEDS: AZITHROMYCIN 500 MG TAB PO SCH (09:09)
[2019-04-24] MEDS: guaiFENesin 600 MG TABLET.ER PO SCH ×2 (09:09→21:10)
[2019-04-24] MEDS: FUROSEMIDE 20 MG TAB PO SCH (09:09)
[2019-04-24] MEDS: predniSONE 10 MG TAB PO SCH (09:09)
[2019-04-24 11:04] LABS: Basophils # (A) 0.1 k/uL (0-0.2); Basophils % (A) 0 %; Eosinophils # (A) 0.2 k/uL (0-0.7); Eosinophils % (A) 1 %; HCT 32.2 % (34.0-46.0); HGB 10.9 gm/dL (11.4-16.0); Lymphocytes # (A) 0.4 k/uL (1.0-4.8); Lymphocytes % (A) 2 %; MCH 32.8 pg (25.0-35.0); MCHC 33.7 g/dL (31.0-37.0); MCV 97.3 fL (80.0-100.0); Mean Platelet Volume 5.8; Monocytes # (A) 0.4 k/uL (0-1.0); Monocytes % (A) 2 %; Neutrophils # (A) 20.2 k/uL (1.3-7.7); Neutrophils % (A) 95 %; Platelet Count 425 k/uL (150-450); RBC 3.31 m/uL (3.80-5.40); RDW 14.2 % (11.5-15.5); WBC 21.2 k/uL (3.8-10.6)
[2019-04-24 11:10] LABS: African American GFR (CKD) >90 (>60 ml/min/1.73 sqM); Anion Gap 7 mmol/L; Blood Urea Nitrogen 22 mg/dL (7-17); Calcium 9.4 mg/dL (8.4-10.2); Carbon Dioxide 34 mmol/L (22-30); Chloride 96 mmol/L (98-107); Glucose 105 mg/dL (74-99); Potassium 3.6 mmol/L (3.5-5.1); Sodium 137 mmol/L (137-145)
[2019-04-24 11:48] LABS: Glucose,Whole Blood 118 mg/dL (75-99)
--- NOTE | 2019-04-24 12:37 | P.PN ---
Subjective Progress Note Date: 04/24/19 Principal diagnosis: Spontaneous right-sided pneumothorax, status post thoravent placement by the emergency room physicians, acute exacerbation of COPD with chronic hypoxic respiratory failure, leukocytosis. Previous medical history of COPD on home oxygen at 2 L, paroxysmal atrial fibrillation on chronic calculus, recent fall 2 with right humerus fracture, hypertension, previous tobacco dependence. POD #2 placement of right pleural thoracostomy tube, removal of thoravent The patient is currently sitting up in a recliner in the intensive care unit in no acute distress. Pleural chest tube remains to suction without air leak. Continues on Airvo at 45 L with 45% FiO2. Remains on ceftriaxone, zithromax, prednisone. She continues to complain of right arm pain secondary to her fracture but continues to refuse anything for pain control other than Tylenol. No other new concerns. Objective - Vital Signs Vital signs: Vital Signs Temp 97.8 F 04/24/19 08:00 Pulse 96 04/24/19 10:00 Resp 18 04/24/19 10:00 BP 108/59 04/24/19 10:00 Pulse Ox 88 L 04/24/19 10:00 Intake & Output 04/23/19 04/24/19 04/24/19 18:59 06:59 18:59 Intake Total 400 220 130 Output Total 450 70 Balance -50 220 60 Weight 52.5 kg Intake: IV 400 220 130 ACETAMINOPHEN IV (For NPO 200 ) 1,000 mg In Empty Bag 1 bag @ 400 mls/hr IVPB Q6HR PRN Rx#:[id number] Sodium Chloride 0.9% 1, 150 220 80 000 ml @ 20 mls/hr IV . Q24H ADONAY Rx#:[id number] cefTRIAXone 1 gm In 50 50 Sodium Chloride 0.9% 50 ml @ 100 mls/hr IVPB Q24HR ADONAY Rx#:[id number] Output: Chest Tube Drainage 170 70 Chest Tube Right 170 70 Urine 200 Other 80 Other: Voiding Method Bedpan Bedpan # Voids 1 1 1 # Bowel Movements 1 - Constitutional General appearance: Present: cooperative, no acute distress - Respiratory Details: Lungs sounds diminished bilaterally. Respirations even, non-labored. Currently on Airvo 45L 45% FiO2 with oxygen saturation 88%. Able to achieve 1000 mL on her incentive spirometry. Right thoracostomy tube present, connected to continuous wall suction, 70 mL serous drainage overnight, 150 mL in last 24 hours, no air leak present. - Cardiovascular Details: S1, S2 present. Regular rate and rhythm, sinus rhythm on telemetry. Palpable peripheral pulses bilaterally. Bilateral lower extremity trace edema present. No calf pain or tenderness noted. SCDs present. - Gastrointestinal Gastrointestinal Comment(s): Abdomen soft, nontender, nondistended. Active bowel sounds present 4 quadrants. Tolerating diet. Positive bowel movement this morning. - Genitourinary Genitourinary Comment(s): Continues to void clear yellow urine, incontinent at times wearing adult brief. - Integumentary Integumentary Comment(s): Skin is warm and dry with evidence of good perfusion. - Neurologic Neurologic: Present: CNII-XII intact - Musculoskeletal Musculoskeletal: Present: strength equal bilaterally - Psychiatric Psychiatric: Present: A&O x's 3, appropriate affect, intact judgment & insight - Allied health notes Allied health notes reviewed: nursing - Labs CBC & Chem 7: 04/24/19 10:45 04/24/19 10:45 Labs: Abnormal Lab Results - Last 24 Hours (Table) 04/23/19 04/23/19 04/23/19 Range/Units 12:00 16:49 20:43 WBC (3.8-10.6) k/uL RBC (3.80-5.40) m/uL Hgb (11.4-16.0) gm/dL Hct (34.0-46.0) % Neutrophils # (1.3-7.7) k/uL Lymphocytes # (1.0-4.8) k/uL Chloride (98-107) mmol/L Carbon Dioxide (22-30) mmol/L BUN (7-17) mg/dL Glucose (74-99) mg/dL POC Glucose (mg/dL) 200 H 169 H 172 H (75-99) mg/dL 04/24/19 04/24/19 04/24/19 Range/Units 07:05 10:45 10:45 WBC 21.2 H (3.8-10.6) k/uL RBC 3.31 L (3.80-5.40) m/uL Hgb 10.9 L (11.4-16.0) gm/dL Hct 32.2 L (34.0-46.0) % Neutrophils # 20.2 H (1.3-7.7) k/uL Lymphocytes # 0.4 L (1.0-4.8) k/uL Chloride 96 L (98-107) mmol/L Carbon Dioxide 34 H (22-30) mmol/L BUN 22 H (7-17) mg/dL Glucose 105 H (74-99) mg/dL POC Glucose (mg/dL) 100 H (75-99) mg/dL 04/24/19 Range/Units 11:46 WBC (3.8-10.6) k/uL RBC (3.80-5.40) m/uL Hgb (11.4-16.0) gm/dL Hct (34.0-46.0) % Neutrophils # (1.3-7.7) k/uL Lymphocytes # (1.0-4.8) k/uL Chloride (98-107) mmol/L Carbon Dioxide (22-30) mmol/L BUN (7-17) mg/dL Glucose (74-99) mg/dL POC Glucose (mg/dL) 118 H (75-99) mg/dL Microbiology - Last 24 Hours (Table) 04/21/19 09:14 Blood Culture - Preliminary Blood No Growth after 72 hours - Imaging and Cardiology Chest x-ray: report reviewed, image reviewed Assessment and Plan Assessment: 1. Spontaneous right-sided pneumothorax, status post thoravent placement by the ER physicians, status post thoracostomy tube placement by pulmonology 2. Acute exacerbation of COPD with chronic hypoxic respiratory failure 3. Leukocytosis 4. History of COPD on home oxygen at 2 L, currently on Airvo 5. Paroxysmal atrial fibrillation on chronic Eliquis 6. Recent fall 2 with right humerus fracture, sling present 7. Hypertension 8. Previous tobacco dependence Plan: 1. Will place chest tube to water seal. If patient becomes increasingly dyspneic or hypoxic, may need to reconnect to wall suction. Discussed with nursing. 2. Wean O2 as tolerated. Encourage incentive spirometry 10 times every hour while awake. 3. Increase activity as tolerated. Out of bed to chair. 4. Will monitor daily x-rays. 5. Bronchodilators, steroids, antibiotics per pulmonology. 6. Medical management of other comorbidities per primary care. 7. More recommendations to follow. Patient would be extremely high risk for any surgical intervention Time with Patient: Greater than 30
[2019-04-24 17:12] LABS: Glucose,Whole Blood 272 mg/dL (75-99)
[2019-04-24] MEDS: CHOLECALCIFEROL 400 UNIT TAB PO SCH (17:16)
[2019-04-24] MEDS: IBUPROFEN 400 MG TAB PO PRN (17:16)
[2019-04-24 20:58] LABS: Glucose,Whole Blood 160 mg/dL (75-99)
--- NOTE | 2019-04-24 22:29 | P.PN ---
Progress Note - Text Progress Note Date: 04/24/19 Chief Complaint: Shortness of breath Interval history: This is a 83-year-old patient who was recently discharged from my colleague Dr. Sexton on April 13. Patient was then admitted to the hospital with acute on chronic hypoxic respiratory failure and COPD exacerbation. Chronic stable medical conditions include paroxysmal atrial fibrillation on anticoagulation, fracture of the right humeral neck with a sling, anxiety, hypertension, colonic diverticulosis. Patient is is currently at [facility] rehab. [facility]. Patient was noticing that with exertion she was getting easily getting short of breath and was desaturating. Patient was found to be large pneumothorax and a Thora-vent was placed. Has patient remained hypoxic patient is put on high flow oxygen- airvo. Otherwise patient appetite has been fair. No fever no chills. Earlier today chest tube was inserted by Dr. Mendoza. It was connected to Pleur-evac. Today-remains in the ICU. Chest tube connected to suction. No air leak. On high flow air-vo. Did sit up in a chair today. Review of systems: Was done for constitutional, cardiovascular, GI, pulmonary. relevant finding as above Active Medications Acetaminophen (Tylenol Tab) 650 mg PO Q4H PRN PRN Reason: Fever and/ or Mild Pain Last Admin: 04/24/19 14:40 Dose: 650 mg Documented by: Albuterol/Ipratropium (Duoneb 0.5 Mg-3 Mg/3 Ml Soln) 3 ml INHALATION RT-Q4H [facility] Last Admin: 04/24/19 18:58 Dose: 3 ml Documented by: Amlodipine Besylate (Norvasc) 5 mg PO DAILY@0800 [facility] Last Admin: 04/24/19 09:08 Dose: 5 mg Documented by: Apixaban (Eliquis) 2.5 mg PO BID@0800,1700 [facility] Last Admin: 04/24/19 17:16 Dose: 2.5 mg Documented by: Azithromycin (Zithromax) 500 mg PO DAILY [facility] Last Admin: 04/24/19 09:09 Dose: 500 mg Documented by: Bisacodyl (Dulcolax) 10 mg RECTAL DAILY PRN PRN Reason: Constipation Cholecalciferol (Vitamin D3) 800 unit PO DAILY@1700 [facility] Last Admin: 04/24/19 17:16 Dose: 800 unit Documented by: Clonazepam (Klonopin) 0.5 mg PO TID PRN PRN Reason: Anxiety Last Admin: 04/24/19 09:21 Dose: 0.5 mg Documented by: Docusate Sodium (Colace) 100 mg PO DAILY PRN PRN Reason: Constipation Furosemide (Lasix) 20 mg PO SUTU [facility] Last Admin: 04/24/19 09:09 Dose: 20 mg Documented by: Furosemide (Lasix) 20 mg PO ONCE PRN PRN Reason: Edema Guaifenesin (Mucinex) 600 mg PO BID@0800,2100 [facility] Last Admin: 04/24/19 21:10 Dose: 600 mg Documented by: Sodium Chloride (Saline 0.9%) 1,000 mls @ 20 mls/hr IV .Q24H [facility] Last Admin: 04/24/19 05:29 Dose: Not Given Documented by: Ceftriaxone Sodium 1 gm/ (Sodium Chloride) 50 mls @ 100 mls/hr IVPB Q24HR [facility] Last Admin: 04/24/19 09:07 Dose: 100 mls/hr Documented by: Ibuprofen (Motrin) 400 mg PO Q6HR PRN PRN Reason: Pain Last Admin: 04/24/19 17:16 Dose: 400 mg Documented by: Insulin Aspart (Novolog) 0 unit SQ ACHS [facility]; Protocol Last Admin: 04/24/19 21:10 Dose: 4 unit Documented by: Loratadine (Claritin) 10 mg PO DAILY PRN PRN Reason: ALLERGIES Magnesium Hydroxide (Milk Of Magnesia) 2,400 mg PO DAILY PRN PRN Reason: Constipation Metoprolol Tartrate (Lopressor) 50 mg PO BID@0800,2100 [facility] Last Admin: 04/24/19 21:10 Dose: 50 mg Documented by: Miscellaneous Information (Magnesium Per Protocol) 1 each MISCELLANE DAILY PRN; Protocol PRN Reason: Per Protocol Potassium Chloride (K-Dur 20) 20 meq PO ONCE PRN PRN Reason: LEUKOCYTOSIS Prednisone () 30 mg PO DAILY [facility] Last Admin: 04/24/19 09:09 Dose: 30 mg Documented by: Sodium Biphosphate/Sodium Phosphate (Fleet Adult) 133 ml RECTAL DAILY PRN PRN Reason: Constipation Physical examination: VITAL SIGNS: 97.8, 97, 18, 88/48, 90% on Air-vo GENERAL: Laying in bed, comfortable EYES: Pupils equal. Conjunctiva normal. HEENT: External appearance of nose and ears normal, oral cavity grossly normal. Air-vo in place NECK: JVD unable to assess; masses not palpable. HEART: First and second heart sounds are normal; minimal edema. LUNGS: Respiratory rate increased, decreased breath sounds. ABDOMEN: Soft, nontender, liver spleen not palpable, no masses palpable. PSYCH: Alert and oriented x3; mood and affect normal. MUSCULOSKELETAL: Evidence of OA. Right arm in a sling CHEST wall: Right side chest tube, attached to wall suction INVESTIGATIONS, reviewed in the clinical context: White count 21.2, hemoglobin 10.9 potassium 3.6 creatinine 0.58 Checks x-ray film personally reviewed by me shows minimal pneumothorax if any, hyperinflation some left basal infiltrate Previous investigations: White count 26.7 hemoglobin 11.5 potassium 3.8 bun 19 creatinine 0.50 Chest x-ray film personally reviewed by me-large right-sided pneumothorax EKG tracing personally reviewed by me-shows atrial flutter fibrillation Assessment: -Large right-sided spontaneous pneumothorax now with the chest tube in place, radiologically improved -Acute on chronic hypoxic respiratory failure from COPD/pneumothorax -Persistent atrial fibrillation on anticoagulation -Acute COPD exacerbation in an ex-smoker -GERD -Essential hypertension -Primary osteoarthritis -Recent right humerus fracture, right arm and a sliding -Chronic urinary incontinence -Possible left basal pneumonia- Plan: Continue with bronchodilators, steroids, antibiotics. Chest tube is being followed by [facility] thoracic surgery. Slowly improving. Encouraged to use the I- S
[2019-04-25] MEDS: ACETAMINOPHEN TAB 325 MG TAB PO PRN ×4 (01:01→22:49)
[2019-04-25] MEDS: clonazePAM 0.5 MG TAB PO PRN (01:01)
[2019-04-25] MEDS: SODIUM CHLORIDE 0.9% 1,000 ML IV SCH (01:03)
[2019-04-25] MEDS: IPRATROPIUM-ALBUTEROL 3 ML NEB INHALATION SCH ×7 (03:55→23:59)
[2019-04-25] MEDS: IBUPROFEN 400 MG TAB PO PRN ×3 (05:31→20:15)
[2019-04-25 06:52] LABS: Glucose,Whole Blood 101 mg/dL (75-99)
[2019-04-25] MEDS: INSULIN ASPART (NovoLOG) 100 UNIT/ML VIAL SQ SCH ×4 (07:06→20:19)
--- NOTE | 2019-04-25 08:26 | XR ---
EXAMINATION TYPE: XR chest 1V portable DATE OF EXAM: 04/25/2019 COMPARISON: 04/24/2019 HISTORY: Right pneumothorax TECHNIQUE: Single frontal view of the chest is obtained. FINDINGS: Right-sided chest tube and subcutaneous emphysema are stable. Heart is enlarged and there is bilateral consolidation right-sided hilar enlargement noted. And pleural effusion. Underlying COPD noted. Stable right apical pneumothorax measuring approximately 5%. IMPRESSION: 1. Stable 5% right apical pneumothorax. 2. There is a hilar enlargement right consider follow-up CT chest.
[2019-04-25] MEDS: APIXABAN 2.5 MG TABLET PO SCH ×2 (08:41→17:34)
[2019-04-25] MEDS: amLODIPine 5 MG TAB PO SCH (08:41)
[2019-04-25] MEDS: guaiFENesin 600 MG TABLET.ER PO SCH ×2 (08:41→20:15)
[2019-04-25] MEDS: predniSONE 10 MG TAB PO SCH (08:41)
[2019-04-25] MEDS: METOPROLOL TARTRATE 50 MG TAB PO SCH ×2 (08:41→20:16)
[2019-04-25] MEDS: AZITHROMYCIN 500 MG TAB PO SCH (08:43)
--- NOTE | 2019-04-25 11:21 | P.PN ---
<Arsen Dougherty - Last Filed: 04/25/19 10:48> Subjective Progress Note Date: 04/25/19 Principal diagnosis: Spontaneous right-sided pneumothorax, status post thoravent placement by the emergency room physicians, acute exacerbation of COPD with chronic hypoxic respiratory failure, leukocytosis. History of COPD on home oxygen at 2 L nasal cannula, paroxysmal atrial fibrillation on chronic anticoagulation Eliquis, recent fall 2 with right humerus fracture, hypertension, vitamin D deficiency, previous tobacco dependence. POD #3 placement of right pleural thoracostomy tube, removal of Thoravent. The patient is currently laying in bed in the intensive care unit. She is in no acute distress. She is complaining of pain to her right pleural chest tube insertion site 6 out of 10 on the pain scale. She continues on Airvo 45 L/m with 45% FiO2, oxygen saturations 90% with current Airvo settings. Achieving 1000 mL on her incentive spirometry. She remains on Zithromax and Rocephin for antibiotic coverage. Right-sided chest tube remains in place to water seal. No air leak is present. Scant serosanguineous drainage. She remains on prednisone managed by pulmonary medicine. She is hemodynamically stable and is currently on no inotropic or pressor support. Complaining of congestive cough without sputum production. She remains afebrile. Objective - Vital Signs Vital signs: Vital Signs Temp 98.1 F 04/25/19 08:00 Pulse 96 04/25/19 10:00 Resp 22 04/25/19 10:00 BP 116/67 04/25/19 10:00 Pulse Ox 93 L 04/25/19 10:00 Intake & Output 04/24/19 04/25/19 04/25/19 18:59 06:59 18:59 Intake Total 250 220 80 Output Total 695 50 Balance -445 170 80 Intake: IV 250 220 80 Sodium Chloride 0.9% 1, 200 220 80 000 ml @ 20 mls/hr IV . Q24H [facility] Rx#:[id number] cefTRIAXone 1 gm In 50 Sodium Chloride 0.9% 50 ml @ 100 mls/hr IVPB Q24HR [facility] Rx#:[id number] Output: Chest Tube Drainage 70 50 Chest Tube Right 70 50 Urine 625 Other: Voiding Method Bedpan Bedpan Bedpan # Voids 1 1 1 # Bowel Movements 1 - Constitutional Constitutional Comment(s): Cachectic and debilitated. General appearance: Present: cooperative, no acute distress - Respiratory Details: Lung sounds diminished throughout. No crackles, wheezes or rhonchi. Respirations are symmetrical and nonlabored. Oxygen saturation is 90% with Airvo support. Achieving 2500 mL on her incentive spirometry. Right pleural chest tube in place to water seal. No air leak is present. - Cardiovascular Details: Irregular rhythm with controlled rate. S1 and S2 present, negative for S3, gallop or murmur. Bedside telemetry showing atrial fibrillation/atrial flutter, heart rate 99. No edema present. - Gastrointestinal Gastrointestinal Comment(s): Abdomen is soft, nontender and nondistended. Hypoactive bowel sounds present all 4 abdominal quadrants. No guarding or rigidity. No organomegaly appreciated. - Neurologic Neurologic Comment(s): No focal deficits. Neurologic: Present: CNII-XII intact - Musculoskeletal Musculoskeletal Comment(s): Right upper extremity in a sling. Musculoskeletal: Present: generalized weakness, strength equal bilaterally - Psychiatric Psychiatric: Present: A&O x's 3, appropriate affect, intact judgment & insight - Allied health notes Allied health notes reviewed: nursing - Labs CBC & Chem 7: 04/24/19 10:45 04/24/19 10:45 Labs: Abnormal Lab Results - Last 24 Hours (Table) 04/24/19 04/24/19 04/24/19 Range/Units 10:45 10:45 11:46 WBC 21.2 H (3.8-10.6) k/uL RBC 3.31 L (3.80-5.40) m/uL Hgb 10.9 L (11.4-16.0) gm/dL Hct 32.2 L (34.0-46.0) % Neutrophils # 20.2 H (1.3-7.7) k/uL Lymphocytes # 0.4 L (1.0-4.8) k/uL Chloride 96 L (98-107) mmol/L Carbon Dioxide 34 H (22-30) mmol/L BUN 22 H (7-17) mg/dL Glucose 105 H (74-99) mg/dL POC Glucose (mg/dL) 118 H (75-99) mg/dL 04/24/19 04/24/19 04/25/19 Range/Units 16:45 20:56 06:49 WBC (3.8-10.6) k/uL RBC (3.80-5.40) m/uL Hgb (11.4-16.0) gm/dL Hct (34.0-46.0) % Neutrophils # (1.3-7.7) k/uL Lymphocytes # (1.0-4.8) k/uL Chloride (98-107) mmol/L Carbon Dioxide (22-30) mmol/L BUN (7-17) mg/dL Glucose (74-99) mg/dL POC Glucose (mg/dL) 272 H 160 H 101 H (75-99) mg/dL Microbiology - Last 24 Hours (Table) 04/21/19 09:14 Blood Culture - Preliminary Blood No Growth after 72 hours - Imaging and Cardiology Chest x-ray: report reviewed, image reviewed Assessment and Plan Assessment: 1. Spontaneous right-sided pneumothorax, status post thoravent placement by the ER physicians, status post thoracostomy tube placement by pulmonology 2. Acute exacerbation of COPD with chronic hypoxic respiratory failure 3. Leukocytosis 4. History of COPD on home oxygen at 2 L, currently on Airvo 45 L/m with 45% FiO2. 5. Paroxysmal atrial fibrillation on chronic anticoagulation Eliquis 6. Recent fall 2 with right humerus fracture, sling present 7. Hypertension 8. Remote history of tobacco dependence Plan: 1. Will keep right pleural chest tube to water seal for another 24 hours. Anticipate removal of right pleural chest tube tomorrow 04/26/2019. 2. Wean O2 as tolerated. Encourage incentive spirometry 10 times every hour while awake. 3. Increase activity as tolerated. Out of bed to chair for meals and as tolerated. 4. Will continue to monitor daily chest x-rays. 5. Bronchodilators, steroids, antibiotics per pulmonology. 6. Medical management of other comorbidities per primary care. 7. More recommendations to follow based on patient's clinical course. Patient would be extremely high risk for any surgical intervention Time with Patient: Greater than 30 <Diony Aldana - Last Filed: 04/25/19 14:13> Objective - Vital Signs Vital signs: Vital Signs Temp 98.1 F 04/25/19 12:00 Pulse 90 04/25/19 13:00 Resp 16 04/25/19 13:00 BP 118/67 04/25/19 13:00 Pulse Ox 92 L 04/25/19 13:00 Intake & Output 04/24/19 04/25/19 04/25/19 18:59 06:59 18:59 Intake Total 250 220 460 Output Total 695 50 Balance -445 170 460 Intake: IV 250 220 160 Sodium Chloride 0.9% 1, 200 220 160 000 ml @ 20 mls/hr IV . Q24H [facility] Rx#:[id number] cefTRIAXone 1 gm In 50 Sodium Chloride 0.9% 50 ml @ 100 mls/hr IVPB Q24HR [facility] Rx#:[id number] Oral 300 Output: Chest Tube Drainage 70 50 Chest Tube Right 70 50 Urine 625 Other: Voiding Method Bedpan Bedpan Bedpan # Voids 1 1 1 # Bowel Movements 1 1 - Labs CBC & Chem 7: 04/24/19 10:45 04/24/19 10:45 Labs: Abnormal Lab Results - Last 24 Hours (Table) 04/24/19 04/24/19 04/25/19 Range/Units 16:45 20:56 06:49 POC Glucose (mg/dL) 272 H 160 H 101 H (75-99) mg/dL 04/25/19 Range/Units 11:55 POC Glucose (mg/dL) 129 H (75-99) mg/dL Microbiology - Last 24 Hours (Table) 04/21/19 09:14 Blood Culture - Preliminary Blood No Growth after 96 hours Assessment and Plan Plan: Patient still with intermittent air leak on water seal. Lung appears expanded on CXR. Keep chest tube to water seal for now.
[2019-04-25 11:56] LABS: Glucose,Whole Blood 129 mg/dL (75-99)
--- NOTE | 2019-04-25 14:23 | P.PN ---
Subjective Progress Note Date: 04/25/19 Principal diagnosis: Acute on chronic hypoxic respiratory failure secondary to COPD, spontaneous right-sided pneumothorax 83-year-old female patient with known history of advanced COPD and the patient is oxygen dependent who also is a chronic smoker and has chronic atrial fibril lation, hypertension and diverticulosis was undergoing rehabilitation well with [place] after she had sustained an injury to her right humerus after a fall. The patient acutely became short of breath yesterday. She felt this as she was doing some limited amount of activity. She was brought into the hospital for further investigation the patient was found to have a large right-sided pneumothorax. The Thoravent was inserted in the emergency department with improvement in aeration of the right lung with some residual pneumothorax. Clinically the patient felt better. The patient has some residual pneumothorax on the right. The Thoravent is still in place. Based on the diminished breath on the right, hypertension Thoravent to the Pleur-evac. Currently the patient is on Suboxone by nasal cannula. No chest pain. Feeling better. No significant cough sputum production. She is currently on Zithromax. She was also started on IV Solu Medrol suspecting underlying COPD exacerbation. She is on DuoNeb nebulized treatments around the clock. Outpatient medication will be resumed including her long-term anticoagulation with Eliquis. On 04/22/2019 the patient got transferred to the intensive care unit. Overnight the patient became acutely short of breath and hypoxic. She was placed on on the percent nonrebreather facemask. A repeat chest x-ray was done that showed enlargement of the right-sided pneumothorax. The Thoravent was in place and was deflating the lung and there was no evidence of any air leak and the Pleur-evac. Probably tube was clogged. Her blood. This was done on the percent nonrebreather facemask showed a pH of 7.42 with a pCO2 48 and pO2 of 79. Subsequently, patient improved and the patient this morning is on 8 L with a pulse ox of 91%. I immediately inserted today right-sided chest tube, a 28- [place] chest tube and the right sided pneumothorax was immediately deflated. The patient remained hemodynamically stable throughout the process. No hy potension. No tachycardia. No significant chest pain. This chest tube was just inserted in the follow-up chest x-ray still pending for now. There is positive air leak and the Pleur-evac. On 04/23/2019 and seeing this patient for a follow-up. Based on a failed Thoravent right lung reexpansion, I inserted a chest tube yesterday. The patient had good results. The right-sided pneumothorax as pre-much recovered on today's chest x-ray. There is no evidence of any air leak. 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 This morning, her main complaint is pain at the site of the chest tube insertion. She refused to take any form of narcotics. We'll going to use only Tylenol was at its oral IV to control her pain. She also has a right humeral fracture. In terms of her breathing, she became hypoxic. She was not able to maintain a pulse ox with regular nasal cannula. I have to put her on Airvo 50% FiO2 at 40 L per minute. She is doing well with this current setting. She is able to maintain a pulse ox above 90%. She is unable to take systemic steroids. The chest x-ray from today shows a small effusion/infiltration of the left lung base and the patient has some leukocytosis. She is on oral Zithromax. I'm going to add Rocephin. She is anxious, her Klonopin can be also restarted. Overall, she is using incentive spirometer. Ability to use the eye asses minimal and she is not urinating much volume and she is less than 500. She is on oral Lasix. No signs of any fluid overload. She is on bronchodilators [id number]. He is awake and alert. No tachycardia. No other hemodynamic instability. On 04/24/2019 I'm seeing this patient for a follow-up. The right-sided chest tube is in place. On today's chest x-ray there is no evidence of any pneumothorax. The right lung is well expanded and there is no evidence of any air leak from the right-sided chest tube. The patient is on high flow oxygen at 45 L and with an FiO2 of 45%. She has a congested cough. Unable to bring up much of sputum. The chest wall pain is improved compared to yesterday. She is able to expand her lungs and take deeper breath pH is using incentive spirometer pH is on accommodation Rocephin and Zithromax. I started on a 30 mg of prednisone as part of the burst taper. He was dynamically stable. No other significant events overnight. Anxiety has been treated with Klonopin. Reevaluated today on 04/25/2019, patient remains in the ICU, continues to have right-sided chest tube in place, no air leak is noted, chest x-ray shows a small right-sided pneumothorax, patient is on airvo with 45% FiO2 and 45 L/m. O2 saturation is 90%. Remains on antibiotics empirically, no air leak is noted, chest tube is at waterseal. Scant serosanguineous drainage is noted. Patient is hemodynamically stable, relatively asymptomatic at this point. Chest x-ray was reviewed and discussed with the patient. WBC count is 21.2 hemoglobin is 10.9. Electrolytes and renal profile are normal. Bicarb is 34. Objective - Vital Signs Vital signs: Vital Signs Temp 98.1 F 04/25/19 12:00 Pulse 90 04/25/19 13:00 Resp 16 04/25/19 13:00 BP 118/67 04/25/19 13:00 Pulse Ox 92 L 04/25/19 13:00 Intake & Output 04/24/19 04/25/19 04/25/19 18:59 06:59 18:59 Intake Total 250 220 460 Output Total 695 50 Balance -445 170 460 Intake: IV 250 220 160 Sodium Chloride 0.9% 1, 200 220 160 000 ml @ 20 mls/hr IV . Q24H [facility] Rx#:[id number] cefTRIAXone 1 gm In 50 Sodium Chloride 0.9% 50 ml @ 100 mls/hr IVPB Q24HR [facility] Rx#:[id number] Oral 300 Output: Chest Tube Drainage 70 50 Chest Tube Right 70 50 Urine 625 Other: Voiding Method Bedpan Bedpan Bedpan # Voids 1 1 1 # Bowel Movements 1 1 - Exam Gen. appearance: Revealed a 83-year-old female in no distress. Head: Atraumatic, normocephalic. HEENT: PERRLA, EOMI, no icterus, dry mucous membranes. CHEST: No chest wall deformity. LUNGS: Equal air entry with no crackles, wheeze, rhonchi or dullness. Diminished breath sound on the right compared to the left and the right sided 28-[place] chest tube was attached to a Pleur-evac. CVS: S1 and S2 normal with no audible murmur, regular rhythm. ABDOMEN: Soft nontender no megaly no rebound no guarding. SPINE: No scoliosis or deformity SKIN: No rashes CENTRAL NERVOUS SYSTEM: Alert oriented 3, no gross focal neurologic deficits. EXTREMITIES: Right upper extremity in a sling. Otherwise unremarkable. No clubbing edema or cyanosis. Psychiatric: Normal mood, affect and normal mental status examination. - Labs CBC & Chem 7: 04/24/19 10:45 04/24/19 10:45 Labs: Abnormal Lab Results - Last 24 Hours (Table) 04/24/19 04/24/19 04/25/19 Range/Units 16:45 20:56 06:49 POC Glucose (mg/dL) 272 H 160 H 101 H (75-99) mg/dL 04/25/19 Range/Units 11:55 POC Glucose (mg/dL) 129 H (75-99) mg/dL Microbiology - Last 24 Hours (Table) 04/21/19 09:14 Blood Culture - Preliminary Blood No Growth after 96 hours Assessment and Plan Assessment: Impression: 1 acute right sided spontaneous pneumothorax, status post thoravent placement, and status post right-sided chest tube placement. 2 acute on chronic hypoxic respiratory failure, multifactorial 3 acute exacerbation of COPD 4 chronic atrial fibrillation 5 history of hypertension 6 history of diverticulosis 7 generalized anxiety disorder 8 right humeral neck fracture secondary to fall, being followed conservatively by orthopedics. Recommendation: Continue right-sided chest tube in place, continue Pleur-evac, e ncourage incentive spirometry, continue empiric antibiotics, continue redness own tapering, continue incentive spirometry, continue GI and DVT prophylaxis, we will continue to monitor in the ICU. Hopefully consider removing the chest tube in the next 24-48 hours. Time with Patient: Less than 30
[2019-04-25 17:29] LABS: Glucose,Whole Blood 189 mg/dL (75-99)
[2019-04-25] MEDS: CHOLECALCIFEROL 400 UNIT TAB PO SCH (17:34)
--- NOTE | 2019-04-25 19:36 | P.PN ---
Progress Note - Text Progress Note Date: 04/25/19 Chief Complaint: Shortness of breath Interval history: This is a 83-year-old patient who was recently discharged from my colleague Dr. Sexton on April 13. Patient was then admitted to the hospital with acute on chronic hypoxic respiratory failure and COPD exacerbation. Chronic stable medical conditions include paroxysmal atrial fibrillation on anticoagulation, fracture of the right humeral neck with a sling, anxiety, hypertension, colonic diverticulosis. Patient is is currently at [facility] rehab. [facility]. Patient was noticing that with exertion she was getting easily getting short of breath and was desaturating. Patient was found to be large pneumothorax and a Thora-vent was placed. Has patient remained hypoxic patient is put on high flow oxygen- airvo. Otherwise patient appetite has been fair. No fever no chills. Earlier today chest tube was inserted by Dr. Mendoza. It was connected to Pleur-evac. Today-remains in the ICU. Chest tube connected to suction. Has intermittent a leak on water seal. Patient up in a chair. Did tolerate some diet. Also had a bowel movement. Pain control. Review of systems: Was done for constitutional, cardiovascular, GI, pulmonary. relevant finding as above Active Medications Acetaminophen (Tylenol Tab) 650 mg PO Q4H PRN PRN Reason: Fever and/ or Mild Pain Last Admin: 04/25/19 17:33 Dose: 650 mg Documented by: Albuterol/Ipratropium (Duoneb 0.5 Mg-3 Mg/3 Ml Soln) 3 ml INHALATION RT-Q4H [facility] Last Admin: 04/25/19 15:53 Dose: 3 ml Documented by: Amlodipine Besylate (Norvasc) 5 mg PO DAILY@0800 [facility] Last Admin: 04/25/19 08:41 Dose: Not Given Documented by: Apixaban (Eliquis) 2.5 mg PO BID@0800,1700 [facility] Last Admin: 04/25/19 17:34 Dose: 2.5 mg Documented by: Azithromycin (Zithromax) 500 mg PO DAILY [facility] Last Admin: 04/25/19 08:43 Dose: 500 mg Documented by: Bisacodyl (Dulcolax) 10 mg RECTAL DAILY PRN PRN Reason: Constipation Cholecalciferol (Vitamin D3) 800 unit PO DAILY@1700 [facility] Last Admin: 04/25/19 17:34 Dose: 800 unit Documented by: Clonazepam (Klonopin) 0.5 mg PO TID PRN PRN Reason: Anxiety Last Admin: 04/25/19 01:01 Dose: 0.5 mg Documented by: Docusate Sodium (Colace) 100 mg PO DAILY PRN PRN Reason: Constipation Furosemide (Lasix) 20 mg PO SUTU [facility] Last Admin: 04/24/19 09:09 Dose: 20 mg Documented by: Furosemide (Lasix) 20 mg PO ONCE PRN PRN Reason: Edema Guaifenesin (Mucinex) 600 mg PO BID@0800,2100 [facility] Last Admin: 04/25/19 08:41 Dose: 600 mg Documented by: Sodium Chloride (Saline 0.9%) 1,000 mls @ 20 mls/hr IV .Q24H [facility] Last Admin: 04/25/19 01:03 Dose: Not Given Documented by: Ceftriaxone Sodium 1 gm/ (Sodium Chloride) 50 mls @ 100 mls/hr IVPB Q24HR [facility] Last Admin: 04/25/19 08:42 Dose: 100 mls/hr Documented by: Ibuprofen (Motrin) 400 mg PO Q6HR PRN PRN Reason: Pain Last Admin: 04/25/19 13:20 Dose: 400 mg Documented by: Insulin Aspart (Novolog) 0 unit SQ [facility]; Protocol Last Admin: 04/25/19 17:34 Dose: 5 unit Documented by: Loratadine (Claritin) 10 mg PO DAILY PRN PRN Reason: ALLERGIES Magnesium Hydroxide (Milk Of Magnesia) 2,400 mg PO DAILY PRN PRN Reason: Constipation Metoprolol Tartrate (Lopressor) 50 mg PO BID@0800,2100 [facility] Last Admin: 04/25/19 08:41 Dose: 50 mg Documented by: Miscellaneous Information (Magnesium Per Protocol) 1 each MISCELLANE DAILY PRN; Protocol PRN Reason: Per Protocol Potassium Chloride (K-Dur 20) 20 meq PO ONCE PRN PRN Reason: LEUKOCYTOSIS Prednisone () 30 mg PO DAILY [facility] Last Admin: 04/25/19 08:41 Dose: 30 mg Documented by: Sodium Biphosphate/Sodium Phosphate (Fleet Adult) 133 ml RECTAL DAILY PRN PRN Reason: Constipation Physical examination: VITAL SIGNS: 97.9, 93, 17, 106/79, 92% on high flow nasal cannula GENERAL: Sitting upon a chair, but tired EYES: Pupils equal. Conjunctiva normal. HEENT: External appearance of nose and ears normal, oral cavity grossly normal. Air-vo in place NECK: JVD unable to assess; masses not palpable. HEART: First and second heart sounds are normal; minimal edema. LUNGS: Respiratory rate increased, decreased breath sounds. ABDOMEN: Soft, nontender, liver spleen not palpable, no masses palpable. PSYCH: Alert and oriented x3; mood and affect normal. MUSCULOSKELETAL: Evidence of OA. Right arm in a sling CHEST wall: Right side chest tube, attached to wall suction INVESTIGATIONS, reviewed in the clinical context: White count 21.2, hemoglobin 10.9 potassium 3.6 creatinine 0.58 Checks x-ray film personally reviewed by me shows minimal pneumothorax if any, hyperinflation some left basal infiltrate Previous investigations: White count 26.7 hemoglobin 11.5 potassium 3.8 bun 19 creatinine 0.50 Chest x-ray film personally reviewed by me-large right-sided pneumothorax EKG tracing personally reviewed by me-shows atrial flutter fibrillation Assessment: -Large right-sided spontaneous pneumothorax now with the chest tube in place, radiologically improved -Acute on chronic hypoxic respiratory failure from COPD/pneumothorax -Persistent atrial fibrillation on anticoagulation -Acute COPD exacerbation in an ex-smoker -GERD -Essential hypertension -Primary osteoarthritis -Recent right humerus fracture, right arm and a sliding -Chronic urinary incontinence -Possible left basal pneumonia- Plan: Continues to improve slowly. Continue current medication treatment plan. Just to be followed by car thoracic surgery. Care was discussed with the patient.
[2019-04-25 20:18] LABS: Glucose,Whole Blood 179 mg/dL (75-99)
[2019-04-26] MEDS: IBUPROFEN 400 MG TAB PO PRN ×3 (02:50→20:25)
[2019-04-26] MEDS: clonazePAM 0.5 MG TAB PO PRN (02:51)
[2019-04-26] MEDS: SODIUM CHLORIDE 0.9% 1,000 ML IV SCH ×2 (02:52→21:33)
[2019-04-26] MEDS: IPRATROPIUM-ALBUTEROL 3 ML NEB INHALATION SCH ×6 (03:26→23:11)
[2019-04-26 06:58] LABS: Glucose,Whole Blood 103 mg/dL (75-99)
[2019-04-26] MEDS: INSULIN ASPART (NovoLOG) 100 UNIT/ML VIAL SQ SCH ×4 (07:03→20:23)
--- NOTE | 2019-04-26 07:45 | XR ---
EXAMINATION TYPE: XR chest 1V portable DATE OF EXAM: 04/26/2019 COMPARISON: 04/25/2019 HISTORY: Right pneumothorax TECHNIQUE: Single frontal view of the chest is obtained. FINDINGS: Right-sided chest tube and subcutaneous emphysema are stable. Heart is enlarged and there is bilatera l consolidation right-sided hilar enlargement noted. And pleural effusion. Underlying COPD noted. Sta ble right apical pneumothorax measuring approximately 5%. IMPRESSION: 1. Less than 5% right apical pneumothorax 2. Stable bilateral consolidation, COPD and pleural effusion. Persistent right hilar enlargement note d.
[2019-04-26] MEDS: ACETAMINOPHEN TAB 325 MG TAB PO PRN ×2 (08:35→18:07)
[2019-04-26] MEDS: amLODIPine 5 MG TAB PO SCH (08:36)
[2019-04-26] MEDS: guaiFENesin 600 MG TABLET.ER PO SCH ×2 (08:36→20:24)
[2019-04-26] MEDS: AZITHROMYCIN 500 MG TAB PO SCH (08:36)
[2019-04-26] MEDS: predniSONE 10 MG TAB PO SCH (08:36)
[2019-04-26] MEDS: METOPROLOL TARTRATE 50 MG TAB PO SCH ×2 (08:36→20:24)
[2019-04-26] MEDS: APIXABAN 2.5 MG TABLET PO SCH ×2 (08:36→18:04)
[2019-04-26] MEDS: FUROSEMIDE 20 MG TAB PO SCH (08:38)
[2019-04-26 11:36] LABS: African American GFR (CKD) >90 (>60 ml/min/1.73 sqM); Anion Gap 5 mmol/L; Blood Urea Nitrogen 24 mg/dL (7-17); Calcium 9.1 mg/dL (8.4-10.2); Carbon Dioxide 29 mmol/L (22-30); Chloride 100 mmol/L (98-107); Glucose 87 mg/dL (74-99); Potassium 4.4 mmol/L (3.5-5.1); Sodium 134 mmol/L (137-145)
--- NOTE | 2019-04-26 11:55 | P.PN ---
Subjective Progress Note Date: 04/26/19 Principal diagnosis: Spontaneous right-sided pneumothorax, status post thoravent placement by the emergency room physicians, acute exacerbation of COPD with chronic hypoxic respiratory failure, leukocytosis. History of COPD on home oxygen at 2 L nasal cannula, paroxysmal atrial fibrillation on chronic anticoagulation Eliquis, recent fall 2 with right humerus fracture, hypertension, vitamin D deficiency, previous tobacco dependence. POD #4 placement of right pleural thoracostomy tube, removal of Thoravent. The patient is currently laying in bed in the intensive care unit. She is in no acute distress. She is complaining of pain to her right pleural chest tube insertion site 4 out of 10 on the pain scale. She continues on Airvo 45 L/m with 45% FiO2, oxygen saturations 91% with current Airvo settings. Achieving 1000 mL on her incentive spirometry. She remains on Zithromax and Rocephin for antibiotic coverage. Right-sided chest tube remains in place to water seal. No air leak is present. Scant serosanguineous drainage. She remains on prednisone managed by pulmonary medicine. She is hemodynamically stable and is currently on no inotropic or pressor support. Complaining of congestive cough with green tenacious sputum production. She remains afebrile. Her right arm remains in a sling due to a previous injury. Chest x-ray this morning demonstrates a stable right apical pneumothorax less than 5%. Objective - Vital Signs Vital signs: Vital Signs Temp 98.4 F 04/26/19 04:00 Pulse 93 04/26/19 07:00 Resp 13 04/26/19 07:00 BP 125/69 04/26/19 07:00 Pulse Ox 94 L 04/26/19 07:00 Intake & Output 04/25/19 04/26/19 04/26/19 18:59 06:59 18:59 Intake Total 690 240 138 Output Total 150 400 Balance 540 -160 138 Weight 55.7 kg Intake: IV 240 240 20 Sodium Chloride 0.9% 1, 240 240 20 000 ml @ 20 mls/hr IV . Q24H ADONAY Rx#:[id number] Oral 450 118 Output: Chest Tube Drainage 50 Chest Tube Right 50 Urine 100 400 Other: Voiding Method Bedpan Bedpan # Voids 1 1 # Bowel Movements 1 - Constitutional Constitutional Comment(s): Cachectic and chronically ill. General appearance: Present: cooperative, no acute distress - Respiratory Details: Lung sounds with few scattered rhonchi throughout, diminished bilateral bases right greater than left. Respirations are symmetrical and nonlabored. Oxygen saturation is are 91% on Airvo 45 L/m and 45% FiO2. Achieving 1000 mL on her incentive spirometry. Right pleural chest tube remains in place to water seal. Draining thin serosanguineous drainage. No air leak is present. - Cardiovascular Details: Regular rhythm and rate. S1 and S2 present, negative for S3, gallop or murmur. Bedside telemetry showing normal sinus rhythm heart rate 93. No edema present. Knee-high sequential compression devices in place to bilateral lower extremities. - Gastrointestinal Gastrointestinal Comment(s): Abdomen is soft, nontender and nondistended. Active bowel sounds present in all 4 abdominal quadrants. No guarding or rigidity. No organomegaly appreciated. - Integumentary Integumentary Comment(s): Skin is warm and dry. No clubbing or cyanosis is present. Right pleural chest tube insertion site with dressing clean, dry and in place. No rash or abnormal pigmentation is present. - Neurologic Neurologic Comment(s): No focal deficits. Neurologic: Present: CNII-XII intact - Musculoskeletal Musculoskeletal Comment(s): Right upper extremity weakness due to previous injury, sling is in place. Musculoskeletal: Present: generalized weakness - Psychiatric Psychiatric: Present: A&O x's 3, appropriate affect, intact judgment & insight - Allied health notes Allied health notes reviewed: nursing - Labs CBC & Chem 7: 04/24/19 10:45 04/26/19 10:45 Labs: Abnormal Lab Results - Last 24 Hours (Table) 04/25/19 04/25/19 04/25/19 Range/Units 11:55 17:14 20:14 Sodium (137-145) mmol/L BUN (7-17) mg/dL POC Glucose (mg/dL) 129 H 189 H 179 H (75-99) mg/dL 04/26/19 04/26/19 Range/Units 06:55 10:45 Sodium 134 L (137-145) mmol/L BUN 24 H (7-17) mg/dL POC Glucose (mg/dL) 103 H (75-99) mg/dL Microbiology - Last 24 Hours (Table) 04/21/19 09:14 Blood Culture - Preliminary Blood No Growth after 120 hours - Imaging and Cardiology Chest x-ray: report reviewed, image reviewed Assessment and Plan Assessment: 1. Spontaneous right-sided pneumothorax, status post thoravent placement by the ER physicians, status post thoracostomy tube placement by pulmonology 2. Acute exacerbation of COPD with chronic hypoxic respiratory failure 3. Leukocytosis 4. History of COPD on home oxygen at 2 L, currently on Airvo 45 L/m with 45% FiO2. 5. Paroxysmal atrial fibrillation on chronic anticoagulation Eliquis 6. Recent fall 2 with right humerus fracture, sling present 7. Hypertension 8. Remote history of tobacco dependence Plan: 1. Will keep right pleural chest tube in place today. We will clamp her right pleural chest tube and obtain a chest x-ray in 2 hours post-clamping of the chest tube. If there is no pneumothorax with the repeat chest x-ray we will keep the chest tube in place for another 24 hours, repeat a chest x-ray in the a.m. of 04/27/2019 and potentially discontinue the right pleural chest tube tomorrow. 2. Wean O2 as tolerated. Encourage incentive spirometry 10 times every hour while awake. 3. Increase activity as tolerated. Out of bed to chair for meals and as tolerated. 4. Will continue to monitor daily chest x-rays. 5. Bronchodilators, steroids, antibiotics per pulmonology. 6. Medical management of other comorbidities per primary care. 7. More recommendations to follow based on patient's clinical course. Patient would be extremely high risk for any surgical intervention Time with Patient: Greater than 30
[2019-04-26 12:24] LABS: Glucose,Whole Blood 104 mg/dL (75-99)
[2019-04-26 12:49] LABS: HCT 29.2 % (34.0-46.0); MCH 33.5 pg (25.0-35.0); MCHC 34.3 g/dL (31.0-37.0); MCV 97.6 fL (80.0-100.0); Mean Platelet Volume 7.2; Platelet Count 399 k/uL (150-450); RBC 2.99 m/uL (3.80-5.40); RDW 13.9 % (11.5-15.5); WBC 16.3 k/uL (3.8-10.6)
--- NOTE | 2019-04-26 14:05 | XR ---
EXAMINATION TYPE: XR chest 1V portable DATE OF EXAM: 04/26/2019 COMPARISON: 04/26/2019 HISTORY: Right pneumothorax TECHNIQUE: Single frontal view of the chest is obtained. FINDINGS: Bilateral consolidation and pleural effusion with underlying COPD noted. Atherosclerotic c hange aorta. Right-sided chest tube and subcutaneous emphysema. There is interval increase in size in the right apical pneumothorax which now measures 5-10%. IMPRESSION: 1. Interval increase in size of the right apical pneumothorax now measuring 5-10%. 2. Bilateral infiltrate and pleural effusion stable.
--- NOTE | 2019-04-26 15:28 | P.PN ---
Subjective Progress Note Date: 04/26/19 Principal diagnosis: Acute on chronic hypoxic respiratory failure secondary to COPD, spontaneous right-sided pneumothorax 83-year-old female patient with known history of advanced COPD and the patient is oxygen dependent who also is a chronic smoker and has chronic atrial fibril lation, hypertension and diverticulosis was undergoing rehabilitation well with [place] after she had sustained an injury to her right humerus after a fall. The patient acutely became short of breath yesterday. She felt this as she was doing some limited amount of activity. She was brought into the hospital for further investigation the patient was found to have a large right-sided pneumothorax. The Thoravent was inserted in the emergency department with improvement in aeration of the right lung with some residual pneumothorax. Clinically the patient felt better. The patient has some residual pneumothorax on the right. The Thoravent is still in place. Based on the diminished breath on the right, hypertension Thoravent to the Pleur-evac. Currently the patient is on Suboxone by nasal cannula. No chest pain. Feeling better. No significant cough sputum production. She is currently on Zithromax. She was also started on IV Solu Medrol suspecting underlying COPD exacerbation. She is on DuoNeb nebulized treatments around the clock. Outpatient medication will be resumed including her long-term anticoagulation with Eliquis. On 04/22/2019 the patient got transferred to the intensive care unit. Overnight the patient became acutely short of breath and hypoxic. She was placed on on the percent nonrebreather facemask. A repeat chest x-ray was done that showed enlargement of the right-sided pneumothorax. The Thoravent was in place and was deflating the lung and there was no evidence of any air leak and the Pleur-evac. Probably tube was clogged. Her blood. This was done on the percent nonrebreather facemask showed a pH of 7.42 with a pCO2 48 and pO2 of 79. Subsequently, patient improved and the patient this morning is on 8 L with a pulse ox of 91%. I immediately inserted today right-sided chest tube, a 28- Liberian chest tube and the right sided pneumothorax was immediately deflated. The patient remained hemodynamically stable throughout the process. No hy potension. No tachycardia. No significant chest pain. This chest tube was just inserted in the follow-up chest x-ray still pending for now. There is positive air leak and the Pleur-evac. On 04/23/2019 and seeing this patient for a follow-up. Based on a failed Thoravent right lung reexpansion, I inserted a chest tube yesterday. The patient had good results. The right-sided pneumothorax as pre-much recovered on today's chest x-ray. There is no evidence of any air leak. 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 This morning, her main complaint is pain at the site of the chest tube insertion. She refused to take any form of narcotics. We'll going to use only Tylenol was at its oral IV to control her pain. She also has a right humeral fracture. In terms of her breathing, she became hypoxic. She was not able to maintain a pulse ox with regular nasal cannula. I have to put her on Airvo 50% FiO2 at 40 L per minute. She is doing well with this current setting. She is able to maintain a pulse ox above 90%. She is unable to take systemic steroids. The chest x-ray from today shows a small effusion/infiltration of the left lung base and the patient has some leukocytosis. She is on oral Zithromax. I'm going to add Rocephin. She is anxious, her Klonopin can be also restarted. Overall, she is using incentive spirometer. Ability to use the eye asses minimal and she is not urinating much volume and she is less than 500. She is on oral Lasix. No signs of any fluid overload. She is on bronchodilators [id number]. He is awake and alert. No tachycardia. No other hemodynamic instability. On 04/24/2019 I'm seeing this patient for a follow-up. The right-sided chest tube is in place. On today's chest x-ray there is no evidence of any pneumothorax. The right lung is well expanded and there is no evidence of any air leak from the right-sided chest tube. The patient is on high flow oxygen at 45 L and with an FiO2 of 45%. She has a congested cough. Unable to bring up much of sputum. The chest wall pain is improved compared to yesterday. She is able to expand her lungs and take deeper breath pH is using incentive spirometer pH is on accommodation Rocephin and Zithromax. I started on a 30 mg of prednisone as part of the burst taper. He was dynamically stable. No other significant events overnight. Anxiety has been treated with Klonopin. Reevaluated today on 04/25/2019, patient remains in the ICU, continues to have right-sided chest tube in place, no air leak is noted, chest x-ray shows a small right-sided pneumothorax, patient is on airvo with 45% FiO2 and 45 L/m. O2 saturation is 90%. Remains on antibiotics empirically, no air leak is noted, chest tube is at waterseal. Scant serosanguineous drainage is noted. Patient is hemodynamically stable, relatively asymptomatic at this point. Chest x-ray was reviewed and discussed with the patient. WBC count is 21.2 hemoglobin is 10.9. Electrolytes and renal profile are normal. Bicarb is 34. Reevaluated today on 04/26/2019, remains in the ICU, right-sided chest tube is noted, continues to have a small tiny right apical pneumothorax, remains on airv o . Clinically the patient is feeling well, O2 saturation is in the 90s. Remains on antibiotics empirically, minimal air leak is noted, chest tube is on waterseal, however we plan to give her a trial of clamping the chest tube, and repeat chest x-ray to decide whether the chest tube could come out in the next 24 hours. WBC count is 16.3 hemoglobin is 1011 lites are normal renal profile is normal. Objective - Vital Signs Vital signs: Vital Signs Temp 98.5 F 04/26/19 12:00 Pulse 86 04/26/19 15:00 Resp 16 04/26/19 15:00 BP 110/68 04/26/19 14:00 Pulse Ox 90 L 04/26/19 15:00 Intake & Output 04/25/19 04/26/19 04/26/19 18:59 06:59 18:59 Intake Total 910 979 9784 Output Total 150 400 600 Balance 540 -160 428 Weight 55.7 kg Intake: IV 240 240 110 Sodium Chloride 0.9% 1, 240 240 60 000 ml @ 20 mls/hr IV . Q24H [facility]ONAY Rx#:[id number] cefTRIAXone 1 gm In 50 Sodium Chloride 0.9% 50 ml @ 100 mls/hr IVPB Q24HR [facility]ONAY Rx#:[id number] Oral 450 918 Output: Chest Tube Drainage 50 Chest Tube Right 50 Urine 100 400 600 Other: Voiding Method Bedpan Bedpan Bedpan Diaper # Voids 1 1 # Bowel Movements 1 - Exam Gen. appearance: Revealed a 83-year-old female in no distress.on airvo Head: Atraumatic, normocephalic. HEENT: PERRLA, EOMI, no icterus, dry mucous membranes. CHEST: No chest wall deformity. LUNGS: Equal air entry with no crackles, wheeze, rhonchi or dullness. Diminished breath sound on the right compared to the left and the right sided 28-Liberian chest tube was attached to a Pleur-evac. CVS: S1 and S2 normal with no audible murmur, regular rhythm. ABDOMEN: Soft nontender no megaly no rebound no guarding. SPINE: No scoliosis or deformity SKIN: No rashes CENTRAL NERVOUS SYSTEM: Alert oriented 3, no gross focal neurologic deficits. EXTREMITIES: Right upper extremity in a sling. Otherwise unremarkable. No clubbing edema or cyanosis. Psychiatric: Normal mood, affect and normal mental status examination. - Labs CBC & Chem 7: 04/26/19 10:45 04/26/19 10:45 Labs: Abnormal Lab Results - Last 24 Hours (Table) 04/25/19 04/25/19 04/26/19 Range/Units 17:14 20:14 06:55 WBC (3.8-10.6) k/uL RBC (3.80-5.40) m/uL Hgb (11.4-16.0) gm/dL Hct (34.0-46.0) % Sodium (137-145) mmol/L BUN (7-17) mg/dL POC Glucose (mg/dL) 189 H 179 H 103 H (75-99) mg/dL 04/26/19 04/26/19 04/26/19 Range/Units 10:45 10:45 11:47 WBC 16.3 H (3.8-10.6) k/uL RBC 2.99 L (3.80-5.40) m/uL Hgb 10.0 L (11.4-16.0) gm/dL Hct 29.2 L (34.0-46.0) % Sodium 134 L (137-145) mmol/L BUN 24 H (7-17) mg/dL POC Glucose (mg/dL) 104 H (75-99) mg/dL Microbiology - Last 24 Hours (Table) 04/21/19 09:14 Blood Culture - Preliminary Blood No Growth after 120 hours Assessment and Plan Assessment: Impression: 1 acute right sided spontaneous pneumothorax, status post thoravent placement, and status post right-sided chest tube placement. 2 acute on chronic hypoxic respiratory failure, multifactorial 3 acute exacerbation of COPD 4 chronic atrial fibrillation 5 history of hypertension 6 history of diverticulosis 7 generalized anxiety disorder 8 right humeral neck fracture secondary to fall, being followed conservatively by orthopedics. Recommendation: Continue chest tube on water seal, may consider chest tube clamping and repeat chest x-ray. Continue bronchodilators. Continue incentive spirometer. Continue tapering of the prednisone Continue GI and DVT prophylaxis will continue to monitor in the ICU. 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 Time with Patient: Less than 30
[2019-04-26 17:28] LABS: Glucose,Whole Blood 224 mg/dL (75-99)
[2019-04-26] MEDS: CHOLECALCIFEROL 400 UNIT TAB PO SCH (18:04)
[2019-04-26 20:57] LABS: Glucose,Whole Blood 112 mg/dL (75-99)
--- NOTE | 2019-04-26 21:10 | P.PN ---
Progress Note - Text Progress Note Date: 04/26/19 Chief Complaint: Shortness of breath Interval history: This is a 83-year-old patient who was recently discharged from my colleague Dr. Sexton on April 13. Patient was then admitted to the hospital with acute on chronic hypoxic respiratory failure and COPD exacerbation. Chronic stable medical conditions include paroxysmal atrial fibrillation on anticoagulation, fracture of the right humeral neck with a sling, anxiety, hypertension, colonic diverticulosis. Patient is is currently at [facility] rehab. [facility]. Patient was noticing that with exertion she was getting easily getting short of breath and was desaturating. Patient was found to be large pneumothorax and a Thora-vent was placed. Has patient remained hypoxic patient is put on high flow oxygen- airvo. Otherwise patient appetite has been fair. No fever no chills. Earlier today chest tube was inserted by Dr. Mendoza. It was connected to Pleur-evac. Today-doing better. In the ICU. Chest tube connected to water seal. Did tolerate her diet. Sitting up in a chair. On high flow oxygen. Review of systems: Was done for constitutional, cardiovascular, GI, pulmonary. relevant finding as above Active Medications Acetaminophen (Tylenol Tab) 650 mg PO Q4H PRN PRN Reason: Fever and/ or Mild Pain Last Admin: 04/26/19 18:07 Dose: 650 mg Documented by: Albuterol/Ipratropium (Duoneb 0.5 Mg-3 Mg/3 Ml Soln) 3 ml INHALATION RT-Q4H [facility] Last Admin: 04/26/19 17:22 Dose: Not Given Documented by: Amlodipine Besylate (Norvasc) 5 mg PO DAILY@0800 [facility] Last Admin: 04/26/19 08:36 Dose: 5 mg Documented by: Apixaban (Eliquis) 2.5 mg PO BID@0800,1700 [facility] Last Admin: 04/26/19 18:04 Dose: 2.5 mg Documented by: Azithromycin (Zithromax) 500 mg PO DAILY [facility] Last Admin: 04/26/19 08:36 Dose: 500 mg Documented by: Bisacodyl (Dulcolax) 10 mg RECTAL DAILY PRN PRN Reason: Constipation Cholecalciferol (Vitamin D3) 800 unit PO DAILY@1700 [facility] Last Admin: 04/26/19 18:04 Dose: 800 unit Documented by: Clonazepam (Klonopin) 0.5 mg PO TID PRN PRN Reason: Anxiety Last Admin: 04/26/19 02:51 Dose: 0.5 mg Documented by: Docusate Sodium (Colace) 100 mg PO DAILY PRN PRN Reason: Constipation Furosemide (Lasix) 20 mg PO SUTU [facility] Last Admin: 04/26/19 08:38 Dose: 20 mg Documented by: Furosemide (Lasix) 20 mg PO ONCE PRN PRN Reason: Edema Guaifenesin (Mucinex) 600 mg PO BID@0800,2100 [facility] Last Admin: 04/26/19 20:24 Dose: 600 mg Documented by: Sodium Chloride (Saline 0.9%) 1,000 mls @ 20 mls/hr IV .Q24H [facility] Last Admin: 04/26/19 02:52 Dose: 20 mls/hr Documented by: Ceftriaxone Sodium 1 gm/ (Sodium Chloride) 50 mls @ 100 mls/hr IVPB Q24HR [facility] Last Admin: 04/26/19 08:36 Dose: 100 mls/hr Documented by: Ibuprofen (Motrin) 400 mg PO Q6HR PRN PRN Reason: Pain Last Admin: 04/26/19 20:25 Dose: 400 mg Documented by: Insulin Aspart (Novolog) 0 unit SQ ACHS [facility]; Protocol Last Admin: 04/26/19 20:23 Dose: Not Given Documented by: Loratadine (Claritin) 10 mg PO DAILY PRN PRN Reason: ALLERGIES Magnesium Hydroxide (Milk Of Magnesia) 2,400 mg PO DAILY PRN PRN Reason: Constipation Metoprolol Tartrate (Lopressor) 50 mg PO BID@0800,2100 [facility] Last Admin: 04/26/19 20:24 Dose: 50 mg Documented by: Miscellaneous Information (Magnesium Per Protocol) 1 each MISCELLANE DAILY PRN; Protocol PRN Reason: Per Protocol Potassium Chloride (K-Dur 20) 20 meq PO ONCE PRN PRN Reason: LEUKOCYTOSIS Prednisone () 30 mg PO DAILY [facility] Last Admin: 04/26/19 08:36 Dose: 30 mg Documented by: Sodium Biphosphate/Sodium Phosphate (Fleet Adult) 133 ml RECTAL DAILY PRN PRN Reason: Constipation Physical examination: VITAL SIGNS: 98.5, 72, 24, 110/63, 93% on high flow nasal cannula GENERAL: Sitting upon a chair, more peppy today EYES: Pupils equal. Conjunctiva normal. HEENT: External appearance of nose and ears normal, oral cavity grossly normal. Air-vo in place NECK: JVD unable to assess; masses not palpable. HEART: First and second heart sounds are normal; minimal edema. LUNGS: Respiratory rate increased, decreased breath sounds. ABDOMEN: Soft, nontender, liver spleen not palpable, no masses palpable. PSYCH: Alert and oriented x3; mood and affect normal. MUSCULOSKELETAL: Evidence of OA. Right arm in a sling CHEST wall: Right side chest tube, attached to water seal INVESTIGATIONS, reviewed in the clinical context: White count 60.3 hemoglobin 10 potassium 4.4 creatinine 0.54 Chest x-ray film personally reviewed by me-hyperinflation, right upper pneumothorax, chronic infiltrate Previous investigations: White count 26.7 hemoglobin 11.5 potassium 3.8 bun 19 creatinine 0.50 Chest x-ray film personally reviewed by me-large right-sided pneumothorax EKG tracing personally reviewed by me-shows atrial flutter fibrillation Assessment: -Large right-sided spontaneous pneumothorax now with the chest tube in place, radiologically improving -Acute on chronic hypoxic respiratory failure from COPD/pneumothorax -Persistent atrial fibrillation on anticoagulation -Acute COPD exacerbation in an ex-smoker -GERD -Essential hypertension -Primary osteoarthritis -Recent right humerus fracture, right arm and a sliding -Chronic urinary incontinence -Possible left basal pneumonia-no fever. White count coming down. No sputum. Plan: We will DC ceftriaxone. Changed to Omnicef. DC Zithromax. Follow up, thoracic surgery. Care was discussed with the patient. Patient remains in ICU. Should be able to be moved out.
[2019-04-27] MEDS: clonazePAM 0.5 MG TAB PO PRN (01:51)
[2019-04-27] MEDS: IPRATROPIUM-ALBUTEROL 3 ML NEB INHALATION SCH ×5 (03:38→19:22)
[2019-04-27 06:28] LABS: HCT 30.8 % (34.0-46.0); HGB 10.2 gm/dL (11.4-16.0); Hypochromasia Slight; MCH 32.8 pg (25.0-35.0); MCV 99.2 fL (80.0-100.0); Mean Platelet Volume 6.4; Platelet Count 395 k/uL (150-450); RBC 3.11 m/uL (3.80-5.40); RDW 13.9 % (11.5-15.5)
[2019-04-27 06:41] LABS: ALT 24 U/L (9-52); AST 22 U/L (14-36); African American GFR (CKD) >90 (>60 ml/min/1.73 sqM); Albumin 2.6 g/dL (3.5-5.0); Alkaline Phosphatase 52 U/L (38-126); Anion Gap 6 mmol/L; Blood Urea Nitrogen 28 mg/dL (7-17); Carbon Dioxide 26 mmol/L (22-30); Chloride 103 mmol/L (98-107); Glucose 89 mg/dL (74-99); Potassium 4.2 mmol/L (3.5-5.1); Sodium 135 mmol/L (137-145); Total Bilirubin 0.5 mg/dL (0.2-1.3); Total Protein 5.3 g/dL (6.3-8.2)
[2019-04-27 07:01] LABS: Glucose,Whole Blood 88 mg/dL (75-99)
[2019-04-27] MEDS: INSULIN ASPART (NovoLOG) 100 UNIT/ML VIAL SQ SCH ×4 (07:02→20:41)
[2019-04-27] MEDS: ACETAMINOPHEN TAB 325 MG TAB PO PRN ×2 (08:22→16:04)
[2019-04-27] MEDS: guaiFENesin 600 MG TABLET.ER PO SCH ×2 (08:23→20:41)
[2019-04-27] MEDS: amLODIPine 5 MG TAB PO SCH (08:23)
[2019-04-27] MEDS: METOPROLOL TARTRATE 50 MG TAB PO SCH ×2 (08:23→20:41)
[2019-04-27] MEDS: APIXABAN 2.5 MG TABLET PO SCH ×2 (08:23→17:13)
[2019-04-27] MEDS: CEFDINIR 300 MG CAP PO SCH ×2 (08:24→20:41)
[2019-04-27] MEDS: predniSONE 10 MG TAB PO SCH (08:24)
--- NOTE | 2019-04-27 08:36 | XR ---
EXAMINATION TYPE: XR chest 1V portable DATE OF EXAM: 04/27/2019 COMPARISON: 04/26/2019 HISTORY: Right pneumothorax TECHNIQUE: Single frontal view of the chest is obtained. FINDINGS: Bilateral consolidation and pleural effusion with underlying COPD noted. Atherosclerotic c hange aorta. Right-sided chest tube and subcutaneous emphysema. There is interval improvement with no sizable pneumothorax seen on today's exam. Calcification overlying the right midlung granuloma. IMPRESSION: 1. Interval improvement with no sizable pneumothorax seen on today's exam. 2. Stable pleural-parenchymal changes.
[2019-04-27 11:46] LABS: Glucose,Whole Blood 137 mg/dL (75-99)
[2019-04-27] MEDS: IBUPROFEN 400 MG TAB PO PRN ×2 (13:06→18:22)
--- NOTE | 2019-04-27 13:07 | P.PN ---
Subjective Progress Note Date: 04/27/19 Principal diagnosis: Acute on chronic hypoxic respiratory failure secondary to COPD, spontaneous right-sided pneumothorax 83-year-old female patient with known history of advanced COPD and the patient is oxygen dependent who also is a chronic smoker and has chronic atrial fibril lation, hypertension and diverticulosis was undergoing rehabilitation well with [place] after she had sustained an injury to her right humerus after a fall. The patient acutely became short of breath yesterday. She felt this as she was doing some limited amount of activity. She was brought into the hospital for further investigation the patient was found to have a large right-sided pneumothorax. The Thoravent was inserted in the emergency department with improvement in aeration of the right lung with some residual pneumothorax. Clinically the patient felt better. The patient has some residual pneumothorax on the right. The Thoravent is still in place. Based on the diminished breath on the right, hypertension Thoravent to the Pleur-evac. Currently the patient is on Suboxone by nasal cannula. No chest pain. Feeling better. No significant cough sputum production. She is currently on Zithromax. She was also started on IV Solu Medrol suspecting underlying COPD exacerbation. She is on DuoNeb nebulized treatments around the clock. Outpatient medication will be resumed including her long-term anticoagulation with Eliquis. On 04/22/2019 the patient got transferred to the intensive care unit. Overnight the patient became acutely short of breath and hypoxic. She was placed on on the percent nonrebreather facemask. A repeat chest x-ray was done that showed enlargement of the right-sided pneumothorax. The Thoravent was in place and was deflating the lung and there was no evidence of any air leak and the Pleur-evac. Probably tube was clogged. Her blood. This was done on the percent nonrebreather facemask showed a pH of 7.42 with a pCO2 48 and pO2 of 79. Subsequently, patient improved and the patient this morning is on 8 L with a pulse ox of 91%. I immediately inserted today right-sided chest tube, a 28- Cypriot chest tube and the right sided pneumothorax was immediately deflated. The patient remained hemodynamically stable throughout the process. No hy potension. No tachycardia. No significant chest pain. This chest tube was just inserted in the follow-up chest x-ray still pending for now. There is positive air leak and the Pleur-evac. On 04/23/2019 and seeing this patient for a follow-up. Based on a failed Thoravent right lung reexpansion, I inserted a chest tube yesterday. The patient had good results. The right-sided pneumothorax as pre-much recovered on today's chest x-ray. There is no evidence of any air leak. 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 This morning, her main complaint is pain at the site of the chest tube insertion. She refused to take any form of narcotics. We'll going to use only Tylenol was at its oral IV to control her pain. She also has a right humeral fracture. In terms of her breathing, she became hypoxic. She was not able to maintain a pulse ox with regular nasal cannula. I have to put her on Airvo 50% FiO2 at 40 L per minute. She is doing well with this current setting. She is able to maintain a pulse ox above 90%. She is unable to take systemic steroids. The chest x-ray from today shows a small effusion/infiltration of the left lung base and the patient has some leukocytosis. She is on oral Zithromax. I'm going to add Rocephin. She is anxious, her Klonopin can be also restarted. Overall, she is using incentive spirometer. Ability to use the eye asses minimal and she is not urinating much volume and she is less than 500. She is on oral Lasix. No signs of any fluid overload. She is on bronchodilators [id number]. He is awake and alert. No tachycardia. No other hemodynamic instability. On 04/24/2019 I'm seeing this patient for a follow-up. The right-sided chest tube is in place. On today's chest x-ray there is no evidence of any pneumothorax. The right lung is well expanded and there is no evidence of any air leak from the right-sided chest tube. The patient is on high flow oxygen at 45 L and with an FiO2 of 45%. She has a congested cough. Unable to bring up much of sputum. The chest wall pain is improved compared to yesterday. She is able to expand her lungs and take deeper breath pH is using incentive spirometer pH is on accommodation Rocephin and Zithromax. I started on a 30 mg of prednisone as part of the burst taper. He was dynamically stable. No other significant events overnight. Anxiety has been treated with Klonopin. Reevaluated today on 04/25/2019, patient remains in the ICU, continues to have right-sided chest tube in place, no air leak is noted, chest x-ray shows a small right-sided pneumothorax, patient is on airvo with 45% FiO2 and 45 L/m. O2 saturation is 90%. Remains on antibiotics empirically, no air leak is noted, chest tube is at waterseal. Scant serosanguineous drainage is noted. Patient is hemodynamically stable, relatively asymptomatic at this point. Chest x-ray was reviewed and discussed with the patient. WBC count is 21.2 hemoglobin is 10.9. Electrolytes and renal profile are normal. Bicarb is 34. Reevaluated today on 04/26/2019, remains in the ICU, right-sided chest tube is noted, continues to have a small tiny right apical pneumothorax, remains on airv o . Clinically the patient is feeling well, O2 saturation is in the 90s. Remains on antibiotics empirically, minimal air leak is noted, chest tube is on waterseal, however we plan to give her a trial of clamping the chest tube, and repeat chest x-ray to decide whether the chest tube could come out in the next 24 hours. WBC count is 16.3 hemoglobin is 1011 lites are normal renal profile is normal. Patient was reevaluated today on 04/27/2019, patient remains in the intensive care unit, continues to have the chest tube in place, shortly after clamping the chest tube, there was evidence of slight increase in her right sided pneumothorax, this morning the chest x-ray showed complete expansion of the right lung, patient remains on airvo at 32% FiO2, and 30 L/m flow. O2 saturation is excellent. Patient feels better overall. But I'm not certain that we are quite ready to remove the chest tube at this point. Discussed with thoracic surgery, the plan is to clamp the tube again today, and keep it clamped for the next 24 hours. If follow-up chest x-ray shows no expansion of the right-sided pneumothorax, then we can consider removing the chest tube tomorrow. Otherwise we'll keep it in place for longer time. In the meantime continue bronchodilators, continue close monitoring in the intensive care unit. Objective - Vital Signs Vital signs: Vital Signs Temp 97.7 F 04/27/19 12:00 Pulse 96 04/27/19 12:24 Resp 19 04/27/19 12:00 BP 98/54 04/27/19 12:00 Pulse Ox 90 L 04/27/19 12:00 Intake & Output 04/26/19 04/27/19 04/27/19 18:59 06:59 18:59 Intake Total 1448 370 720 Output Total 600 450 Balance 848 -80 720 Weight 53.6 kg Intake: IV 130 220 120 Sodium Chloride 0.9% 1, 80 220 120 000 ml @ 20 mls/hr IV . Q24H [facility] Rx#:[id number] cefTRIAXone 1 gm In 50 Sodium Chloride 0.9% 50 ml @ 100 mls/hr IVPB Q24HR [facility] Rx#:[id number] Oral 1318 150 600 Output: Urine 600 450 Other: Voiding Method Bedpan Bedpan Bedpan Diaper Diaper Diaper # Voids 2 1 1 - Exam Gen. appearance: Revealed a 83-year-old female in no distress.on airvo 32% FiO2 and 30 L/m. Head: Atraumatic, normocephalic. HEENT: PERRLA, EOMI, no icterus, dry mucous membranes. CHEST: No chest wall deformity. LUNGS: Equal air entry with no crackles, wheeze, rhonchi or dullness. Diminished breath sound on the right compared to the left and the right sided 28-Cypriot chest tube was attached to a Pleur-evac. CVS: S1 and S2 normal with no audible murmur, regular rhythm. ABDOMEN: Soft nontender no megaly no rebound no guarding. SPINE: No scoliosis or deformity SKIN: No rashes CENTRAL NERVOUS SYSTEM: Alert oriented 3, no gross focal neurologic deficits. EXTREMITIES: Right upper extremity in a sling. Otherwise unremarkable. No clubbing edema or cyanosis. Psychiatric: Normal mood, affect and normal mental status examination. - Labs CBC & Chem 7: 04/27/19 05:28 04/27/19 05:28 Labs: Abnormal Lab Results - Last 24 Hours (Table) 04/26/19 04/26/19 04/27/19 Range/Units 17:02 20:21 05:28 WBC (3.8-10.6) k/uL RBC (3.80-5.40) m/uL Hgb (11.4-16.0) gm/dL Hct (34.0-46.0) % Sodium 135 L (137-145) mmol/L BUN 28 H (7-17) mg/dL POC Glucose (mg/dL) 224 H 112 H (75-99) mg/dL Total Protein 5.3 L (6.3-8.2) g/dL Albumin 2.6 L (3.5-5.0) g/dL 04/27/19 04/27/19 Range/Units 05:28 11:43 WBC 12.0 H (3.8-10.6) k/uL RBC 3.11 L (3.80-5.40) m/uL Hgb 10.2 L (11.4-16.0) gm/dL Hct 30.8 L (34.0-46.0) % Sodium (137-145) mmol/L BUN (7-17) mg/dL POC Glucose (mg/dL) 137 H (75-99) mg/dL Total Protein (6.3-8.2) g/dL Albumin (3.5-5.0) g/dL Microbiology - Last 24 Hours (Table) 04/21/19 09:14 Blood Culture - Final Blood No Growth after 144 hours Assessment and Plan Assessment: Impression: 1 acute right sided spontaneous pneumothorax, status post thoravent placement, and status post right-sided chest tube placement. 2 acute on chronic hypoxic respiratory failure, multifactorial 3 acute exacerbation of COPD 4 chronic atrial fibrillation 5 history of hypertension 6 history of diverticulosis 7 generalized anxiety disorder 8 right humeral neck fracture secondary to fall, being followed conservatively by orthopedics. Recommendation: Continue chest tube, however will clamp the chest tube today, and check follow- up chest x-ray in 24 hours. If no evidence of pneumothorax, will likely discontinue chest tube in the next 24 hours. Continue bronchodilators. Continue incentive spirometer. Continue tapering of the prednisone Continue GI and DVT prophylaxis will continue to monitor in the ICU. We'll continue to follow Time with Patient: Less than 30
--- NOTE | 2019-04-27 15:44 | P.PN ---
Subjective Progress Note Date: 04/27/19 Principal diagnosis: Spontaneous right-sided pneumothorax, status post thoravent placement by the emergency room physicians, acute exacerbation of COPD with chronic hypoxic respiratory failure, leukocytosis. History of COPD on home oxygen at 2 L nasal cannula, paroxysmal atrial fibrillation on chronic anticoagulation Eliquis, recent fall 2 with right humerus fracture, hypertension, vitamin D deficiency, previous tobacco dependence. POD #5 placement of right pleural thoracostomy tube, removal of Thoravent. Patient is currently sitting up to the bedside chair. She is in no acute distress. She reports that her pain to her right chest tube insertion site is much improved today and denies any complaints of shortness of breath. She continues to complain about a congested productive cough, states she is coughing up green colored sputum. Her dressing to her right pleural chest tube site was changed this morning due to her dressing being saturated with serous colored drainage. Her right arm remains in a sling as she has had a history of a fall with fracture to her right arm. Right pleural chest tube remains in place to water seal with intermittent air leak present. Draining thin serosanguineous drainage with 30 mL output in the last 24 hours. She remains on Airvo with 30 L/m and 33% FiO2. Oxygen saturations on current Airvo settings is 89%. She is achieving 5904-9735 mL on her incentive spirometry. Bedside telemetry showing atrial fibrillation with heart rate 105 BPM. Labs this morning show a WBC count of 12.0, hemoglobin 10.2, BUN 28 and creatinine 0.56. She remains afebrile the last 24 hours. Chest x-ray this morning shows an interval improvement with no sizable pneumothorax seen on this morning's exam. Objective - Vital Signs Vital signs: Vital Signs Temp 97.3 F L 04/27/19 08:00 Pulse 99 04/27/19 09:00 Resp 27 H 04/27/19 09:00 BP 109/50 04/27/19 09:00 Pulse Ox 89 L 04/27/19 09:00 Intake & Output 04/26/19 04/27/19 04/27/19 18:59 06:59 18:59 Intake Total 1448 370 310 Output Total 600 450 Balance 848 -80 310 Weight 53.6 kg Intake: IV 130 220 60 Sodium Chloride 0.9% 1, 80 220 60 000 ml @ 20 mls/hr IV . Q24H [facility] Rx#:[id number] cefTRIAXone 1 gm In 50 Sodium Chloride 0.9% 50 ml @ 100 mls/hr IVPB Q24HR [facility] Rx#:[id number] Oral 1318 150 250 Output: Urine 600 450 Other: Voiding Method Bedpan Bedpan Diaper Diaper # Voids 2 1 2 - Constitutional Constitutional Comment(s): Cachectic. General appearance: Present: cooperative, no acute distress, thin - Respiratory Details: Lung sounds with scattered rhonchi throughout, diminished to her right lower lobe. Respirations are symmetrical and nonlabored. Productive loose cough with green colored sputum. Right pleural chest tube remains in place to water seal. Intermittent air leak is present. Draining thin serous drainage. - Cardiovascular Details: Irregular rhythm with a tachycardic rate. S1 and S2 present, negative for S3, gallop or murmur. Bedside telemetry showing atrial fibrillation heart rate 105. No edema present. Knee-high sequential compression devices in place for bilateral lower extremities. - Gastrointestinal Gastrointestinal Comment(s): Abdomen is soft, nontender and nondistended. Active bowel sounds present in all 4 abdominal quadrants. No guarding or rigidity. No organomegaly appreciated. - Genitourinary Genitourinary Comment(s): Voiding clear yellow urine - Integumentary Integumentary Comment(s): Skin is warm and dry. No clubbing or cyanosis is present. No rash or abnormal pigmentation is present. Few scattered ecchymotic areas to her bilateral upper extremities. - Neurologic Neurologic Comment(s): No focal deficits. Neurologic: Present: CNII-XII intact - Musculoskeletal Musculoskeletal Comment(s): Right upper extremity weakness, extremity in a sling. Musculoskeletal: Present: gait normal, generalized weakness - Psychiatric Psychiatric: Present: A&O x's 3, appropriate affect, intact judgment & insight - Allied health notes Allied health notes reviewed: nursing - Labs CBC & Chem 7: 04/27/19 05:28 04/27/19 05:28 Labs: Abnormal Lab Results - Last 24 Hours (Table) 04/26/19 04/26/19 04/26/19 Range/Units 10:45 10:45 11:47 WBC 16.3 H (3.8-10.6) k/uL RBC 2.99 L (3.80-5.40) m/uL Hgb 10.0 L (11.4-16.0) gm/dL Hct 29.2 L (34.0-46.0) % Sodium 134 L (137-145) mmol/L BUN 24 H (7-17) mg/dL POC Glucose (mg/dL) 104 H (75-99) mg/dL Total Protein (6.3-8.2) g/dL Albumin (3.5-5.0) g/dL 04/26/19 04/26/19 04/27/19 Range/Units 17:02 20:21 05:28 WBC (3.8-10.6) k/uL RBC (3.80-5.40) m/uL Hgb (11.4-16.0) gm/dL Hct (34.0-46.0) % Sodium 135 L (137-145) mmol/L BUN 28 H (7-17) mg/dL POC Glucose (mg/dL) 224 H 112 H (75-99) mg/dL Total Protein 5.3 L (6.3-8.2) g/dL Albumin 2.6 L (3.5-5.0) g/dL 04/27/19 Range/Units 05:28 WBC 12.0 H (3.8-10.6) k/uL RBC 3.11 L (3.80-5.40) m/uL Hgb 10.2 L (11.4-16.0) gm/dL Hct 30.8 L (34.0-46.0) % Sodium (137-145) mmol/L BUN (7-17) mg/dL POC Glucose (mg/dL) (75-99) mg/dL Total Protein (6.3-8.2) g/dL Albumin (3.5-5.0) g/dL Microbiology - Last 24 Hours (Table) 04/21/19 09:14 Blood Culture - Preliminary Blood No Growth after 120 hours - Imaging and Cardiology Chest x-ray: report reviewed, image reviewed Assessment and Plan Assessment: 1. Spontaneous right-sided pneumothorax, status post thoravent placement by the ER physicians, status post thoracostomy tube placement by pulmonology 2. Acute exacerbation of COPD with chronic hypoxic respiratory failure 3. Leukocytosis 4. History of COPD on home oxygen at 2 L, currently on Airvo 45 L/m with 45% FiO2. 5. Chronic atrial fibrillation on chronic anticoagulation Eliquis 6. Recent fall 2 with right humerus fracture, sling present 7. Hypertension 8. Remote history of tobacco dependence 9. Generalized anxiety disorder Plan: 1. Will keep right pleural chest tube in place and keep her chest tube clamped for 24 hours. We will repeat her chest x-ray in the a.m. 04/28/2019, if there is no redemonstration of pneumothorax we will remove her right pleural chest tube. 2. Wean O2 as tolerated. Encourage incentive spirometry 10 times every hour while awake. 3. Increase activity as tolerated. Out of bed to chair for meals and as tolerated. 4. Will continue to monitor daily chest x-rays. 5. Bronchodilators, steroids, antibiotics per pulmonology. 6. Medical management of other comorbidities per primary care. 7. More recommendations to follow based on patient's clinical course. Patient would be extremely high risk for any surgical intervention Time with Patient: Greater than 30
[2019-04-27 16:45] LABS: Glucose,Whole Blood 201 mg/dL (75-99)
[2019-04-27] MEDS: CHOLECALCIFEROL 400 UNIT TAB PO SCH (17:13)
[2019-04-27 20:39] LABS: Glucose,Whole Blood 182 mg/dL (75-99)
--- NOTE | 2019-04-27 21:08 | P.PN ---
Progress Note - Text Progress Note Date: 04/27/19 Chief Complaint: Shortness of breath Interval history: This is a 83-year-old patient who was recently discharged from my colleague Dr. Sexton on April 13. Patient was then admitted to the hospital with acute on chronic hypoxic respiratory failure and COPD exacerbation. Chronic stable medical conditions include paroxysmal atrial fibrillation on anticoagulation, fracture of the right humeral neck with a sling, anxiety, hypertension, colonic diverticulosis. Patient is is currently at [facility] rehab. [facility]. Patient was noticing that with exertion she was getting easily getting short of breath and was desaturating. Patient was found to be large pneumothorax and a Thora-vent was placed. patient remained hypoxic patient is put on high flow oxygen-airvo. Otherwise patient appetite has been fair. No fever no chills. chest tube was inserted by Dr. Mendoza. It was connected to Pleur-evac. Today-In the ICU. Chest tube has been clamped. Has a congested cough. Did tolerate her diet. Did have a bowel movement. Review of systems: Was done for constitutional, cardiovascular, GI, pulmonary. relevant finding as above Active Medications Acetaminophen (Tylenol Tab) 650 mg PO Q4H PRN PRN Reason: Fever and/ or Mild Pain Last Admin: 04/27/19 16:04 Dose: 650 mg Documented by: Albuterol/Ipratropium (Duoneb 0.5 Mg-3 Mg/3 Ml Soln) 3 ml INHALATION RT-Q4H [facility] Last Admin: 04/27/19 19:22 Dose: 3 ml Documented by: Amlodipine Besylate (Norvasc) 5 mg PO DAILY@0800 [facility] Last Admin: 04/27/19 08:23 Dose: 5 mg Documented by: Apixaban (Eliquis) 2.5 mg PO BID@0800,1700 [facility] Last Admin: 04/27/19 17:13 Dose: 2.5 mg Documented by: Bisacodyl (Dulcolax) 10 mg RECTAL DAILY PRN PRN Reason: Constipation Cefdinir (Omnicef) 300 mg PO BID [facility] Last Admin: 04/27/19 20:41 Dose: 300 mg Documented by: Cholecalciferol (Vitamin D3) 800 unit PO DAILY@1700 [facility] Last Admin: 04/27/19 17:13 Dose: 800 unit Documented by: Clonazepam (Klonopin) 0.5 mg PO TID PRN PRN Reason: Anxiety Last Admin: 04/27/19 01:51 Dose: 0.5 mg Documented by: Docusate Sodium (Colace) 100 mg PO DAILY PRN PRN Reason: Constipation Furosemide (Lasix) 20 mg PO SUTU [facility] Last Admin: 04/26/19 08:38 Dose: 20 mg Documented by: Furosemide (Lasix) 20 mg PO ONCE PRN PRN Reason: Edema Guaifenesin (Mucinex) 600 mg PO BID@0800,2100 [facility] Last Admin: 04/27/19 20:41 Dose: 600 mg Documented by: Sodium Chloride (Saline 0.9%) 1,000 mls @ 20 mls/hr IV .Q24H [facility] Last Admin: 04/26/19 21:33 Dose: 20 mls/hr Documented by: Ibuprofen (Motrin) 400 mg PO Q6HR PRN PRN Reason: Pain Last Admin: 04/27/19 18:22 Dose: 400 mg Documented by: Insulin Aspart (Novolog) 0 unit SQ [facility]; Protocol Last Admin: 04/27/19 20:41 Dose: 4 unit Documented by: Loratadine (Claritin) 10 mg PO DAILY PRN PRN Reason: ALLERGIES Magnesium Hydroxide (Milk Of Magnesia) 2,400 mg PO DAILY PRN PRN Reason: Constipation Metoprolol Tartrate (Lopressor) 50 mg PO BID@0800,2100 [facility] Last Admin: 04/27/19 20:41 Dose: 50 mg Documented by: Miscellaneous Information (Magnesium Per Protocol) 1 each MISCELLANE DAILY PRN; Protocol PRN Reason: Per Protocol Potassium Chloride (K-Dur 20) 20 meq PO ONCE PRN PRN Reason: LEUKOCYTOSIS Prednisone () 30 mg PO DAILY [facility] Last Admin: 04/27/19 08:24 Dose: 30 mg Documented by: Sodium Biphosphate/Sodium Phosphate (Fleet Adult) 133 ml RECTAL DAILY PRN PRN Reason: Constipation Physical examination: VITAL SIGNS: 97.9, 101, 15, 97/46, 91% on high flow cannula GENERAL: Laying in bed, awake EYES: Pupils equal. Conjunctiva normal. HEENT: External appearance of nose and ears normal, oral cavity grossly normal. Air-vo in place NECK: JVD unable to assess; masses not palpable. HEART: First and second heart sounds are normal; minimal edema. LUNGS: Respiratory rate increased, decreased breath sounds. ABDOMEN: Soft, nontender, liver spleen not palpable, no masses palpable. PSYCH: Alert and oriented x3; mood and affect normal. MUSCULOSKELETAL: Evidence of OA. Right arm in a sling CHEST wall: Right side chest tube, attached to water seal INVESTIGATIONS, reviewed in the clinical context: White count 12 hemoglobin 10.2 platelets 395 potassium 4.2 creatinine 0.56 Chest x-ray-no pneumothorax reported Previous investigations: White count 26.7 hemoglobin 11.5 potassium 3.8 bun 19 creatinine 0.50 Chest x-ray film personally reviewed by me-large right-sided pneumothorax EKG tracing personally reviewed by me-shows atrial flutter fibrillation Assessment: -Large right-sided spontaneous pneumothorax now with the chest tube in place, radiologically improving, chest tube clamped today -Acute on chronic hypoxic respiratory failure from COPD/pneumothorax -Persistent atrial fibrillation on anticoagulation -Acute COPD exacerbation in an ex-smoker -GERD -Essential hypertension -Primary osteoarthritis -Recent right humerus fracture, right arm and a sliding -Chronic urinary incontinence -Possible left basal pneumonia-no fever. White count coming down. No sputum. Plan: Continue current medication treatment plan. Repeat chest x-ray in the morning. Other medications to continue.
[2019-04-28] MEDS: IPRATROPIUM-ALBUTEROL 3 ML NEB INHALATION SCH ×6 (00:47→20:16)
[2019-04-28] MEDS: IBUPROFEN 400 MG TAB PO PRN ×2 (01:04→11:55)
[2019-04-28] MEDS: clonazePAM 0.5 MG TAB PO PRN ×2 (01:05→08:11)
[2019-04-28] MEDS: SODIUM CHLORIDE 0.9% 1,000 ML IV SCH ×2 (01:05→23:35)
[2019-04-28 06:26] LABS: Basophils % (A) 0 %; Eosinophils # (A) 0.1 k/uL (0-0.7); Eosinophils % (A) 2 %; HCT 28.7 % (34.0-46.0); HGB 9.2 gm/dL (11.4-16.0); Lymphocytes # (A) 0.9 k/uL (1.0-4.8); Lymphocytes % (A) 10 %; MCH 32.4 pg (25.0-35.0); MCHC 31.9 g/dL (31.0-37.0); MCV 101.6 fL (80.0-100.0); Macrocytosis Slight; Mean Platelet Volume 6.5; Monocytes # (A) 0.4 k/uL (0-1.0); Monocytes % (A) 5 %; Neutrophils # (A) 7.3 k/uL (1.3-7.7); Neutrophils % (A) 82 %; Platelet Count 415 k/uL (150-450); RBC 2.83 m/uL (3.80-5.40); RDW 14.2 % (11.5-15.5); WBC 8.9 k/uL (3.8-10.6)
[2019-04-28 06:35] LABS: African American GFR (CKD) >90 (>60 ml/min/1.73 sqM); Anion Gap 5 mmol/L; Blood Urea Nitrogen 23 mg/dL (7-17); Carbon Dioxide 28 mmol/L (22-30); Chloride 98 mmol/L (98-107); Glucose 98 mg/dL (74-99); Potassium 4.3 mmol/L (3.5-5.1); Sodium 131 mmol/L (137-145)
[2019-04-28 06:55] LABS: Glucose,Whole Blood 100 mg/dL (75-99)
[2019-04-28] MEDS: INSULIN ASPART (NovoLOG) 100 UNIT/ML VIAL SQ SCH ×4 (06:59→21:06)
[2019-04-28] MEDS: CEFDINIR 300 MG CAP PO SCH ×2 (08:11→21:06)
[2019-04-28] MEDS: predniSONE 10 MG TAB PO SCH (08:11)
[2019-04-28] MEDS: ACETAMINOPHEN TAB 325 MG TAB PO PRN ×2 (08:11→21:06)
[2019-04-28] MEDS: METOPROLOL TARTRATE 50 MG TAB PO SCH ×2 (08:11→21:09)
[2019-04-28] MEDS: amLODIPine 5 MG TAB PO SCH (08:11)
[2019-04-28] MEDS: APIXABAN 2.5 MG TABLET PO SCH ×2 (08:11→17:48)
[2019-04-28] MEDS: guaiFENesin 600 MG TABLET.ER PO SCH ×2 (08:11→21:06)
--- NOTE | 2019-04-28 09:00 | P.PN ---
Subjective Progress Note Date: 04/28/19 Principal diagnosis: Spontaneous right-sided pneumothorax, status post thoravent placement by the emergency room physicians, acute exacerbation of COPD with chronic hypoxic respiratory failure, leukocytosis. History of COPD on home oxygen at 2 L nasal cannula, paroxysmal atrial fibrillation on chronic anticoagulation Eliquis, recent fall 2 with right humerus fracture, hypertension, vitamin D deficiency, previous tobacco dependence. POD #6 placement of right pleural thoracostomy tube, removal of Thoravent. The patient is currently sitting up in her bed eating her breakfast. She is in no acute distress. No complaints of pain or shortness of breath. She continues to complain about a congested productive cough, although reports that her cough is improving. Her right arm remains in a sling as she has had a history of a fall with fracture to her right arm. Right pleural chest tube remains in place and has been clamped for the last 24 hours. Airvo was discontinued yesterday and she is currently on 8 L high flow nasal cannula oxygen with oxygen saturations 91%. She is achieving 1414-1469 mL on her incentive spirometry. Bedside telemetry showin normal sinus rhythm with heart rate 79 BPM. Labs this morning show a WBC count of 8.9, hemoglobin 9.2, BUN 23 and creatinine 0.57. She remains afebrile the last 24 hours. Chest x-ray this morning shows no sizable pneumothorax. Objective - Vital Signs Vital signs: Vital Signs Temp 98.6 F 04/28/19 04:00 Pulse 90 04/28/19 07:38 Resp 19 04/28/19 07:00 BP 111/51 04/28/19 07:00 Pulse Ox 94 L 04/28/19 07:00 Intake & Output 04/27/19 04/28/19 04/28/19 18:59 06:59 18:59 Intake Total 1390 590 Output Total 200 0 Balance 1190 590 Weight 53.6 kg 55.4 kg Intake: IV 240 240 Sodium Chloride 0.9% 1, 240 240 000 ml @ 20 mls/hr IV . Q24H [facility] Rx#:[id number] Oral 1150 350 Output: Urine 200 0 Other: Voiding Method Bedpan Bedpan Diaper Diaper # Voids 1 1 # Bowel Movements 1 - Constitutional General appearance: Present: cooperative, no acute distress, thin - Respiratory Details: Lung sounds with few scattered rhonchi throughout, diminished to her right lower lobe. Respirations are symmetrical and nonlabored. Oxygen saturation is 91% on 8 L high flow nasal cannula. Right pleural chest tube remains in place and clamped. Achieving 0570-1266 mL on her incentive spirometry. - Cardiovascular Details: Regular rhythm and rate. S1 and S2 present, negative for S3, gallop or murmur. Bedside telemetry showing normal sinus rhythm heart rate 79. No edema present. Knee-high sequential compression devices in place to bilateral lower extremities. - Gastrointestinal Gastrointestinal Comment(s): Abdomen soft, nontender nondistended. Active bowel sounds present all 4 abdo chikis quadrants. No guarding or rigidity. No organomegaly appreciated. - Genitourinary Genitourinary Comment(s): Voiding clear yellow urine. - Integumentary Integumentary Comment(s): Skin is warm and dry. No clubbing or cyanosis is present. No rash or abnormal pigmentation is present. Right pleural chest tube dressing is clean with scant serosanguineous drainage present. - Neurologic Neurologic Comment(s): No focal deficits. Neurologic: Present: CNII-XII intact - Musculoskeletal Musculoskeletal Comment(s): Right arm remains in a sling due to a previous injury. Musculoskeletal: Present: gait normal, generalized weakness, strength equal bilaterally - Psychiatric Psychiatric: Present: A&O x's 3, appropriate affect, intact judgment & insight - Allied health notes Allied health notes reviewed: nursing - Labs CBC & Chem 7: 04/28/19 05:44 04/28/19 05:44 Labs: Abnormal Lab Results - Last 24 Hours (Table) 04/27/19 04/27/19 04/27/19 Range/Units 11:43 16:42 20:36 RBC (3.80-5.40) m/uL Hgb (11.4-16.0) gm/dL Hct (34.0-46.0) % MCV (80.0-100.0) fL Lymphocytes # (1.0-4.8) k/uL Sodium (137-145) mmol/L BUN (7-17) mg/dL POC Glucose (mg/dL) 137 H 201 H 182 H (75-99) mg/dL 04/28/19 04/28/19 04/28/19 Range/Units 05:44 05:44 06:51 RBC 2.83 L (3.80-5.40) m/uL Hgb 9.2 L (11.4-16.0) gm/dL Hct 28.7 L (34.0-46.0) % MCV 101.6 H (80.0-100.0) fL Lymphocytes # 0.9 L (1.0-4.8) k/uL Sodium 131 L (137-145) mmol/L BUN 23 H (7-17) mg/dL POC Glucose (mg/dL) 100 H (75-99) mg/dL Microbiology - Last 24 Hours (Table) 04/21/19 09:14 Blood Culture - Final Blood No Growth after 144 hours - Imaging and Cardiology Chest x-ray: image reviewed Assessment and Plan Assessment: 1. Spontaneous right-sided pneumothorax, status post thoravent placement by the ER physicians, status post thoracostomy tube placement by pulmonology 2. Acute exacerbation of COPD with chronic hypoxic respiratory failure 3. Leukocytosis 4. History of COPD on home oxygen at 2 L, currently on Airvo 45 L/m with 45% FiO2. 5. Chronic atrial fibrillation on chronic anticoagulation Eliquis 6. Recent fall 2 with right humerus fracture, sling present 7. Hypertension 8. Remote history of tobacco dependence 9. Generalized anxiety disorder Plan: 1. We will discontinue her right pleural chest tube. 2. Wean O2 as tolerated. Encourage incentive spirometry 10 times every hour while awake. 3. Increase activity as tolerated. Out of bed to chair for meals and as tolerated. 4. Will continue to monitor daily chest x-rays. 5. Bronchodilators, steroids, antibiotics per pulmonology. 6. Medical management of other comorbidities per primary care. 7. More recommendations to follow based on patient's clinical course. Time with Patient: Greater than 30
--- NOTE | 2019-04-28 09:51 | XR ---
EXAMINATION TYPE: XR chest 1V portable DATE OF EXAM: 04/28/2019 COMPARISON: 04/27/2019 HISTORY: Right pneumothorax TECHNIQUE: Single frontal view of the chest is obtained. FINDINGS: Bilateral consolidation and pleural effusion with underlying COPD noted. Atherosclerotic c hange aorta. Right-sided chest tube and subcutaneous emphysema. There is a 5% right apical pneumothor ax. Calcification overlying the right midlung granuloma. IMPRESSION: 1. 5% right apical pneumothorax. Chest tube remains in place. 2. Pleural-parenchymal changes are stable. 3. Correlate for COPD.
[2019-04-28 12:11] LABS: Glucose,Whole Blood 124 mg/dL (75-99)
--- NOTE | 2019-04-28 13:46 | P.PN ---
Subjective Progress Note Date: 04/28/19 Principal diagnosis: Acute on chronic hypoxic respiratory failure secondary to COPD, spontaneous right-sided pneumothorax 83-year-old female patient with known history of advanced COPD and the patient is oxygen dependent who also is a chronic smoker and has chronic atrial fibril lation, hypertension and diverticulosis was undergoing rehabilitation well with [facility] after she had sustained an injury to her right humerus after a fall. The patient acutely became short of breath yesterday. She felt this as she was doing some limited amount of activity. She was brought into the hospital for further investigation the patient was found to have a large right-sided pneumothorax. The Thoravent was inserted in the emergency department with improvement in aeration of the right lung with some residual pneumothorax. Clinically the patient felt better. The patient has some residual pneumothorax on the right. The Thoravent is still in place. Based on the diminished breath on the right, hypertension Thoravent to the Pleur-evac. Currently the patient is on Suboxone by nasal cannula. No chest pain. Feeling better. No significant cough sputum production. She is currently on Zithromax. She was also started on IV Solu Medrol suspecting underlying COPD exacerbation. She is on DuoNeb nebulized treatments around the clock. Outpatient medication will be resumed including her long-term anticoagulation with Eliquis. On 04/22/2019 the patient got transferred to the intensive care unit. Overnight the patient became acutely short of breath and hypoxic. She was placed on on the percent nonrebreather facemask. A repeat chest x-ray was done that showed enlargement of the right-sided pneumothorax. The Thoravent was in place and was deflating the lung and there was no evidence of any air leak and the Pleur-evac. Probably tube was clogged. Her blood. This was done on the percent nonrebreather facemask showed a pH of 7.42 with a pCO2 48 and pO2 of 79. Subsequently, patient improved and the patient this morning is on 8 L with a pulse ox of 91%. I immediately inserted today right-sided chest tube, a 28- Lebanese chest tube and the right sided pneumothorax was immediately deflated. The patient remained hemodynamically stable throughout the process. No hy potension. No tachycardia. No significant chest pain. This chest tube was just inserted in the follow-up chest x-ray still pending for now. There is positive air leak and the Pleur-evac. On 04/23/2019 and seeing this patient for a follow-up. Based on a failed Thoravent right lung reexpansion, I inserted a chest tube yesterday. The patient had good results. The right-sided pneumothorax as pre-much recovered on today's chest x-ray. There is no evidence of any air leak. 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 This morning, her main complaint is pain at the site of the chest tube insertion. She refused to take any form of narcotics. We'll going to use only Tylenol was at its oral IV to control her pain. She also has a right humeral fracture. In terms of her breathing, she became hypoxic. She was not able to maintain a pulse ox with regular nasal cannula. I have to put her on Airvo 50% FiO2 at 40 L per minute. She is doing well with this current setting. She is able to maintain a pulse ox above 90%. She is unable to take systemic steroids. The chest x-ray from today shows a small effusion/infiltration of the left lung base and the patient has some leukocytosis. She is on oral Zithromax. I'm going to add Rocephin. She is anxious, her Klonopin can be also restarted. Overall, she is using incentive spirometer. Ability to use the eye asses minimal and she is not urinating much volume and she is less than 500. She is on oral Lasix. No signs of any fluid overload. She is on bronchodilators [id number]. He is awake and alert. No tachycardia. No other hemodynamic instability. On 04/24/2019 I'm seeing this patient for a follow-up. The right-sided chest tube is in place. On today's chest x-ray there is no evidence of any pneumothorax. The right lung is well expanded and there is no evidence of any air leak from the right-sided chest tube. The patient is on high flow oxygen at 45 L and with an FiO2 of 45%. She has a congested cough. Unable to bring up much of sputum. The chest wall pain is improved compared to yesterday. She is able to expand her lungs and take deeper breath pH is using incentive spirometer pH is on accommodation Rocephin and Zithromax. I started on a 30 mg of prednisone as part of the burst taper. He was dynamically stable. No other significant events overnight. Anxiety has been treated with Klonopin. Reevaluated today on 04/25/2019, patient remains in the ICU, continues to have right-sided chest tube in place, no air leak is noted, chest x-ray shows a small right-sided pneumothorax, patient is on airvo with 45% FiO2 and 45 L/m. O2 saturation is 90%. Remains on antibiotics empirically, no air leak is noted, chest tube is at waterseal. Scant serosanguineous drainage is noted. Patient is hemodynamically stable, relatively asymptomatic at this point. Chest x-ray was reviewed and discussed with the patient. WBC count is 21.2 hemoglobin is 10.9. Electrolytes and renal profile are normal. Bicarb is 34. Reevaluated today on 04/26/2019, remains in the ICU, right-sided chest tube is noted, continues to have a small tiny right apical pneumothorax, remains on airv o . Clinically the patient is feeling well, O2 saturation is in the 90s. Remains on antibiotics empirically, minimal air leak is noted, chest tube is on waterseal, however we plan to give her a trial of clamping the chest tube, and repeat chest x-ray to decide whether the chest tube could come out in the next 24 hours. WBC count is 16.3 hemoglobin is 1011 lites are normal renal profile is normal. Patient was reevaluated today on 04/27/2019, patient remains in the intensive care unit, continues to have the chest tube in place, shortly after clamping the chest tube, there was evidence of slight increase in her right sided pneumothorax, this morning the chest x-ray showed complete expansion of the right lung, patient remains on airvo at 32% FiO2, and 30 L/m flow. O2 saturation is excellent. Patient feels better overall. But I'm not certain that we are quite ready to remove the chest tube at this point. Discussed with thoracic surgery, the plan is to clamp the tube again today, and keep it clamped for the next 24 hours. If follow-up chest x-ray shows no expansion of the right-sided pneumothorax, then we can consider removing the chest tube tomorrow. Otherwise we'll keep it in place for longer time. In the meantime continue bronchodilators, continue close monitoring in the intensive care unit. Patient was reevaluated today on 04/28/2019, remains in the ICU, her chest tube has been clamped overnight, small tiny right apical pneumothorax was noted, patient is very comfortable, in no distress. She is on 8 L high flow nasal cannula, saturation is in the low 90s. Patient is doing well with incentive spirometry, she is hemodynamically stable, labs were reviewed and they seem to be unremarkable including CBC and basic metabolic profile. No sizable pneumothorax is noted in the right apex. Chest tube has been removed by thoracic surgery today. Objective - Vital Signs Vital signs: Vital Signs Temp 97.9 F 04/28/19 09:00 Pulse 81 04/28/19 12:00 Resp 24 04/28/19 12:00 BP 115/56 04/28/19 12:00 Pulse Ox 93 L 04/28/19 12:00 Intake & Output 04/27/19 04/28/19 04/28/19 18:59 06:59 18:59 Intake Total 1390 590 320 Output Total 200 0 500 Balance 1190 590 -180 Weight 53.6 kg 55.4 kg Intake: IV 240 240 20 Sodium Chloride 0.9% 1, 240 240 20 000 ml @ 20 mls/hr IV . Q24H [facility] Rx#:[id number] Oral 1150 350 300 Output: Urine 200 0 500 Other: Voiding Method Bedpan Bedpan Bedpan Diaper Diaper Diaper # Voids 1 1 2 # Bowel Movements 1 - Exam Gen. appearance: Revealed a 83-year-old female in no distress.8 L high flow nasal, her daughter from [facility] is at bedside. Head: Atraumatic, normocephalic. HEENT: PERRLA, EOMI, no icterus, dry mucous membranes. CHEST: No chest wall deformity. LUNGS: Equal air entry with no crackles, wheeze, rhonchi or dullness. Right- sided chest tube has been removed.. CVS: S1 and S2 normal with no audible murmur, regular rhythm. ABDOMEN: Soft nontender no megaly no rebound no guarding. SPINE: No scoliosis or deformity SKIN: No rashes CENTRAL NERVOUS SYSTEM: Alert oriented 3, no gross focal neurologic deficits. EXTREMITIES: Right upper extremity in a sling. Otherwise unremarkable. No clubbing edema or cyanosis. Psychiatric: Normal mood, affect and normal mental status examination. - Labs CBC & Chem 7: 04/28/19 05:44 04/28/19 05:44 Labs: Abnormal Lab Results - Last 24 Hours (Table) 04/27/19 04/27/19 04/28/19 Range/Units 16:42 20:36 05:44 RBC 2.83 L (3.80-5.40) m/uL Hgb 9.2 L (11.4-16.0) gm/dL Hct 28.7 L (34.0-46.0) % MCV 101.6 H (80.0-100.0) fL Lymphocytes # 0.9 L (1.0-4.8) k/uL Sodium (137-145) mmol/L BUN (7-17) mg/dL POC Glucose (mg/dL) 201 H 182 H (75-99) mg/dL 04/28/19 04/28/19 04/28/19 Range/Units 05:44 06:51 12:10 RBC (3.80-5.40) m/uL Hgb (11.4-16.0) gm/dL Hct (34.0-46.0) % MCV (80.0-100.0) fL Lymphocytes # (1.0-4.8) k/uL Sodium 131 L (137-145) mmol/L BUN 23 H (7-17) mg/dL POC Glucose (mg/dL) 100 H 124 H (75-99) mg/dL Microbiology - Last 24 Hours (Table) 04/21/19 09:14 Blood Culture - Final Blood No Growth after 144 hours Assessment and Plan Assessment: Impression: 1 acute right sided spontaneous pneumothorax, status post thoravent placement, and status post right-sided chest tube placement. 2 acute on chronic hypoxic respiratory failure, multifactorial 3 acute exacerbation of COPD 4 chronic atrial fibrillation 5 history of hypertension 6 history of diverticulosis 7 generalized anxiety disorder 8 right humeral neck fracture secondary to fall, being followed conservatively by orthopedics. Recommendation: Chest tube was removed today, Continue bronchodilators. Continue incentive spirometer. Continue tapering of the prednisone Continue GI and DVT prophylaxis will continue to monitor in the ICU. For the next 24 hours, repeat chest x-ray in a.m., patient will most likely require referral to rehab. Patient mentioned to me today that she is concerned that she skips her appointment with the orthopedic surgeon regarding her right upper extremity fracture, hence we will [facility] to evaluate regarding her fracture. Most likely they will recommend to continue conservative treatment no plans for any surgical intervention daughter updated on her condition, she voiced concern that she wou ld like her mother to eventually transfer to [facility] when she is out of [facility] in the next few weeks. And she would likely recommend a social media analyst in the area of [facility]. Time with Patient: Less than 30
[2019-04-28] MEDS: CHOLECALCIFEROL 400 UNIT TAB PO SCH (17:49)
[2019-04-28 20:55] LABS: Glucose,Whole Blood 172 mg/dL (75-99)
--- NOTE | 2019-04-28 23:52 | P.PN ---
Progress Note - Text Progress Note Date: 04/28/19 Interval history: This is a 83-year-old patient who was recently discharged from my colleague Dr. Sexton on April 13. Patient was then admitted to the hospital with acute on chronic hypoxic respiratory failure and COPD exacerbation. Chronic stable medical conditions include paroxysmal atrial fibrillation on anticoagulation, fracture of the right humeral neck with a sling, anxiety, hypertension, colonic diverticulosis. Patient is is currently at [facility] rehab. [facility]. Patient was noticing that with exertion she was getting easily getting short of breath and was desaturating. Patient was found to be large pneumothorax and a Thora-vent was placed. patient remained hypoxic patient is put on high flow oxygen-airvo. Otherwise patient appetite has been fair. No fever no chills. chest tube was inserted by Dr. Mendoza. It was connected to Pleur-evac. Today-. Remains in the ICU. Nurse called me that while moving the patient patient's right arm got stretched and patient is slowly going to the floor. I did order x-rays and orthopedic consultation. Chest tube was discontinued. Does not complain of any more. The right arm. Review of systems: Was done for constitutional, cardiovascular, GI, pulmonary. relevant finding as above Active Medications Acetaminophen (Tylenol Tab) 650 mg PO Q4H PRN PRN Reason: Fever and/ or Mild Pain Last Admin: 04/28/19 21:06 Dose: 650 mg Documented by: Albuterol/Ipratropium (Duoneb 0.5 Mg-3 Mg/3 Ml Soln) 3 ml INHALATION RT-Q4H [facility] Last Admin: 04/28/19 20:16 Dose: 3 ml Documented by: Amlodipine Besylate (Norvasc) 5 mg PO DAILY@0800 [facility] Last Admin: 04/28/19 08:11 Dose: 5 mg Documented by: Apixaban (Eliquis) 2.5 mg PO BID@0800,1700 [facility] Last Admin: 04/28/19 17:48 Dose: 2.5 mg Documented by: Bisacodyl (Dulcolax) 10 mg RECTAL DAILY PRN PRN Reason: Constipation Cefdinir (Omnicef) 300 mg PO BID [facility] Last Admin: 04/28/19 21:06 Dose: 300 mg Documented by: Cholecalciferol (Vitamin D3) 800 unit PO DAILY@1700 [facility] Last Admin: 04/28/19 17:49 Dose: Not Given Documented by: Clonazepam (Klonopin) 0.5 mg PO TID PRN PRN Reason: Anxiety Last Admin: 04/28/19 08:11 Dose: 0.5 mg Documented by: Docusate Sodium (Colace) 100 mg PO DAILY PRN PRN Reason: Constipation Furosemide (Lasix) 20 mg PO SUTU [facility] Last Admin: 04/26/19 08:38 Dose: 20 mg Documented by: Furosemide (Lasix) 20 mg PO ONCE PRN PRN Reason: Edema Guaifenesin (Mucinex) 600 mg PO BID@0800,2100 [facility] Last Admin: 04/28/19 21:06 Dose: 600 mg Documented by: Sodium Chloride (Saline 0.9%) 1,000 mls @ 20 mls/hr IV .Q24H [facility] Last Admin: 04/28/19 23:35 Dose: 20 mls/hr Documented by: Ibuprofen (Motrin) 400 mg PO Q6HR PRN PRN Reason: Pain Last Admin: 04/28/19 11:55 Dose: 400 mg Documented by: Insulin Aspart (Novolog) 0 unit SQ ACHS [facility]; Protocol Last Admin: 04/28/19 21:06 Dose: 4 unit Documented by: Loratadine (Claritin) 10 mg PO DAILY PRN PRN Reason: ALLERGIES Magnesium Hydroxide (Milk Of Magnesia) 2,400 mg PO DAILY PRN PRN Reason: Constipation Metoprolol Tartrate (Lopressor) 50 mg PO BID@0800,2100 [facility] Last Admin: 04/28/19 21:09 Dose: 50 mg Documented by: Miscellaneous Information (Magnesium Per Protocol) 1 each MISCELLANE DAILY PRN; Protocol PRN Reason: Per Protocol Potassium Chloride (K-Dur 20) 20 meq PO ONCE PRN PRN Reason: LEUKOCYTOSIS Prednisone () 30 mg PO DAILY [facility] Last Admin: 04/28/19 08:11 Dose: 30 mg Documented by: Sodium Biphosphate/Sodium Phosphate (Fleet Adult) 133 ml RECTAL DAILY PRN PRN Reason: Constipation Physical examination: VITAL SIGNS: 97.9, 84, 11, 106/48, 95% on 7 L GENERAL: Sitting up in a chair, awake EYES: Pupils equal. Conjunctiva normal. HEENT: External appearance of nose and ears normal, oral cavity grossly normal. Air-vo in place NECK: JVD unable to assess; masses not palpable. HEART: First and second heart sounds are normal; minimal edema. LUNGS: Respiratory rate increased, decreased breath sounds. ABDOMEN: Soft, nontender, liver spleen not palpable, no masses palpable. PSYCH: Alert and oriented x3; mood and affect normal. MUSCULOSKELETAL: Evidence of OA. Right arm in a sling CHEST wall: Chest tube removed INVESTIGATIONS, reviewed in the clinical context: White count 8.9 hemoglobin 9.2 creatinine 0.57 Chest x-ray-5% apical pneumothorax, reported Previous investigations: White count 26.7 hemoglobin 11.5 potassium 3.8 bun 19 creatinine 0.50 Chest x-ray film personally reviewed by me-large right-sided pneumothorax EKG tracing personally reviewed by me-shows atrial flutter fibrillation Assessment: -Large right-sided spontaneous pneumothorax . Chest tube discontinued today on April 28 -Acute on chronic hypoxic respiratory failure from COPD/pneumothorax -Persistent atrial fibrillation on anticoagulation -Acute COPD exacerbation in an ex-smoker -GERD -Essential hypertension -Primary osteoarthritis -Recent right humerus fracture, right arm and a sliding -Chronic urinary incontinence -Possible left basal pneumonia-no fever. White count coming down. No sputum. Plan: Overall improving. Orthopedic consulted to evaluate the right arm that got stretched. X-ray was ordered.
[2019-04-29] MEDS: IPRATROPIUM-ALBUTEROL 3 ML NEB INHALATION SCH ×7 (00:01→19:55)
[2019-04-29] MEDS: IBUPROFEN 400 MG TAB PO PRN ×2 (02:29→11:08)
[2019-04-29] MEDS: clonazePAM 0.5 MG TAB PO PRN (02:30)
[2019-04-29 05:38] LABS: Basophils # (A) 0.2 k/uL (0-0.2); Basophils % (A) 1 %; Eosinophils # (A) 0.2 k/uL (0-0.7); Eosinophils % (A) 2 %; HCT 32.8 % (34.0-46.0); HGB 10.4 gm/dL (11.4-16.0); Hypochromasia Slight; Lymphocytes # (A) 0.7 k/uL (1.0-4.8); Lymphocytes % (A) 6 %; MCH 33.2 pg (25.0-35.0); MCHC 31.8 g/dL (31.0-37.0); MCV 104.6 fL (80.0-100.0); Macrocytosis Moderate; Mean Platelet Volume 6.5; Monocytes # (A) 0.5 k/uL (0-1.0); Monocytes % (A) 4 %; Neutrophils # (A) 9.4 k/uL (1.3-7.7); Neutrophils % (A) 86 %; Platelet Count 429 k/uL (150-450); RBC 3.13 m/uL (3.80-5.40); RDW 14.3 % (11.5-15.5)
[2019-04-29 06:11] LABS: African American GFR (CKD) >90 (>60 ml/min/1.73 sqM); Anion Gap 6 mmol/L; Blood Urea Nitrogen 20 mg/dL (7-17); Calcium 9.2 mg/dL (8.4-10.2); Carbon Dioxide 27 mmol/L (22-30); Chloride 102 mmol/L (98-107); Glucose 85 mg/dL (74-99); Potassium 4.5 mmol/L (3.5-5.1); Sodium 135 mmol/L (137-145)
[2019-04-29 07:08] LABS: Glucose,Whole Blood 87 mg/dL (75-99)
--- NOTE | 2019-04-29 08:14 | XR ---
EXAMINATION TYPE: XR shoulder limited RT DATE OF EXAM: 04/29/2019 CLINICAL HISTORY: Fall with prior right humeral head fracture and right shoulder pain. TECHNIQUE: 2 views of the right shoulder are obtained. COMPARISON: Chest x-ray of the same date demonstrating a pneumothorax and 03/24/2019 right shoulder x- ray demonstrating an acute fracture. FINDINGS: There is further impaction of the previously noted right proximal humeral fracture on the e xam of 03/24/2019. There is also ventral rotation of the humeral head that is new from the prior. Ques tionable lucency over the inferior glenoid may relate to a nondisplaced fracture. Mild acromioclavicu lar arthropathy is seen. Diffuse osseous demineralization is present. The known right apical pneumoth orax is again noted. Underlying COPD is seen with apical lucency. IMPRESSION: 1. Further impaction of the previously seen right proximal humeral fracture on the exam of 03/24/2019 and new ventral rotation of the humeral head. 2. Questionable nondisplaced inferior glenoid fracture. No dislocation is seen of the right shoulder. 3. Redemonstration of the known right apical pneumothorax.
[2019-04-29] MEDS: predniSONE 10 MG TAB PO SCH (08:41)
[2019-04-29] MEDS: APIXABAN 2.5 MG TABLET PO SCH ×2 (08:41→17:36)
[2019-04-29] MEDS: guaiFENesin 600 MG TABLET.ER PO SCH ×2 (08:41→21:28)
[2019-04-29] MEDS: amLODIPine 5 MG TAB PO SCH ×2 (08:41→11:10)
[2019-04-29] MEDS: METOPROLOL TARTRATE 50 MG TAB PO SCH ×3 (08:41→21:28)
[2019-04-29] MEDS: CEFDINIR 300 MG CAP PO SCH ×2 (08:42→21:28)
[2019-04-29] MEDS: INSULIN ASPART (NovoLOG) 100 UNIT/ML VIAL SQ SCH ×4 (08:42→21:32)
[2019-04-29] MEDS: ACETAMINOPHEN TAB 325 MG TAB PO PRN ×3 (08:54→23:11)
--- NOTE | 2019-04-29 09:08 | XR ---
EXAMINATION TYPE: XR chest 1V portable DATE OF EXAM: 04/29/2019 COMPARISON: 04/28/2019 HISTORY: Right pneumothorax TECHNIQUE: Single frontal view of the chest is obtained. FINDINGS: Bilateral consolidation and pleural effusion with underlying COPD noted. Atherosclerotic c hange aorta. Right-sided chest tube has been removed and there is mild subcutaneous emphysema. There is a 5% right apical pneumothorax. Calcification overlying the right midlung granuloma. IMPRESSION: 1. Stable approximate 5% right apical pneumothorax. 2. Stable bilateral pleural-parenchymal disease. 3. COPD
[2019-04-29 12:00] LABS: Glucose,Whole Blood 135 mg/dL (75-99)
--- NOTE | 2019-04-29 12:19 | P.PN ---
Subjective Progress Note Date: 04/29/19 Principal diagnosis: Acute on chronic hypoxic respiratory failure secondary to COPD, spontaneous right-sided pneumothorax 83-year-old female patient with known history of advanced COPD and the patient is oxygen dependent who also is a chronic smoker and has chronic atrial fibril lation, hypertension and diverticulosis was undergoing rehabilitation well with [facility] after she had sustained an injury to her right humerus after a fall. The patient acutely became short of breath yesterday. She felt this as she was doing some limited amount of activity. She was brought into the hospital for further investigation the patient was found to have a large right-sided pneumothorax. The Thoravent was inserted in the emergency department with improvement in aeration of the right lung with some residual pneumothorax. Clinically the patient felt better. The patient has some residual pneumothorax on the right. The Thoravent is still in place. Based on the diminished breath on the right, hypertension Thoravent to the Pleur-evac. Currently the patient is on Suboxone by nasal cannula. No chest pain. Feeling better. No significant cough sputum production. She is currently on Zithromax. She was also started on IV Solu Medrol suspecting underlying COPD exacerbation. She is on DuoNeb nebulized treatments around the clock. Outpatient medication will be resumed including her long-term anticoagulation with Eliquis. On 04/22/2019 the patient got transferred to the intensive care unit. Overnight the patient became acutely short of breath and hypoxic. She was placed on on the percent nonrebreather facemask. A repeat chest x-ray was done that showed enlargement of the right-sided pneumothorax. The Thoravent was in place and was deflating the lung and there was no evidence of any air leak and the Pleur-evac. Probably tube was clogged. Her blood. This was done on the percent nonrebreather facemask showed a pH of 7.42 with a pCO2 48 and pO2 of 79. Subsequently, patient improved and the patient this morning is on 8 L with a pulse ox of 91%. I immediately inserted today right-sided chest tube, a 28- [place] chest tube and the right sided pneumothorax was immediately deflated. The patient remained hemodynamically stable throughout the process. No hy potension. No tachycardia. No significant chest pain. This chest tube was just inserted in the follow-up chest x-ray still pending for now. There is positive air leak and the Pleur-evac. On 04/23/2019 and seeing this patient for a follow-up. Based on a failed Thoravent right lung reexpansion, I inserted a chest tube yesterday. The patient had good results. The right-sided pneumothorax as pre-much recovered on today's chest x-ray. There is no evidence of any air leak. 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 This morning, her main complaint is pain at the site of the chest tube insertion. She refused to take any form of narcotics. We'll going to use only Tylenol was at its oral IV to control her pain. She also has a right humeral fracture. In terms of her breathing, she became hypoxic. She was not able to maintain a pulse ox with regular nasal cannula. I have to put her on Airvo 50% FiO2 at 40 L per minute. She is doing well with this current setting. She is able to maintain a pulse ox above 90%. She is unable to take systemic steroids. The chest x-ray from today shows a small effusion/infiltration of the left lung base and the patient has some leukocytosis. She is on oral Zithromax. I'm going to add Rocephin. She is anxious, her Klonopin can be also restarted. Overall, she is using incentive spirometer. Ability to use the eye asses minimal and she is not urinating much volume and she is less than 500. She is on oral Lasix. No signs of any fluid overload. She is on bronchodilators [id number]. He is awake and alert. No tachycardia. No other hemodynamic instability. On 04/24/2019 I'm seeing this patient for a follow-up. The right-sided chest tube is in place. On today's chest x-ray there is no evidence of any pneumothorax. The right lung is well expanded and there is no evidence of any air leak from the right-sided chest tube. The patient is on high flow oxygen at 45 L and with an FiO2 of 45%. She has a congested cough. Unable to bring up much of sputum. The chest wall pain is improved compared to yesterday. She is able to expand her lungs and take deeper breath pH is using incentive spirometer pH is on accommodation Rocephin and Zithromax. I started on a 30 mg of prednisone as part of the burst taper. He was dynamically stable. No other significant events overnight. Anxiety has been treated with Klonopin. Reevaluated today on 04/25/2019, patient remains in the ICU, continues to have right-sided chest tube in place, no air leak is noted, chest x-ray shows a small right-sided pneumothorax, patient is on airvo with 45% FiO2 and 45 L/m. O2 saturation is 90%. Remains on antibiotics empirically, no air leak is noted, chest tube is at waterseal. Scant serosanguineous drainage is noted. Patient is hemodynamically stable, relatively asymptomatic at this point. Chest x-ray was reviewed and discussed with the patient. WBC count is 21.2 hemoglobin is 10.9. Electrolytes and renal profile are normal. Bicarb is 34. Reevaluated today on 04/26/2019, remains in the ICU, right-sided chest tube is noted, continues to have a small tiny right apical pneumothorax, remains on airv o . Clinically the patient is feeling well, O2 saturation is in the 90s. Remains on antibiotics empirically, minimal air leak is noted, chest tube is on waterseal, however we plan to give her a trial of clamping the chest tube, and repeat chest x-ray to decide whether the chest tube could come out in the next 24 hours. WBC count is 16.3 hemoglobin is 1011 lites are normal renal profile is normal. Patient was reevaluated today on 04/27/2019, patient remains in the intensive care unit, continues to have the chest tube in place, shortly after clamping the chest tube, there was evidence of slight increase in her right sided pneumothorax, this morning the chest x-ray showed complete expansion of the right lung, patient remains on airvo at 32% FiO2, and 30 L/m flow. O2 saturation is excellent. Patient feels better overall. But I'm not certain that we are quite ready to remove the chest tube at this point. Discussed with thoracic surgery, the plan is to clamp the tube again today, and keep it clamped for the next 24 hours. If follow-up chest x-ray shows no expansion of the right-sided pneumothorax, then we can consider removing the chest tube tomorrow. Otherwise we'll keep it in place for longer time. In the meantime continue bronchodilators, continue close monitoring in the intensive care unit. Patient was reevaluated today on 04/28/2019, remains in the ICU, her chest tube has been clamped overnight, small tiny right apical pneumothorax was noted, patient is very comfortable, in no distress. She is on 8 L high flow nasal cannula, saturation is in the low 90s. Patient is doing well with incentive spirometry, she is hemodynamically stable, labs were reviewed and they seem to be unremarkable including CBC and basic metabolic profile. No sizable pneumothorax is noted in the right apex. Chest tube has been removed by thoracic surgery today. Reevaluated today on 04/29/2019, patient remains in the ICU, doing well, her chest tube was removed yesterday, continues to show a right-sided apical pneumothorax. Patient is on 6 L nasal cannula, O2 saturation is in the 93% range, doing well with incentive spirometry, she is hemodynamically stable, labs were reviewed, and I plan to transfer the patient out of the ICU to a cardiac bed on selective says the patient has history of chronic atrial flutter. Objective - Vital Signs Vital signs: Vital Signs Temp 97.5 F L 04/29/19 09:00 Pulse 79 04/29/19 11:37 Resp 37 H 04/29/19 11:00 BP 93/50 04/29/19 11:00 Pulse Ox 87 L 04/29/19 11:00 Intake & Output 04/28/19 04/29/19 04/29/19 18:59 06:59 18:59 Intake Total 640 420 60 Output Total 500 0 0 Balance 140 420 60 Weight 54.4 kg Intake: IV 40 220 60 Sodium Chloride 0.9% 1, 40 220 60 000 ml @ 20 mls/hr IV . Q24H [facility] Rx#:[id number] Oral 600 200 Output: Urine 500 0 0 Other: Voiding Method Bedpan Bedpan Bedpan Diaper Diaper Diaper # Voids 1 1 1 # Bowel Movements 1 - Exam Gen. appearance: Revealed a 83-year-old female in no distress.on 6 L nasal cannula Head: Atraumatic, normocephalic. HEENT: PERRLA, EOMI, no icterus, dry mucous membranes. CHEST: No chest wall deformity. LUNGS: Equal air entry with no crackles, wheeze, rhonchi or dullness. Right- sided chest tube has been removed.. CVS: S1 and S2 normal with no audible murmur, regular rhythm. ABDOMEN: Soft nontender no megaly no rebound no guarding. SPINE: No scoliosis or deformity SKIN: No rashes CENTRAL NERVOUS SYSTEM: Alert oriented 3, no gross focal neurologic deficits. EXTREMITIES: Right upper extremity in a sling. Otherwise unremarkable. No clubbing edema or cyanosis. Psychiatric: Normal mood, affect and normal mental status examination. - Labs CBC & Chem 7: 04/29/19 05:16 04/29/19 05:16 Labs: Abnormal Lab Results - Last 24 Hours (Table) 04/28/19 04/29/19 04/29/19 Range/Units 20:53 05:16 05:16 WBC 11.0 H (3.8-10.6) k/uL RBC 3.13 L (3.80-5.40) m/uL Hgb 10.4 L (11.4-16.0) gm/dL Hct 32.8 L (34.0-46.0) % MCV 104.6 H (80.0-100.0) fL Neutrophils # 9.4 H (1.3-7.7) k/uL Lymphocytes # 0.7 L (1.0-4.8) k/uL Sodium 135 L (137-145) mmol/L BUN 20 H (7-17) mg/dL Creatinine 0.47 L (0.52-1.04) mg/dL POC Glucose (mg/dL) 172 H (75-99) mg/dL 04/29/19 Range/Units 11:47 WBC (3.8-10.6) k/uL RBC (3.80-5.40) m/uL Hgb (11.4-16.0) gm/dL Hct (34.0-46.0) % MCV (80.0-100.0) fL Neutrophils # (1.3-7.7) k/uL Lymphocytes # (1.0-4.8) k/uL Sodium (137-145) mmol/L BUN (7-17) mg/dL Creatinine (0.52-1.04) mg/dL POC Glucose (mg/dL) 135 H (75-99) mg/dL Assessment and Plan Assessment: Impression: 1 acute right sided spontaneous pneumothorax, status post thoravent placement, and status post right-sided chest tube placement. Both have been removed. 2 acute on chronic hypoxic respiratory failure, multifactorial 3 acute exacerbation of COPD 4 chronic atrial fibrillation 5 history of hypertension 6 history of diverticulosis 7 generalized anxiety disorder 8 right humeral neck fracture secondary to fall, being followed conservatively by orthopedics. Recommendation: Titrate FiO2 down to keep O2 saturation above 90%. Continue bronchodilators. Continue incentive spirometer. Continue tapering of the prednisone Continue GI and DVT prophylaxis We'll transfer patient out of the ICU today to a monitor bed on the cardiac floor, hopefully discharge planning to a rehab/[facility] early next week. In the meantime physical therapy. Time with Patient: Less than 30
--- NOTE | 2019-04-29 12:27 | P.PN ---
Subjective Progress Note Date: 04/29/19 Principal diagnosis: Spontaneous right-sided pneumothorax, status post thoravent placement by the emergency room physicians, acute exacerbation of COPD with chronic hypoxic respiratory failure, leukocytosis. History of COPD on home oxygen at 2 L nasal cannula, paroxysmal atrial fibrillation on chronic anticoagulation Eliquis, recent fall 2 with right humerus fracture, hypertension, vitamin D deficiency, previous tobacco dependence. POD #7 placement of right pleural thoracostomy tube, removal of Thoravent. Right thoracostomy tube was removed yesterday 04/28/2018. The patient is currently lying in bed in the intensive care unit. She is in no acute distress. No complaints of pain or shortness of breath. Her right arm remains in a sling as she has had a history of a fall with fracture to her right arm. Right pleural chest tube was discontinued yesterday. Repeat chest x-ray this morning shows no appreciable pneumothorax. Currently on 8 L high flow nasal cannula oxygen with oxygen saturations 89%. She is achieving 1500 mL on her incentive spirometry. Bedside telemetry showing atrial flutter heart rate 87 BPM. She remains afebrile the last 24 hours. Objective - Vital Signs Vital signs: Vital Signs Temp 97.5 F L 04/29/19 09:00 Pulse 79 04/29/19 11:37 Resp 37 H 04/29/19 11:00 BP 93/50 04/29/19 11:00 Pulse Ox 87 L 04/29/19 11:00 Intake & Output 04/28/19 04/29/19 04/29/19 18:59 06:59 18:59 Intake Total 640 420 60 Output Total 500 0 0 Balance 140 420 60 Weight 54.4 kg Intake: IV 40 220 60 Sodium Chloride 0.9% 1, 40 220 60 000 ml @ 20 mls/hr IV . Q24H [facility] Rx#:[id number] Oral 600 200 Output: Urine 500 0 0 Other: Voiding Method Bedpan Bedpan Bedpan Diaper Diaper Diaper # Voids 1 1 1 # Bowel Movements 1 - Constitutional General appearance: Present: cooperative, no acute distress, thin - Respiratory Details: lungs sounds essentially clear to her upper lobes, diminished bilateral bases right greater than left. Respirations are symmetrical and nonlabored. Oxygen saturation are 89% on 8 L high flow nasal cannula. - Cardiovascular Details: irregular rhythm and controlled rate consistent with atrial fibrillation. S1 and S2 present, negative for S3, gallop or murmur. - Gastrointestinal Gastrointestinal Comment(s): abdomen soft, nontender nondistended. Active bowel sounds present in all 4 abdominal quadrants. No guarding or rigidity. No organomegaly appreciated. - Neurologic Neurologic Comment(s): no focal deficits. Neurologic: Present: CNII-XII intact - Musculoskeletal Musculoskeletal Comment(s): right arm remains in a sling from a previous injury. Musculoskeletal: Present: generalized weakness - Psychiatric Psychiatric: Present: A&O x's 3, appropriate affect, intact judgment & insight - Allied health notes Allied health notes reviewed: nursing - Labs CBC & Chem 7: 04/29/19 05:16 04/29/19 05:16 Labs: Abnormal Lab Results - Last 24 Hours (Table) 04/28/19 04/29/19 04/29/19 Range/Units 20:53 05:16 05:16 WBC 11.0 H (3.8-10.6) k/uL RBC 3.13 L (3.80-5.40) m/uL Hgb 10.4 L (11.4-16.0) gm/dL Hct 32.8 L (34.0-46.0) % MCV 104.6 H (80.0-100.0) fL Neutrophils # 9.4 H (1.3-7.7) k/uL Lymphocytes # 0.7 L (1.0-4.8) k/uL Sodium 135 L (137-145) mmol/L BUN 20 H (7-17) mg/dL Creatinine 0.47 L (0.52-1.04) mg/dL POC Glucose (mg/dL) 172 H (75-99) mg/dL 04/29/19 Range/Units 11:47 WBC (3.8-10.6) k/uL RBC (3.80-5.40) m/uL Hgb (11.4-16.0) gm/dL Hct (34.0-46.0) % MCV (80.0-100.0) fL Neutrophils # (1.3-7.7) k/uL Lymphocytes # (1.0-4.8) k/uL Sodium (137-145) mmol/L BUN (7-17) mg/dL Creatinine (0.52-1.04) mg/dL POC Glucose (mg/dL) 135 H (75-99) mg/dL - Imaging and Cardiology Chest x-ray: report reviewed, image reviewed Assessment and Plan Assessment: 1. Spontaneous right-sided pneumothorax, status post thoravent placement by the ER physicians, status post thoracostomy tube placement by pulmonology 2. Acute exacerbation of COPD with chronic hypoxic respiratory failure 3. Leukocytosis 4. History of COPD on home oxygen at 2 L, currently on Airvo 45 L/m with 45% FiO2. 5. Chronic atrial fibrillation on chronic anticoagulation Eliquis 6. Recent fall 2 with right humerus fracture, sling present 7. Hypertension 8. Remote history of tobacco dependence 9. Generalized anxiety disorder Plan: 1. Wean O2 as tolerated. Encourage incentive spirometry 10 times every hour while awake. 2. Increase activity as tolerated. Out of bed to chair for meals and as tolerated. 3. Will continue to monitor daily chest x-rays. 4. Bronchodilators, steroids, antibiotics per pulmonology. 5. Medical management of other comorbidities per primary care. 6. We will continue to see the patient on an as-needed basis. Time with Patient: Less than 30
--- NOTE | 2019-04-29 14:22 | P.CNOR ---
History of Present Illness - [facility] Consult date: 04/29/19 Consult reason: fracture History of present illness: Patient is a pleasant 83-year-old female seen at bedside this morning in consultation for her right proximal humerus fracture. She is known to our office where she is being followed for her right proximal humerus fracture which she suffered on March 14, 2019. She was admitted to the hospital approximately 1 week ago for pneumothorax which she's been treated and managed in the ICU. She apparently fell yesterday to her right side. She is sitting comfortably with sling in place this morning. Her pain is controlled. She has no new complaints. she denies new numbness, tingling or radicular symptoms to the right upper extremity. Review of Systems All systems: negative Constitutional: Denies chills, Denies fever Eyes: denies blurred vision, denies pain Ears, nose, mouth and throat: Denies headache, Denies sore throat Cardiovascular: Denies chest pain, Denies shortness of breath Respiratory: Denies cough Gastrointestinal: Denies abdominal pain, Denies diarrhea, Denies nausea, Denies vomiting Genitourinary: Denies dysuria, Denies hematuria Musculoskeletal: Denies myalgias Integumentary: Denies pruritus, Denies rash Neurological: Denies numbness, Denies weakness Psychiatric: Denies anxiety, Denies depression Endocrine: Denies fatigue, Denies weight change Past Medical History Past Medical History: Atrial Fibrillation, COPD, GERD/Reflux, Hypertension, Osteoarthritis (OA), Pneumonia Additional Past Medical History / Comment(s): 04/11/19 acute on chronic hypoxic respiratory failure 2ndary to COPD; paroxysmal afib on chronic Eliquis; recent bilateral leg edema/cramps; home O2 @2LPM; bronchitis; arthritis in multiple joints but mostly in bilateral hands; R humerus fractures on 03/12/19-pt is right hand dominent; incontinence of urine; UTI; sinus allergies. History of Any Multi-Drug Resistant Organisms: None Reported Past Surgical History: Appendectomy, Hysterectomy Additional Past Surgical History / Comment(s): Colonoscopy, bilateral cataract removals/lens implants. Past Anesthesia/Blood Transfusion Reactions: No Reported Reaction Past Psychological History: No Psychological Hx Reported Smoking Status: Former smoker Past Alcohol Use History: Rare Past Drug Use History: None Reported - Past Family History Father Family Medical History: Coronary Artery Disease (CAD) Additional Family Medical History / Comment(s): Pernicious anemia Mother Family Medical History: Hypertension Additional Family Medical History / Comment(s): Pancreatic cancer in her 80s Medications and Allergies Home Medications Medication Instructions Recorded Confirmed Type Fluticasone Nasal [place] [Flonase 1 spray EA NOSTRIL DAILY PRN 06/27/17 04/21/19 History Nasal [place]] Fluticasone/Salmeterol [Advair Hfa 2 puff INHALATION RT-BID 06/27/17 04/21/19 History 115-21 Mcg Inhaler] amLODIPine [Norvasc] 5 mg PO DAILY@0800 06/27/17 04/21/19 History Albuterol Inhaler [Ventolin Hfa 1 - 2 puff INHALATION RT-Q6H PRN 03/23/18 04/21/19 History Inhaler] Acetaminophen Tab [Tylenol] 650 mg PO Q4H PRN #12 tab 03/24/19 04/21/19 Rx Fexofenadine HCl 180 mg PO DAILY PRN 04/11/19 04/21/19 History Furosemide [Lasix] 20 mg PO SUTU 04/11/19 04/21/19 History Metoprolol Tartrate [Lopressor] 50 mg PO BID@0800,2100 04/11/19 04/21/19 History clonazePAM [KlonoPIN] 0.5 mg PO TID PRN #9 tab 04/13/19 04/21/19 Rx predniSONE See Taper PO DIRECTED #15 tab 04/13/19 04/21/19 Rx Apixaban [Eliquis] 2.5 mg PO BID@0800,1700 04/21/19 04/21/19 History Azithromycin [Zithromax] 500 mg PO ONCE PRN 04/21/19 04/21/19 History Bisacodyl [Dulcolax] 10 mg RECTAL DAILY PRN 04/21/19 04/21/19 History Cholecalciferol [Vitamin D3] 800 unit PO DAILY@1700 04/21/19 04/21/19 History Docusate [Colace] 100 mg PO DAILY PRN 04/21/19 04/21/19 History Furosemide [Lasix] 20 mg PO ONCE PRN 04/21/19 04/21/19 History Ipratropium-Albuterol Nebulize 3 ml INHALATION RT-TID 04/21/19 04/21/19 History [Duoneb 0.5 mg-3 mg/3 ml Soln] Lactose-Reduced Food [Ensure Plus] 1 can PO TID 04/21/19 04/21/19 History Magnesium Hydroxide [Milk of 2,400 mg PO DAILY PRN 04/21/19 04/21/19 History Magnesia] Na Phos,M-B/Na Phos,Di-Ba [Fleet 133 ml RECTAL DAILY PRN 04/21/19 04/21/19 History Adult] Potassium Chloride ER [K-Dur 20] 20 meq PO ONCE PRN 04/21/19 04/21/19 History guaiFENesin [Mucinex] 600 mg PO BID@0800,2100 04/21/19 04/21/19 History Allergies Allergy/AdvReac Type Severity Reaction Status Date / Time amoxicillin Allergy Rash/Hives Verified 04/21/19 09:04 fluconazole [From Diflucan] Allergy Unknown Verified 04/21/19 09:04 moxifloxacin HCl Allergy Rash/Hives Verified 04/21/19 09:04 [From Avelox] sulfamethoxazole Allergy Rash/Hives Verified 04/21/19 09:04 [From Bactrim] trimethoprim [From Bactrim] Allergy Rash/Hives Verified 04/21/19 09:04 tropicamide Allergy Unknown Verified 04/21/19 09:04 doxycycline AdvReac Unknown Verified 04/21/19 09:04 Physical Examination Inspection of the right shoulder and upper extremity shows no erythema or ecchymoses. There is no deformity. There is mild tenderness at the fracture site as expected. She is not put through range of motion due to the fracture. Neurovascular status shows motor and sensation grossly intact throughout the right upper extremity. She has 2+ radial pulse and less than 2 second capillary refill. Results x-rays of the right shoulder proximal humerus shows stable fracture with no significant displacement.alignment position acceptable and no dislocation seen. - Labs Labs: Abnormal Lab Results - Last 24 Hours (Table) 04/28/19 04/29/19 04/29/19 Range/Units 20:53 05:16 05:16 WBC 11.0 H (3.8-10.6) k/uL RBC 3.13 L (3.80-5.40) m/uL Hgb 10.4 L (11.4-16.0) gm/dL Hct 32.8 L (34.0-46.0) % MCV 104.6 H (80.0-100.0) fL Neutrophils # 9.4 H (1.3-7.7) k/uL Lymphocytes # 0.7 L (1.0-4.8) k/uL Sodium 135 L (137-145) mmol/L BUN 20 H (7-17) mg/dL Creatinine 0.47 L (0.52-1.04) mg/dL POC Glucose (mg/dL) 172 H (75-99) mg/dL 04/29/19 Range/Units 11:47 WBC (3.8-10.6) k/uL RBC (3.80-5.40) m/uL Hgb (11.4-16.0) gm/dL Hct (34.0-46.0) % MCV (80.0-100.0) fL Neutrophils # (1.3-7.7) k/uL Lymphocytes # (1.0-4.8) k/uL Sodium (137-145) mmol/L BUN (7-17) mg/dL Creatinine (0.52-1.04) mg/dL POC Glucose (mg/dL) 135 H (75-99) mg/dL H & H 04/21/19 04/22/19 04/23/19 Range/Units 09:14 03:59 04:25 Hgb 11.5 11.4 10.7 L (11.4-16.0) gm/dL Hct 34.4 34.1 32.2 L (34.0-46.0) % 04/24/19 04/26/19 04/27/19 Range/Units 10:45 10:45 05:28 Hgb 10.9 L 10.0 L 10.2 L (11.4-16.0) gm/dL Hct 32.2 L 29.2 L 30.8 L (34.0-46.0) % 04/28/19 04/29/19 Range/Units 05:44 05:16 Hgb 9.2 L 10.4 L (11.4-16.0) gm/dL Hct 28.7 L 32.8 L (34.0-46.0) % Coagulation 04/21/19 Range/Units 09:14 INR 0.9 (<1.2) Result Diagrams: 04/29/19 05:16 04/29/19 05:16 - Diagnostic results Shoulder x-ray: report reviewed, image reviewed Assessment and Plan (1) Fracture of proximal end of right humerus Narrative/Plan: There are no plans for surgical intervention and she'll continue with conservative management regarding her right proximal humerus fracture. She may continue with sling for comfort. Pain management per her primary team. She may follow up as an outpatient for further management and recommendations. Current Visit: No Status: Acute Code(s): S42.201A - UNSP FRACTURE OF UPPER END OF RIGHT HUMERUS, INIT SNOMED Code(s): 341408884 Time with Patient: Less than 30
[2019-04-29 17:02] LABS: Glucose,Whole Blood 158 mg/dL (75-99)
[2019-04-29] MEDS: CHOLECALCIFEROL 400 UNIT TAB PO SCH (17:39)
[2019-04-29 21:28] LABS: Glucose,Whole Blood 158 mg/dL (75-99)
--- NOTE | 2019-04-29 22:11 | P.PN ---
Progress Note - Text Progress Note Date: 04/29/19 Interval history: This is a 83-year-old patient who was recently discharged from my colleague Dr. Sexton on April 13. Patient was then admitted to the hospital with acute on chronic hypoxic respiratory failure and COPD exacerbation. Chronic stable medical conditions include paroxysmal atrial fibrillation on anticoagulation, fracture of the right humeral neck with a sling, anxiety, hypertension, colonic diverticulosis. Patient is is currently at [facility] rehab. [facility]. Patient was noticing that with exertion she was getting easily getting short of breath and was desaturating. Patient was found to be large pneumothorax and a Thora-vent was placed. patient remained hypoxic patient is put on high flow oxygen-airvo. Otherwise patient appetite has been fair. No fever no chills. chest tube was inserted by Dr. Mendoza. It was connected to Pleur-evac. Chest tube discontinued on April 28 Today-. Tolerating a diet. Occasionally bringing up sputum. No new fracture in the right arm. Review of systems: Was done for constitutional, cardiovascular, GI, pulmonary. relevant finding as above Active Medications Acetaminophen (Tylenol Tab) 650 mg PO Q4H PRN PRN Reason: Fever and/ or Mild Pain Last Admin: 04/29/19 15:48 Dose: 650 mg Documented by: Albuterol/Ipratropium (Duoneb 0.5 Mg-3 Mg/3 Ml Soln) 3 ml INHALATION RT-Q4H [facility] Last Admin: 04/29/19 19:55 Dose: 3 ml Documented by: Amlodipine Besylate (Norvasc) 5 mg PO DAILY@0800 [facility] Last Admin: 04/29/19 11:10 Dose: Not Given Documented by: Apixaban (Eliquis) 2.5 mg PO BID@0800,1700 [facility] Last Admin: 04/29/19 17:36 Dose: 2.5 mg Documented by: Bisacodyl (Dulcolax) 10 mg RECTAL DAILY PRN PRN Reason: Constipation Cefdinir (Omnicef) 300 mg PO BID [facility] Last Admin: 04/29/19 21:28 Dose: 300 mg Documented by: Cholecalciferol (Vitamin D3) 800 unit PO DAILY@1700 [facility] Last Admin: 04/29/19 17:39 Dose: 800 unit Documented by: Clonazepam (Klonopin) 0.5 mg PO TID PRN PRN Reason: Anxiety Last Admin: 04/29/19 02:30 Dose: 0.5 mg Documented by: Docusate Sodium (Colace) 100 mg PO DAILY PRN PRN Reason: Constipation Furosemide (Lasix) 20 mg PO SUTU [facility] Last Admin: 04/26/19 08:38 Dose: 20 mg Documented by: Furosemide (Lasix) 20 mg PO ONCE PRN PRN Reason: Edema Guaifenesin (Mucinex) 600 mg PO BID@0800,2100 [facility] Last Admin: 04/29/19 21:28 Dose: 600 mg Documented by: Sodium Chloride (Saline 0.9%) 1,000 mls @ 20 mls/hr IV .Q24H [facility] Last Admin: 04/28/19 23:35 Dose: 20 mls/hr Documented by: Ibuprofen (Motrin) 400 mg PO Q6HR PRN PRN Reason: Pain Last Admin: 04/29/19 11:08 Dose: 400 mg Documented by: Insulin Aspart (Novolog) 0 unit SQ [facility]; Protocol Last Admin: 04/29/19 21:32 Dose: 3 unit Documented by: Loratadine (Claritin) 10 mg PO DAILY PRN PRN Reason: ALLERGIES Magnesium Hydroxide (Milk Of Magnesia) 2,400 mg PO DAILY PRN PRN Reason: Constipation Last Admin: 04/29/19 11:13 Dose: 2,400 mg Documented by: Metoprolol Tartrate (Lopressor) 50 mg PO BID@0800,2100 [facility] Last Admin: 04/29/19 21:28 Dose: 50 mg Documented by: Miscellaneous Information (Magnesium Per Protocol) 1 each MISCELLANE DAILY PRN; Protocol PRN Reason: Per Protocol Potassium Chloride (K-Dur 20) 20 meq PO ONCE PRN PRN Reason: LEUKOCYTOSIS Prednisone () 30 mg PO DAILY [facility] Last Admin: 04/29/19 08:41 Dose: 30 mg Documented by: Sodium Biphosphate/Sodium Phosphate (Fleet Adult) 133 ml RECTAL DAILY PRN PRN Reason: Constipation Physical examination: VITAL SIGNS: 97.9, 91, 21, 97/44, 92% on 6 L GENERAL: Sitting up in a chair, awake EYES: Pupils equal. Conjunctiva normal. HEENT: External appearance of nose and ears normal, oral cavity grossly normal. Air-vo in place NECK: JVD unable to assess; masses not palpable. HEART: First and second heart sounds are normal; minimal edema. LUNGS: Respiratory rate increased, decreased breath sounds. ABDOMEN: Soft, nontender, liver spleen not palpable, no masses palpable. PSYCH: Alert and oriented x3; mood and affect normal. MUSCULOSKELETAL: Evidence of OA. Right arm in a sling CHEST wall: Chest tube removed INVESTIGATIONS, reviewed in the clinical context: White count 11 hemoglobin 10.4 creatinine 0.47 Chest x-ray-5% apical pneumothorax, reported Previous investigations: White count 26.7 hemoglobin 11.5 potassium 3.8 bun 19 creatinine 0.50 Chest x-ray film personally reviewed by me-large right-sided pneumothorax EKG tracing personally reviewed by me-shows atrial flutter fibrillation Assessment: -Large right-sided spontaneous pneumothorax . Chest tube discontinued on April 28 -Acute on chronic hypoxic respiratory failure from COPD/pneumothorax -Persistent atrial fibrillation on anticoagulation -Acute COPD exacerbation in an ex-smoker -GERD -Essential hypertension -Primary osteoarthritis -Recent right humerus fracture, right arm and a sliding -Chronic urinary incontinence -left basal pneumonia- Plan: Patient Omnicef. Oral steroid. By mouth Lasix. And placed use ice. Will be encouraged to use IS. Patient will be moved out of the ICU.
[2019-04-29] MEDS: SODIUM CHLORIDE 0.9% 1,000 ML IV SCH (23:43)
[2019-04-30] MEDS: IPRATROPIUM-ALBUTEROL 3 ML NEB INHALATION SCH ×7 (00:12→23:38)
[2019-04-30] MEDS: clonazePAM 0.5 MG TAB PO PRN (02:44)
[2019-04-30] MEDS: INSULIN ASPART (NovoLOG) 100 UNIT/ML VIAL SQ SCH ×4 (06:26→20:52)
[2019-04-30 06:27] LABS: Glucose,Whole Blood 88 mg/dL (75-99)
[2019-04-30 06:33] LABS: Basophils # (A) 0.1 k/uL (0-0.2); Basophils % (A) 0 %; Eosinophils # (A) 0.2 k/uL (0-0.7); Eosinophils % (A) 1 %; HCT 28.4 % (34.0-46.0); HGB 9.7 gm/dL (11.4-16.0); Lymphocytes % (A) 8 %; MCH 34.5 pg (25.0-35.0); MCHC 34.2 g/dL (31.0-37.0); Macrocytosis Slight; Mean Platelet Volume 5.9; Monocytes # (A) 0.3 k/uL (0-1.0); Monocytes % (A) 3 %; Neutrophils # (A) 10.6 k/uL (1.3-7.7); Neutrophils % (A) 87 %; Platelet Count 442 k/uL (150-450); RBC 2.81 m/uL (3.80-5.40); RDW 14.3 % (11.5-15.5); WBC 12.2 k/uL (3.8-10.6)
[2019-04-30 06:44] LABS: African American GFR (CKD) >90 (>60 ml/min/1.73 sqM); Anion Gap 4 mmol/L; Blood Urea Nitrogen 23 mg/dL (7-17); Carbon Dioxide 29 mmol/L (22-30); Chloride 101 mmol/L (98-107); Glucose 81 mg/dL (74-99); Potassium 4.6 mmol/L (3.5-5.1); Sodium 134 mmol/L (137-145)
[2019-04-30] MEDS: ACETAMINOPHEN TAB 325 MG TAB PO PRN ×2 (09:34→20:52)
[2019-04-30] MEDS: guaiFENesin 600 MG TABLET.ER PO SCH ×2 (09:38→20:51)
[2019-04-30] MEDS: amLODIPine 5 MG TAB PO SCH (09:38)
[2019-04-30] MEDS: METOPROLOL TARTRATE 50 MG TAB PO SCH ×2 (09:38→20:52)
[2019-04-30] MEDS: CEFDINIR 300 MG CAP PO SCH ×2 (09:38→20:51)
[2019-04-30] MEDS: predniSONE 10 MG TAB PO SCH (09:38)
[2019-04-30] MEDS: APIXABAN 2.5 MG TABLET PO SCH ×2 (09:38→17:45)
[2019-04-30 12:36] LABS: Glucose,Whole Blood 99 mg/dL (75-99)
--- NOTE | 2019-04-30 14:05 | P.PN ---
Subjective Progress Note Date: 04/30/19 Principal diagnosis: Acute on chronic hypoxic respiratory failure secondary to spontaneous right- sided pneumothorax and COPD exacerbation. 83-year-old female patient with known history of advanced COPD and the patient is oxygen dependent who also is a chronic smoker and has chronic atrial fibrillation, hypertension and diverticulosis was undergoing rehabilitation well with [facility] after she had sustained an injury to her right humerus after a fall. The patient acutely became short of breath yesterday. She felt this as she was doing some limited amount of activity. She was brought into the hospital for further investigation the patient was found to have a large right-sided pneumothorax. The Thoravent was inserted in the emergency department with improvement in aeration of the right lung with some residual pneumothorax. Clinically the patient felt better. The patient has some residual pneumothorax on the right. The Thoravent is still in place. Based on the diminished breath on the right, hypertension Thoravent to the Pleur-evac. Currently the patient is on Suboxone by nasal cannula. No chest pain. Feeling better. No significant cough sputum production. She is currently on Zithromax. She was also started on IV Solu Medrol suspecting underlying COPD exacerbation. She is on DuoNeb nebulized treatments around the clock. Outpatient medication will be resumed including her long-term anticoagulation with Eliquis. On 04/22/2019 the patient got transferred to the intensive care unit. Overnight the patient became acutely short of breath and hypoxic. She was placed on on the percent nonrebreather facemask. A repeat chest x-ray was done that showed enlargement of the right-sided pneumothorax. The Thoravent was in place and was deflating the lung and there was no evidence of any air leak and the Pleur-evac. Probably tube was clogged. Her blood. This was done on the percent nonrebreather facemask showed a pH of 7.42 with a pCO2 48 and pO2 of 79. Subsequently, patient improved and the patient this morning is on 8 L with a pulse ox of 91%. I immediately inserted today right-sided chest tube, a 28- [place] chest tube and the right sided pneumothorax was immediately deflated. The patient remained hemodynamically stable throughout the process. No hypotension. No tachycardia. No significant chest pain. This chest tube was just inserted in the follow-up chest x-ray still pending for now. There is positive air leak and the Pleur-evac. On 04/23/2019 and seeing this patient for a follow-up. Based on a failed Thoravent right lung reexpansion, I inserted a chest tube yesterday. The patient had good results. The right-sided pneumothorax as pre-much recovered on today's chest x-ray. There is no evidence of any air leak. The patient has advanced emphysema with bullous changes bilaterally. This morning, her main complaint is pain at the site of the chest tube insertion. She refused to take any form of narcotics. We'll going to use only Tylenol was at its oral IV to control her pain. She also has a right humeral fracture. In terms of her breathing, she became hypoxic. She was not able to maintain a pulse ox with regular nasal cannula. I have to put her on Airvo 50% FiO2 at 40 L per minute. She is doing well with this current setting. She is able to maintain a pulse ox above 90%. She is unable to take systemic steroids. The chest x-ray from today shows a small effusion/infiltration of the left lung base and the patient has some leukocytosis. She is on oral Zithromax. I'm going to add Rocephin. She is anxious, her Klonopin can be also restarted. Overall, she is using incentive spirometer. Ability to use the eye asses minimal and she is not urinating much volume and she is less than 500. She is on oral Lasix. No signs of any fluid overload. She is on bronchodilators [id number]. He is awake and alert. No tachycardia. No other hemodynamic instability. On 04/24/2019 I'm seeing this patient for a follow-up. The right-sided chest tube is in place. On today's chest x-ray there is no evidence of any pneumothorax. The right lung is well expanded and there is no evidence of any air leak from the right-sided chest tube. The patient is on high flow oxygen at 45 L and with an FiO2 of 45%. She has a congested cough. Unable to bring up much of sputum. The chest wall pain is improved compared to yesterday. She is able to expand her lungs and take deeper breath pH is using incentive spirometer pH is on accommodation Rocephin and Zithromax. I started on a 30 mg of prednis one as part of the burst taper. He was dynamically stable. No other significant events overnight. Anxiety has been treated with Klonopin. Reevaluated today on 04/25/2019, patient remains in the ICU, continues to have right-sided chest tube in place, no air leak is noted, chest x-ray shows a small right-sided pneumothorax, patient is on airvo with 45% FiO2 and 45 L/m. O2 saturation is 90%. Remains on antibiotics empirically, no air leak is noted, chest tube is at waterseal. Scant serosanguineous drainage is noted. Patient is hemodynamically stable, relatively asymptomatic at this point. Chest x-ray was reviewed and discussed with the patient. WBC count is 21.2 hemoglobin is 10.9. Electrolytes and renal profile are normal. Bicarb is 34. Reevaluated today on 04/26/2019, remains in the ICU, right-sided chest tube is noted, continues to have a small tiny right apical pneumothorax, remains on airvo . Clinically the patient is feeling well, O2 saturation is in the 90s. Remains on antibiotics empirically, minimal air leak is noted, chest tube is on waterseal, however we plan to give her a trial of clamping the chest tube, and repeat chest x-ray to decide whether the chest tube could come out in the next 24 hours. WBC count is 16.3 hemoglobin is 1011 lites are normal renal profile is normal. Patient was reevaluated today on 04/27/2019, patient remains in the intensive ca re unit, continues to have the chest tube in place, shortly after clamping the chest tube, there was evidence of slight increase in her right sided pneumothorax, this morning the chest x-ray showed complete expansion of the right lung, patient remains on airvo at 32% FiO2, and 30 L/m flow. O2 satur ation is excellent. Patient feels better overall. But I'm not certain that we are quite ready to remove the chest tube at this point. Discussed with thoracic surgery, the plan is to clamp the tube again today, and keep it clamped for the next 24 hours. If follow-up chest x-ray shows no expansion of the right-sided pneumothorax, then we can consider removing the chest tube tomorrow. Otherwise we'll keep it in place for longer time. In the meantime continue bronchodilators, continue close monitoring in the intensive care unit. Patient was reevaluated today on 04/28/2019, remains in the ICU, her chest tube has been clamped overnight, small tiny right apical pneumothorax was noted, patient is very comfortable, in no distress. She is on 8 L high flow nasal cannula, saturation is in the low 90s. Patient is doing well with incentive spirometry, she is hemodynamically stable, labs were reviewed and they seem to be unremarkable including CBC and basic metabolic profile. No sizable pneu mothorax is noted in the right apex. Chest tube has been removed by thoracic surgery today. Reevaluated today on 04/29/2019, patient remains in the ICU, doing well, her chest tube was removed yesterday, continues to show a right-sided apical pneumothorax. Patient is on 6 L nasal cannula, O2 saturation is in the 93% range, doing well with incentive spirometry, she is hemodynamically stable, labs were reviewed, and I plan to transfer the patient out of the ICU to a cardiac bed on selective says the patient has history of chronic atrial flutter. The patient is seen today 04/30/2019 in follow-up on the [facility] care unit. She is currently sitting up in a chair at the bedside. Awake and alert in no acute distress. No worsening shortness of breath, cough or congestion. She is maintaining O2 saturations in the mid 90s on 6 L high flow nasal cannula. She's been afebrile. Hemodynamically stable. White count 12.2. Hemoglobin 9.7. Creatinine 0.55. Objective - Vital Signs Vital signs: Vital Signs Temp 97.8 F 04/30/19 03:10 Pulse 80 04/30/19 13:22 Resp 19 04/30/19 03:12 BP 111/57 04/30/19 03:10 Pulse Ox 94 L 04/30/19 03:10 Intake & Output 04/29/19 04/30/19 04/30/19 18:59 06:59 18:59 Intake Total 510 0 360 Output Total 1 Balance 509 0 360 Weight 50.3 kg Intake: IV 60 0 Sodium Chloride 0.9% 1, 60 0 000 ml @ 20 mls/hr IV . Q24H [facility] Rx#:[id number] Oral 450 360 Output: Urine 0 Urine/Stool Mix 1 Other: Voiding Method Bedpan Bedpan Diaper Diaper # Voids 1 1 # Bowel Movements 1 - Exam GENERAL EXAM: Alert, pleasant 83-year-old female patient, comfortable in no apparent distress. 6 L nasal cannula HEAD: Normocephalic. EYES: Normal reaction of pupils, equal size. NOSE: Clear with pink turbinates. THROAT: No erythema or exudates. NECK: No masses, no JVD. CHEST: No chest wall deformity. LUNGS: Equal air entry with no crackles, wheeze, rhonchi or dullness. D iminished. CVS: S1 and S2 normal with no audible murmur, regular rhythm. ABDOMEN: No hepatosplenomegaly, normal bowel sounds, no guarding or rigidity. SPINE: No scoliosis or deformity SKIN: No rashes CENTRAL NERVOUS SYSTEM: No focal deficits, tone is normal in all 4 extremities. EXTREMITIES: Right upper extremity sling. There is no peripheral edema. No clubbing, no cyanosis. Peripheral pulses are intact. - Labs CBC & Chem 7: 04/30/19 06:11 04/30/19 06:11 Labs: Abnormal Lab Results - Last 24 Hours (Table) 04/29/19 04/29/19 04/30/19 Range/Units 16:59 21:27 06:11 WBC 12.2 H (3.8-10.6) k/uL RBC 2.81 L (3.80-5.40) m/uL Hgb 9.7 L (11.4-16.0) gm/dL Hct 28.4 L (34.0-46.0) % MCV 101.0 H (80.0-100.0) fL Neutrophils # 10.6 H (1.3-7.7) k/uL Sodium (137-145) mmol/L BUN (7-17) mg/dL POC Glucose (mg/dL) 158 H 158 H (75-99) mg/dL 04/30/19 Range/Units 06:11 WBC (3.8-10.6) k/uL RBC (3.80-5.40) m/uL Hgb (11.4-16.0) gm/dL Hct (34.0-46.0) % MCV (80.0-100.0) fL Neutrophils # (1.3-7.7) k/uL Sodium 134 L (137-145) mmol/L BUN 23 H (7-17) mg/dL POC Glucose (mg/dL) (75-99) mg/dL Assessment and Plan Assessment: Impression: 1 acute right sided spontaneous pneumothorax, status post thoravent placement, and status post right-sided chest tube placement. Both have been removed. 2 acute on chronic hypoxic respiratory failure, multifactorial 3 acute exacerbation of COPD 4 chronic atrial fibrillation 5 history of hypertension 6 history of diverticulosis 7 generalized anxiety disorder 8 right humeral neck fracture secondary to fall, being followed conservatively by orthopedics. Plan: The patient was seen and evaluated by Dr. Townsend. She is currently stable from the pulmonary standpoint. We will increase her activity as tolerated. Titrate down the FiO2 as tolerated. The plan is to return to [facility] for further subacute rehabilitation. We'll continue to follow. I, the cosigning physician, performed a history & physical examination of the patient. Lungs sounds are clear. Maintaining good O2 saturations in the 90s on liters high flow nasal cannula. I discussed the assessment and plan of care with my nurse practitioner, Rocío Spencer. I attest to the above note as dictated by her.
--- NOTE | 2019-04-30 16:45 | P.PN ---
Progress Note - Text Progress Note Date: 04/30/19 Interval history: This is a 83-year-old patient who was recently discharged from my colleague Dr. Sexton on April 13. Patient was then admitted to the hospital with acute on chronic hypoxic respiratory failure and COPD exacerbation. Chronic stable medical conditions include paroxysmal atrial fibrillation on anticoagulation, fracture of the right humeral neck with a sling, anxiety, hypertension, colonic diverticulosis. Patient is is currently at [facility] rehab. [facility]. Patient was noticing that with exertion she was getting easily getting short of breath and was desaturating. Patient was found to be large pneumothorax and a Thora-vent was placed. patient remained hypoxic patient is put on high flow oxygen-airvo. Otherwise patient appetite has been fair. No fever no chills. chest tube was inserted by Dr. Mendoza. It was connected to Pleur-evac. Chest tube discontinued on April 28 Today-. Sitting upon a chair. Slight cough. No new issues. Did tolerate her diet. Review of systems: Was done for constitutional, cardiovascular, GI, pulmonary. relevant finding as above Active Medications Acetaminophen (Tylenol Tab) 650 mg PO Q4H PRN PRN Reason: Fever and/ or Mild Pain Last Admin: 04/30/19 09:34 Dose: 650 mg Documented by: Albuterol/Ipratropium (Duoneb 0.5 Mg-3 Mg/3 Ml Soln) 3 ml INHALATION RT-Q4H [facility] Last Admin: 04/30/19 16:36 Dose: 3 ml Documented by: Amlodipine Besylate (Norvasc) 5 mg PO DAILY@0800 [facility] Last Admin: 04/30/19 09:38 Dose: 5 mg Documented by: Apixaban (Eliquis) 2.5 mg PO BID@0800,1700 [facility] Last Admin: 04/30/19 09:38 Dose: 2.5 mg Documented by: Bisacodyl (Dulcolax) 10 mg RECTAL DAILY PRN PRN Reason: Constipation Cefdinir (Omnicef) 300 mg PO BID [facility] Last Admin: 04/30/19 09:38 Dose: 300 mg Documented by: Cholecalciferol (Vitamin D3) 800 unit PO DAILY@1700 [facility] Last Admin: 04/29/19 17:39 Dose: 800 unit Documented by: Clonazepam (Klonopin) 0.5 mg PO TID PRN PRN Reason: Anxiety Last Admin: 04/30/19 02:44 Dose: 0.5 mg Documented by: Docusate Sodium (Colace) 100 mg PO DAILY PRN PRN Reason: Constipation Furosemide (Lasix) 20 mg PO SUTU [facility] Last Admin: 04/26/19 08:38 Dose: 20 mg Documented by: Furosemide (Lasix) 20 mg PO ONCE PRN PRN Reason: Edema Guaifenesin (Mucinex) 600 mg PO BID@0800,2100 [facility] Last Admin: 04/30/19 09:38 Dose: 600 mg Documented by: Sodium Chloride (Saline 0.9%) 1,000 mls @ 20 mls/hr IV .Q24H [facility] Last Admin: 04/29/19 23:43 Dose: 20 mls/hr Documented by: Ibuprofen (Motrin) 400 mg PO Q6HR PRN PRN Reason: Pain Last Admin: 04/29/19 11:08 Dose: 400 mg Documented by: Insulin Aspart (Novolog) 0 unit SQ [facility]; Protocol Last Admin: 04/30/19 06:26 Dose: Not Given Documented by: Loratadine (Claritin) 10 mg PO DAILY PRN PRN Reason: ALLERGIES Magnesium Hydroxide (Milk Of Magnesia) 2,400 mg PO DAILY PRN PRN Reason: Constipation Last Admin: 04/29/19 11:13 Dose: 2,400 mg Documented by: Metoprolol Tartrate (Lopressor) 50 mg PO BID@0800,2100 [facility] Last Admin: 04/30/19 09:38 Dose: 50 mg Documented by: Miscellaneous Information (Magnesium Per Protocol) 1 each MISCELLANE DAILY PRN; Protocol PRN Reason: Per Protocol Potassium Chloride (K-Dur 20) 20 meq PO ONCE PRN PRN Reason: LEUKOCYTOSIS Prednisone () 30 mg PO DAILY [facility] Last Admin: 04/30/19 09:38 Dose: 30 mg Documented by: Sodium Biphosphate/Sodium Phosphate (Fleet Adult) 133 ml RECTAL DAILY PRN PRN Reason: Constipation Physical examination: VITAL SIGNS: 97.8, 77, 19, 11 1/57, 94% on 6 L GENERAL: Sitting up in a chair, comfortable EYES: Pupils equal. Conjunctiva normal. HEENT: External appearance of nose and ears normal, oral cavity grossly normal. Air-vo in place NECK: JVD unable to assess; masses not palpable. HEART: First and second heart sounds are normal; minimal edema. LUNGS: Respiratory rate increased, decreased breath sounds. ABDOMEN: Soft, nontender, liver spleen not palpable, no masses palpable. PSYCH: Alert and oriented x3; mood and affect normal. MUSCULOSKELETAL: Evidence of OA. Right arm in a sling CHEST wall: Chest tube removed INVESTIGATIONS, reviewed in the clinical context: White count 11 hemoglobin 10.4 creatinine 0.47 Chest x-ray-5% apical pneumothorax, reported Previous investigations: White count 12.2 hemoglobin 9.7 creatinine 0.55 Chest x-ray film personally reviewed by me-large right-sided pneumothorax EKG tracing personally reviewed by me-shows atrial flutter fibrillation Assessment: -Large right-sided spontaneous pneumothorax . Chest tube discontinued on April 28 -Acute on chronic hypoxic respiratory failure from COPD/pneumothorax -Persistent atrial fibrillation on anticoagulation -Acute COPD exacerbation in an ex-smoker -GERD -Essential hypertension -Primary osteoarthritis -Recent right humerus fracture, right arm and a sliding -Chronic urinary incontinence -left basal pneumonia- Plan: For Dr. Scott patient to be washed to the weekend. Continue current medication treatment plan. On oral antibiotic.
[2019-04-30 17:24] LABS: Glucose,Whole Blood 176 mg/dL (75-99)
[2019-04-30] MEDS: CHOLECALCIFEROL 400 UNIT TAB PO SCH (17:44)
[2019-04-30 20:52] LABS: Glucose,Whole Blood 161 mg/dL (75-99)
[2019-04-30] MEDS: SODIUM CHLORIDE 0.9% 1,000 ML IV SCH (21:20)
[2019-05-01] MEDS: ACETAMINOPHEN TAB 325 MG TAB PO PRN ×3 (00:43→21:39)
[2019-05-01] MEDS: clonazePAM 0.5 MG TAB PO PRN (00:46)
[2019-05-01] MEDS: IPRATROPIUM-ALBUTEROL 3 ML NEB INHALATION SCH ×6 (04:06→23:18)
[2019-05-01] MEDS: INSULIN ASPART (NovoLOG) 100 UNIT/ML VIAL SQ SCH ×4 (06:08→21:35)
[2019-05-01 06:15] LABS: Glucose,Whole Blood 100 mg/dL (75-99)
[2019-05-01] MEDS: predniSONE 10 MG TAB PO SCH (09:23)
[2019-05-01] MEDS: guaiFENesin 600 MG TABLET.ER PO SCH ×2 (09:23→21:38)
[2019-05-01] MEDS: CEFDINIR 300 MG CAP PO SCH ×2 (09:23→21:38)
[2019-05-01] MEDS: amLODIPine 5 MG TAB PO SCH (09:24)
[2019-05-01] MEDS: APIXABAN 2.5 MG TABLET PO SCH ×2 (09:24→17:46)
[2019-05-01] MEDS: METOPROLOL TARTRATE 50 MG TAB PO SCH ×2 (09:24→21:39)
[2019-05-01] MEDS: FUROSEMIDE 20 MG TAB PO SCH (09:25)
[2019-05-01 12:07] LABS: Glucose,Whole Blood 120 mg/dL (75-99)
--- NOTE | 2019-05-01 14:20 | P.PN ---
Subjective Progress Note Date: 05/01/19 Principal diagnosis: Acute on chronic hypoxic respiratory failure secondary to COPD, spontaneous right-sided pneumothorax 83-year-old female patient with known history of advanced COPD and the patient is oxygen dependent who also is a chronic smoker and has chronic atrial fibril lation, hypertension and diverticulosis was undergoing rehabilitation well with [place] after she had sustained an injury to her right humerus after a fall. The patient acutely became short of breath yesterday. She felt this as she was doing some limited amount of activity. She was brought into the hospital for further investigation the patient was found to have a large right-sided pneumothorax. The Thoravent was inserted in the emergency department with improvement in aeration of the right lung with some residual pneumothorax. Clinically the patient felt better. The patient has some residual pneumothorax on the right. The Thoravent is still in place. Based on the diminished breath on the right, hypertension Thoravent to the Pleur-evac. Currently the patient is on Suboxone by nasal cannula. No chest pain. Feeling better. No significant cough sputum production. She is currently on Zithromax. She was also started on IV Solu Medrol suspecting underlying COPD exacerbation. She is on DuoNeb nebulized treatments around the clock. Outpatient medication will be resumed including her long-term anticoagulation with Eliquis. On 04/22/2019 the patient got transferred to the intensive care unit. Overnight the patient became acutely short of breath and hypoxic. She was placed on on the percent nonrebreather facemask. A repeat chest x-ray was done that showed enlargement of the right-sided pneumothorax. The Thoravent was in place and was deflating the lung and there was no evidence of any air leak and the Pleur-evac. Probably tube was clogged. Her blood. This was done on the percent nonrebreather facemask showed a pH of 7.42 with a pCO2 48 and pO2 of 79. Subsequently, patient improved and the patient this morning is on 8 L with a pulse ox of 91%. I immediately inserted today right-sided chest tube, a 28- Sudanese chest tube and the right sided pneumothorax was immediately deflated. The patient remained hemodynamically stable throughout the process. No hy potension. No tachycardia. No significant chest pain. This chest tube was just inserted in the follow-up chest x-ray still pending for now. There is positive air leak and the Pleur-evac. On 04/23/2019 and seeing this patient for a follow-up. Based on a failed Thoravent right lung reexpansion, I inserted a chest tube yesterday. The patient had good results. The right-sided pneumothorax as pre-much recovered on today's chest x-ray. There is no evidence of any air leak. 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 This morning, her main complaint is pain at the site of the chest tube insertion. She refused to take any form of narcotics. We'll going to use only Tylenol was at its oral IV to control her pain. She also has a right humeral fracture. In terms of her breathing, she became hypoxic. She was not able to maintain a pulse ox with regular nasal cannula. I have to put her on Airvo 50% FiO2 at 40 L per minute. She is doing well with this current setting. She is able to maintain a pulse ox above 90%. She is unable to take systemic steroids. The chest x-ray from today shows a small effusion/infiltration of the left lung base and the patient has some leukocytosis. She is on oral Zithromax. I'm going to add Rocephin. She is anxious, her Klonopin can be also restarted. Overall, she is using incentive spirometer. Ability to use the eye asses minimal and she is not urinating much volume and she is less than 500. She is on oral Lasix. No signs of any fluid overload. She is on bronchodilators [id number]. He is awake and alert. No tachycardia. No other hemodynamic instability. On 04/24/2019 I'm seeing this patient for a follow-up. The right-sided chest tube is in place. On today's chest x-ray there is no evidence of any pneumothorax. The right lung is well expanded and there is no evidence of any air leak from the right-sided chest tube. The patient is on high flow oxygen at 45 L and with an FiO2 of 45%. She has a congested cough. Unable to bring up much of sputum. The chest wall pain is improved compared to yesterday. She is able to expand her lungs and take deeper breath pH is using incentive spirometer pH is on accommodation Rocephin and Zithromax. I started on a 30 mg of prednisone as part of the burst taper. He was dynamically stable. No other significant events overnight. Anxiety has been treated with Klonopin. Reevaluated today on 04/25/2019, patient remains in the ICU, continues to have right-sided chest tube in place, no air leak is noted, chest x-ray shows a small right-sided pneumothorax, patient is on airvo with 45% FiO2 and 45 L/m. O2 saturation is 90%. Remains on antibiotics empirically, no air leak is noted, chest tube is at waterseal. Scant serosanguineous drainage is noted. Patient is hemodynamically stable, relatively asymptomatic at this point. Chest x-ray was reviewed and discussed with the patient. WBC count is 21.2 hemoglobin is 10.9. Electrolytes and renal profile are normal. Bicarb is 34. Reevaluated today on 04/26/2019, remains in the ICU, right-sided chest tube is noted, continues to have a small tiny right apical pneumothorax, remains on airv o . Clinically the patient is feeling well, O2 saturation is in the 90s. Remains on antibiotics empirically, minimal air leak is noted, chest tube is on waterseal, however we plan to give her a trial of clamping the chest tube, and repeat chest x-ray to decide whether the chest tube could come out in the next 24 hours. WBC count is 16.3 hemoglobin is 1011 lites are normal renal profile is normal. Patient was reevaluated today on 04/27/2019, patient remains in the intensive care unit, continues to have the chest tube in place, shortly after clamping the chest tube, there was evidence of slight increase in her right sided pneumothorax, this morning the chest x-ray showed complete expansion of the right lung, patient remains on airvo at 32% FiO2, and 30 L/m flow. O2 saturation is excellent. Patient feels better overall. But I'm not certain that we are quite ready to remove the chest tube at this point. Discussed with thoracic surgery, the plan is to clamp the tube again today, and keep it clamped for the next 24 hours. If follow-up chest x-ray shows no expansion of the right-sided pneumothorax, then we can consider removing the chest tube tomorrow. Otherwise we'll keep it in place for longer time. In the meantime continue bronchodilators, continue close monitoring in the intensive care unit. Patient was reevaluated today on 04/28/2019, remains in the ICU, her chest tube has been clamped overnight, small tiny right apical pneumothorax was noted, patient is very comfortable, in no distress. She is on 8 L high flow nasal cannula, saturation is in the low 90s. Patient is doing well with incentive spirometry, she is hemodynamically stable, labs were reviewed and they seem to be unremarkable including CBC and basic metabolic profile. No sizable pneumothorax is noted in the right apex. Chest tube has been removed by thoracic surgery today. Reevaluated today on 04/29/2019, patient remains in the ICU, doing well, her chest tube was removed yesterday, continues to show a right-sided apical pneumothorax. Patient is on 6 L nasal cannula, O2 saturation is in the 93% range, doing well with incentive spirometry, she is hemodynamically stable, labs were reviewed, and I plan to transfer the patient out of the ICU to a cardiac bed on selective says the patient has history of chronic atrial flutter. Reevaluated today on 05/01/2019, patient is now on the medical floor, doing fairly well, tapering her FiO2 down to keep O2 saturation above 90%, she is now on 4 L nasal cannula, O2 saturations 90%. She is hemodynamically stable, becoming a bit more active, she was definitely need significant physical therapy and rehabilitation. Basic metabolic profile is basically normal renal profile is normal hemoglobin is 9.7 WBC count is 12.2. Objective - Vital Signs Vital signs: Vital Signs Temp 98.1 F 05/01/19 12:00 Pulse 88 05/01/19 13:13 Resp 18 05/01/19 12:00 BP 96/54 05/01/19 12:00 Pulse Ox 90 L 05/01/19 12:00 Intake & Output 04/30/19 05/01/19 05/01/19 18:59 06:59 18:59 Intake Total 840 480 Output Total 300 Balance 840 180 Weight 50 kg Intake: Oral 840 480 Output: Urine 300 Other: Voiding Method Bedpan Bedpan Bedpan Diaper Diaper Diaper # Voids 0 1 # Bowel Movements 1 - Exam Gen. appearance: Revealed a 83-year-old female in no distress.on 4 L nasal cannula Head: Atraumatic, normocephalic. HEENT: PERRLA, EOMI, no icterus, dry mucous membranes. CHEST: No chest wall deformity. LUNGS: Equal air entry with no crackles, wheeze, rhonchi or dullness. CVS: S1 and S2 normal with no audible murmur, regular rhythm. ABDOMEN: Soft nontender no megaly no rebound no guarding. SPINE: No scoliosis or deformity SKIN: No rashes CENTRAL NERVOUS SYSTEM: Alert oriented 3, no gross focal neurologic deficits. EXTREMITIES: Right upper extremity in a sling. Otherwise unremarkable. No clubbing edema or cyanosis. Psychiatric: Normal mood, affect and normal mental status examination. - Labs CBC & Chem 7: 04/30/19 06:11 04/30/19 06:11 Labs: Abnormal Lab Results - Last 24 Hours (Table) 04/30/19 04/30/19 05/01/19 Range/Units 17:23 20:51 06:06 POC Glucose (mg/dL) 176 H 161 H 100 H (75-99) mg/dL 05/01/19 Range/Units 12:04 POC Glucose (mg/dL) 120 H (75-99) mg/dL Assessment and Plan Assessment: Impression: 1 acute right sided spontaneous pneumothorax, status post thoravent placement, and status post right-sided chest tube placement. Both have been removed. 2 acute on chronic hypoxic respiratory failure, multifactorial 3 acute exacerbation of COPD 4 chronic atrial fibrillation 5 history of hypertension 6 history of diverticulosis 7 generalized anxiety disorder 8 right humeral neck fracture secondary to fall, being followed conservatively by orthopedics. Recommendation: Titrate FiO2 down to keep O2 saturation above 90%. Continue bronchodilators. Continue incentive spirometer. Continue tapering of the prednisone, presently on 15 mg per day. Continue GI and DVT prophylaxis Consider discharge planning to a rehab facility in the next 24 hours, follow-up chest x-ray in a.m. Time with Patient: Less than 30
[2019-05-01 17:04] LABS: Glucose,Whole Blood 211 mg/dL (75-99)
[2019-05-01] MEDS: CHOLECALCIFEROL 400 UNIT TAB PO SCH (17:46)
--- NOTE | 2019-05-01 20:54 | P.PN ---
Progress Note - Text Progress Note Date: 05/01/19 Interval history: This is a 83-year-old patient who was recently discharged from my colleague Dr. Sexton on April 13. Patient was then admitted to the hospital with acute on chronic hypoxic respiratory failure and COPD exacerbation. Chronic stable medical conditions include paroxysmal atrial fibrillation on anticoagulation, fracture of the right humeral neck with a sling, anxiety, hypertension, colonic diverticulosis. Patient is [facility]. Patient was noticing that with exertion she was getting easily getting short of breath and was desaturating. Patient was found to be large pneumothorax and a Thora-vent was placed. patient remained hypoxic patient is put on high flow oxygen-airvo. Otherwise patient appetite has been fair. No fever no chills. chest tube was inserted by Dr. Mendoza. It was connected to Pleur-evac. Chest tube discontinued on April 28 Today-. Doing better. No new issues. Eating reasonably. Review of systems: Was done for constitutional, cardiovascular, GI, pulmonary. relevant finding as above Active Medications Acetaminophen (Tylenol Tab) 650 mg PO Q4H PRN PRN Reason: Fever and/ or Mild Pain Last Admin: 05/01/19 09:22 Dose: 650 mg Documented by: Albuterol/Ipratropium (Duoneb 0.5 Mg-3 Mg/3 Ml Soln) 3 ml INHALATION RT-Q4H [facility] Last Admin: 05/01/19 20:13 Dose: 3 ml Documented by: Amlodipine Besylate (Norvasc) 5 mg PO DAILY@0800 [facility] Last Admin: 05/01/19 09:24 Dose: 5 mg Documented by: Apixaban (Eliquis) 2.5 mg PO BID@0800,1700 [facility] Last Admin: 05/01/19 17:46 Dose: 2.5 mg Documented by: Bisacodyl (Dulcolax) 10 mg RECTAL DAILY PRN PRN Reason: Constipation Cefdinir (Omnicef) 300 mg PO BID [facility] Last Admin: 05/01/19 09:23 Dose: 300 mg Documented by: Cholecalciferol (Vitamin D3) 800 unit PO DAILY@1700 [facility] Last Admin: 05/01/19 17:46 Dose: 800 unit Documented by: Clonazepam (Klonopin) 0.5 mg PO TID PRN PRN Reason: Anxiety Last Admin: 05/01/19 00:46 Dose: 0.5 mg Documented by: Docusate Sodium (Colace) 100 mg PO DAILY PRN PRN Reason: Constipation Furosemide (Lasix) 20 mg PO SUTU [facility] Last Admin: 05/01/19 09:25 Dose: 20 mg Documented by: Furosemide (Lasix) 20 mg PO ONCE PRN PRN Reason: Edema Guaifenesin (Mucinex) 600 mg PO BID@0800,2100 [facility] Last Admin: 05/01/19 09:23 Dose: 600 mg Documented by: Sodium Chloride (Saline 0.9%) 1,000 mls @ 20 mls/hr IV .Q24H [facility] Last Admin: 04/30/19 21:20 Dose: Not Given Documented by: Ibuprofen (Motrin) 400 mg PO Q6HR PRN PRN Reason: Pain Last Admin: 04/29/19 11:08 Dose: 400 mg Documented by: Insulin Aspart (Novolog) 0 unit SQ [facility]; Protocol Last Admin: 05/01/19 17:45 Dose: 6 unit Documented by: Loratadine (Claritin) 10 mg PO DAILY PRN PRN Reason: ALLERGIES Magnesium Hydroxide (Milk Of Magnesia) 2,400 mg PO DAILY PRN PRN Reason: Constipation Last Admin: 04/29/19 11:13 Dose: 2,400 mg Documented by: Metoprolol Tartrate (Lopressor) 50 mg PO BID@0800,2100 [facility] Last Admin: 05/01/19 09:24 Dose: 50 mg Documented by: Miscellaneous Information (Magnesium Per Protocol) 1 each MISCELLANE DAILY PRN; Protocol PRN Reason: Per Protocol Potassium Chloride (K-Dur 20) 20 meq PO ONCE PRN PRN Reason: LEUKOCYTOSIS Prednisone () 15 mg PO DAILY [facility] Sodium Biphosphate/Sodium Phosphate (Fleet Adult) 133 ml RECTAL DAILY PRN PRN Reason: Constipation Physical examination: VITAL SIGNS: 98.1, 80, 18, 96 x 54, and he percent on 4 L GENERAL: Sitting up in a chair, comfortable EYES: Pupils equal. Conjunctiva normal. HEENT: External appearance of nose and ears normal, oral cavity grossly normal. Air-vo in place NECK: JVD unable to assess; masses not palpable. HEART: First and second heart sounds are normal; minimal edema. LUNGS: Respiratory rate increased, decreased breath sounds. ABDOMEN: Soft, nontender, liver spleen not palpable, no masses palpable. PSYCH: Alert and oriented x3; mood and affect normal. MUSCULOSKELETAL: Evidence of OA. Right arm in a sling INVESTIGATIONS, reviewed in the clinical context: Accu-Cheks noted Previous investigations: White count 12.2 hemoglobin 9.7 creatinine 0.55 Chest x-ray film personally reviewed by me-large right-sided pneumothorax EKG tracing personally reviewed by me-shows atrial flutter fibrillation Assessment: -Large right-sided spontaneous pneumothorax . Chest tube discontinued on April 28 -Acute on chronic hypoxic respiratory failure from COPD/pneumothorax -Persistent atrial fibrillation on anticoagulation -Acute COPD exacerbation in an ex-smoker -GERD -Essential hypertension -Primary osteoarthritis -Recent right humerus fracture, right arm and a sliding -Chronic urinary incontinence -left basal pneumonia- Plan: Stable. Doing better. Looking to go to the rehab tomorrow.
[2019-05-01 20:59] LABS: Glucose,Whole Blood 130 mg/dL (75-99)
[2019-05-01] MEDS: SODIUM CHLORIDE 0.9% 1,000 ML IV SCH (23:53)
[2019-05-02] MEDS: ACETAMINOPHEN TAB 325 MG TAB PO PRN ×5 (00:55→21:10)
[2019-05-02] MEDS: clonazePAM 0.5 MG TAB PO PRN (00:56)
[2019-05-02 02:07] LABS: Glucose,Whole Blood 138 mg/dL (75-99)
[2019-05-02] MEDS: IPRATROPIUM-ALBUTEROL 3 ML NEB INHALATION SCH ×6 (03:22→23:42)
[2019-05-02 06:21] LABS: Glucose,Whole Blood 93 mg/dL (75-99)
[2019-05-02] MEDS: INSULIN ASPART (NovoLOG) 100 UNIT/ML VIAL SQ SCH ×4 (06:21→21:10)
[2019-05-02] MEDS: amLODIPine 5 MG TAB PO SCH (08:06)
[2019-05-02] MEDS: guaiFENesin 600 MG TABLET.ER PO SCH ×2 (08:06→21:09)
[2019-05-02] MEDS: predniSONE 5 MG TAB PO SCH (08:06)
[2019-05-02] MEDS: METOPROLOL TARTRATE 50 MG TAB PO SCH ×2 (08:06→21:09)
[2019-05-02] MEDS: APIXABAN 2.5 MG TABLET PO SCH ×2 (08:06→17:13)
[2019-05-02] MEDS: CEFDINIR 300 MG CAP PO SCH ×2 (08:06→21:09)
--- NOTE | 2019-05-02 08:28 | XR ---
EXAMINATION TYPE: XR chest 1V portable DATE OF EXAM: 05/02/2019 COMPARISON: Prior chest x-ray 04/29/2019 HISTORY: Pneumothorax TECHNIQUE: Single frontal view of the chest is obtained. FINDINGS: Minimal right apical pneumothorax is thought to persist. Overlying tubing is present at th e root area however. Technique is somewhat apical lordotic and rotated. Bibasilar increased density p ersists, there is blunting of costophrenic angles. Heart size is stable. Aorta is dense. Dominant amaris g volumes compatible with underlying COPD. There are overlying cardiac leads. IMPRESSION: No significant interval change. Small right apical pneumothorax. Pleural effusions and p robable basilar atelectasis
[2019-05-02 11:51] LABS: Glucose,Whole Blood 106 mg/dL (75-99)
--- NOTE | 2019-05-02 12:23 | PN ---
PROGRESS NOTE PULMONARY/CRITICAL CARE PROGRESS NOTE DATE OF SERVICE: May 02, 2019 This is an 83-year-old female who was admitted back on April 21. The patient came in with an acute right-sided spontaneous pneumothorax. She is status post Thora- Vent placement and subsequent to that, right-sided chest tube placement. Both have been removed. She is doing relatively well. She might be ready for discharge in next day or so. She has a history of acute on chronic hypoxemic respiratory failure, COPD exacerbation, chronic atrial fibrillation, hypertension, diverticulosis, generalized anxiety disorder, and right humeral neck fracture secondary to a fall. Currently, she is doing reasonably well. Her saturations are excellent. She denies any chest pain or chest discomfort. Chest x-ray shows a very tiny small residual right apical pneumothorax. The patient denies nausea, vomiting or diarrhea. No genitourinary complaints. Denies any chest pain or chest discomfort. PHYSICAL EXAMINATION: VITAL SIGNS: Current vital signs include temperature 97.5, heart rate 88, respiratory rate 18, blood pressure 95/56, mean 68 and 4 L saturation 94%. GENERAL: She appears in no acute distress. HEENT: Examination is grossly unremarkable. Mucous membranes are moist. No oral lesions. NECK: Supple. Full range of motion. No adenopathy or thyromegaly. Neck veins are flat. CARDIOVASCULAR: Examination reveals regular rhythm and rate. Heart rate about 88 beats per minute. S1, S2 normal. No S3, S4, or murmur. LUNGS: Reveal relatively clear breath sounds. A few scattered mild rhonchi. No wheezes or crackles. ABDOMEN: Soft. Bowel sounds are heard. EXTREMITIES: Are intact. No cyanosis, clubbing, or edema. The right upper extremity is in a sling. SKIN: Without rash. NEUROLOGIC: Examination is brief but nonfocal. LAB DATA: Lab data reviewed. Nothing new to report. Chest x-ray is reviewed. Again it shows a very small residual right-sided apical pneumothorax. MEDICATIONS: Medications are reviewed. ASSESSMENT: 1. Acute right-sided spontaneous pneumothorax, status post Thora-Vent placement initially followed by chest tube placement, with both tubes having been removed. 2. Acute on chronic hypoxemic respiratory failure, improved. 3. Acute exacerbation of chronic obstructive pulmonary disease. 4. Chronic atrial fibrillation. 5. History of hypertension. 6. History of diverticulosis. 7. Generalized anxiety disorder. 8. Status post fall with subsequent right humeral neck fracture. PLAN: The patient is doing reasonably well. We will continue with her current medications. Post discharge, she will follow up with Dr. Townsend in the office. Her chest x-ray is reviewed. Small right residual apical pneumothorax is noted. The patient denies pulmonary complaints at this time including pain and shortness of breath. MMODL / IJN: [id number] /
[2019-05-02 17:11] LABS: Glucose,Whole Blood 139 mg/dL (75-99)
[2019-05-02] MEDS: CHOLECALCIFEROL 400 UNIT TAB PO SCH (17:13)
--- NOTE | 2019-05-02 20:24 | P.PN ---
Progress Note - Text Progress Note Date: 05/02/19 Interval history: This is a 83-year-old patient who was recently discharged from my colleague Dr. Sexton on April 13. Patient was then admitted to the hospital with acute on chronic hypoxic respiratory failure and COPD exacerbation. Chronic stable medical conditions include paroxysmal atrial fibrillation on anticoagulation, fracture of the right humeral neck with a sling, anxiety, hypertension, colonic diverticulosis. Patient is is currently at [facility] rehab. [facility]. Patient was noticing that with exertion she was getting easily getting short of breath and was desaturating. Patient was found to be large pneumothorax and a Thora-vent was placed. patient remained hypoxic patient is put on high flow oxygen-airvo. Otherwise patient appetite has been fair. No fever no chills. chest tube was inserted by Dr. Mendoza. It was connected to Pleur-evac. Chest tube discontinued on April 28 Today-. Breathing better. Stable. Tolerating diet. Pending authorization Review of systems: Was done for constitutional, cardiovascular, GI, pulmonary. relevant finding as above Physical examination: VITAL SIGNS: 97.6, 85, 18, 80/51, 90% on 4 L GENERAL: Sitting up in a chair, comfortable EYES: Pupils equal. Conjunctiva normal. HEENT: External appearance of nose and ears normal, oral cavity grossly normal. Air-vo in place NECK: JVD unable to assess; masses not palpable. HEART: First and second heart sounds are normal; minimal edema. LUNGS: Respiratory rate increased, decreased breath sounds. ABDOMEN: Soft, nontender, liver spleen not palpable, no masses palpable. PSYCH: Alert and oriented x3; mood and affect normal. MUSCULOSKELETAL: Evidence of OA. Right arm in a sling INVESTIGATIONS, reviewed in the clinical context: Accu-Cheks noted Previous investigations: White count 12.2 hemoglobin 9.7 creatinine 0.55 Chest x-ray film personally reviewed by me-large right-sided pneumothorax EKG tracing personally reviewed by me-shows atrial flutter fibrillation Assessment: -Large right-sided spontaneous pneumothorax . Chest tube discontinued on April 28 -Acute on chronic hypoxic respiratory failure from COPD/pneumothorax -Persistent atrial fibrillation on anticoagulation -Acute COPD exacerbation in an ex-smoker -GERD -Essential hypertension -Primary osteoarthritis -Recent right humerus fracture, right arm and a sliding -Chronic urinary incontinence -left basal pneumonia-improving Plan: No new issues. Pending authorization is patient did go to rehab. Continue current medications.
[2019-05-02 20:32] LABS: Glucose,Whole Blood 137 mg/dL (75-99)
[2019-05-02] MEDS: SODIUM CHLORIDE 0.9% 1,000 ML IV SCH (20:57)
[2019-05-03] MEDS: clonazePAM 0.5 MG TAB PO PRN (01:08)
[2019-05-03] MEDS: ACETAMINOPHEN TAB 325 MG TAB PO PRN ×2 (01:09→09:24)
[2019-05-03] MEDS: IBUPROFEN 400 MG TAB PO PRN (04:15)
[2019-05-03] MEDS: IPRATROPIUM-ALBUTEROL 3 ML NEB INHALATION SCH ×3 (04:22→11:51)
[2019-05-03 06:25] LABS: Glucose,Whole Blood 109 mg/dL (75-99)
[2019-05-03] MEDS: INSULIN ASPART (NovoLOG) 100 UNIT/ML VIAL SQ SCH ×2 (06:35→13:16)
[2019-05-03 09:21] VITALS: TEMP 97.6
[2019-05-03] MEDS: predniSONE 5 MG TAB PO SCH (09:21)
[2019-05-03] MEDS: METOPROLOL TARTRATE 50 MG TAB PO SCH (09:21)
[2019-05-03] MEDS: guaiFENesin 600 MG TABLET.ER PO SCH (09:22)
[2019-05-03] MEDS: CEFDINIR 300 MG CAP PO SCH (09:22)
[2019-05-03] MEDS: APIXABAN 2.5 MG TABLET PO SCH (09:22)
[2019-05-03] MEDS: FUROSEMIDE 20 MG TAB PO SCH (09:22)
[2019-05-03 10:25] VITALS: BMI 20.2
--- NOTE | 2019-05-03 10:29 | P.PN ---
Subjective Progress Note Date: 05/03/19 Principal diagnosis: Acute on chronic hypoxic respiratory failure secondary to COPD, spontaneous right-sided pneumothorax On 05/03/2019 patient seen in follow-up on selective care unit, she is awake and alert, currently on 3 L of oxygen, denies any acute distress, chest tube has been removed on 04/29/2019, last chest x-ray was yesterday showing small right apical pneumothorax, pleural effusion and basilar atelectasis. Remains stable, no fever or chills, no complaint of worsening dyspnea. Patient is on oral antibiotics, nebulized bronchodilators, and oral prednisone. Doing well, discharge is pending to subacute rehab possibly today Objective - Vital Signs Vital signs: Vital Signs Temp 97.6 F 05/03/19 08:00 Pulse 79 05/03/19 08:02 Resp 18 05/03/19 08:00 BP 101/50 05/03/19 08:00 Pulse Ox 90 L 05/03/19 08:00 Intake & Output 05/02/19 05/03/19 05/03/19 18:59 06:59 18:59 Intake Total 240 840 240 Balance 240 840 240 Intake: Oral 240 840 240 Other: Voiding Method Bedside Commode Bedside Commode Bedside Commode Diaper Diaper Diaper # Voids 1 1 0 # Bowel Movements 1 - Exam GENERAL EXAM: Alert, pleasant, 83-year-old white female on 4 L of oxygen with a pulse ox of 90%, comfortable in no apparent distress. HEAD: Normocephalic/atraumatic. EYES: Normal reaction of pupils, equal size. Conjunctiva pink, sclera white. NOSE: Clear with pink turbinates. THROAT: No erythema or exudates. NECK: No masses, no JVD, no thyroid enlargement, no adenopathy. CHEST: No chest wall deformity. Symmetrical expansion. LUNGS: Equal air entry with no crackles, wheeze, rhonchi or dullness. CVS: Regular rate and rhythm, normal S1 and S2, no gallops, no murmurs, no rubs ABDOMEN: Soft, nontender. No hepatosplenomegaly, normal bowel sounds, no guarding or rigidity. EXTREMITIES: No clubbing, no edema, no cyanosis, 2+ pulses and upper and lower extremities. MUSCULOSKELETAL: Muscle strength and tone normal. SPINE: No scoliosis or deformity SKIN: No rashes CENTRAL NERVOUS SYSTEM: Alert and oriented -3. No focal deficits, tone is normal in all 4 extremities. PSYCHIATRIC: Alert and oriented -3. Appropriate affect. Intact judgment and insight. - Labs CBC & Chem 7: 04/30/19 06:11 04/30/19 06:11 Labs: Abnormal Lab Results - Last 24 Hours (Table) 05/02/19 05/02/19 05/02/19 Range/Units 11:50 17:10 20:30 POC Glucose (mg/dL) 106 H 139 H 137 H (75-99) mg/dL 05/03/19 Range/Units 06:24 POC Glucose (mg/dL) 109 H (75-99) mg/dL Assessment and Plan Plan: Assessment: 1 acute right sided spontaneous pneumothorax, status post thoravent placement, and status post right-sided chest tube placement. Both have been removed. 2 acute on chronic hypoxic respiratory failure, multifactorial 3 acute exacerbation of COPD 4 chronic atrial fibrillation 5 history of hypertension 6 history of diverticulosis 7 generalized anxiety disorder 8 right humeral neck fracture secondary to fall, being followed conservatively by orthopedics. Plan: Continue current medical treatment, patient can finish outpatient course of antibiotics and prednisone taper, clinically doing well, no acute issues, increased ambulation, deep breathing and coughing, anticipate discharge to subacute rehab today I performed a history & physical examination of the patient and discussed their management with my nurse practitioner, Nellie Burns. I reviewed the nurse practitioner's note and agree with the documented findings and plan of care. Lung sounds are positive for clear breath sounds. The findings and the impression was discussed with the patient. I attest to the documentation by the nurse practitioner. Time with Patient: Less than 30
[2019-05-03 11:31] LABS: Glucose,Whole Blood 183 mg/dL (75-99)
[2019-05-03 11:45] VITALS: BP 108/51; RESP 20
[2019-05-03 11:53] VITALS: PULSE 84
--- NOTE | 2019-05-03 13:26 | P.DS ---
Providers Date of admission: 04/21/19 12:00 Expected date of discharge: 05/03/19 Attending physician: Mateus Malloy Consults: 04/21/19 11:59 Consult Physician Routine Consulting Provider: Herminia Mendoza Consult Reason/Comments: COPD exacerbation, pneumothorax, pneumonitis Do you want consulting provider notified?: Yes 04/21/19 13:45 Consult Physician Routine Consulting Provider: Cory Sandoval Consult Reason/Comments: Post pneumothorax evaluation Do you want consulting provider notified?: Yes 04/28/19 12:01 Consult Physician Routine Consulting Provider: Kwabena Oliva Consult Reason/Comments: Patient had fall with previously fractured humeral head Do you want consulting provider notified?: Already Contacted Primary care physician: [facility] Course: Hospital course: This is a 83-year-old patient who was recently discharged from my colleague Dr. Sexton on April 13. Patient was then admitted to the hospital with acute on chronic hypoxic respiratory failure and COPD exacerbation. Chronic stable medical conditions include paroxysmal atrial fibrillation on anticoagulation, fracture of the right humeral neck with a sling, anxiety, hypertension, colonic diverticulosis. [facility] Patient was noticing that with exertion she was getting easily getting short of breath and was desaturating. Patient was found to be large pneumothorax and a Thora-vent was placed. patient remained hypoxic patient is put on high flow oxygen-airvo. Otherwise patient appetite has been fair. No fever no chills. chest tube was inserted by Dr. Mendoza. It was connected to Pleur-evac. Chest tube discontinued on April 28. Patient is continued to do well. Today-. Breathing better. Stable. Tolerating diet. Ambulating to the bathroom. Consultation: Dr. Mendoza at all from pulmonary Dr. Lev Barron [facility] Physical examination: VITAL SIGNS: 97.6, 87, 20, 108/51, 90% on 4 L GENERAL: Sitting up in a chair, comfortable EYES: Pupils equal. Conjunctiva normal. HEENT: External appearance of nose and ears normal, oral cavity grossly normal. Air-vo in place NECK: JVD unable to assess; masses not palpable. HEART: First and second heart sounds are normal; minimal edema. LUNGS: Respiratory rate increased, decreased breath sounds. ABDOMEN: Soft, nontender, liver spleen not palpable, no masses palpable. PSYCH: Alert and oriented x3; mood and affect normal. MUSCULOSKELETAL: Evidence of OA. Right arm in a sling INVESTIGATIONS, reviewed in the clinical context: Accu-Cheks noted Previous investigations: White count 12.2 hemoglobin 9.7 creatinine 0.55 Chest x-ray film personally reviewed by me-large right-sided pneumothorax EKG tracing personally reviewed by me-shows atrial flutter fibrillation Discharge diagnosis: -Large right-sided spontaneous pneumothorax . Chest tube discontinued on April 28 -Acute on chronic hypoxic respiratory failure from COPD/pneumothorax -Persistent atrial fibrillation on anticoagulation -Acute COPD exacerbation in an ex-smoker -GERD -Essential hypertension -Primary osteoarthritis -Recent right humerus fracture, right arm and a sliding -Chronic urinary incontinence -left basal pneumonia-improving Disposition: [place]/F Patient Condition at Discharge: Stable Plan - Discharge Summary Discharge Rx Participant: No New Discharge Prescriptions: No Action amLODIPine [Norvasc] 5 mg PO DAILY@0800 Fluticasone/Salmeterol [Advair Hfa 115-21 Mcg Inhaler] 2 puff INHALATION RT- BID Fluticasone Nasal [place] [Flonase Nasal [place]] 1 spray EA NOSTRIL DAILY PRN PRN Reason: Allergy Symptoms Albuterol Inhaler [Ventolin Hfa Inhaler] 1 - 2 puff INHALATION RT-Q6H PRN PRN Reason: Shortness Of Breath Acetaminophen Tab [Tylenol] 650 mg PO Q4H PRN #12 tab PRN Reason: Fever And/ Or Pain Metoprolol Tartrate [Lopressor] 50 mg PO BID@0800,2100 Furosemide [Lasix] 20 mg PO SUTU Fexofenadine HCl 180 mg PO DAILY PRN PRN Reason: ALLERGIES predniSONE See Taper PO DIRECTED #15 tab clonazePAM [KlonoPIN] 0.5 mg PO TID PRN #9 tab PRN Reason: Anxiety Azithromycin [Zithromax] 500 mg PO ONCE PRN PRN Reason: LEUKOCYTOSIS Potassium Chloride ER [K-Dur 20] 20 meq PO ONCE PRN PRN Reason: LEUKOCYTOSIS Magnesium Hydroxide [Milk of Magnesia] 2,400 mg PO DAILY PRN PRN Reason: Constipation Furosemide [Lasix] 20 mg PO ONCE PRN PRN Reason: Edema Na Phos,M-B/Na Phos,Di-Ba [Fleet Adult] 133 ml RECTAL DAILY PRN PRN Reason: Constipation Bisacodyl [Dulcolax] 10 mg RECTAL DAILY PRN PRN Reason: Constipation Docusate [Colace] 100 mg PO DAILY PRN PRN Reason: Constipation Lactose-Reduced Food [Ensure Plus] 1 can PO TID guaiFENesin [Mucinex] 600 mg PO BID@0800,2100 Cholecalciferol [Vitamin D3] 800 unit PO DAILY@1700 Ipratropium-Albuterol Nebulize [Duoneb 0.5 mg-3 mg/3 ml Soln] 3 ml INHALATION RT-TID Apixaban [Eliquis] 2.5 mg PO BID@0800,1700 Discharge Medication List Fluticasone Nasal [place] [Flonase Nasal [place]] 1 spray EA NOSTRIL DAILY PRN 06/27/17 [History] Fluticasone/Salmeterol [Advair Hfa 115-21 Mcg Inhaler] 2 puff INHALATION RT-BID 06/27/17 [History] amLODIPine [Norvasc] 5 mg PO DAILY@0800 06/27/17 [History] Albuterol Inhaler [Ventolin Hfa Inhaler] 1 - 2 puff INHALATION RT-Q6H PRN 03/23/18 [History] Acetaminophen Tab [Tylenol] 650 mg PO Q4H PRN #12 tab 03/24/19 [Rx] Fexofenadine HCl 180 mg PO DAILY PRN 04/11/19 [History] Furosemide [Lasix] 20 mg PO SUTU 04/11/19 [History] Metoprolol Tartrate [Lopressor] 50 mg PO BID@0800,2100 04/11/19 [History] clonazePAM [KlonoPIN] 0.5 mg PO TID PRN #9 tab 04/13/19 [Rx] predniSONE See Taper PO DIRECTED #15 tab 04/13/19 [Rx] Apixaban [Eliquis] 2.5 mg PO BID@0800,1700 04/21/19 [History] Azithromycin [Zithromax] 500 mg PO ONCE PRN 04/21/19 [History] Bisacodyl [Dulcolax] 10 mg RECTAL DAILY PRN 04/21/19 [History] Cholecalciferol [Vitamin D3] 800 unit PO DAILY@1700 04/21/19 [History] Docusate [Colace] 100 mg PO DAILY PRN 04/21/19 [History] Furosemide [Lasix] 20 mg PO ONCE PRN 04/21/19 [History] Ipratropium-Albuterol Nebulize [Duoneb 0.5 mg-3 mg/3 ml Soln] 3 ml INHALATION RT-TID 04/21/19 [History] Lactose-Reduced Food [Ensure Plus] 1 can PO TID 04/21/19 [History] Magnesium Hydroxide [Milk of Magnesia] 2,400 mg PO DAILY PRN 04/21/19 [History] Na Phos,M-B/Na Phos,Di-Ba [Fleet Adult] 133 ml RECTAL DAILY PRN 04/21/19 [History] Potassium Chloride ER [K-Dur 20] 20 meq PO ONCE PRN 04/21/19 [History] guaiFENesin [Mucinex] 600 mg PO BID@0800,2100 04/21/19 [History] Follow up Appointment(s)/Referral(s): Kristopher Hamilton, PAC [PHYSICIAN ROLL FORMING MACHINE SET UP OPERATOR] - 1 Week Dipesh Bullard DO [Primary Care Provider] - 1-2 days Ricky Rubi [NON-STAFF] - 1 Week Activity/Diet/Wound Care/Special Instructions: Sling to RUE Non weightbearing RUE
== END 2019-05-03 15:08 | DRG 199 ==
LOC: EC 08:54 → 3SCARD 12:00 → 2SICU 22:50 → 3SCARD 04-29 21:18
PROVIDERS: ADMIT Hospitalist; ATTEND Hospitalist
PROC: 0W9930Z Drainage of Right Pleural Cavity with Drainage Device, Percutaneous Approach (ICD-10-PCS; principal; 2019-04-21)
DX: J93.11 Primary spontaneous pneumothorax (principal); J18.9 Pneumonia, unspecified organism; J96.21 Acute and chronic respiratory failure with hypoxia; I48.92 Unspecified atrial flutter; J44.1 Chronic obstructive pulmonary disease with (acute) exacerbation; J44.0 Chronic obstructive pulmonary disease with (acute) lower respiratory infection; I48.19 Other persistent atrial fibrillation; E83.42 Hypomagnesemia; F41.1 Generalized anxiety disorder; I10 Essential (primary) hypertension; J93.82 Other air leak; K21.9 Gastro-esophageal reflux disease without esophagitis; K57.30 Diverticulosis of large intestine without perforation or abscess without bleeding; R32 Unspecified urinary incontinence; S42.211D Unspecified displaced fracture of surgical neck of right humerus, subsequent encounter for fracture with routine healing; W19.XXXD Unspecified fall, subsequent encounter; Z91.81 History of falling; Z79.01 Long term (current) use of anticoagulants; Z79.51 Long term (current) use of inhaled steroids; Z79.899 Other long term (current) drug therapy; Z80.0 Family history of malignant neoplasm of digestive organs; Z82.49 Family history of ischemic heart disease and other diseases of the circulatory system; Z87.891 Personal history of nicotine dependence; Z90.710 Acquired absence of both cervix and uterus; Z98.42 Cataract extraction status, left eye; Z98.41 Cataract extraction status, right eye; Z96.1 Presence of intraocular lens; Z99.81 Dependence on supplemental oxygen; Z88.1 Allergy status to other antibiotic agents; Z88.0 Allergy status to penicillin; Z88.2 Allergy status to sulfonamides; Z88.8 Allergy status to other drugs, medicaments and biological substances; Z87.01 Personal history of pneumonia (recurrent); Z83.2 Family history of diseases of the blood and blood-forming organs and certain disorders involving the immune mechanism; Z87.440 Personal history of urinary (tract) infections; M19.042 Primary osteoarthritis, left hand; M19.041 Primary osteoarthritis, right hand
CPT/HCPCS: 32551; 36415; 36600; 71045; 80048; 80053; 82550; 82805; 83735; 83880; 84100; 84484; 85025; 85027; 85610; 85730; 87040; 87502; 93005; 94640; 94760; 96361; 96365; 96367; 96375; 99291